=== PATIENT | female | born 1955 | race Caucasian/White ===

== ENCOUNTER 2020-02-26 09:56 | Outpatient (REF) | payer MEDICARE, SELFPAY | END 2020-02-26 09:57 | disposition home or self-care (01) | LOC: HO.LAB 09:56 | PROVIDERS: PCP Internal Medicine Geriatric Medicine; Visit Provider Internal Medicine | DX: Z20.828 Contact with and (suspected) exposure to other viral communicable diseases (principal) | CPT/HCPCS: C9803; U0003 ==

== ENCOUNTER 2020-03-31 10:05 | Outpatient (REF) | payer MEDICARE, MEDICAID, SELFPAY | END 2020-03-31 10:06 | disposition home or self-care (01) | LOC: HO.LAB 10:05 | PROVIDERS: Visit Provider Internal Medicine | DX: Z20.822 Contact with and (suspected) exposure to COVID-19 (principal) | CPT/HCPCS: 36415; C9803; U0003 ==

== ENCOUNTER 2020-05-09 10:04 | Outpatient (REF) | payer MEDICARE, MEDICAID, OTHER, SELFPAY | END 2020-05-09 10:05 | disposition home or self-care (01) | LOC: HO.LAB 10:04 | PROVIDERS: Visit Provider Internal Medicine | DX: Z20.822 Contact with and (suspected) exposure to COVID-19 (principal) | CPT/HCPCS: 36415; C9803; U0003; U0005 ==

== ENCOUNTER 2020-05-10 12:17 | Emergency (ER) | payer MEDICARE, OTHER, SELFPAY ==
--- NOTE | ~2020-05-10 | XR_ITS ---
EXAMINATION: CHEST 2 VIEWS CLINICAL INFORMATION: Cough, fever. COMPARISON: March 25, 2018. TECHNIQUE: PA and lateral views of the chest were obtained. FINDINGS: The cardiac silhouette is not enlarged. The mediastinal and hilar contours are unremarkable. There are no pneumothoraces. There is a mixture of pleural and parenchymal opacification at the left lung base. The osseous structures are stable with evidence of prior vertebroplasty. XR/XR chest 2V IMPRESSION: Mixture of pleural and parenchymal opacification at the left lung base. An underlying pneumonia cannot be excluded. Recommendation is for a followup chest series to be obtained following treatment and/or resolution of symptoms to assure resolution of this appearance.
[2020-05-10 12:56] VITALS: BP 148/89; PULSE 98; RESP 20; TEMP 36.7; O2SAT 95; BMI 38.9
--- NOTE | 2020-05-10 13:04 | ED_ITS ---
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 No shortness of breath, chest pain, abdominal pain, vomiting, diarrhea, leg pain or swelling. Has been at home with the same symptoms. Tested negative for COVID this week. Related Data Previous Rx's Medication Instructions Recorded azithromycin See Rx Instructions .ROUTE 05/10/20 .COMPLEX #6 tab Allergies Allergy/AdvReac Type Severity Reaction Status Date / Time codeine [CODEINE] Allergy Intermediate LT FACIAL Unverified 11/29/19 15:47 NUMBNESS Codeine Phosphate Allergy Unknown Uncoded 01/26/19 00:00 Review of Systems Review of Systems: Yes all other systems are reviewed and are negative Constitutional: Constitutional: Reports no additional constitutional complaints, Denies body ache(s), Denies chills, Reports fever(s), Denies headache(s) and Denies weakness Eyes: Eyes: Reports no additional eye complaints and Denies change in vision ENT: Reports system reviewed and no additional complaints, except as documented, Denies dizziness, Denies headache(s), Denies nasal congestion, Denies nasal discharge and Denies neck pain Cardiovascular: Cardiovascular: Reports no additional cardiovascular complaints, Denies chest pain, Denies leg edema and Denies dyspnea Respiratory: Respiratory: Reports no additional respiratory complaints, Reports cough and Denies dyspnea Gastrointestinal: Gastrointestinal: Reports no additional gastrointestinal complaints, Denies abdominal pain, Denies diarrhea, Denies nausea and Denies vomiting Genitourinary: Genitourinary: Reports no additional female genitourinary complaints and Denies urinary incontinence Musculoskeletal: Musculoskeletal: Reports no additional musculoskeletal complaints, Denies back pain, Denies arthralgias, Denies joint swelling, Denies neck pain, Denies numbness and Denies tingling Integumentary/Breasts: Skin/Breast: Reports system reviewed and no additional complaints, except as docu and Denies rash Neurologic: Reports system reviewed and no additional complaints, except as documented, Denies Abnormal speech present, Denies dizziness, Denies headache(s), Denies numbness, Denies tingling and Denies weakness [facility] Past Medical History Attestation statement: The following information was validated with the patient. Source: old records reviewed and nursing notes reviewed Medical History Asthma Social History Social History Smoking Status: Never smoker Use of substances other than those prescribed or required for medical reasons: No Advance Directives: No Advance Directives Information Provided: No Physical Exam Vital Signs: Vital Signs: Last Vital Signs Temp 98.8 F 05/10/20 16:51 Pulse 94 05/10/20 16:51 Resp 18 05/10/20 16:51 BP 118/72 05/10/20 16:51 Pulse Ox 95 05/10/20 16:51 Body Mass Index 38.9 Const: General: cooperative, healthy appearing, comfortable and no acute distress Orientation/consciousness: patient oriented x3 Limitations: no li mitations HENMT: Head: Yes normal to inspection Ears: hearing grossly normal bilaterally General nose exam: Normal external nose present Face and sinus: Yes normal facial exam Mouth: Normal oral and palatal mucosa present Throat: Yes posterior oropharynx normal Eyes: General: appearance normal, both eyes and all related structures Pupils: Equal, round and reactive pupils present Neck: Neck: Yes normal visual inspection Chest: Chest palpation & inspection: normal inspection of the chest Resp: Effort & Inspection: normal respiratory effort Auscultation: clear to auscultation bilaterally Cardio: Rate: regular rate Rhythm: regular rhythm Peripheral pulses: Peripheral pulses 2+ throughout GI: Inspection: Yes normal to inspection Palpation (GI): Soft to palpation and nontender Auscultation: normal bowel sounds Back/Spine/Pelvis: Thoracic/Lumbar Spine: thoracic and lumbar spine normal to inspection Skin: General skin exam: no rashes or lesions noted Neuro: General: patient oriented x3, no focal motor deficits and normal sensation to monofilament Cranial nerves: Yes Equal, round and reactive pupils present Cognition (Neuro): normal cognition Speech: No Abnormal speech present Gait exam (Neuro): Normal gait present Motor exam (neuro): 5/5 motor strength present throughout Extrem: General: Yes normal to inspection, Yes no pedal edema and Yes no calf tenderness Course Course Course Narrative: 64-year-old female with a past medical history of asthma here with complaints of subjective fevers and cough x1 month. Has been at home with same symptoms. Tested negative for COVID this week. Patient is well appearing, stable vital signs, clear lung sounds. Will check chest x-ray . 1430-CXR c/w with LLL PNA. Stable saturations, well appearing with no hypoxia and LS CTA. Will treal with oral antibiotics. Reviewed worrisome signs and symptoms when to return to the emergency department. Comfortable discharge home. MDM - URI/Sore Throat Medical Records Attestation: I reviewed the patient's medical records. Lab Data Attestation: I reviewed the patient's lab results. Imaging Data Chest x-ray: Attestation: I personally reviewed and interpreted this imaging study as follows: Radiologist's impression: EXAMINATION: CHEST 2 VIEWS CLINICAL INFORMATION: Cough, fever. COMPARISON: March 25, 2018. TECHNIQUE: PA and lateral views of the chest were obtained. FINDINGS: The cardiac silhouette is not enlarged. The mediastinal and hilar contours are unremarkable. There are no pneumothoraces. There is a mixture of pleural and parenchymal opacification at the left lung base. The osseous structures are stable with evidence of prior vertebroplasty. XR/XR chest 2V IMPRESSION: Mixture of pleural and parenchymal opacification at the left lung base. An underlying pneumonia cannot be excluded. Recommendation is for a followup chest series to be obtained following treatment and/or resolution of symptoms to assure resolution of this appearance. Discharge Plan Discharge Clinical Impression: Pneumonia Qualifiers: Pneumonia type: due to unspecified organism Laterality: left Lung location: lower lobe of lung Qualified Code(s): J18.9 - Pneumonia, unspecified organism Patient Disposition: Home, Self-Care Instructions: Community Acquired Pneumonia (ED) Additional Instructions: Start your antibiotics today Take Motrin or Tylenol if able as needed for pain or fever Increase fluids rest Prescriptions: New azithromycin 250 mg tablet See Rx Instructions .ROUTE .COMPLEX Qty: 6 RF: 0 Referrals: Name,MD Garth [Primary Care Provider] - 2 days Interventions: ED Discharge Assessment Last Done: 05/10/20 17:28 Print Language: Sudanese
[2020-05-10 14:23] VITALS: BP 131/74; PULSE 92; RESP 18; O2SAT 95
[2020-05-10 16:51] VITALS: BP 118/72; PULSE 94; RESP 18; TEMP 37.1; O2SAT 95
== END 2020-05-10 17:28 | disposition home or self-care (01) ==
PROVIDERS: Emergency Provider Emergency Medicine Emergency Medical Services; PCP Internal Medicine Geriatric Medicine
DX: J18.9 Pneumonia, unspecified organism (principal); R50.9 Fever, unspecified; J45.909 Unspecified asthma, uncomplicated
CPT/HCPCS: 71046; 99283; 99284

== ENCOUNTER 2020-07-03 08:14 | Outpatient (REF) | payer MEDICARE, OTHER, SELFPAY ==
--- NOTE | ~2020-07-03 | XR_ITS ---
EXAMINATION: XR CHEST CLINICAL INFORMATION: Dyspnea COMPARISON: Chest radiographs 05/10/2020, 02/27/2018; CT chest 07/25/2017; chest radiographs 03/21/2017 TECHNIQUE: 2 views of the chest were obtained. FINDINGS: There are chronic changes left base with mild elevation diaphragm and associated atelectasis similar to prior studies dating back to 07/25/2017. There is fine linear density right midlung zone also stable, the heart is normal in size. The vascularity is normal. There is no vascular congestion, interval airspace consolidation, or effusion. There is been prior vertebral augmentation lower thoracic spine. XR/XR chest 2V IMPRESSION: Chronic changes left base similar to prior studies dating back to 2017. No acute intrathoracic disease.
== END 2020-07-03 08:15 | disposition home or self-care (01) ==
LOC: HO.XRAY 08:14
PROVIDERS: PCP Internal Medicine Geriatric Medicine; Visit Provider Internal Medicine Geriatric Medicine
DX: R06.00 Dyspnea, unspecified (principal); Z86.79 Personal history of other diseases of the circulatory system
CPT/HCPCS: 71046

== ENCOUNTER → 2020-07-14 07:30 | Outpatient (REF) | payer MEDICARE, OTHER, SELFPAY | LOC: HO.CARD 07:30 | PROVIDERS: PCP Internal Medicine Geriatric Medicine; Visit Provider Internal Medicine Geriatric Medicine | DX: Z13.89 Encounter for screening for other disorder (principal) ==

== ENCOUNTER 2020-07-21 12:36 | Outpatient (REF) | payer MEDICARE, OTHER, SELFPAY ==
--- NOTE | 2020-07-21 | PFT_ITS ---
FLOWS: FEV1 50% of predicted at 1.19 L. FVC 47% of predicted at 1.42 L. FEV1 to FVC ratio of 0.84. No bronchodilator response. LUNG VOLUMES: Total lung capacity 58% of predicted at 2.88 L. Residual volume 73% of predicted at 1.49 L. Slow vital capacity 48% of predicted at 1.39 L. Expiratory reserve volume 24% of predicted at 0.19 L. Diffusion capacity is mildly decreased, diffusion capacity corrects to normal after adjustment for alveolar ventilation. IMPRESSION: Moderate to severe restrictive ventilatory defect with no bronchodilator response. Decreased expiratory reserve volume suggests extrathoracic restriction likely secondary to abdominal obesity. Jb Gonzales MD AP/MODL / [id number]
== END 2020-07-21 12:37 | disposition home or self-care (01) ==
LOC: HO.RESP 12:36
PROVIDERS: PCP Internal Medicine Geriatric Medicine; Visit Provider Internal Medicine Geriatric Medicine
DX: R06.00 Dyspnea, unspecified (principal); Z86.79 Personal history of other diseases of the circulatory system
CPT/HCPCS: 94060; 94727; 94729

== ENCOUNTER → 2020-09-03 09:16 | Outpatient (REF) | payer MEDICARE, OTHER, SELFPAY ==
--- NOTE | 2020-09-03 09:22 | CA_ITS ---
Transthoracic Echocardiogram Patient (Last, First, Middle): Evelia Holm, Gender: Female Date of : 1955 Age: 64 Procedure Date: 09/03/2020 Procedure Type: Transthoracic Echocardiogram Location: OP Height: 160.02 cm Weight: 102.97 kg BSA: 2.04 m2 Heart Rate: bpm BP: 122 / 70 mmHg Concrete Float Maker: LALA Referring MD: Garth Brock MD Kitchen Help Handyman: Serafin Alvarez MD Symptoms: DYSPNEA, UNSPECIFIED Study Quality: Fair ECG Rhythm: Sinus Conclusions: - 1. Normal LV systolic function with grade 1 diastolic dysfunction 2. Normal cardiac valvular Doppler 3. Normal RV systolic pressure 4. No pericardial effusion Findings Procedure Information The patient receives contrast. Left Ventricle Normal left ventricular size, thickness, and systolic function. The visually estimated ejection fraction is between 60-65%. There is no evidence of regional wall motion abnormalities. Spectral Doppler is indicative of an impaired relaxation filling pattern. E/E prime ratio is <8, consistent with normal filling pressures. Evidence suggests grade I (mild) diastolic dysfunction. Right Ventricle Normal right ventricular cavity size and systolic function. Atria The left atrium is likely dilated. Interatrial shunt cannot be excluded. The right atrium was not well visualized. Aortic Valve Normal aortic valve structure and function. There is no aortic valve stenosis. There is no aortic valve regurgitation. Mitral Valve Normal mitral valve structure and function. There is trace mitral valve regurgitation. There is no mitral valve stenosis. Pulmonic Valve The pulmonic valve was not well visualized. There is trace to mild pulmonic valve regurgitation. Tricuspid Valve Likely normal tricuspid valve structure and function. There is trace tricuspid valve regurgitation. The right ventricular systolic pressure is normal. The right ventricular systolic pressure is 27 mmHg. Normal right atrial pressure. There is no evidence of pulmonary hypertension. Great Vessels All visible segments of the aorta are normal in size. The pulmonary artery was not well visualized. Venous The inferior vena cava is normal in size and collapses greater than 50% with inspiration. Pericardium/Pleural There is no evidence of pericardial effusion. Prior Study Comparison No significant change compared to prior study dated: 05/30/2018. Measurements 2D Linear Measurements RVIDd: 2.93 RVIDd Index: 1.44 IVSd: 1.05 0.6-0.9/0.6-1.0 cm LVIDd: 4.74 3.9-5.3/4.2-5.9 cm LVIDd Index: 2.32 2.4-3.2/2.2-3.1 cm/m2 LVIDs: 2.87 2.0-3.6 cm LVPWd: 0.87 0.7-1.1 cm Ao Root: 3.10 2.1-3.5 cm LA Diam: 4.20 2.7-3.8/3.0-4.0 cm LAIDs Index: 2.06 1.5-2.3 cm/m2 LV Mass: 196.33 67-162/88-224 g LV Mass Index: 96.24 43-95/49-115 g/m2 LVOT Diam: 2.40 3.0+(-)1.3 cm 2D Systolic Function EF 4C: 60.50 >55% EF 2C: 61.70 >55% Mitral Valve MV Pk E: 0.71 MV PK A: 0.93 MV Decel Time: 262.00 E/A: 0.80 E'Lateral: 8.59 E'Medial: 5.77 E/E' Med: 12.30 E/E' Lat: 8.20 Aortic Valve AoV Pk Michael: 1.35 AoV Mn Michael: 0.92 AoV VTI: 0.29 AoV Pk Grad: 7.00 Aov Mn Grad: 4.00 CHLOÉ Cont.VTI: 3.74 LVOT LVOT Pk Michael: 0.95 LVOT Mn Michael: 0.62 LVOT VTI: 0.24 LVOT Pk Grad: 4.00 LVOT Mn Grad: 2.00 LVOT Diam: 2.40 LVOT Area: 4.52 Diastolic Function MV Pk E: 0.71 MV Pk A: 0.93 E/A: 0.80 E'Medial: 5.77 E/E' Med: 12.30 E' Laterial: 8.59 E/E' Lat: 8.20 Tricuspid Valve TR Pk Michael: 2.43 TR Pk Grad: 24.00 RA Press: 3.00 RVSP: 27.00 Great Vessels Aorta Ao Root-2D: 3.10 2.0-3.7 cm Ao Asc: 3.90 2.1-3.4 cm Ao Arch: 3.00 Updated in Other Vendor System with Status of Final Serafin Alvarez MD electronically signed on 09/03/2020 4:07:39 PM with status of Final
== END ==
LOC: HO.CARD 09:16
PROVIDERS: PCP Internal Medicine Geriatric Medicine; Visit Provider Internal Medicine Geriatric Medicine
DX: R06.00 Dyspnea, unspecified (principal); Z86.79 Personal history of other diseases of the circulatory system
CPT/HCPCS: 93306; Q9957

== ENCOUNTER 2020-10-01 11:18 | Outpatient (REF) | payer MEDICARE, OTHER, SELFPAY ==
--- NOTE | ~2020-10-01 | US_ITS ---
EXAMINATION: PELVIC ULTRASOUND CLINICAL INFORMATION: Postmenopausal bleeding COMPARISON: Previous pelvic ultrasound recent December [address] of the abdomen and pelvis March 2017 TECHNIQUE: Transabdominal and transvaginal pelvic ultrasound was performed. Transvaginal exam was performed for better visualization of the uterus and ovaries. FINDINGS: The uterus is anteverted and measures 6.5 x 3.4 x 3.8 cm in dimension. No focal uterine lesion is seen. The endometrium in slightly thickened for postmenopausal patient measuring 0.8 cm. There is a nabothian cyst in the cervix. The right ovary is not seen. The left ovary is normal-appearing and measures 1.9 x 1.7 x 1.6 cm. There is no fluid in the pelvis. US/US pelvic and transvaginal IMPRESSION: Slightly thickened endometrium measuring 0.8 cm. Tissue sampling should be considered. Normal-appearing left ovary. Right ovary not seen.
== END 2020-10-01 11:19 | disposition home or self-care (01) ==
LOC: HO.US 11:18
PROVIDERS: Visit Provider Advanced Practice Midwife
DX: N95.0 Postmenopausal bleeding (principal)
CPT/HCPCS: 76830; 76856

== ENCOUNTER → 2020-10-09 10:04 | Outpatient (BNVA) | payer MEDICARE, OTHER, SELFPAY | PROVIDERS: PCP Internal Medicine Geriatric Medicine; Visit Provider Anesthesiology | DX: M25.50 Pain in unspecified joint (principal); M79.7 Fibromyalgia; M54.2 Cervicalgia | CPT/HCPCS: 99212 ==

== ENCOUNTER 2020-10-23 15:23 | Outpatient (REF) | payer MEDICARE, OTHER, SELFPAY ==
--- NOTE | ~2020-10-23 | MM_ITS ---
EXAMINATION: MM SCREENING DIGITAL BREAST TOMOSYNTHESIS, BILATERAL CLINICAL INFORMATION: Screening. Asymptomatic. The lifetime risk of breast cancer based on the Tyrer-Cuzick Model is 5%. COMPARISON: Mammography: 12/14/2018, 11/22/2017, 03/26/2016 TECHNIQUE: Digital breast tomosynthesis is performed in both the craniocaudal and mediolateral oblique views along with computer-aided detection (CAD). Synthesized 2D images are generated from the tomosynthesis. Additional right MLO view is provided. FINDINGS: There are scattered areas of fibroglandular density (ACR BI-RADS breast composition Category b). There are no significant masses, abnormal calcifications, or other abnormalities. Parenchymal pattern is similar to prior studies. The axilla and skin contours are unremarkable. MM/MM tomosynthesis screening BI IMPRESSION: No mammographic evidence of malignancy. ASSESSMENT: BI-RADS 1: Negative RECOMMENDATION: Routine annual mammography screening. This patient's information was entered into a reminder system with a target due date for their next mammogram.
== END 2020-10-23 15:24 | disposition home or self-care (01) ==
LOC: HO.MAMMO 15:23
PROVIDERS: Visit Provider Advanced Practice Midwife
DX: Z12.31 Encounter for screening mammogram for malignant neoplasm of breast (principal)
CPT/HCPCS: 77063; 77067

== ENCOUNTER 2020-11-28 13:40 | Outpatient (REF) | payer MEDICARE, OTHER, SELFPAY ==
--- NOTE | ~2020-11-28 | XR_ITS ---
EXAMINATION: XR THORACIC SPINE CLINICAL INFORMATION: Thoracic spine pain. COMPARISON: Thoracic and lumbar spine radiographs dated 04/11/2019. TECHNIQUE: AP and lateral views of the thoracic spine. FINDINGS: Redemonstration of a T9 vertebroplasty. No acute fracture or subluxation. No new loss of vertebral body height. Mild multilevel loss of intervertebral disc height with small endplate osteophytes. No new lytic or blastic osseous lesion. The visualized lungs are clear. XR/XR thoracic spine 2V IMPRESSION: Stable T9 vertebroplasty. No acute osseous abnormality.
== END 2020-11-28 13:41 | disposition home or self-care (01) ==
LOC: HO.XRAY 13:40
PROVIDERS: PCP Internal Medicine Geriatric Medicine; Visit Provider Internal Medicine Geriatric Medicine
DX: M54.6 Pain in thoracic spine (principal)
CPT/HCPCS: 72070

== ENCOUNTER 2020-11-28 14:41 | Outpatient (REF) | payer MEDICARE, OTHER, SELFPAY | END 2020-11-28 14:42 | disposition home or self-care (01) | LOC: HO.LAB 14:41 | PROVIDERS: Visit Provider Internal Medicine | DX: Z20.822 Contact with and (suspected) exposure to COVID-19 (principal) | CPT/HCPCS: C9803; U0003; U0005 ==

== ENCOUNTER 2021-10-26 14:18 | Outpatient (REF) | payer MEDICARE, OTHER, SELFPAY ==
--- NOTE | ~2021-10-26 | MM_ITS ---
EXAMINATION: MM SCREENING DIGITAL BREAST TOMOSYNTHESIS, BILATERAL CLINICAL INFORMATION: Screening. Asymptomatic. The lifetime risk of breast cancer based on the Tyrer-Cuzick Model is 5%. COMPARISON: Mammography: 10/23/2020, 12/14/2018, 11/22/2017 TECHNIQUE: Digital breast tomosynthesis is performed in both the craniocaudal and mediolateral oblique views along with computer-aided detection (CAD). Synthesized 2D images are generated from the tomosynthesis. FINDINGS: There are scattered areas of fibroglandular density (ACR BI-RADS breast composition Category b). There are no significant masses, abnormal calcifications, or other abnormalities. No significant changes from prior studies. The axilla and skin contours are unremarkable. MM/MM tomosynthesis screening BI IMPRESSION: No mammographic evidence of malignancy. ASSESSMENT: BI-RADS 1: Negative RECOMMENDATION: Routine annual mammography screening. This patient's information was entered into a reminder system with a target due date for their next mammogram.
== END 2021-10-26 14:19 | disposition home or self-care (01) ==
LOC: HO.MAMMO 14:18
PROVIDERS: PCP Internal Medicine Geriatric Medicine; Visit Provider Advanced Practice Midwife
DX: Z12.31 Encounter for screening mammogram for malignant neoplasm of breast (principal)
CPT/HCPCS: 77063; 77067

== ENCOUNTER → 2022-10-22 09:42 | Outpatient (REF) | payer MEDICARE, MEDICAID, SELFPAY ==
--- NOTE | 2022-10-22 09:45 | CA_ITS ---
Transthoracic Echocardiogram Patient (Last, First, Middle): Evelia Holm, Gender: Female Date of : 1955 Age: 66 Procedure Date: 10/22/2022 Procedure Type: Transthoracic Echocardiogram Location: OP Height: 160.02 cm Weight: 85.73 kg BSA: 1.89 m2 Heart Rate: bpm BP: 130 / 78 mmHg Dentist: TO Referring MD: Garth Brock MD Symptoms: HX PERICARDITIS Z86.79 Study Quality: Fair/Contrast Conclusions: - Normal left ventricular size and systolic function. There is mildly increased left ventricular wall thickness. The visually estimated ejection fraction is between 60-65%. There is no evidence of regional wall motion abnormalities. Diastolic function is normal for age. - Normal right ventricular cavity size and systolic function. - There is mild dilatation of the ascending aorta measuring 3.80 cm. Findings Procedure Information Contrast agent, definity, is being given per protocol without apparent complications. Left Ventricle Normal left ventricular size and systolic function. There is mildly increased left ventricular wall thickness. The visually estimated ejection fraction is between 60-65%. There is no evidence of regional wall motion abnormalities. Diastolic function is normal for age. Right Ventricle Normal right ventricular cavity size and systolic function. Atria The left atrium is normal in size. The right atrium is normal in size. Aortic Valve Normal aortic valve structure and function. There is no aortic valve stenosis. There is no aortic valve regurgitation. Mitral Valve The mitral valve appears normal. There is trace mitral valve regurgitation. There is no mitral valve stenosis. Pulmonic Valve The pulmonic valve is likely normal. There is no pulmonic valve regurgitation. Tricuspid Valve Normal tricuspid valve structure. There is trace tricuspid valve regurgitation. Normal right atrial pressure. There is no evidence of pulmonary hypertension. Great Vessels There is mild dilatation of the ascending aorta measuring 3.80 cm. The visualized portions of the pulmonary artery and branches are normal. Venous The inferior vena cava is normal in size and collapses greater than 50% with inspiration. Pericardium/Pleural There is no evidence of pericardial effusion. Prior Study Comparison Changes noted compared to prior study dated: 09/03/2020. Mild dilation of ascending aorta 3.8 cm. Measurements 2D Linear Measurements IVSd: 0.98 0.6-0.9/0.6-1.0 cm LVIDd: 4.53 3.9-5.3/4.2-5.9 cm LVIDd Index: 2.40 2.4-3.2/2.2-3.1 cm/m2 LVIDs: 2.98 2.0-3.6 cm LVPWd: 0.86 0.7-1.1 cm LA Diam: 3.60 2.7-3.8/3.0-4.0 cm LAIDs Index: 1.90 1.5-2.3 cm/m2 LV Mass: 172.14 67-162/88-224 g LV Mass Index: 91.08 43-95/49-115 g/m2 LVOT Diam: 2.10 3.0+(-)1.3 cm 2D Systolic Function EF 4C: 62.30 >55% EF 2C: 62.90 >55% EF BiP: 63.20 >55% Mitral Valve MV Pk E: 0.69 MV PK A: 0.67 MV Decel Time: 207.00 E/A: 1.00 E'Lateral: 8.92 E'Medial: 6.42 E/E' Med: 10.80 E/E' Lat: 7.80 PHT: 61.00 MVA PHT: 3.61 Decel [place]: 3.35 Aortic Valve AoV Pk Michael: 1.35 AoV Mn Michael: 0.83 AoV VTI: 0.30 AoV Pk Grad: 7.00 Aov Mn Grad: 3.00 CHLOÉ Cont.VTI: 2.15 LVOT LVOT Pk Michael: 0.71 LVOT Mn Michael: 0.44 LVOT VTI: 0.18 LVOT Pk Grad: 2.00 LVOT Mn Grad: 1.00 LVOT Diam: 2.10 LVOT Area: 3.46 Diastolic Function MV Pk E: 0.69 MV Pk A: 0.67 E/A: 1.00 E'Medial: 6.42 E/E' Med: 10.80 E' Laterial: 8.92 E/E' Lat: 7.80 Right Ventricle TAPSE (mm): 20.80 TVS' Michael: 11.90 Tricuspid Valve TR Pk Michael: 2.55 TR Pk Grad: 26.00 RA Press: 3.00 RVSP: 29.00 Great Vessels Aorta Sinus of Valsalva: 3.43 2.0-3.5 cm Ao Asc: 3.80 2.1-3.4 cm Updated in Other Vendor System with Status of Final Chris Mead MD electronically signed on 10/24/2022 7:02:36 PM with status of Final
== END ==
LOC: HO.CARD 09:42
PROVIDERS: PCP Internal Medicine Geriatric Medicine; Visit Provider Internal Medicine Geriatric Medicine
DX: R07.9 Chest pain, unspecified (principal); Z86.79 Personal history of other diseases of the circulatory system
CPT/HCPCS: 93306; Q9957

== ENCOUNTER → 2022-10-22 09:45 | Outpatient (BNV) | payer MEDICARE, SELFPAY | PROVIDERS: PCP Internal Medicine Geriatric Medicine; Visit Provider Internal Medicine Cardiovascular Disease | DX: I77.810 Thoracic aortic ectasia (principal) | CPT/HCPCS: 93306 ==

== ENCOUNTER 2022-10-27 09:57 | Outpatient (REF) | payer MEDICARE, OTHER, SELFPAY | END 2022-10-27 09:58 | disposition home or self-care (01) | LOC: HO.MAMMO 09:57 | PROVIDERS: PCP Internal Medicine Geriatric Medicine; Visit Provider Advanced Practice Midwife | DX: Z12.31 Encounter for screening mammogram for malignant neoplasm of breast (principal) | CPT/HCPCS: 77063; 77067 ==

== ENCOUNTER → 2022-10-27 14:45 | Outpatient (BNV) | payer MEDICARE, MEDICAID, SELFPAY | PROVIDERS: PCP Internal Medicine Geriatric Medicine; Visit Provider Radiology Diagnostic Radiology | DX: Z12.31 Encounter for screening mammogram for malignant neoplasm of breast (principal) | CPT/HCPCS: 77063; 77067 ==

== ENCOUNTER 2022-11-16 10:37 | Outpatient (REF) | payer MEDICARE, MEDICAID, SELFPAY ==
--- NOTE | ~2022-11-16 | XR_ITS ---
EXAMINATION: XR SHOULDER, LEFT CLINICAL INFORMATION: Chronic pain COMPARISON: None available. TECHNIQUE: 4 views of the left shoulder. FINDINGS: Visualized portion of the proximal left humerus demonstrate no fracture. Humeral head demonstrates good articulation with the glenoid fossa. There are moderate hypertrophic changes of the left acromioclavicular joint. Small soft tissue calcifications are present adjacent to the greater tuberosity of the humerus. Visualized left-sided ribs and lung parenchyma are unremarkable. XR/XR shoulder LT min 2V IMPRESSION: Mild degenerative changes of the left shoulder without fracture or dislocation.
== END 2022-11-16 10:38 | disposition home or self-care (01) ==
LOC: HO.HHCX 10:37
PROVIDERS: Visit Provider Internal Medicine
DX: M25.512 Pain in left shoulder (principal)
CPT/HCPCS: 73030

== ENCOUNTER 2022-12-27 08:11 | Outpatient (REF) | payer OTHER, SELFPAY ==
[2022-12-27 11:49] LABS: Estimated Average Glucose 108 mg/dL; Hemoglobin A1c % 5.4 % (<6.0)
[2022-12-27 12:14] LABS: Alanine Aminotransferase 10 U/L (0-31); Albumin Level 4.3 g/dL (3.5-5.0); Alkaline Phosphatase 97 U/L (39-117); Anion Gap 15 (12-20); Aspartate Amino Transferase 18 U/L (5-31); Bilirubin Total 0.7 mg/dL (0.0-1.0); Blood Urea Nitrogen 13 mg/dL (9-16); Calcium 9.8 mg/dL (8.4-10.2); Carbon Dioxide 29 mmol/L (22-29); Chloride 103 mmol/L (96-108); Cholesterol 209 mg/dL (<200); Estimated Glomerular Filt Rate > 60; Glucose Random 87 mg/dL (60-115); HDL Cholesterol 66 mg/dL (>40); LDL Cholesterol Calculated 124 mg/dL (<100); Potassium 3.9 mmol/L (3.3-5.1); Sodium 143 mmol/L (135-145); Triglycerides 95 mg/dL (<150)
== END 2022-12-27 08:12 | disposition home or self-care (01) ==
LOC: HO.HHCL 08:11
PROVIDERS: Visit Provider Internal Medicine Geriatric Medicine
DX: R73.03 Prediabetes (principal); I10 Essential (primary) hypertension; R07.9 Chest pain, unspecified
CPT/HCPCS: 36415; 80053; 80061; 83036

== ENCOUNTER → 2023-04-13 12:39 | Outpatient (REF) | payer MEDICARE, OTHER, SELFPAY ==
--- NOTE | 2023-04-13 12:45 | CA_ITS ---
Transthoracic Echocardiogram Patient (Last, First, Middle): Evelia Holm, Gender: Female Date of : 1955 Age: 67 Procedure Date: 04/13/2023 Procedure Type: Transthoracic Echocardiogram Location: OP Height: 160.02 cm Weight: 81.65 kg BSA: 1.85 m2 Heart Rate: bpm BP: 110 / 68 mmHg Trading Specialist: TO Referring MD: Garth Brock MD Dividend Deposit Entry Clerk: Serafin Alvarez MD Symptoms: HX. OF PERICARDITIS. Z86.79 Study Quality: Technically Difficult ECG Rhythm: Sinus Conclusions: - 1. Normal LV ejection fraction 55-60% 2. Normal cardiac valvular Doppler 3. Normal RV systolic pressure 4. Mildly dilated ascending aorta at 3.8 cm 5. Trivial pericardial effusion Findings Procedure Information The study quality is limited by the patients inability to tolerate the test and patients body habitus. The patient declines contrast. Left Ventricle Normal left ventricular size, thickness, and systolic function. The visually estimated ejection fraction is between 55-60%. Regional wall motion abnormalities can not be excluded due to suboptimal endocardial definition. Spectral Doppler is indicative of a normal filling pattern. Right Ventricle The right ventricle was not well visualized. Atria The left atrium is normal in size. There is no evidence of interatrial shunt. The right atrium was not well visualized. Aortic Valve Normal aortic valve structure and function. There is no aortic valve stenosis. There is no aortic valve regurgitation. Mitral Valve Likely normal mitral valve structure and function. There is trace mitral valve regurgitation. There is no mitral valve stenosis. Pulmonic Valve The pulmonic valve was not well visualized. Tricuspid Valve Likely normal tricuspid valve structure and function. There is trace tricuspid valve regurgitation. The right ventricular systolic pressure is normal. The right ventricular systolic pressure is 30 mmHg. Normal right atrial pressure. There is no evidence of pulmonary hypertension. Great Vessels The pulmonary artery was not well visualized. Small plaque is seen in the sino tubular ridge. Venous The inferior vena cava is normal in size and collapses greater than 50% with inspiration. Pericardium/Pleural There is a trivial circumferential pericardial effusion. Prior Study Comparison No significant change compared to prior study dated: 10/22/2022. delay in reporting related to technical issues Measurements 2D Linear Measurements IVSd: 1.12 0.6-0.9/0.6-1.0 cm LVIDd: 3.66 3.9-5.3/4.2-5.9 cm LVIDd Index: 1.98 2.4-3.2/2.2-3.1 cm/m2 LVIDs: 2.59 2.0-3.6 cm LVPWd: 0.97 0.7-1.1 cm LA Diam: 3.30 2.7-3.8/3.0-4.0 cm LAIDs Index: 1.78 1.5-2.3 cm/m2 LV Mass: 146.72 67-162/88-224 g LV Mass Index: 79.31 43-95/49-115 g/m2 LVOT Diam: 2.00 3.0+(-)1.3 cm Mitral Valve MV Pk E: 0.64 MV PK A: 0.86 MV Decel Time: 220.00 E/A: 0.70 E'Lateral: 9.03 E'Medial: 6.31 E/E' Med: 10.10 E/E' Lat: 7.10 PHT: 64.00 MVA PHT: 3.44 Decel Fleming: 2.90 Aortic Valve AoV Pk Michael: 1.39 AoV Mn Michael: 0.86 AoV VTI: 0.26 AoV Pk Grad: 8.00 Aov Mn Grad: 4.00 CHLOÉ Cont.VTI: 2.19 LVOT LVOT Pk Michael: 0.85 LVOT Mn Michael: 0.54 LVOT VTI: 0.18 LVOT Pk Grad: 3.00 LVOT Mn Grad: 1.00 LVOT Diam: 2.00 LVOT Area: 3.14 Diastolic Function MV Pk E: 0.64 MV Pk A: 0.86 E/A: 0.70 E'Medial: 6.31 E/E' Med: 10.10 E' Laterial: 9.03 E/E' Lat: 7.10 Right Ventricle TAPSE (mm): 17.80 TVS' Michael: 12.70 Tricuspid Valve TR Pk Michael: 2.58 TR Pk Grad: 27.00 RA Press: 3.00 RVSP: 30.00 Great Vessels Aorta Sinus of Valsalva: 3.34 2.0-3.[address] Ridge: 2.72 1.7-3.4 cm Ao Asc: 3.80 2.1-3.4 cm Ao Arch: 3.20 Updated in Other Vendor System with Status of Final Serafin Alvarez MD electronically signed on 04/15/2023 9:03:42 AM with status of Final
== END ==
LOC: HO.CARD 12:39
PROVIDERS: PCP Internal Medicine Geriatric Medicine; Visit Provider Internal Medicine Geriatric Medicine
DX: Z86.79 Personal history of other diseases of the circulatory system (principal)
CPT/HCPCS: 93306

== ENCOUNTER → 2023-04-13 12:45 | Outpatient (BNV) | payer MEDICARE, MEDICAID, SELFPAY | PROVIDERS: PCP Internal Medicine Geriatric Medicine; Visit Provider Internal Medicine Cardiovascular Disease | DX: I31.39 Other pericardial effusion (noninflammatory) (principal); Z86.79 Personal history of other diseases of the circulatory system | CPT/HCPCS: 93306 ==

== ENCOUNTER 2023-05-25 08:13 | Emergency (ER) | payer MEDICARE, MEDICAID, SELFPAY ==
--- NOTE | 2023-05-25 | ECG_ITS ---
Test Reason : chest pain Blood Pressure : / mmHG Vent. Rate : 073 BPM Atrial Rate : 073 BPM P-R Int : 156 ms QRS Dur : 090 ms QT Int : 362 ms P-R-T Axes : 019 -05 025 degrees QTc Int : 398 ms Normal sinus rhythm Minimal voltage criteria for LVH, may be normal variant ( R in aVL ) Possible Anterior infarct , age undetermined Abnormal ECG When compared with ECG of 25-MAR-2018 16:41, No significant change was found Referred By: Generic ED Physician Electronically Signed By:AMELIA SALDIVAR MD
--- NOTE | ~2023-05-25 | CT_ITS ---
EXAMINATION: CT CERVICAL SPINE WITHOUT CONTRAST CLINICAL INFORMATION: Left neck pain radiating into the upper extremity. COMPARISON: Cervical spine radiographs 04/11/2019. TECHNIQUE: Valet Cashier images were obtained. CT imaging of the cervical spine was performed without contrast. Data was reformatted into multiplanar images at the acquisition station. This CT examination was performed using dose optimization techniques as appropriate, variously including the following: *Automated exposure control *Adjustment of mA and/or kV according to patient size (this includes techniques or standardized protocols for targeted exams where dose is matched to indication/reason for exam; i.e. extremities or head) *Use of iterative reconstruction technique DLP: 324 mGy-cm FINDINGS: There are chronic postoperative changes of a suboccipital craniotomy and posterior C1 arch resection. Spinal alignment is normal in the sagittal dimension. No evidence of acute cervical spinal fracture. No abnormal prevertebral soft tissue swelling. Bridging bone fuses the C5-C7 vertebra. There are exuberant anterior disc osteophyte complexes at C2-C3, C3-C4, and C4-C5. 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 There is at least moderate canal stenosis at C4-C5. Uncovertebral joint spurring and conjunction with facet degenerative change causes severe bilateral neuroforaminal encroachment at C4-C5. Visualized soft tissues of the neck are unremarkable. Lung apices are clear. CT/CT cervical spine wo IV con IMPRESSION: There are chronic postoperative changes of a suboccipital craniotomy and posterior C1 arch resection. Bridging bone fuses the C5-C7 vertebra. There is advanced multilevel degenerative spondylosis of the cervical spine with junctional spondylosis above the fusion at C4-C5 where there is at least moderate canal stenosis and severe bilateral neuroforaminal encroachment. If there are clinical symptoms of compressive myelopathy then a dedicated cervical spine MRI can be obtained for better anatomic characterization of the cord and canal.
[2023-05-25 08:18] VITALS: BMI 31.8
[2023-05-25 08:30] VITALS: BP 148/72; PULSE 73; RESP 16; TEMP 36.6; O2SAT 95
[2023-05-25 08:34] LABS: MANUAL DIFF FLAG NO
[2023-05-25 08:36] LABS: Basophils Percent Auto 0.1 % (0-2); Eosinophils Absolute Auto 0.1 X10*3/uL (0.0-0.4); Hematocrit 46.2 % (37.0-47.0); Hemoglobin 14.7 g/dl (12.0-16.0); Imm Gran Abs Auto 0.03 X10*3/uL (0.00-0.03); Imm Gran Pct Auto 0.4 % (0.0-0.4); Lymphocytes Absolute Auto 1.4 X10*3/uL (1.2-4.9); Lymphocytes Percent Auto 17.9 % (20-40); Mean Corpuscular HGB Conc 31.8 g/dl (31.0-35.0); Mean Corpuscular Hemoglobin 28.8 pg (27.0-33.0); Mean Corpuscular Volume 90.6 fL (80.0-98.0); Mean Platelet Volume 10.4 fL (9.4-12.3); Monocytes Absolute Auto 0.7 X10*3/uL (0.1-1.2); Monocytes Percent Auto 9.3 % (2-11); Neutrophils Absolute Auto 5.6 x10*3/uL (2.0-8.3); Neutrophils Percent Auto 71.3 % (45-73); Platelet Count 273 X10*3/uL (160-400); Red Cell Distribution Width 13.4 % (11.0-16.0); White Blood Count 7.9 X10*3/uL (4.8-10.8)
[2023-05-25 08:50] LABS: Alanine Aminotransferase 12 U/L (0-31); Albumin Level 4.1 g/dL (3.5-5.0); Alkaline Phosphatase 100 U/L (39-117); Anion Gap 9 (12-20); Aspartate Amino Transferase 19 U/L (5-31); Bilirubin Total 0.6 mg/dL (0.0-1.0); Blood Urea Nitrogen 12 mg/dL (9-16); Calcium 10.2 mg/dL (8.4-10.2); Carbon Dioxide 33 mmol/L (22-29); Chloride 106 mmol/L (96-108); Creatinine Clr Calc Pharmacy 77.3; Estimated Glomerular Filt Rate > 60; Glucose Random 122 mg/dL (60-115); Sodium 144 mmol/L (135-145); Total Protein 7.7 g/dL (6.5-8.0)
[2023-05-25 08:58] LABS: Troponin-I High Sensitivity < 2.7 ng/L (<3.5-17.0)
[2023-05-25 09:02] VITALS: BP 132/72; PULSE 71; RESP 16; O2SAT 94
--- NOTE | 2023-05-25 09:07 | PC.NURSE ---
a&ox4. vss and up to date. nsr on the monitoring manager. pt presents to the ED w/ left sided chest pain that radiates to LUE/left side of back. started around 0130 this am - woke her from her sleep. denies feeling dizzy/lightheaded/headache/change in vision. denies numbness/tingling in LUE. pt states pain increases w/ movement. no sob/wob noted. respirations even and unlabored. pt waiting to see ED provider at this time. bedside for support. call mathur placed within reach.
--- NOTE | 2023-05-25 09:44 | ED_ITS ---
HPI - Chest Pain General Chief Complaint: Chest Pain Stated Complaint: Chest Pain Radiating to R Arm Time Seen by Provider: 05/25/23 09:31 Source: patient and railroad crossing protection maintainer Mode of arrival: ambulatory Limitations: language barrier History of Present Illness HPI narrative: Patient is a 67-year-old Occitan-speaking female with history cervicalgia, fibromyalgia, polyarthralgia, asthma presenting to the emergency department with complaint of left shoulder pain radiating up to left lateral neck, down to left anterior and lateral chest, down left arm to fingers. She states that the pain began around 1:30 a.m. and woke her from sleep. She states she is unable to move her left arm due to pain. Reports pain increases with movement and palpation. Feels fingers of left hand are swollen. She denies chest pain, palpitations, dyspnea. Did not take any over the counter medications for her symptoms. She denies fall or other trauma, denies recent strenuous activities. Denies fever/chills, cough, dyspnea. MD complaint: other Onset (ago): hour(s) Timing of current episode: constant Prior episodes: No Onset: during rest Pain location: left chest and lateral Pain radiation: left arm Severity: severe Quality: aching Exacerbating factors: palpation and movement Treatment prior to arrival: none Related Data Home Medications Medication Instructions Recorded Confirmed acetaminophen 650 mg 650 mg PO Q12H 10/09/20 tablet,extended release amlodipine 2.5 mg-benazepril 10 mg 1 cap PO DAILY 10/09/20 capsule aspirin 81 mg tablet,delayed 81 mg PO DAILY 10/09/20 release (Adult Aspirin Regimen) lidocaine 5 % topical patch 1 patch topical DAILY 10/09/20 nabumetone 750 mg tablet 750 mg PO BID 10/09/20 omeprazole 40 mg capsule,delayed 40 mg PO DAILY 10/09/20 release Previous Rx's Medication Instructions Recorded azithromycin 250 mg tablet See Rx Instructions PO .COMPLEX #6 05/10/20 tabs cyclobenzaprine 5 mg tablet 5 mg PO TID PRN muscle spasm #10 05/25/23 tabs lidocaine 5 % topical patch 1 patch topical DAILY #15 ea 05/25/23 prednisone 20 mg tablet 40 mg (2 x 20 mg) PO DAILY #10 tabs 05/25/23 Allergies Allergy/AdvReac Type Severity Reaction Status Date / Time codeine [CODEINE] Allergy Intermediate LT FACIAL Verified 05/25/23 08:29 NUMBNESS Codeine Phosphate Allergy Unknown Unknown Uncoded 10/09/20 11:39 Review of Systems 2 Review of Systems: As per HPI. Yes all other systems are reviewed and are negative Constitutional: Constitutional: Reports as per HPI [facility] Past Medical History Medical History (Updated 05/25/23 @ 13:42 by Brandee Mendez NP) Cervicalgia Fibromyalgia Polyarthralgia Asthma Social History Social History Smoked in Last 30 Days: No Use of substances other than those prescribed or required for medical reasons: No Advance Directives: No Physical Exam 2 Vital Signs: Vital Signs: Last Vital Signs Temp 97.8 F 05/25/23 08:30 Pulse 68 05/25/23 12:03 Resp 16 05/25/23 12:03 BP 129/79 05/25/23 12:03 Pulse Ox 96 05/25/23 12:03 O2 Del Method Room Air 05/25/23 12:03 BMI result Body Mass Index 31.8 Vital signs have been reviewed and appear to be correct. Blood pressure normal. Heart rate normal. Respiratory rate normal. Temperature normal. Oxygen saturation normal. Const: General: cooperative, healthy appearing and no acute distress O rientation/consciousness: oriented to person, oriented to place, oriented to time and patient oriented x3 Limitations: no limitations HEENT: Head: Yes normocephalic and Yes atraumatic Ears: external ears normal General nose exam: Normal external nose present Face and sinus: Yes face symmetric Mouth: oropharynx normal and moist mucous membranes T hroat: Yes uvula midline Eyes: Pupils: Equal, round and reactive pupils present Neck: Neck: Yes normal visual inspection, Yes no meningeal signs and Yes supple Chest: Chest palpation & inspection: normal inspection of the chest and tenderness clavicle on the left distal clavicular and pectoral muscle on the left diffusely Resp: Effort & Inspection: normal respiratory effort and able to speak in complete sentences Auscultation: clear to auscultation bilaterally Cardio: Rate: regular rate Rhythm: regular rhythm Heart sounds: S1 normal heart sound present and S2 normal heart sound present Peripheral pulses: Peripheral pulses 2+ throughout GI: Palpation (GI): Soft to palpation and nontender Auscultation: n ormoactive bowel sounds : General: Yes no CVA tenderness Back/Spine/Pelvis: Back: no CVA tenderness Skin: General skin exam: elasticity normal and turgor normal Neuro: General: oriented to person, oriented to place, oriented to time, patient oriented x3, gait normal, tone normal, moves all extremities, Normal light touch and pain sensation, no meningeal signs, no focal motor deficits, CN's II-XI intact bilaterally and deep tendon reflexes 2+ bilaterally Cranial nerves: Yes Equal, round and reactive pupils present Cognition (Neuro): n ormal cognition Motor exam (neuro): 5/5 motor strength present throughout, Normal motor muscle tone present throughout and Motor abnormalities not present Sensory Exam: Normal double simultaneous stimulation for sensation Extrem: General: Yes full ROM, Yes normal exam except as noted, Yes no pedal edema and Yes no calf tenderness Left upper extremity: shoulder/upper arm Details: inspection abnormal, tenderness (tenderness entire L arm shoulder to fingers) Location: of the A-C joint and normal ROM (passive, increased pain with ROM); no swelling, no ecchymosis, no deformity and no unsual warmth, elbow/forearm Details: normal to inspection, tenderness, normal ROM and distal pulses intact, wrist (tenderness) and hand Details: normal to inspection, normal capillary refill, neuromotor exam normal, neurosensory exam normal, vascular exam Details: radial pulse present and normal ROM of fingers Psych: Mental Status: mental status grossly normal Affect: normal affect Thought process: Normal thought process present Medications Administered Discontinued Medications Generic Name Dose Route Start Last Admin Trade Name Freq PRN Reason Stop Dose Admin Cyclobenzaprine HCl 10 mg 05/25/23 10:05/25/23 10:31 Cyclobenzaprine Hcl 10 Mg Tablet PO 05/25/23 10:18 10 mg ONCE ONE Administration Ketorolac Tromethamine 30 mg 05/25/23 10:17 05/25/23 10:31 Ketorolac Tromethamine 30 Mg/Ml Vial IM 05/25/23 10:18 30 mg ONCE ONE Administration Prednisone 40 mg 05/25/23 10:17 05/25/23 10:31 Prednisone 20 Mg Tablet PO 05/25/23 10:18 40 mg ONCE ONE Administration Medical Decision Making Medical Decision Making MDM Narrative: Patient is a 67-year-old Occitan-speaking female with history cervicalgia, fibromyalgia, polyarthralgia, asthma presenting to the emergency department with complaint of left shoulder pain radiating up to left lateral neck, down to left anterior and lateral chest, down left arm to fingers. On exam patient is awake, A+Ox3, VS WNL, afebrile, normal neurological exam without focal deficits, physical exam findings as above. Given reported symptoms and physical exam findings, initial differential includes ACS, cervical muscle strain, cervical radiculopathy, spondylolisthesis, degenerative disease, disc herniation, shoulder strain. Labs unremarkable, troponin negative but will obtain repeat to assess for delta. EKG shows normal sinus rhythm. CT notable for chronic post- op changes, advances multilevel degenerative spondylosis with canal stenosis and bilateral neuroforaminal encroachment. My interpretation is in agreement with the radiologist's interpretation. No delta on repeat troponin. Patient reports good relief of pain and improved range of motion with medications administered in the ED, no focal deficits noted. Feel patient is stable for discharge home on short course of prednisone, clycobenzaprine, lidocaine patches. CT results discussed with patient via railroad crossing protection maintainer as well as follow-up plan. Instructed patient to follow-up with primary care provider. Will refer to pain management. Strict return precautions discussed at bedside. Patient verbalized understanding of and agreement with plan. Differential Diagnosis Differential Diagnoses: The differential diagnosis associated with the presentation includes As per [facility] Admission/Observation Consideration of admission/observation: Escalation of care including admission/observation considered Patient would have been admitted to the hospital had her work up had any findings where hospital admission was appropriate and her clinical presentation warranted hospital admission. Lab Data [facility] Lab Attestation statement: I reviewed the patient's lab results. As per [facility] 05/25/23 08:28 05/25/23 08:28 Labs: Lab Results 05/25/23 05/25/23 Range/Units 08:28 11:31 WBC 7.9 (4.8-10.8) X10*3/uL RBC 5.10 (4.20-5.50) X10*6/uL Hgb 14.7 (12.0-16.0) g/dl Hct 46.2 (37.0-47.0) % MCV 90.6 (80.0-98.0) fL MCH 28.8 (27.0-33.0) pg MCHC 31.8 (31.0-35.0) g/dl RDW 13.4 (11.0-16.0) % Plt Count 273 (160-400) X10*3/uL MPV 10.4 (9.4-12.3) fL Immature Gran % (Auto) 0.4 (0.0-0.4) % Neut % (Auto) 71.3 (45-73) % Lymph % (Auto) 17.9 L (20-40) % [place] % (Auto) 9.3 (2-11) % Eos % (Auto) 1.0 (0-4) % Baso % (Auto) 0.1 (0-2) % Lymph # (Auto) 1.4 (1.2-4.9) X10*3/uL [place] # (Auto) 0.7 (0.1-1.2) X10*3/uL Eos # (Auto) 0.1 (0.0-0.4) X10*3/uL Baso # (Auto) 0.0 (0.0-0.2) X10*3/uL Abs Immat Gran (auto) 0.03 (0.00-0.03) X10*3/uL Absolute Neuts (auto) 5.6 (2.0-8.3) x10*3/uL Absolute Nucleated RBC 0.000 (0.0-0.012) X10*3/uL Nucleated RBC % (auto) 0.0 (0.0-0.2) /100WBC Sodium 144 (135-145) mmol/L Potassium 4.0 (3.3-5.1) mmol/L Chloride 106 (96-108) mmol/L Carbon Dioxide 33 H (22-29) mmol/L Anion Gap 9 L (12-20) BUN 12 (9-16) mg/dL Creatinine 0.75 (0.5-1.4) mg/dL Estim Creat Clear Calc 77.3 Estimated GFR > 60 Random Glucose 122 H (60-115) mg/dL Calcium 10.2 (8.4-10.2) mg/dL Total Bilirubin 0.6 (0.0-1.0) mg/dL AST 19 (5-31) U/L ALT 12 (0-31) U/L Alkaline Phosphatase 100 (39-117) U/L Troponin I High Sens < 2.7 < 2.7 (<3.5-17.0) ng/L Total Protein 7.7 (6.5-8.0) g/dL Albumin 4.1 (3.5-5.0) g/dL Independent Interpretation I performed an independent interpretation of an: CT Scan Radiology Impression Discussion of test interpretation with radiology: I have reviewed the radiologist's reading. External Record Review External record reviewed: Inpatient record, Office record and Outpatient record Prescription Management I considered prescription management with: Pain Medication and Other Discharge Plan Discharge Clinical Impression: Spondylosis of cervical spine Patient Disposition: Home, Self-Care Instructions: Neck Pain (ED), Chronic Neck Pain (DC) Additional Instructions: Fue evaluado en el servicio de urgencias por dolor de dawson eduardo y antolin. Simms tomograf?a computarizada mostr? cambios degenerativos significativos en simms colum[place] cervical. Dominique un seguimiento con simms proveedor de atenci?n primaria para seferino evaluaci?n y control adicionales de khris s?ntomas. Le recetan un tratamiento breve con esteroides para disminuir la inflamaci?n. Recomendamos vamsi 600 mg de ibuprofeno o 650 mg de Tylenol cada 6 horas para el dolor. Si es necesario, puedes alternar estos medicamentos cada maki horas. Por ejemplo, al mediod?a kwesi Tylenol, luego a las 3:00 kwesi ibuprofeno, luego a las 6:00 kwesi Tylenol, etc. Tambi?n te recetan un relajante muscular que puedes usar hasta cada 8 horas seg?n sea necesario. Le recetan parches de lidoca?na t?pica que puede usar hasta por 12 horas en un per?odo de 24 horas. Si tambi?n lo derivan a un centro de tratamiento del dolor, llame a simms consultorio para programar seferino estefania. Regrese al departamento de emergencias si presenta un empeoramiento del dolor o rigidez en el jayce, nueva debilidad, entumecimiento u hormigueo en el brazo, mark de ricardo intensos o cualquier otro s?ntoma preocupante. Prescriptions: New prednisone 20 mg tablet 40 mg PO DAILY Qty: 10 0RF cyclobenzaprine 5 mg tablet 5 mg PO TID PRN (Reason: muscle spasm) Qty: 10 0RF lidocaine 5 % adhesive patch,medicated 1 patch topical DAILY Qty: 15 0RF Rx Instructions: leave on most painful area for up to 12 hrs No Action azithromycin 250 mg tablet See Rx Instructions .ROUTE .COMPLEX Qty: 6 0RF Rx Instructions: take 500 mg today (day 1), then 250 mg for 4 days (days 2-5) Referrals: Sigifredo Garcia MD [Physician] - Print Language: Occitan
[2023-05-25 10:01] VITALS: BP 139/74; PULSE 67; RESP 12; O2SAT 94
[2023-05-25] MEDS: Ketorolac Tromethamine 30 MG/ML VIAL IM (10:31)
[2023-05-25] MEDS: predniSONE 20 MG TABLET 40 MG PO (10:31)
[2023-05-25] MEDS: Cyclobenzaprine HCl 10 MG TABLET PO (10:31)
--- NOTE | 2023-05-25 10:36 | PC.NURSE ---
medication administered per provider order. effectiveness pending.
--- NOTE | 2023-05-25 11:18 | PC.NURSE ---
pt verbalizing pain level decreased to a 4/10 pain post medication administration.
--- NOTE | 2023-05-25 11:25 | PC.NURSE ---
repeat troponin obtained/sent to lab by tech.
[2023-05-25 11:56] LABS: Troponin-I High Sensitivity < 2.7 ng/L (<3.5-17.0)
[2023-05-25 12:03] VITALS: BP 129/79; PULSE 68; RESP 16; O2SAT 96
--- NOTE | 2023-05-25 13:16 | PC.NURSE ---
pt continues to rest comfortably in no apparent distress. pt waiting for CT results at this time. respirations remain even and unlabored. bedside for support. call mathur placed within reach.
== END 2023-05-25 14:00 | disposition home or self-care (01) ==
PROVIDERS: Registered Nurse Emergency; Emergency Provider Emergency Medicine Emergency Medical Services; PCP Internal Medicine Geriatric Medicine
DX: M47.896 Other spondylosis, lumbar region (principal); R07.89 Other chest pain; M79.601 Pain in right arm; M54.2 Cervicalgia; Z79.899 Other long term (current) drug therapy
CPT/HCPCS: 36415; 72125; 80053; 84484; 85025; 93005; 96372; 99284; 99285; J1885

== ENCOUNTER → 2023-05-25 08:19 | Outpatient (BNV) | payer MEDICARE, MEDICAID, SELFPAY | PROVIDERS: Emergency Provider Emergency Medicine Emergency Medical Services; PCP Internal Medicine Geriatric Medicine; Visit Provider Internal Medicine Cardiovascular Disease | DX: R94.31 Abnormal electrocardiogram [ECG] [EKG] (principal) | CPT/HCPCS: 93010 ==

== ENCOUNTER 2023-06-02 09:32 | Outpatient (AMB) | payer MEDICARE, MEDICAID, SELFPAY ==
--- NOTE | 2023-06-02 09:35 | MHC.OFFVIS ---
Intake Vital Signs 06/02/23 09:45 Height 5 ft 4 in Weight 187 lb 4 oz BMI 32.1 BP 144/74 H Blood Pressure Location Lt brachial Position Sitting Respiration 16 Pulse 89 Pulse Source Pulse Oximeter Pulse Oximetry (%) 96 Oxygen Delivery Method Room Air Intake Visit Reasons: SEEN IN ED FOR RT ARM PAIN PT SAYS IT'S LT ARM Intake Note: Patient comes in for follow up after been seen in the emergency department. Reports pain 0/10. Allergies codeine [CODEINE] Allergy (Intermediate, Verified 06/02/23 09:44) LT FACIAL NUMBNESS Codeine Phosphate Allergy (Unknown, Uncoded 10/09/20 11:39) Unknown HPI HPI Comments History of Present Illness Details Cayla is back in my office with complains on severe pain in the left arm, she reports that she visited emergency room with this complaint. She reports pain in the anterior lateral left chest pain in the left arm and pain in the shoulder joint on the left. She was examined in ED and EKG and troponin was taken with negative results. She denies that when pain in the arm and the shoulder is very severe the pain in her neck goes up as well. Therefore I considered 2 different pain generators. One is in the neck which is very mild at this time and 1 is in the left shoulder which is very severe. She denies weakness in the bilateral upper extremities she denies changes in sensation she denies numbness. She had CT scan of the cervical spine done for her results of the CT scan dictated as below. MRI is recommended to evaluate her cervical spine on the CT scan. However with physical exam as below I would like to also evaluate left shoulder MRI. The could be possibility of glenohumeral joint arthritis, even more likely acromioclavicular joint arthritis, the could be also problems with the biceps ligaments tendonitis. We agreed that I will send this patient for evaluation in open MRI with MRI of the cervical spine and MRI of the left shoulder. [facility] Medical History (Updated 06/02/23 @ 10:13 by Sigifredo Garcia MD) Cervicalgia Fibromyalgia Polyarthralgia Asthma Review of Systems Const All systems reviewed & are unremarkable except as noted in HPI and below ENT Reports Normal hearing present Neuro Reports Normal hearing present, Denies Abnormal speech present, Denies confusion and Denies Sensory deficit (Neuro) Psych Denies confusion Physical Exam Vital Signs: Last Vital Signs Pulse 89 06/02/23 09:45 Resp 16 06/02/23 09:45 BP 144/74 H 06/02/23 09:45 Pulse Ox 96 06/02/23 09:45 Oxygen Delivery Method Room Air 06/02/23 09:45 BMI result Body Mass Index 32.1 Const General: no acute distress; No confusion Orientation/consciousness: patient oriented x3 and No confusion Eyes General: appearance normal, both eyes and all related structures Pupils: Equal, round and reactive pupils present EOM: EOMs intact bilaterally Neck Neck: Yes full ROM Chest Chest palpation & inspection: normal inspection of the chest Resp Effort & Inspection: normal respiratory effort, able to speak in complete sentences, normal respiratory pattern, no audible wheezes and no cough Cardio Jugular venous distension: no JVD GI Inspection: Yes normal to inspection Neuro General: patient oriented x3, gait normal and No confusion Cranial nerves: Yes CN's II-XII intact bilaterally, Yes Equal, round and reactive pupils present, Yes Normal hearing present and Yes Ability to bilaterally elevate shoulders present Speech: No Abnormal speech present Gait exam (Neuro): Normal gait present Motor exam (neuro): 5/5 motor strength present throughout Sensory Exam: No Sensory deficit (Neuro) Extrem Other: Severe tenderness on palpation in projection of the short bicipital ligament as well as acromioclavicular joint as well as globally entire shoulder joint including glenohumeral joint. Severe pain with range of motion. Patient is unable to lift her arm forward, unable to abduct her arm side way and unable to bring her arm behind her back because of the severe pain. General: No pedal edema Psych Speech and movement: Normal speech and movement present Affect: normal affect Attitude: cooperative Thought process: Normal thought process present Thought content: Normal thought content present Insight: Good insight present (Psych) Judgement: Good judgement present (Psych) Results Reviewed Results Reviewed: CT scan of the cervical spine: T here are chronic postoperative changes of a suboccipital craniotomy and posterior C1 arch resection. Bridging bone fuses the C5-C7 vertebra. There is advanced multilevel degenerative spondylosis of the cervical spine with junctional spondylosis above the fusion at C4-C5 where there is at least moderate canal stenosis and severe bilateral neuroforaminal encroachment. If there are clinical symptoms of compressive myelopathy then a dedicated cervical spine MRI can be obtained for better anatomic characterization of the cord and canal. Assessment & Plan Assessment & Plan (1) Spondylosis of cervical spine: Code(s): M47.812 - Spondylosis without myelopathy or radiculopathy, cervical region (2) Cervicalgia: Code(s): M54.2 - Cervicalgia (3) Postlaminectomy syndrome, cervical: Code(s): M96.1 - Postlaminectomy syndrome, not elsewhere classified (4) Arthritis of left shoulder region: Code(s): M19.012 - Primary osteoarthritis, left shoulder (5) Tendinitis of left shoulder: Code(s): M77.8 - Other enthesopathies, not elsewhere classified (6) Left shoulder pain: Code(s): M25.512 - Pain in left shoulder Plan Initially in the order to help this patient's pain I was thinking about neuromodulation. She is obviously suffering from postlaminectomy syndrome. She went for CT scan of the cervical spine and they recommended to repeat MRI with and without contrast for evaluation of her cervical spine condition. According to the CT scan she has severe foraminal stenosis on the CT. However today she presented in my office with most of the complains on the shoulder pain she denies severe pain in the neck when the pain in her shoulder is exacerbated. On physical exam there are signs of shoulder arthritis and tendinitis. I would like to send her for the MRI of the shoulder as well. We should schedule those 2 procedures in open MRI at [facility]. Orders: Orders MR cervical spine wo/w con Today M96.1 - Postlaminectomy syndrome, not elsewhere classified MR shoulder LT wo con Today M25.512 - Pain in left shoulder Patient Instructions: I here by testify that I spent 35 minutes in conversation with this patient as well as planning her care evaluating her prior record and organizing this note. Coding Level of Care Code Est Pt Level 4 (21944) Diagnoses Spondylosis of cervical spine M47.812 Cervicalgia M54.2 Postlaminectomy syndrome, cervical M96.1 Arthritis of left shoulder region M19.012 Tendinitis of left shoulder M77.8 Left shoulder pain M25.512
[2023-06-02 09:45] VITALS: BP 144/74; PULSE 89; RESP 16; O2SAT 96; BMI 32.1
== END 2023-06-02 10:03 | disposition home or self-care (01) ==
PROVIDERS: PCP Internal Medicine Geriatric Medicine; Visit Provider Anesthesiology
DX: M47.812 Spondylosis without myelopathy or radiculopathy, cervical region (principal); M54.2 Cervicalgia; M96.1 Postlaminectomy syndrome, not elsewhere classified; M19.012 Primary osteoarthritis, left shoulder; M77.8 Other enthesopathies, not elsewhere classified; M25.512 Pain in left shoulder
CPT/HCPCS: 99214

== ENCOUNTER → 2023-06-02 09:32 | Outpatient (BNVA) | payer MEDICARE, MEDICAID, SELFPAY | PROVIDERS: PCP Internal Medicine Geriatric Medicine; Visit Provider Anesthesiology | DX: M47.812 Spondylosis without myelopathy or radiculopathy, cervical region (principal); M96.1 Postlaminectomy syndrome, not elsewhere classified; M19.012 Primary osteoarthritis, left shoulder; M77.8 Other enthesopathies, not elsewhere classified; M25.512 Pain in left shoulder | CPT/HCPCS: 99212 ==

== ENCOUNTER 2023-09-19 18:08 | Outpatient (REF) | payer MEDICARE, MEDICAID, SELFPAY | END 2023-09-19 18:09 | disposition home or self-care (01) | LOC: HO.HHCLNP 18:08 | PROVIDERS: Visit Provider Advanced Practice Midwife | DX: R30.0 Dysuria (principal) | CPT/HCPCS: 87086 ==

== ENCOUNTER 2023-09-28 16:06 | Outpatient (REF) | payer MEDICARE, MEDICAID, SELFPAY ==
--- NOTE | ~2023-09-28 | US_ITS ---
EXAMINATION: US PELVIS COMPLETE CLINICAL INFORMATION: pelvic pain COMPARISON: Pelvic ultrasound 10/01/2020 TECHNIQUE: Transabdominal images of the pelvis were obtained. no doppler FINDINGS: UTERUS: Anteverted. Normal size and contour, measuring 5.5 x 3.2 x 3.9 cm (cervix to fundus x AP x transverse). Uniform, homogeneous endometrium measures 0.8 cm in width. There is a small anterior 0.4 x 0.4 x 0.5 cm fibroid. RIGHT OVARY: Not visualized on this exam or the prior LEFT OVARY: Not visualized, previously 1.9 x 1.7 x 1.6 cm. Arterial and venous waveforms are identified in both ovaries on spectral Doppler assessment. FREE FLUID: No pelvic free fluid. US/US pelvic and transvaginal IMPRESSION: 1. No acute findings. Stable mild endometrial thickening measuring up to 0.8 cm. If clinically warranted, consider tissue sampling. 2. Nonvisualization of the ovaries.
== END 2023-09-28 16:07 | disposition home or self-care (01) ==
LOC: HO.US 16:06
PROVIDERS: PCP Internal Medicine Geriatric Medicine; Visit Provider Advanced Practice Midwife
DX: R10.2 Pelvic and perineal pain (principal)
CPT/HCPCS: 76830; 76856

== ENCOUNTER 2023-10-06 13:22 | Outpatient (AMB) | payer MEDICARE, MEDICAID, SELFPAY ==
--- NOTE | 2023-10-06 13:24 | MHC.OFFVIS ---
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 I was sending her for the MRI of the cervical spine and MRI of the shoulder however patient could not go for the closed MRI machine due to claustrophobia. She reported that she wants to go for MRI she requests me to prescribe her Ativan and she wants to go for the open MRI facility. I will schedule her for [facility]. I will send her to pills of Ativan 1 mg to take 1 hour before the MRI study. If she will get good results of the cervical MRI I also will schedule her for shoulder MRI as needed. Patient was explained all the circumstances she agreed to the plan. Prior: complains on severe pain in the left arm, she reports that she visited emergency room with this complaint. She reports pain in the anterior lateral left chest pain in the left arm and pain in the shoulder joint on the left. She was examined in ED and EKG and troponin was taken with negative results. She denies that when pain in the arm and the shoulder is very severe the pain in her neck goes up as well. Therefore I considered 2 different pain generators. One is in the neck which is very mild at this time and 1 is in the left shoulder which is very severe. She denies weakness in the bilateral upper extremities she denies changes in sensation she denies numbness. She had CT scan of the cervical spine done for her results of the CT scan dictated as below. MRI is recommended to evaluate her cervical spine on the CT scan. However with physical exam as below I would like to also evaluate left shoulder MRI. The could be possibility of glenohumeral joint arthritis, even more likely acromioclavicular joint arthritis, the could be also problems with the biceps ligaments tendonitis. We agreed that I will send this patient for evaluation in open MRI with MRI of the cervical spine and MRI of the left shoulder. [facility] Medical History (Updated 06/09/23 @ 05:31 by Rafael Estrada) Cervicalgia Fibromyalgia Polyarthralgia Asthma Review of Systems Const All systems reviewed & are unremarkable except as noted in HPI and below ENT Reports Normal hearing present Neuro Reports Normal hearing present, Denies Abnormal speech present, Denies confusion and Denies Sensory deficit (Neuro) Psych Denies confusion Physical Exam Vital Signs: Last Vital Signs Pulse 71 10/06/23 13:28 BP 133/74 10/06/23 13:28 Pulse Ox 98 10/06/23 13:28 Oxygen Delivery Method Room Air 10/06/23 13:28 BMI result Body Mass Index 31.4 Const General: no acute distress; No confusion Orientation/consciousness: patient oriented x3 and No confusion Eyes General: appearance normal, both eyes and all related structures Pupils: Equal, round and reactive pupils present EOM: EOMs intact bilaterally Neck Neck: Yes full ROM Chest Chest palpation & inspection: normal inspection of the chest Resp Effort & Inspection: normal respiratory effort, able to speak in complete sentences, normal respiratory pattern, no audible wheezes and no cough Cardio Jugular venous distension: no JVD GI Inspection: Yes normal to inspection Neuro General: patient oriented x3, gait normal and No confusion Cranial nerves: Yes CN's II-XII intact bilaterally, Yes Equal, round and reactive pupils present, Yes Normal hearing present and Yes Ability to bilaterally elevate shoulders present Speech: No Abnormal speech present Gait exam (Neuro): Normal gait present Motor exam (neuro): 5/5 motor strength present throughout Sensory Exam: No Sensory deficit (Neuro) Extrem Other: Severe tenderness on palpation in projection of the short bicipital ligament as well as acromioclavicular joint as well as globally entire shoulder joint including glenohumeral joint. Severe pain with range of motion. Patient is unable to lift her arm forward, unable to abduct her arm side way and unable to bring her arm behind her back because of the severe pain. General: No pedal edema Psych Speech and movement: Normal speech and movement present Affect: normal affect Attitude: cooperative Thought process: Normal thought process present Thought content: Normal thought content present Insight: Good insight present (Psych) Judgement: Good judgement present (Psych) Assessment & Plan Assessment & Plan (1) Left shoulder pain: Code(s): M25.512 - Pain in left shoulder Category: Medical (2) Tendinitis of left shoulder: Code(s): M77.8 - Other enthesopathies, not elsewhere classified Category: Medical (3) Arthritis of left shoulder region: Code(s): M19.012 - Primary osteoarthritis, left shoulder Category: Medical (4) Postlaminectomy syndrome, cervical: Code(s): M96.1 - Postlaminectomy syndrome, not elsewhere classified Category: Medical (5) Cervicalgia: Code(s): M54.2 - Cervicalgia Category: Medical (6) Fibromyalgia: Code(s): M79.7 - Fibromyalgia Category: Medical Plan Plan of care as above 1st I need to obtain MRI of the cervical spine. If there is no changes I will address focus of my attention to the shoulder on the left. MRI of the shoulder is possible to detect changes in the shoulder joint. She is claustrophobic and wants me to prescribe sedative medicine to help her to tolerate open MRI at [facility]. I will prescribe her Ativan 1 mg 2 pills. After the MRI she will give us a call and schedule appointment with us. Orders: Orders MR cervical spine wo con Today M54.2 - Cervicalgia Medications: New lorazepam (Ativan) Take 2 pills 1 hour before the procedure 2 mg (2 x 1 mg) PO DAILY 1 day PRN 2 tabs 0RF anxiety Coding Level of Care Code Est Pt Level 3 (26680) Diagnoses Left shoulder pain M25.512 Tendinitis of left shoulder M77.8 Arthritis of left shoulder region M19.012 Postlaminectomy syndrome, cervical M96.1 Cervicalgia M54.2 Fibromyalgia M79.7
[2023-10-06 13:28] VITALS: BP 133/74; PULSE 71; O2SAT 98; BMI 31.4
== END 2023-10-06 13:39 | disposition home or self-care (01) ==
PROVIDERS: PCP Internal Medicine Geriatric Medicine; Visit Provider Anesthesiology
DX: M25.512 Pain in left shoulder (principal); M77.8 Other enthesopathies, not elsewhere classified; M19.012 Primary osteoarthritis, left shoulder; M96.1 Postlaminectomy syndrome, not elsewhere classified; M54.2 Cervicalgia; M79.7 Fibromyalgia
CPT/HCPCS: 99214

== ENCOUNTER → 2023-10-06 13:22 | Outpatient (BNVA) | payer MEDICARE, MEDICAID, SELFPAY | PROVIDERS: PCP Internal Medicine Geriatric Medicine; Visit Provider Anesthesiology | DX: M25.512 Pain in left shoulder (principal); M19.012 Primary osteoarthritis, left shoulder; M77.8 Other enthesopathies, not elsewhere classified; M96.1 Postlaminectomy syndrome, not elsewhere classified; M79.7 Fibromyalgia; M54.2 Cervicalgia | CPT/HCPCS: 99212 ==

== ENCOUNTER 2023-11-01 13:42 | Outpatient (REF) | payer MEDICARE, MEDICAID, SELFPAY ==
--- NOTE | ~2023-11-01 | MM_ITS ---
EXAMINATION: MM SCREENING DIGITAL BREAST TOMOSYNTHESIS, BILATERAL CLINICAL INFORMATION: Screening. Asymptomatic. COMPARISON: Mammography: This study is compared with prior exams dating back to TECHNIQUE: Digital breast tomosynthesis is performed in both the craniocaudal and mediolateral oblique views along with computer-aided detection (CAD). Synthesized 2D images are generated from the tomosynthesis. FINDINGS: There are scattered areas of fibroglandular density (ACR BI-RADS breast composition Category b). There are no significant masses, abnormal calcifications, or other abnormalities. MM/MM tomosynthesis screening BI IMPRESSION: No mammographic evidence of malignancy. ASSESSMENT: BI-RADS BI-RADS 1 - Negative RECOMMENDATION: Routine annual mammography screening. 1 year F/U This examination should not preclude the clinical evaluation of a suspicious palpable abnormality. This patient's information was entered into a reminder system with a target due date for their next mammogram. Electronically signed by: Karishma Perry DO 11/30/2023 05:13 PM EDT
--- NOTE | ~2023-11-01 | MM_ITS ---
EXAMINATION: BONE DENSITOMETRY CLINICAL INDICATION: Menopause. COMPARISON: Baseline BD dated 04/25/2015. TECHNIQUE: Using a [employer] DXA System (software version: 13.1) manufactured by [employer], dual-energy x-ray absorptiometry was performed of the lumbar spine and left hip. The images are of good technical quality. Summary results are attached. FINDINGS: LEFT FEMUR, NECK: Current: BMD 0.824 g/cm2, Z-score -0.4, T-score -1.5, osteopenia. Baseline: BMD 0.966 g/cm2. LEFT FEMUR, TOTAL: Current: BMD 1.068 g/cm2, Z-score 1.3, T-score 0.5, normal, 10.2% decrease from baseline (<5% change is not significant). Baseline: BMD 1.189 g/cm2. AP SPINE L1-L2 (excluding L3 and L4): The data of L1-L4 has been changed to exclude the L3 and L4 vertebral bodies, because degenerative sclerosis at these levels may cause overestimation of lumbar spine density. Current: BMD 1.381 g/cm2, Z-score 2.8, T-score 1.8, normal, 4.9% decrease from baseline (<5% change is not significant). Baseline: BMD 1.452 g/cm2. IDENTIFIED RISK FACTORS: Early menopause, secondary osteoporosis. HISTORY OF FRACTURE: None listed. MEDICATIONS: None listed. MM/XR DEXA axial skeleton IMPRESSION: 1. DIAGNOSIS: Osteopenia based on the lowest T-score value of -1.5 in the femoral neck applying World Health Organization criteria. 2. 10-YEAR FRACTURE RISK PREDICTION, FRAX: Major osteoporotic fracture (clinical spine, forearm, hip or shoulder) 5.0%. Hip fracture 0.6%. 3. Treatment Recommendations: NOF guidelines recommend consideration for treatment in postmenopausal women and men age 50 and older presenting with the following: -A hip or vertebral (clinical or morphometric) fracture. -T-score less than or equal to -2.5 at the femoral neck or spine after appropriate evaluation to exclude secondary causes. -Low bone mass at the hip or spine and a 10-year fracture probability by FRAX of greater than or equal to 3% for hip fracture or greater than or equal to 20% for major osteoporotic fracture based on the [place] adapted WHO algorithm. 4. Other Recommendations: All treatment decisions require clinical judgment and consideration of individual patient factors, including patient preferences, comorbidities, previous drug use, risk factors not captured in the FRAX model (e.g. frailty, falls, vitamin D deficiency, increased bone turnover, interval significant decline in bone density) and possible under or overestimation of fracture risk by FRAX. Additional medical evaluation for secondary cause of low bone mineral density may be appropriate. FUTURE SCAN RECOMMENDATION: People with diagnosed cases of osteoporosis or at high risk for fracture should have regular bone mineral density tests. For patients eligible for Medicare, routine testing is allowed once every 2 years. The testing frequency can be increased to one year for patients who have rapidly progressing disease, those who are receiving or discontinuing medical therapy to restore bone mass, or have additional risk factors. Electronically signed by: Roque Avery MD 11/09/2023 08:54 AM EDT
== END 2023-11-01 13:43 | disposition home or self-care (01) ==
LOC: HO.MAMMO 13:42
PROVIDERS: PCP Internal Medicine Geriatric Medicine; Visit Provider Advanced Practice Midwife
DX: Z12.31 Encounter for screening mammogram for malignant neoplasm of breast (principal); Z13.820 Encounter for screening for osteoporosis; Z78.0 Asymptomatic menopausal state
CPT/HCPCS: 77063; 77067; 77080

== ENCOUNTER → 2023-11-01 13:45 | Outpatient (BNV) | payer MEDICARE, MEDICAID, SELFPAY | PROVIDERS: PCP Internal Medicine Geriatric Medicine; Visit Provider Internal Medicine | DX: Z12.31 Encounter for screening mammogram for malignant neoplasm of breast (principal) | CPT/HCPCS: 77063; 77067 ==

== ENCOUNTER 2023-12-01 10:50 | Outpatient (AMB) | payer MEDICARE, MEDICAID, SELFPAY ==
--- NOTE | 2023-12-01 11:13 | MHC.OFFVIS ---
Vital Signs 12/01/23 11:22 Height 5 ft 4 in Weight 183 lb BMI 31.4 BP 136/66 Blood Pressure Location Rt brachial Position Sitting Pulse 70 Pulse Source Pulse Oximeter Pulse Oximetry (%) 98 Oxygen Delivery Method Room Air Intake Visit Reasons: Discuss MRI results Intake Note: Pain today 810 Flavorer Required: Yes Flavorer Language: Application Support Engineer Services: Flavorer Present Flavorer Name: Janis #[id number] Accompanied by: Self / Same As Patient Allergies codeine [CODEINE] Allergy (Intermediate, Verified 12/01/23 11:22) LT FACIAL NUMBNESS Codeine Phosphate Allergy (Unknown, Uncoded 10/09/20 11:39) Unknown HPI Comments Details: Patient is a pleasant 67 years old Finnish speaking female who presents today to review cervical spine MRI results. Patient reports significant left shoulder pain with difficulty with overhead reaches or using her left arm. Reports she cannot sleep on her left side due to pain. She also presents with limited cervical spine range of motion worse on the left side. Left shoulder pain is worse than neck pain. Patient has been managing her symptoms with Tylenol, naproxen and topical diclofenac gel. Denies any recent cough, cold, infection, fever, dizziness, shortness of breath, chest pain, bladder or bowel dysfunction, saddle anesthesia, any significant changes in her medical history, medications or recent hospitalizations. PRIOR Dr. Garcia 10/06/23: Cayla is back in my office with similar complaints as before. I was sending her for the MRI of the cervical spine and MRI of the shoulder however patient could not go for the closed MRI machine due to claustrophobia. She reported that she wants to go for MRI she requests me to prescribe her Ativan and she wants to go for the open MRI facility. I will schedule her for [facility]. I will send her to pills of Ativan 1 mg to take 1 hour before the MRI study. If she will get good results of the cervical MRI I also will schedule her for shoulder MRI as needed. Patient was explained all the circumstances she agreed to the plan. Prior: complains on severe pain in the left arm, she reports that she visited emergency room with this complaint. She reports pain in the anterior lateral left chest pain in the left arm and pain in the shoulder joint on the left. She was examined in ED and EKG and troponin was taken with negative results. She denies that when pain in the arm and the shoulder is very severe the pain in her neck goes up as well. Therefore I considered 2 different pain generators. One is in the neck which is very mild at this time and 1 is in the left shoulder which is very severe. She denies weakness in the bilateral upper extremities she denies changes in sensation she denies numbness. She had CT scan of the cervical spine done for her results of the CT scan dictated as below. MRI is recommended to evaluate her cervical spine on the CT scan. However with physical exam as below I would like to also evaluate left shoulder MRI. The could be possibility of glenohumeral joint arthritis, even more likely acromioclavicular joint arthritis, the could be also problems with the biceps ligaments tendonitis. We agreed that I will send this patient for evaluation in open MRI with MRI of the cervical spine and MRI of the left shoulder. [facility] Medical History Cervicalgia Fibromyalgia Polyarthralgia Asthma Review of Systems Const All systems reviewed & are unremarkable except as noted in HPI and below ENT Reports Normal hearing present Neuro Reports Normal hearing present, Denies Abnormal speech present, Denies confusion and Denies Sensory deficit (Neuro) Psych Denies confusion Physical Exam Vital Signs: Last Vital Signs Pulse 70 12/01/23 11:22 BP 136/66 12/01/23 11:22 Pulse Ox 98 12/01/23 11:22 Oxygen Delivery Method Room Air 12/01/23 11:22 BMI result Body Mass Index 31.4 Const General: cooperative, healthy appearing, no acute distress and well groomed; No confusion Nutritional Appearance: obese Orientation/consciousness: patient oriented x3 and No confusion Limitations: language barrier HEENT Head: Yes normal to inspection, Yes normocephalic and Yes atraumatic Eyes General: appearance normal, both eyes and all related structures Pupils: Equal, round and reactive pupils present EOM: EOMs intact bilaterally Neck Neck: Yes no lymphadenopathy, Yes supple, No anterior neck swelling and Yes no JVD Resp Effort & Inspection: normal respiratory effort, able to speak in complete sentences, normal respiratory pattern, no audible wheezes, no cough and symmetric chest movement Cardio Jugular venous distension: no JVD Peripheral pulses: Peripheral pulses 2+ throughout GI Inspection: Yes normal to inspection General: Yes no CVA tenderness Back/Spine/Pelvis Back: no CVA tenderness Cervical Spine: cervical ROM normal, cervical muscular tenderness, pain with cervical ROM and No Cervical spine tenderness Neuro General: patient oriented x3, gait normal and No confusion Cranial nerves: Yes CN's II-XII intact bilaterally, Yes Equal, round and reactive pupils present, Yes Normal hearing present and Yes Ability to bilaterally elevate shoulders present Speech: No Abnormal speech present Gait exam (Neuro): Normal gait present Motor exam (neuro): 5/5 motor strength present throughout Sensory Exam: No Sensory deficit (Neuro) Extrem Other: Patient has difficulty with overhead reach or reaching her back pockets. TTP anterior and posterior aspects of left shoulder. Painful empty can test. Moderate-severe pain with range of motion. Patient is unable to lift her arm forward, unable to abduct her arm side way and unable to bring her arm behind her back because of the severe pain. General: Yes capillary refill normal, Yes no clubbing, cyanosis or edema and Yes no calf tenderness Left upper extremity: shoulder/upper arm Details: inspection abnormal, tenderness Location: of the A-C joint, over the biceps tendon, over the subacromial bursa and over the deltoid bursa and crepitus; no swelling, no ecchymosis and no unsual warmth Psych Speech and movement: Normal speech and movement present Affect: normal affect Attitude: cooperative Thought process: Normal thought process present Thought content: Normal thought content present Insight: Good insight present (Psych) Judgement: Good judgement present (Psych) Results Reviewed Results Reviewed: MR SPINE CERVICAL without CONTRAST 10/12/23 at [facility] INDICATION: Neck and upper back pain for five years. Previous cervical spine surgery 24 years ago. COMPARISON: MRI cervical spine 04/06/2018, MRI cervical spine 03/03/2018. FINDINGS: Normal cervical alignment is demonstrated. Vertebral heights are well maintained. Craniocervical junction is unremarkable. Bone marrow signal is within normal limits, and no suspicious osseous lesion is identified. Prevertebral and paraspinal soft tissues are within normal limits. Visualized portions of the posterior fossa are unremarkable. Cervical cord demonstrates normal course, caliber, and signal characteristics. No epidural fluid collection or hematoma is identified. At C2-3 there is no significant disc herniation or protrusion. No central canal or neural foraminal stenosis is demonstrated. At C3-4 there is a broad base disc bulge effacing the ventral aspect of the thecal sac without abutting the cervical cord without clinically significant central canal stenosis. At C4-5 there is intervertebral disc space narrowing with large broad-based disc bulge and posterior osteophytic spurs efface the ventral aspect of the thecal sac slightly abutting the cervical cord causing mild central canal stenosis. There are large bilateral disc osteophyte complexes; right greater than left encroaching upon the exiting right and left C5 nerve roots. At C5-6 there is partial ankylosis of the vertebral bodies on the right. There are large posterior osteophytes and slight broad-based disc bulge effacing the ventral aspect of thecal sac without abutting the cord causing mild central canal stenosis.. At C6-7 there is no significant disc herniation or protrusion. No central canal or neural foraminal stenosis is demonstrated. At C7-T1 there is no significant disc herniation or protrusion. No central canal or neural foraminal stenosis is demonstrated. There is a mild broad-based disc bulge. IMPRESSION: 1.Multilevel cervical spine degenerative disc disease. 2.Mild central canal stenosis at C4-5 and C5-6. 3.Bilateral C5 nerve root encroachment. 4.Partial ankylosis of the C5-6 vertebral bodies on the right. MR SHOULDER WITHOUT CONTRAST LEFT 06/21/23 at [facility] INDICATION: Left shoulder pain. Question tear. FINDINGS: There is mild acromioclavicular joint osteoarthritis with spurring. There is lateral downsloping of the acromion and effacement of the adjacent subacromial space. There is trace edema in the subacromial bursa in keeping with mild bursal inflammation. There is mild supraspinatus tendinopathy. No tendon tear or tendon retraction or muscle atrophy. Infraspinatus and teres minor are intact. The subscapularis is intact. The long head of the biceps tendon is intact and descends normally within the bicipital groove. There is labral degenerative signal without displaced tear detected. No glenohumeral capsular abnormality. There is no significant glenohumeral joint effusion. Glenohumeral articular cartilage appears preserved. Normal visualized proximal humerus. Normal muscle signal is present. No soft tissue mass is identified. IMPRESSION: 1. Mild acromioclavicular joint osteoarthritis with spurring and effacement of the adjacent subacromial space. 2. Mild subacromial bursitis. 3. Supraspinatus tendinopathy. Rotator cuff is intact. 4. Labral degenerative signal without discrete tear detected. Assessment & Plan Assessment & Plan (1) Left shoulder pain: Code(s): M25.512 - Pain in left shoulder Category: Medical (2) Tendinitis of left shoulder: Code(s): M77.8 - Other enthesopathies, not elsewhere classified Category: Medical (3) Arthritis of left shoulder region: Code(s): M19.012 - Primary osteoarthritis, left shoulder Category: Medical (4) Postlaminectomy syndrome, cervical: Code(s): M96.1 - Postlaminectomy syndrome, not elsewhere classified Category: Medical (5) Cervicalgia: Code(s): M54.2 - Cervicalgia Category: Medical (6) Fibromyalgia: Code(s): M79.7 - Fibromyalgia Category: Medical Plan Cervical spine MRI results discussed with patient with assistance of medical pyrometer mechanic. We also reviewed previous left shoulder MRI results completed in 07/02/2023. Left shoulder pain is more significant than neck pain. Plan for left intra-articular shoulder steroidal injection with local and fluoroscopy. Oral Ativan prior to injection as needed. Expectations, risks and benefits were reviewed. Patient is aware she will be contacted to schedule this procedure. All questions were answered and the patient is in agreement of plan. Follow-up after injections and sooner as needed. Coding Level of Care Code Est Pt Level 4 (33685) Complex EM visit Add On G2211 Diagnoses Left shoulder pain M25.512 Tendinitis of left shoulder M77.8 Arthritis of left shoulder region M19.012 Postlaminectomy syndrome, cervical M96.1 Cervicalgia M54.2 Fibromyalgia M79.7
[2023-12-01 11:22] VITALS: BP 136/66; PULSE 70; O2SAT 98; BMI 31.4
== END 2023-12-01 11:56 | disposition home or self-care (01) ==
PROVIDERS: PCP Internal Medicine Geriatric Medicine; Visit Provider Nurse Practitioner Family
DX: M25.512 Pain in left shoulder (principal); M77.8 Other enthesopathies, not elsewhere classified; M19.012 Primary osteoarthritis, left shoulder; M96.1 Postlaminectomy syndrome, not elsewhere classified; M54.2 Cervicalgia; M79.7 Fibromyalgia
CPT/HCPCS: 99214; G2211

== ENCOUNTER → 2023-12-01 10:50 | Outpatient (BNVA) | payer MEDICARE, MEDICAID, SELFPAY | PROVIDERS: PCP Internal Medicine Geriatric Medicine; Visit Provider Anesthesiology | DX: M25.512 Pain in left shoulder (principal); M77.8 Other enthesopathies, not elsewhere classified; M19.012 Primary osteoarthritis, left shoulder; M96.1 Postlaminectomy syndrome, not elsewhere classified; M54.2 Cervicalgia; M79.7 Fibromyalgia | CPT/HCPCS: 99212 ==

== ENCOUNTER 2024-01-04 09:23 | Outpatient (REF) | payer MEDICARE, MEDICAID, SELFPAY ==
[2024-01-04 11:08] LABS: MANUAL DIFF FLAG NO
[2024-01-04 11:15] LABS: Basophils Percent Auto 0.3 % (0-2); Eosinophils Absolute Auto 0.1 X10*3/uL (0.0-0.4); Eosinophils Percent Auto 1.2 % (0-4); Hematocrit 45.2 % (37.0-47.0); Hemoglobin 14.6 g/dl (12.0-16.0); Imm Gran Abs Auto 0.02 X10*3/uL (0.00-0.03); Imm Gran Pct Auto 0.3 % (0.0-0.4); Lymphocytes Absolute Auto 1.5 X10*3/uL (1.2-4.9); Lymphocytes Percent Auto 21.4 % (20-40); Mean Corpuscular HGB Conc 32.3 g/dl (31.0-35.0); Mean Corpuscular Hemoglobin 29.1 pg (27.0-33.0); Mean Platelet Volume 11.2 fL (9.4-12.3); Monocytes Absolute Auto 0.6 X10*3/uL (0.1-1.2); Monocytes Percent Auto 8.6 % (2-11); Neutrophils Absolute Auto 4.6 x10*3/uL (2.0-8.3); Neutrophils Percent Auto 68.2 % (45-73); Platelet Count 267 X10*3/uL (160-400); Red Blood Count 5.02 X10*6/uL (4.20-5.50); Red Cell Distribution Width 13.1 % (11.0-16.0); White Blood Count 6.8 X10*3/uL (4.8-10.8)
[2024-01-04 12:21] LABS: Anion Gap 10 (12-20); Blood Urea Nitrogen 12 mg/dL (9-16); Calcium 9.6 mg/dL (8.4-10.2); Carbon Dioxide 31 mmol/L (22-29); Chloride 108 mmol/L (96-108); Estimated Glomerular Filt Rate > 60; Glucose Random 97 mg/dL (60-115); Potassium 3.9 mmol/L (3.3-5.1); Sodium 145 mmol/L (135-145)
== END 2024-01-04 09:24 | disposition home or self-care (01) ==
LOC: HO.HHCL 09:23
PROVIDERS: Visit Provider Internal Medicine Geriatric Medicine
DX: Z51.81 Encounter for therapeutic drug level monitoring (principal); Z79.1 Long term (current) use of non-steroidal anti-inflammatories (NSAID)
CPT/HCPCS: 36415; 80048; 85025

== ENCOUNTER 2024-01-20 09:01 | Outpatient (REF) | payer MEDICARE, MEDICAID, SELFPAY ==
--- NOTE | ~2024-01-20 | XR_ITS ---
EXAMINATION: XR WRIST, RIGHT CLINICAL INFORMATION: Ulnar-sided, nontraumatic right wrist pain. COMPARISON: None available. TECHNIQUE: PA, lateral, oblique, and scaphoid views of the right wrist. FINDINGS: No acute fracture or dislocation. Borderline ulnar positive variance. Minimal degenerative cystic change within the adjacent lunate. No evidence of avascular necrosis. Mild joint space narrowing with small marginal osteophytes at the triscaphe and 1st carpometacarpal joints. No concerning lytic or blastic osseous lesion. No abnormal soft tissue calcification. XR/XR wrist RT min 3V IMPRESSION: 1. Borderline ulnar positive variance with minimal degenerative cystic change within the adjacent lunate. No evidence of avascular necrosis. 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 2. Mild degenerative arthritis at the triscaphe and 1st carpometacarpal joints. Electronically signed by: Jude Brown MD 01/20/2024 11:24 AM [facility] Workstation: [id number]
== END 2024-01-20 09:02 | disposition home or self-care (01) ==
LOC: HO.HHCX 09:01
PROVIDERS: Visit Provider Family Medicine
DX: M25.531 Pain in right wrist (principal)
CPT/HCPCS: 73110

== ENCOUNTER 2024-01-24 06:21 | Outpatient (REF) | payer MEDICARE, MEDICAID, SELFPAY | END 2024-01-24 06:22 | disposition home or self-care (01) | LOC: CF 06:21 | PROVIDERS: Visit Provider Anesthesiology | DX: M25.512 Pain in left shoulder (principal); M19.012 Primary osteoarthritis, left shoulder | CPT/HCPCS: 20610; J2003; J2795; J3301; Q9967 ==

== ENCOUNTER 2024-01-24 13:33 | Outpatient (AMB) | payer MEDICARE, MEDICAID, SELFPAY ==
--- NOTE | 2024-01-24 13:36 | MHC.OFFVIS ---
Vital Signs 01/24/24 14:13 01/24/24 14:15 Height 5 ft 4 in 5 ft 4 in Weight 183 lb 183 lb BMI 31.4 31.4 BP 142/76 H 146/72 H Blood Pressure Location Rt brachial Lt brachial Position Sitting Sitting Respiration 16 16 Pulse 78 78 Pulse Source Pulse Oximeter Pulse Oximeter Pulse Oximetry (%) 95 94 Oxygen Delivery Method Room Air Room Air Comment pre-op post-op Intake Visit Reasons: LEFT INTRA-ARTICULAR SHOULDER INJECTION Allergies codeine [CODEINE] Allergy (Intermediate, Verified 01/24/24 14:17) LT FACIAL NUMBNESS Codeine Phosphate Allergy (Unknown, Uncoded 10/09/20 11:39) Unknown [facility] Medical History Cervicalgia Fibromyalgia Polyarthralgia Asthma Physical Exam Vital Signs: Last Vital Signs Pulse 78 01/24/24 14:15 Resp 16 01/24/24 14:15 BP 146/72 H 01/24/24 14:15 Pulse Ox 94 01/24/24 14:15 Oxygen Delivery Method Room Air 01/24/24 14:15 BMI result Body Mass Index 31.4 Assessment & Plan Assessment & Plan (1) Left shoulder pain: Code(s): M25.512 - Pain in left shoulder Category: Medical (2) Arthritis of left shoulder region: Code(s): M19.012 - Primary osteoarthritis, left shoulder Category: Medical Plan Therapeutic left shoulder steroid injection. ? ?Informed consent was explained to the patient. All questions were explained and? answered.? The patient was taken inside the operating room where she was positioned prone on the operating table. Time-out was performed delineating correct site, side, the nature of the procedure, patient's allergy, . All operating room staff was participating in OR time-out procedure. ? ? The upper left back and left shoulder area were prepped with ChloraPrep and draped with sterile towels.? C-arm was brought over the operating field and sq picture of the left shoulder was delineated on the screen. Point of interest were delineated as the silhouette of the glenohumeral joint with humeral head most superior and medial margin as the target of the injection. The projection of the point of interest to the skin were injected with the small amount of local anesthetic lidocaine 2% mixed with ropivacaine 0.5% 1-1 approcimately 1 cc.? After that 22 gauge 3.5 inch spinal needle was driven to the points of interest in tunnel vision fashion. After needles gently contacted the bone at the point of interests the needle was injected with small amount of the contrast.? Left glenohumeral joint arthrogram was demonstrated on the screen. After that injection of the ropivacaine 0.5% 4 mL mixed with Kenalog 40 mg was performed into the joint. The needle was removed sterile Band-Aid was applied. Patient tolerated the procedure well Orders: Orders FL guidance in treatment room 01/24/24 M25.512 - Pain in left shoulder Coding Level of Care Code Procedure Only Diagnoses Left shoulder pain M25.512 Arthritis of left shoulder region M19.012
[2024-01-24 14:13] VITALS: BP 142/76; PULSE 78; RESP 16; O2SAT 95; BMI 31.4
[2024-01-24 14:15] VITALS: BP 146/72; PULSE 78; RESP 16; O2SAT 94; BMI 31.4
== END 2024-01-24 14:04 | disposition home or self-care (01) ==
LOC: HO.PMCPRC 13:33
PROVIDERS: PCP Internal Medicine Geriatric Medicine; Visit Provider Anesthesiology
DX: M25.512 Pain in left shoulder (principal); M19.012 Primary osteoarthritis, left shoulder
CPT/HCPCS: 20610; 77002

== ENCOUNTER 2024-02-13 13:07 | Outpatient (AMB) | payer MEDICARE, MEDICAID, SELFPAY ==
--- NOTE | 2024-02-13 13:10 | A.OFFVIS_ITS ---
Vital Signs 02/13/24 13:14 Height 5 ft 4 in Weight 186 lb BMI 31.9 BP 148/71 H Blood Pressure Location Lt brachial Position Sitting Pulse 84 Pulse Source Pulse Oximeter Pulse Oximetry (%) 98 Oxygen Delivery Method Room Air Intake Visit Reasons: LEFT INTRA-ARTICULAR SHOULDER INJECTION Intake Note: Pain today 05/21 Completions Engineer Required: Yes Completions Engineer Language: Industrial Controls Technician Services: Completions Engineer Present Completions Engineer Name: Janis #[id number] Accompanied by: Self / Same As Patient Allergies codeine [CODEINE] Allergy (Intermediate, Verified 02/13/24 13:15) LT FACIAL NUMBNESS Codeine Phosphate Allergy (Unknown, Uncoded 10/09/20 11:39) Unknown HPI Comments Details: Patient presents today to assess response to Therapeutic Left Intra-articular shoulder injection on 01/24/[address] Garcia. Patient reports ongoing 70-80% pain relief since procedure with significant improvement in her daily activities, functioning and sleep. She denies any untoward effects with steroid injection. Denies any changes to medications, medical history or recent hospitalizations. Past Procedures: 01/24/24: Therapeutic Left Intra-articular shoulder injection-ongoing 70-80% pain relief PRIOR: Patient is a pleasant 67 years old Kinyarwanda speaking female who presents today to review cervical spine MRI results. Patient reports significant left shoulder pain with difficulty with overhead reaches or using her left arm. Reports she cannot sleep on her left side due to pain. She also presents with limited cervical spine range of motion worse on the left side. Left shoulder pain is worse than neck pain. Patient has been managing her symptoms with Tylenol, naproxen and topical diclofenac gel. Denies any recent cough, cold, infection, fever, dizziness, shortness of breath, chest pain, bladder or bowel dysfunction, saddle anesthesia, any significant changes in her medical history, medications or recent hospitalizations. PRIOR Dr. Garcia 10/06/23: Cayla is back in my office with similar complaints as before. I was sending her for the MRI of the cervical spine and MRI of the shoulder however patient could not go for the closed MRI machine due to claustrophobia. She reported that she wants to go for MRI she requests me to prescribe her Ativan and she wants to go for the open MRI facility. I will schedule her for [facility]. I will send her to pills of Ativan 1 mg to take 1 hour before the MRI study. If she will get good results of the cervical MRI I also will schedule her for shoulder MRI as needed. Patient was explained all the circumstances she agreed to the plan. Prior: complains on severe pain in the left arm, she reports that she visited emergency room with this complaint. She reports pain in the anterior lateral l eft chest pain in the left arm and pain in the shoulder joint on the left. She was examined in ED and EKG and troponin was taken with negative results. She denies that when pain in the arm and the shoulder is very severe the pain in her neck goes up as well. Therefore I considered 2 different pain generators. One is in the neck which is very mild at this time and 1 is in the left shoulder which is very severe. She denies weakness in the bilateral upper extremities she denies changes in sensation she denies numbness. She had CT scan of the cervical spine done for her results of the CT scan dictated as below. MRI is recommended to evaluate her cervical spine on the CT scan. However with physical exam as below I would like to also evaluate left shoulder MRI. The could be possibility of glenohumeral joint arthritis, even more likely acromioclavicular joint arthritis, the could be also problems with the biceps ligaments tendonitis. We agreed that I will send this patient for evaluation in open MRI with MRI of the cervical spine and MRI of the left shoulder. [facility] Medical History Cervicalgia Fibromyalgia Polyarthralgia Asthma Review of Systems Const All systems reviewed & are unremarkable except as noted in HPI and below Physical Exam Vital Signs: Last Vital Signs Pulse 84 02/13/24 13:14 BP 148/71 H 02/13/24 13:14 Pulse Ox 98 02/13/24 13:14 Oxygen Delivery Method Room Air 02/13/24 13:14 BMI result Body Mass Index 31.9 General: Appears afebrile. Alert and oriented. Mood and affect appropriate. Follows and participates in conversation appropriately. Respiratory effort is unlabored. No cough. Able to transition from sit to stand unassisted. Ambulates with bilaterally normal heel strike and toe off. Extrem Left upper extremity: shoulder/upper arm Details: inspection abnormal, tenderness Location: of the A-C joint, over the biceps tendon and over the subacromial bursa, normal ROM and crepitus; no swelling, no ecchymosis, no deformity and no unsual warmth Results Reviewed Results Reviewed: MR SPINE CERVICAL without CONTRAST 10/12/23 at [facility] INDICATION: Neck and upper back pain for five years. Previous cervical spine surgery 24 years ago. COMPARISON: MRI cervical spine 04/06/2018, MRI cervical spine 03/03/2018. FINDINGS: Normal cervical alignment is demonstrated. Vertebral heights are well maintained. Craniocervical junction is unremarkable. Bone marrow signal is within normal limits, and no suspicious osseous lesion is identified. Prevertebral and paraspinal soft tissues are within normal limits. Visualized portions of the posterior fossa are unremarkable. Cervical cord demonstrates normal course, caliber, and signal characteristics. No epidural fluid collection or hematoma is identified. At C2-3 there is no significant disc herniation or protrusion. No central canal or neural foraminal stenosis is demonstrated. At C3-4 there is a broad base disc bulge effacing the ventral aspect of the thecal sac without abutting the cervical cord without clinically significant central canal stenosis. At C4-5 there is intervertebral disc space narrowing with large broad-based disc bulge and posterior osteophytic spurs efface the ventral aspect of the thecal sac slightly abutting the cervical cord causing mild central canal stenosis. There are large bilateral disc osteophyte complexes; right greater than left encroaching upon the exiting right and left C5 nerve roots. At C5-6 there is partial ankylosis of the vertebral bodies on the right. There are large posterior osteophytes and slight broad-based disc bulge effacing the ventral aspect of thecal sac without abutting the cord causing mild central canal stenosis.. At C6-7 there is no significant disc herniation or protrusion. No central canal or neural foraminal stenosis is demonstrated. At C7-T1 there is no significant disc herniation or protrusion. No central canal or neural foraminal stenosis is demonstrated. There is a mild broad-based disc bulge. IMPRESSION: 1.Multilevel cervical spine degenerative disc disease. 2.Mild central canal stenosis at C4-5 and C5-6. 3.Bilateral C5 nerve root encroachment. 4.Partial ankylosis of the C5-6 vertebral bodies on the right. MR SHOULDER WITHOUT CONTRAST LEFT 06/21/23 at [facility] INDICATION: Left shoulder pain. Question tear. FINDINGS: There is mild acromioclavicular joint osteoarthritis with spurring. There is lateral downsloping of the acromion and effacement of the adjacent subacromial space. There is trace edema in the subacromial bursa in keeping with mild bursal inflammation. There is mild supraspinatus tendinopathy. No tendon tear or tendon retraction or muscle atrophy. Infraspinatus and teres minor are intact. The subscapularis is intact. The long head of the biceps tendon is intact and descends normally within the bicipital groove. There is labral degenerative signal without displaced tear detected. No glenohumeral capsular abnormality. There is no significant glenohumeral joint effusion. Glenohumeral articular cartilage appears preserved. Normal visualized proximal humerus. Normal muscle signal is present. No soft tissue mass is identified. IMPRESSION: 1. Mild acromioclavicular joint osteoarthritis with spurring and effacement of the adjacent subacromial space. 2. Mild subacromial bursitis. 3. Supraspinatus tendinopathy. Rotator cuff is intact. 4. Labral degenerative signal without discrete tear detected. Assessment & Plan Assessment & Plan (1) Left shoulder pain: Code(s): M25.512 - Pain in left shoulder Category: Medical (2) Tendinitis of left shoulder: Code(s): M77.8 - Other enthesopathies, not elsewhere classified Category: Medical (3) Arthritis of left shoulder region: Code(s): M19.012 - Primary osteoarthritis, left shoulder Category: Medical (4) Fibromyalgia: Code(s): M79.7 - Fibromyalgia Category: Medical Plan Patient is status post left intra-articular steroid shoulder injection with good results, improved functioning with ADLs and better sleep. She will continue to monitor therapeutic effects of recent injection and notify our office when left shoulder pain returns to baseline. All questions were answered and the patient is in agreement of plan. Follow-up as needed. Coding Level of Care Code Est Pt Level 3 (19845) Complex EM visit Add On G2211 Diagnoses Left shoulder pain M25.512 Tendinitis of left shoulder M77.8 Arthritis of left shoulder region M19.012 Fibromyalgia M79.7
[2024-02-13 13:14] VITALS: BP 148/71; PULSE 84; O2SAT 98; BMI 31.9
== END 2024-02-13 13:21 | disposition home or self-care (01) ==
PROVIDERS: PCP Internal Medicine Geriatric Medicine; Visit Provider Nurse Practitioner Family
DX: M25.512 Pain in left shoulder (principal); M77.8 Other enthesopathies, not elsewhere classified; M19.012 Primary osteoarthritis, left shoulder; M79.7 Fibromyalgia
CPT/HCPCS: 99213; G2211

== ENCOUNTER → 2024-02-13 13:07 | Outpatient (BNVA) | payer MEDICARE, MEDICAID, SELFPAY | PROVIDERS: PCP Internal Medicine Geriatric Medicine; Visit Provider Nurse Practitioner Family | DX: M19.012 Primary osteoarthritis, left shoulder (principal); M79.7 Fibromyalgia; M77.8 Other enthesopathies, not elsewhere classified | CPT/HCPCS: 99212 ==

== ENCOUNTER 2024-05-22 09:43 | Outpatient (REF) | payer MEDICARE, MEDICAID, SELFPAY ==
--- NOTE | ~2024-05-22 | XR_ITS ---
EXAMINATION: XR CHEST 2 VIEWS HISTORY: BRANTLEY, history of pericarditis COMPARISON: Comparison is made with the prior examination dated 07/03/2020. FINDINGS: PA and lateral views of the chest are submitted. Again seen is elevation of the left hemidiaphragm with adjacent scarring. The lungs are otherwise clear. There is no pleural effusion, pneumothorax, or pulmonary vascular congestion. The heart is normal in size. The aorta is calcified. The patient is status post lower thoracic kyphoplasty. There is mild degenerative disc disease. XR/XR chest 2V IMPRESSION: No acute cardiopulmonary abnormality. Electronically signed by: Lev Gonzalez MD 05/22/2024 10:38 AM EDT
--- OUTSIDE RECORDS SUMMARY | 2024-05-22 11:03 | XMS_ITS | Encounter Summary ---
Author Organization [facility] Address [address]t [place] [address] Care Team Providers Care Helper Steel Fabrication Name Role Phone Name, Garth YOON Primary Care Provider [phone] Encounter Details Date Type Department Care Team (Latest Contact Info) Description 02/20/2020 Abstract [facility] Dental, Provider, DDS Social History Tobacco Use Types Packs/Day Years Used Date Smoking Tobacco: Never Assessed Comments Unknown Sex and Gender Information Value Date Recorded Sex Assigned at Female 01/11/2022 10:14 AM EDT Legal Sex Female 10:14 AM EDT Gender Identity Female 01/11/2022 10:14 AM EDT Sexual Orientation Choose not to disclose 2021 10:14 AM EDT documented as of this encounter Plan of Treatment Upcoming Encounters Date Type Department Care Team (Late st Contact Info) Description 07/20/2024 3:00 PM EDT Office Visit [facility]ULT DENTAL [address] [place] [address] Candido, Brynn [address] [place] [address] 08/17/2024 10:15 AM EDT Office Visit [facility] MEDICINE [address] [place] [address] Garth Brock MD [address] [place] [address] documented as of this encounter Visit Diagnoses Not on filedocumented in this encounter Care Teams Hel[employer] Fab[employer] Relationship Specialty Start Date End Date Garth Brock MD [address] [place] [id number] PCP - General Family Medicine 4/6/16 documented as of this encounter
--- OUTSIDE RECORDS SUMMARY | 2024-05-22 11:03 | XMS_ITS | Encounter Summary ---
Author Organization [employer] Address [address] 7[address] [place] [address] Care Team Providers Care Public Safety Dispatcher Name Role Phone Name, Garth YOON Primary Care Provider [phone] Reason for Visit * Reason Onset Date Comments Chart prep 05/21/2024 Encounter Details Date Type Department Care Team ([facility] st Contact Info) Description 05/21/2024 Telephone [facility] [address] [place] [address] Edilia Augustin MA Chart prep Social History Tobacco Use Types Packs/Day Years Used Date Smoking Tobacco: Never Passive Smoke Exposure: Never Smokeless Tobacco: Never Alcohol Use Standard Drinks/Week Comments Never 0 (1 standard drink = 0.6 oz pur e alcohol) Alcohol Answer Date Recorded Frequency of Alcohol Consumption Not on file 09/29/2023 Average Number of Drinks Not on file 024 Frequency of Binge Drinking Not on file 09/11 Score 0 09/29/2023 Depression Answer Date Recorded Patient Health Questionnaire-9 Score 0 03/29/2023 Patient Health Questionnaire-9 Score 0 03/29/2023 Last PHQ-9: Questionnaire Data Not on file 0 03/29/2023 Housing Stability Answer Date Recorded What is your housing situation today? I have lissett reardon 03/29/[address] you li ve. Do you have problems with any of the following? None of the above 03/29/2023 Food Insecurity Answer Date Recorded Within the past 12 months, y ou worried that your food would run out before you got money to buy more: Never True 03/29/2023 Within the past 12 months,th e food you bought just didn't last and you didn't have enough money to get more: Never True Transportation Answer Date Recorded In the past 12 months, has l ack of transportation kept you from medical appts, meetings, work or from getting things needed for daily living? No 03/29/2023 Utilities Answer Date Recorded In the past 12 months, has t he electric, gas, oil or water company threatened to shut off services in your home? No 03/29/2023 Depression Answer Date Recorded Patient Health Questionnaire-2 Score 0 03/29/2023 Comments No Sex and Gender Information Value Date Recorded Sex Assigned at Female 01/11/2022 10:14 AM EDT Legal Sex Female 10:14 AM EDT Gender Identity Female 01/11/2022 10:14 AM EDT Sexual Orientation Choose not to disclose 2021 10:14 AM EDT documented as of this encounter Miscellaneous Notes * Telephone Encounter - Edilia Augustin MA - 05/21/2024 8:59 AM EDT Chart Prep Labs: done Images: done Vaccines due: yes Referrals: complete Screenings: colonoscopy Overdue care gaps: SDOH, PHQ-9, LETTY-7 documented in this encounter Plan of Treatment Upcoming Encounters Date Type Department Care Team (Late st Contact Info) Description 07/20/2024 3:00 PM EDT Office Visit [facility] [address] [place] [address] Candido, Brynn [address] [place] [address] 08/17/2024 10:15 AM EDT Office Visit [facility] [address] [place] [address] Garth Brock MD [address] [place] [address] documented as of this encounter Visit Diagnoses Not on filedocumented in this encounter Additional Health Concerns Assessment Noted Time PHQ-9 Depression Total Score: 0 03/29/19 24 11:15 AM EST documented as of this encounter Care Teams Public Safety Dispatcher Relationship Specialty Start Date End Date NameGarth MD [address] [place] [address] PCP - General Family Medicine 06/18/15 documented as of this encounter
--- OUTSIDE RECORDS SUMMARY | 2024-05-22 11:03 | XMS_ITS | Encounter Summary ---
Author Organization [employer] Address [address] 7t [place] [address] Care Team Providers Care Hoe Runner Name Role Phone Name, Garth YOON Primary Care Provider [phone] Reason for Visit * Reason Comments Med Refill Encounter Details Date Type Department Care Team ([facility] st Contact Info) Description 05/06/2024 Refill [facility] MEDICINE [address] [place] [address] Name, MD Garth [address] [place] [address] Social History Tobacco Use Types Packs/Day Years [...] Description 07/20/2024 3:00 PM EDT Office Visit [facility] ADULT DENTAL [address] [place] [address] Candido, Brynn [address] [place] [address] 08/17/2024 10:15 AM EDT Office Visit [facility] MEDICINE [address] [place] [address] Name, MD Garth [address] [place] [address] documented as of this encounter Visit Diagnoses Not on filedocumented in this encounter Additional Health Concerns Assessment Noted Time PHQ-9 Depression Total Score: 0 03/29/19 24 11:15 AM EST documented as of this encounter Care Teams Hoe Runner Relationship Specialty Start Date End Date Name, MD Garth [address] [place] [address] PCP - General Family Medicine 06/18/15 documented as of this encounter
--- OUTSIDE RECORDS SUMMARY | 2024-05-22 11:03 | XMS_ITS | Clinical Summary ---
Author Organization [facility] Address [address] [place] [address] Care Team Providers Care Senior Officer Name Role Phone Name, Garth YOON Primary Care Provider [phone] Social History Tobacco Use Types Packs/Day Years Used Date Smoking Tobacco: Never Assessed Comments Unknown Sex and Gender Information Value Date Recorded Sex Assigned at Not on file Legal Sex Female 12:24 AM EST Gender Identity Not on file Sexual Orientation Not on file Plan of Treatment Health Maintenance Due Date Last Done Comments Breast Cancer Screening 1955 DTaP,Tdap,and Td Vaccines (1 - Tdap) 12/30/1975 Pneumococcal Vaccine: 50+ Ye ars (1 of 1 - PCV) 2006 Zoster Vaccines (1 of 2) 2006 COVID-19 Vaccine ( - 2023-2 5 season) 2023 Influenza Vaccine (#1) 2023 RSV Immunization Patients 60 + Years Old (1 - 1-dose 75+ series) 12/30/2031 HIB Vaccines Aged Out No longer eligi ble based on patient's age to complete this topic HPV Vaccines Aged Out No longer eligi ble based on patient's age to complete this topic Hepatitis A Vaccines Aged Out No long er eligible based on patient's age to complete this topic Hepatitis B Vaccines Aged Out No long er eligible based on patient's age to complete this topic IPV Vaccines Aged Out No longer eligi ble based on patient's age to complete this topic MMR Vaccines Aged Out No longer eligi ble based on patient's age to complete this topic Meningococcal ACWY Vaccine Aged Out N o longer eligible based on patient's age to complete this topic Meningococcal B Vacine Aged Out No lo nger eligible based on patient's age to complete this topic RSV Immunization Patients Un andrew 20 months Aged Out No longer eligible b ased on patient's age to complete this topic Varicella Vaccines Aged Out No longer eligible based on patient's age to complete this topic Care Teams Senior Officer Relationship Specialty Start Date End Date Name, MD Garth [address] [place] [address] [place] PCP - General Internal Medicine 04/25/18
--- OUTSIDE RECORDS SUMMARY | 2024-05-22 11:03 | XMS_ITS | Encounter Summary ---
Author Organization [employer] Address [address] [facility] [address] [place] [address] Care Team Providers Care Spreader Operator Name Role Phone Name, Garth YOON Primary Care Provider [phone] Reason for Visit * Reason Onset Date Comments case back from lab? 03/01/2024 Encounter Details Date Type Department Care Team ([facility] st Contact Info) Description 03/01/2024 Telephone [facility] [address] [place] [address] eJff Cedeno DDS [address] [place] [address] case back from lab? Social History Tobacco Use Types Packs/Day Years [...] encounter Miscellaneous Notes * Telephone Encounter - Jeff Cedeno DDS - 03/01/2024 9:42 AM EST Christopher Louise, Yes, case is here and ready for delivery at any time. Thank you, Dr. Cedeno * Telephone Encounter - Aspen Hernandez - 03/01/2024 9:23 AM EST Patient is calling to confirm if case is back from lab. Please reach out to patient documented in this encounter Plan of Treatment Upcoming Encounters Date Type Department Care Team (Late st Contact Info) Description 07/20/2024 3:00 PM EDT Office Visit [facility] [address] [place], [place] [phone] Brynn Rey [address] [place] [address] 08/17/2024 10:15 AM EDT Office Visit [facility] [address] [place], [place] [phone] Name, MD Garth [address] [place] [address] documented as of this encounter Visit Diagnoses Not on filedocumented in this encounter Additional Health Concerns Assessment Noted Time PHQ-9 Depression Total Score: 0 03/29/19 24 11:15 AM EST documented as of this encounter Care Teams Spreader Operator Relationship Specialty Start Date End Date Name, MD Garth [address] [facility] [place] [address] PCP - General Family Medicine 06/18/15 documented as of this encounter
--- OUTSIDE RECORDS SUMMARY | 2024-05-22 11:03 | XMS_ITS | Encounter Summary ---
Author Organization [employer] Address [address] [facility] [address] [place] [address] Care Team Providers Care Pecan Sheller Name Role Phone Name, Garth YOON Primary Care Provider [phone] Reason for Visit * Reason Comments Med Refill Encounter Details Date Type Department Care Team (Late st Contact Info) Description 11/22/2022 Refill [facility] MED[facility]INE [address] [place] [address] Name, MD Garth [address] [place] [address] Essential (primary) hypertension Social History Tobacco Use Types Packs/Day Years Used Date Smoking Tobacco: Never Passive Smoke Exposure: Never Smokeless Tobacco: Never Alcohol Use Standard Drinks/Week Comments Never 0 (1 standard drink = 0.6 oz pur e alcohol) Depression Answer Date Recorded Patient Health Questionnaire-9 Score 11 03/17/2022 Depression Answer Date Recorded Patient Health Questionnaire-2 Score 2 03/17/2022 Comments No Sex and Gender Information Value [...] Description 07/20/2024 3:00 PM EDT Office Visit [facility] ADULT DENTAL [address] [place] [address] Brynn Rey [address] [place] [address] 08/17/2024 10:15 AM EDT Office Visit [facility] [address] [facility] [place] [address] Name, MD Garth [address] [place] [address] documented as of this encounter Visit Diagnoses Diagnosis Essential (primary) hypertension Unspecified essential hypertension documented in this encounter Additional Health Concerns Assessment Noted Time PHQ-9 Depression Total Score: 11 023 11:05 AM EST documented as of this encounter Care Teams Pecan Sheller Relationship Specialty Start Date End Date Name, MD Garth [address] [facility] [place] [address] PCP - General Family Medicine 06/18/15 documented as of this encounter
--- OUTSIDE RECORDS SUMMARY | 2024-05-22 11:03 | XMS_ITS | Encounter Summary ---
Author Organization [employer] Address [address] [facility] 7t [place] [address] Care Team Providers Care Lobster Catcher Name Role Phone Name, Garth YOON Primary Care Provider [phone] Encounter Details Date Type Department Care Team (Late st Contact Info) Description 08/25/2022 Abstract [facility] MED[facility]INE [address] [place] [phone] Name, MD Garth [address] [place] [address] Social History Tobacco Use Types Packs/Day Years Used Date Smoking Tobacco: Never Passive Smoke Exposure: Never Smokeless Tobacco: Never Alcohol Use Standard Drinks/Week Comments Never 0 (1 standard drink = 0.6 oz pur e alcohol) Depression Answer Date Recorded Patient Health Questionnaire-9 Score 11 03/17/2022 Depression Answer Date Recorded Patient Health Questionnaire-2 Score 2 03/17/2022 Comments Unknown Sex and Gender Information Value [...] Description 07/20/2024 3:00 PM EDT Office Visit [facility] ADULT DENTAL [address] [place], [place] [phone] Candido, Brynn [address] [place], [place] [phone] 08/17/2024 10:15 AM EDT Office Visit [facility] MEDICINE [address] [place] [phone] Name, MD Garth [address] [place] [address] documented as of this encounter Procedures Procedure Name Priority Date/Time Associated Diagnosis Comments PAP/HPV Routine 01/26/2019 documented in this encounter Results * Pap Smear (01/26/2019) Pap Negative for intraephithelial lesion or malignancy Negative for intraephithelial lesion or malignancy, Other HPV Undetected 01/26/2019 Historical Provider HEALTH MAINTENANCE Final Result documented in this encounter Visit Diagnoses Not on filedocumented in this encounter Additional Health Concerns Assessment Noted Time PHQ-9 Depression Total Score: 11 03/17/ 023 11:05 AM EST documented as of this encounter Care Teams Lobster Catcher Relationship Specialty Start Date End Date Name, MD Garth [address] [place] [address] PCP - General Family Medicine 06/18/15 documented as of this encounter
--- OUTSIDE RECORDS SUMMARY | 2024-05-22 11:03 | XMS_ITS | Encounter Summary ---
Author Organization [employer] Address [address] [place] [address] Care Team Providers Care Wood Caulker Name Role Phone Name, Garth YOON Primary Care Provider [phone] Encounter Details Date Type Department Care Team (Latest Contact Info) Description 05/22/2024 Travel Social History Tobacco Use Types Packs/Day Years [...] is your housing situation today? I have lissettbrennan reardon 03/29/[address] you [...] Description 07/20/2024 3:00 PM EDT Office Visit [facility] [address] [place] [address] Candido, Brynn [address] [place] [address] 08/17/2024 10:15 AM EDT Office Visit [facility] [address] [place] [address] Name, MD Garth [address] [place] [address] documented as of this encounter Visit Diagnoses Not on filedocumented in this encounter Additional Health Concerns Assessment Noted Time PHQ-9 Depression Total Score: 0 03/29/19 24 11:15 AM EST documented as of this encounter Care Teams Wood Caulker Relationship Specialty Start Date End Date NameGarth MD [address] [place] [id number] PCP - General Family Medicine 06/18/15 documented as of this encounter
--- OUTSIDE RECORDS SUMMARY | 2024-05-22 11:03 | XMS_ITS | Clinical Summary ---
Author Organization [employer] Address [address] [place] [address] Care Team Providers Care Forepart Rounder Name Role Phone Name, Garth YOON Primary Care Provider [phone] Allergies Active Allergy Reactions Criticality Noted Date Comments Codeine Other reaction(s): rash Medications loratadine (Claritin) 10 MG tablet Take 1 tablet by mouth. 01/01/20 22 Active fluticasone (Flonase) 50 MCG/ACT nasal spray Administer 2 sprays into affected nostril(s). 04/11/19 20 Active cholecalciferol (Vitamin D-3) 50 MCG (1999 UT) tablet Take 1 tablet by mouth. 07/24/19 22 Active baclofen (Lioresal) 20 MG tabletIndicatio ns:Acute pain of left shoulder Take 1 tablet (20 mg) by mouth 3 times daily. 30 tablet 11/17/19 23 Active atorvastatin (Lipitor) 20 MG tabletIndicatio ns:High cholesterol Take 1 tablet (20 mg) by mouth in the morning. 30 tablet 03/29/19 24 Active Additional Information Patient not taking.Reported on 01/20/2024 cyclobenzaprine (Flexeril) 5 MG tablet Take 5 mg by mouth if needed in the morning, at noon, and at bedtime for muscle spasms. 05/25/19 24 Active omeprazole (PriLOSEC) [address] capsule Take 1 capsule (40 mg) by mouth before breakfast. 30 capsule 11 09/29/19 24 Active metFORMIN (Glucophage) 500 MG tabletIndicatio ns:Prediabetes TAKE 1 TABLET BY MOUTH TWICE DAILY WITH BREAKFAST AND WITH DINNER 180 tablet 1 01/10/20 24 Active Diclofenac Sodium 1 % gel APPLY 2 GRAMS TOPICALLY TO THE AFFECTED AREA(S) EVERY DAY DIRECTED 100 g 1 03/27/19 Active amLODIPine (Norvasc) 10 MG tablet TAKE 1 TABLET BY MOUTH EVERY DAY IN THE MORNING 90 tablet 1 05/07/19 Active albuterol 108 (90 Base) MCG/ACT inhalerIndicati ons:Mild intermittent asthma, unspecified whether complicated Inhale 2 puffs every 4 to 6 hours as needed 6.7 g 1 05/23/19 Active fluticasone furoate (Arnuity Ellipta) 100 MCG/ACT inhaler Inhale 1 puff Once per day. Rinse mouth with water after use to reduce aftertaste and incidence of candidiasis. Do not swallow. 1 each 05/23/19 25 2025 Active albuterol 108 (90 Base) MCG/ACT inhalerIndicati ons:Mild intermittent asthma, unspecified whether complicated Inhale 2 puffs every 4 to 6 hours as needed 6.7 g 1 03/30/19 23 2024 Discontinued(R eorder (will not trigger notification to Pharmacy)) amLODIPine (Norvasc) 10 MG tablet TAKE 1 TABLET BY MOUTH EVERY MORNING 90 tablet 1 10/28/19 24 2024 Discontinued Active Problems Problem Noted Date Diagnosed Date Ill-fitting dentures 03/20/2024 Excessive attrition of teeth, limited to enamel 01/20/2024 Partial edentulism 01/20/2024 Dental plaque 01/20/2024 Generalized gingival recession 01/20/2024 Defective dental tenriism 01/20/2024 Osteoarthritis of cervical spine 09/29/2023 Diffuse idiopathic skeletal hyperostosis of cervicothoracic spine 09/21/2022 Prediabetes 03/17/2022 History of colon polyps 03/17/2022 Overview (03/17/2022): She had tubular adenoma removed 2017 at [facility] Calcaneal spur 08/21/2018 Mild intermittent asthma 07/05/2018 Vertigo 05/10/2018 Upper respiratory infection 02/24/2018 Primary osteoarthritis involving multiple joints 01/25/2018 Chronic back pain 01/04/2018 Hemangioma 10/19/2017 Abnormal MRI, thoracic spine 07/29/2017 Abnormal CAT scan 07/29/2017 Acute idiopathic pericarditis 03/29/2017 Depressive disorder 12/10/2016 Recurrent major depression in partial remission 06/18/2016 Essential hypertension 06/18/2016 Cyst of pancreas 03/22/2016 Microscopic hematuria 12/18/2015 Gallstone 12/12/2015 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 Hypercholesterolemia 06/15/2013 Constipation 05/03/2012 Abnormal mammogram 01/06/2012 Paresthesia of hand 12/03/2011 Lyme disease 12/03/2011 Arnold-Chiari malformation 12/03/2011 Atypical chest pain 12/03/2011 Postmenopausal bleeding 08/25/2011 Morbid obesity 08/25/2011 Irregular periods 08/25/2011 Gastroesophageal reflux disease 08/25/2011 Allergic rhinitis 08/25/2011 Resolved Problems Problem Noted Date Diagnosed Date Resolved Date Acute pain of left shoulder 11/16/2022 09/29/2023 Assessment & Plan (11/16/2022 12:18 PM EDT): Apply heat on affected area Gentle stretching was recommended Edema of lower extremity 02/19/2022 Dyspnea on exertion 02/19/2022 09/29/19 Acute ethmoidal sinusitis 02/19/2022 Calf cramp 04/22/2021 09/29/2023 Chest discomfort 02/24/2018 09/29/2023 Joint pain 01/04/2018 09/29/2023 Right lower quadrant pain 02/14/2017 Encounters Date Type Department Care Team Description 05/22/2024 9:00 AM EDT Office Visit [facility] [address] [place] [address] Garth Brock MD BRANTLEY (dyspnea on exertion) (Primary Dx); Mild intermittent asthma, unspecified whether complicated; History of pericarditis; Essential hypertension; High cholesterol; Prediabetes; Skin tag 05/22/2024 Travel 05/21/2024 Telephone [facility] [address] [place] [address] Edilia Augustin MA Chart prep 05/06/2024 Refill [facility] [address] [place] [address] Garth Brock MD 03/27/2024 Refill [facility] [address] [place] [address] Name, MD Garth 03/20/2024 3:00 PM EST Office Visit [facility] [address] [facility] [address] Jeff Cedeno DDS Ill-fitting dentures (Primary Dx); Partial edentulism, unspecified edentulism class 03/15/2024 Telephone [facility] [address] [place] [address] Edilia Augustin [place] Luc recalls 03/01/2024 Telephone [facility] [address] [place] [address] Jeff Cedeno DDS case back from lab? 02/22/2024 Telephone [facility] [address] [place] [address] Jeff Cedeno DDS from Last 3 Months Immunizations Name Administration Dates Next Due Hep A, Adult 08/30/2011 Hep B, adult 09/03/2011 Influenza High-dose Quadrivalent Preservative Fr ee 12/24/2022,12/31/2021 Influenza injectable quadrivalent preservative f ree 12/01/2020,12/14/2018 Influenza, High Dose Seasonal, Preservative Free 01/03/2024 Moderna Covid-19 Vaccine 12+ 07/08/2020,06/11/19 21 Pneumococcal Conjugate PCV 20 03/04/2022 TD (adult), 2 Lf tetanus tox oid, preservative free, adsorbed 05/24/1995 Tdap 03/04/2022,08/03/2011 Zoster, Recombinant 03/04/2022,12/31/2021 Family History Medical History Relation Name Comments Prostate cancer Father Skin cancer Mother Breast cancer Mother's Sister Relation Name Status Comments Father Mother Mother's Sister Social History Tobacco Use Types Packs/Day Years Used Date Smoking Tobacco: Never Passive Smoke Exposure: Never Smokeless Tobacco: Never Tobacco Cessation:Counseling Given: Not Answered Alcohol Use Standard Drinks/Week Comments Never 0 (1 standard drink = 0.6 oz pur e alcohol) Alcohol Answer Date Recorded Frequency of Alcohol Consumption Not on file 09/29/2023 Average Number of Drinks Not on file 07/18/2 024 Frequency of Binge Drinking Not on [...] not to disclose 2021 10:14 AM EDT Last Filed Vital Signs Vital Sign Reading Time Taken Comments Blood Pressure 135/84 05/22/2024 8:54 AM EDT Pulse 84 05/22/2024 8:54 AM EDT Temperature 36.1 ??C (96.9 ??F) 05/22/2024 8:54 AM ED T Respiratory Rate 14 05/22/2024 8:54 AM EDT Oxygen Saturation 95% 05/22/2024 8:54 AM EDT Inhaled Oxygen Concentration - - Weight 89.8 kg (198 lb) 05/22/2024 8:54 AM EDT Height 160 cm (5' 3 ) 05/22/2024 8:54 AM EDT Body Mass Index 35.07 05/22/2024 8:54 AM EDT Plan of Treatment Upcoming Encounters Date Type Department Care Team (Late st Contact Info) Description 07/20/2024 3:00 PM EDT Office Visit [facility] [address] [place] [address] Brynn Rey [address] [place] [address] 08/17/2024 10:15 AM EDT Office Visit [facility] [address] [place] [address] Name, MD Garth [address] [place] [address] Health Maintenance Due Date Last Done Comments CT Colonography 1955 FIT DNA/Cologuard 1955 FIT 1955 FOBT 1955 Sigmoidoscopy 1955 Hepatitis C Screening 1974 Hepatitis B Vaccines (2 of 3 - 19+ 3-dose series) 10/01/2011 09/03/2011 RSV Patients and Patients Aged 60 years or older (1 - Risk 60-74 years 1-dose series) 2016 Colonoscopy 12/30/2021 12/30/2016 Colorectal Cancer Screening 12/30/2021 COVID-19 Vaccine ( season) 2023 04/20/2021, 07/08/2020, 06/10/2020 Depression Screening 03/29/2024 03/29/2023, 03/29/19 24 SDOH Screening 03/29/2024 03/29/2023 Dental Oral Exam 07/20/2024 01/20/2024, 11/2019, 02/06/2019, Additional history exists Dental Prophylaxis 07/20/2024 01/20/2024, 0 05/09/2017, 11/04/2016, Additional history exists Alcohol/Substance Use Screening 09/28/2024 09/29/2023 Diabetes: Hemoglobin A1C 01/02/2025 024, 12/27/2022, 03/30/2022, Additional history exists Dental X-Ray: Bitewings 01/20/2025 01/20/20 24, 02/20/2020, 02/06/2019, Additional history exists Tobacco Screening 05/22/2025 05/22/2024 Mammogram 10/31/2025 11/01/2023, 10/12, 11/06/2021, Additional history exists Dental X-Ray: Full Mouth 01/20/2027 024, 05/09/2017, 11/12/2014 HPV/Cotest 09/21/2027 09/16/2022, 01/12, 09/01/2016 Pap Smear 09/21/2027 09/20/2022, 08/2022, 01/26/2019, Additional history exists Lipid Panel 12/28/2027 12/27/2022, 04/21/2021 DTaP/Tdap/Td Vaccines (3 - Td or Tdap) 03/04/2032 03/04/2022, 08/03/2011, 05/24/1995 Hepatitis A Vaccines Aged Out 08/30/2011 No long er eligible based on patient's age to complete this topic Pneumococcal Vaccine: 50+ Years Completed 03/04/2022 Zoster Vaccines Completed 03/04/2022, 12/31/2021 Influenza Vaccine Completed 01/03/2024, , 12/31/2021, Additional history exists HIB Vaccines Aged Out No longer eligi ble based on patient's age to complete this topic HPV Vaccines Aged Out No longer eligi ble based on patient's age to complete this topic IPV Vaccines Aged Out No longer eligi ble based on patient's age to complete this topic Meningococcal Vaccine Aged Out No marcell abner eligible based on patient's age to complete this topic RSV under 20 months Aged Out No longe r eligible based on patient's age to complete this topic Rotavirus Vaccines Aged Out No longer eligible based on patient's age to complete this topic Procedures Procedure Name Priority Date/Time Associated Diagnosis Comments XR CHEST 2 VIEWS Routine 05/22/2024 9:44 AM EDT BRANTLEY (dyspnea on exertion) ECG 12-LEAD Routine 05/22/2024 9:39 AM EDT BRANTLEY (dyspnea on exertion) History of pericarditis POCT GLUCOSE Routine 05/22/2024 8:55 AM EDT Prediabetes ADJUST PARTIAL DENTURE - MANDIBULAR Routine 03/20/2024 3:00 PM EST CASE PRESENTATION, DETAILED AND EXTENSIVE TREATMENT PLANNING Routine 03/20/2024 3:00 PM EST 8 ADD TOOTH TO EXISTING PARTIAL DENTURE Routine 03/20/2024 3:00 PM EST 5 ADD TOOTH TO EXISTING PARTIAL DENTURE Routine 03/20/2024 3:00 PM EST REPAIR RESIN PARTIAL DENTURE BASE, MAX Routine 03/20/2024 3:00 PM EST PROPHYLAXIS - ADULT Routine 01/20/2024 1 0:00 AM EST Excessive attrition of teeth, limited to enamel Missing teeth, acquired Dental plaque INTRAORAL - COMPLETE SERIES OF RADIOGRAPHIC IMAGES Routine 01/20/2024 10:00 AM EST Excessive attrition of teeth, limited to enamel Missing teeth, acquired Dental plaque Generalized gingival recession PERIODIC ORAL EVALUATION - ESTABLISHED PATIENT Routine 01/20/2024 10:00 AM EST POCT GLYCATED HEMOGLOBIN, TOTAL Routine 01/03/2024 4:06 PM EDT Prediabetes BI MAMMOGRAM SCREENING TOMOSYNTHESIS BILATERAL Routine 11/01/2023 1:50 PM EDT Breast cancer screening by mammogram LIPID PANEL, STANDARD Routine 12/27/2022 8:14 AM EDT Prediabetes Essential hypertension HM PAP/HPV Routine 09/20/2022 IMAGE-GUIDED PAP W/AGE BASED SCR PROTOCOLS Routine 09/16/2022 12:00 AM EDT HM COLONOSCOPY Routine 12/30/2016 from Last 3 Months or Most Recently Relevant to Health Maintenance Results * XR Chest 2 Views (05/22/2024 9:44 AM EDT) Anatomical Region Laterality Modality Chest Radiographic Sinai ging 05/22/2024 9:44 AM EDT Narrative 05/22/2024 10:41 AM EDT ?[facility] ?[address] ?[place] [address] ?XRay Report ? Signed ? Patient: Alta,Evelia ?MR#: [id number] ? : 1955 ?Acct:[id number] ? Age/Sex: 68 / F ?ADM Date: 05/22/24 ? Loc: HO.HHCX ? Attending Dr: Garth Brock MD ? Ordering Physician: Garth Brock MD ?? Date of Service: 05/22/24 ?? Procedure(s): XR chest 2V ?? Accession Number(s): [id number] ? cc: Garth Brock MD ? EXAMINATION: ??XR CHEST 2 VIEWS ? HISTORY: BRANTLEY, history of pericarditis ? COMPARISON: Comparison is made with the prior examination dated ?? 07/03/2020. ? FINDINGS: ??PA and lateral views of the chest are submitted. Again seen ?? is elevation of the left hemidiaphragm with adjacent scarring. The ?? lungs are otherwise clear. ??There is no pleural effusion, pneumothorax, ?? or pulmonary vascular congestion. ??The heart is normal in size. The ?? aorta is calcified. ??The patient is status post lower thoracic ?? kyphoplasty. There is mild degenerative disc disease. ? XR/XR chest 2V ?? IMPRESSION: ?? No acute cardiopulmonary abnormality. ? Electronically signed by: ??Lev Gonzalez MD ??05/22/2024 10:38 AM EDT ?? RP ? Dictated By: ?Lev Gonzalez MD ? Signed By: ?<Electronically signed by Lev Gonzalez MD in OV> ?05/22/24 1038 ? DD/ 0944 ? TD/TT: 05/22/24 1020 ? Journeyman Pipe Welder: ? Procedure Note Karen, Image - 05/22/[address] [address] XRay Report Signed Patient: Raza Holm#: [id number] : 7Acct:[id number] Age/Sex: 68 / FADM Date: 05/22/24 Loc: .HHCX Attending Dr: Garth Brock MD Ordering Physician: Garth Brock MD Date of Service: 05/22/24 Procedure(s): XR chest 2V Accession Number(s): [id number] cc: Garth Brock MD EXAMINATION: XR CHEST 2 VIEWS HISTORY: BRANTLEY, history of pericarditis COMPARISON: Comparison is made with the prior examination dated 07/03/2020. FINDINGS: PA and lateral views of the chest are submitted. Again seen is elevation of the left hemidiaphragm with adjacent scarring. The lungs are otherwise clear. There is no pleural effusion, pneumothorax, or pulmonary vascular congestion. The heart is normal in size. The aorta is calcified. The patient is status post lower thoracic kyphoplasty. There is mild degenerative disc disease. XR/XR chest 2V IMPRESSION: No acute cardiopulmonary abnormality. Electronically signed by: Lev Gonzalez MD 05/22/2024 10:38 AM EDT RP Dictated By: Lev Gonzalez MD Signed By: <Electronically signed by Lev Gonzalez MD in OV> 05/22/24 1038 DD/ 0944 TD/TT: 05/22/24 1020 Journeyman Pipe Welder: us Garth Brock MD IMG XR PROCEDURES Final Result * ECG 12 lead (05/22/2024 9:39 AM EDT) Narrative NameGarth MD - 05/22/2024 9:39 AM EDT Normal sinus rhythm, heart rate of 78, no ST segment elevation or depression, no changes from baseline EKGs us Garth Brock MD ECG ORDERABLES Final Result * POCT Glucose (05/22/2024 8:55 AM EDT) Glucose Blood, POC 150 60 - 200 mg/dL QC Media Lot # [id number] Lot# Expiration Date [id number] Blood Capillary blood specimen / Unknown 05/22/2024 8:55 AM EDT Result Shavonne Brock MD POINT OF CARE TEST ENTER/EDIT OR DERABLES Final Result * POCT HGB A1C (01/03/2024 4:06 PM EDT) Pathologist [facility] Hemoglobin A1C 5.9 4.0 - 6.0 % QC Media Lot # [id number] Lot# Expiration Date [id number] Blood 01/03/2024 4:06 PM EDT us Garth Name MD POINT OF CARE TEST ENTER/EDIT OR DERABLES Final Result * BI Mammogram Screening Tomosynthesis Bilateral (11/01/2023 1:50 PM EDT) Anatomical Region Laterality Modality Breast Bilateral Mammography 11/01/2023 1:50 PM EDT Narrative 11/30/2023 5:15 PM EDT ? [facility] [place] ? [address] ?[place] [address] ? Mammography Report ? Signed ? Patient: Alta,Evelia ?MR#: [id number] ? : 1955 ?Acct:[id number] ? Age/Sex: 67 / F ?ADM Date: 11/01/23 ? Loc: HO.MAMMO ? Attending Dr: Neto Graham CNM ? Ordering Physician: NETO GRAHAM CNM ?Results: 1 ?? Negative ? Date of Service: 11/01/23 ?Follow Up: 1 Year From Orig ?? inal Mammogram ? Procedure(s): MM tomosynthesis screening BI ?? Accession Number(s): [id number] ? cc: Delmy,Garth YOON; NETO GRAHAM CNM ? EXAMINATION: ?? MM SCREENING DIGITAL BREAST TOMOSYNTHESIS, BILATERAL ? CLINICAL INFORMATION: ? Screening. Asymptomatic. ? COMPARISON: ?? Mammography: This study is compared with prior exams dating back to ? TECHNIQUE: ?? Digital breast tomosynthesis is performed in both the craniocaudal and ?? mediolateral oblique views along with computer-aided detection (CAD). ? Synthesized 2D images are generated from the tomosynthesis. ? FINDINGS: ?? There are scattered areas of fibroglandular density (ACR BI-RADS breast ?? composition Category b). ? There are no significant masses, abnormal calcifications, or other ?? abnormalities. ? MM/MM tomosynthesis screening BI ?? IMPRESSION: ?? No mammographic evidence of malignancy. ? ASSESSMENT: ? BI-RADS BI-RADS 1 - Negative ? RECOMMENDATION: ?? Routine annual mammography screening. ? 1 year F/U ? This examination should not preclude the clinical evaluation of a ?? suspicious palpable abnormality. ? This patient's information was entered into a reminder system with a ?? target due date for their next mammogram. ? Electronically signed by: ??Karishma Perry DO ??11/30/2023 05:13 PM EDT ? Dictated By: ?Karishma Perry DO ? Signed By: ?<Electronically signed by Karishma Perry DO in OV> ? 11/30/23 1713 ? DD/ 1350 ? TD/TT: 11/01/23 1412 ? Journeyman Pipe Welder: ? Procedure Note Karen, Image - 11/30/2023 [facility] [address] [place] [address] Dr. Shannon, [place] [address] Mammography Report Signed Patient: Raza Holm#: [id number] : 1955cct:[id number] Age/Sex: 67 / FADM Date: 11/01/23 Loc: HO.MAMMO Attending Dr: Neto Graham CNM Ordering Physician: NETO GRAHAMesults: 1 Negative Date of Service: 11/01/23Follow Up: 1 Year From [facility] Mammogram Procedure(s): MM tomosynthesis screening BI Accession Number(s): [id number] cc: Name,Garth YOON; NETO GRAHAM CNM EXAMINATION: MM SCREENING DIGITAL BREAST TOMOSYNTHESIS, BILATERAL CLINICAL INFORMATION: Screening. Asymptomatic. COMPARISON: Mammography: This study is compared with prior exams dating back to TECHNIQUE: Digital breast tomosynthesis is performed in both the craniocaudal and mediolateral oblique views along with computer-aided detection (CAD). Synthesized 2D images are generated from the tomosynthesis. FINDINGS: There are scattered areas of fibroglandular density (ACR BI-RADS breast composition Category b). There are no significant masses, abnormal calcifications, or other abnormalities. MM/MM tomosynthesis screening BI IMPRESSION: No mammographic evidence of malignancy. ASSESSMENT: BI-RADS BI-RADS 1 - Negative RECOMMENDATION: Routine annual mammography screening. 1 year F/U This examination should not preclude the clinical evaluation of a suspicious palpable abnormality. This patient's information was entered into a reminder system with a target due date for their next mammogram. Electronically signed by: Karishma Perry DO 11/30/2023 05:13 PM EDT Dictated By: Karishma Perry DO Signed By: <Electronically signed by Karishma Perry DO in OV> 11/30/23 1713 DD/ 1350 TD/TT: 11/01/23 1412 Journeyman Pipe Welder: us Neto Graham CNM IMG BI PROCEDURES Final R esult * (ABNORMAL) Lipid Panel, Standard (12/27/2022 8:14 AM EDT) Triglycerides 95 <150 mg/dL [facility] Comment:Desirable Triglyceri de: less than 150 mg/dLBorderline High Triglyceride 150-199 mg/dLHigh Triglyceride: 200-499 mg/dLVery High Triglyceride: greater than or equal to 5OO mg/dL Cholesterol 209(H) <200 mg/dL [facility] Comment:Desirable Cholestero l: less than 200 mg/dLBorderline High Cholesterol: 200-239 mg/dLHigh Cholesterol: greater than 239 mg/dL LDL Cholesterol Calculated 124(H) <100 mg/dL [facility] Comment:Desirable LDL: less than 100 mg/dLNear Optimal/Above Optimal LDL: 110- 129 mg/dLBorderline High LDL: 130-159 mg/dLHigh LDL: 160-189 mg/dLVery High LDL: greater than or equal to 190 mg/dL HDL Cholesterol 66 >40 mg/dL [facility] Comment:Desirable HDL: great er than 40 mg/dL Note: This HDL assay may give artificially low results in patients with liver disease. Blood Venous blood specimen / Unknown 12/27/2022 8:14 AM EDT 12/27/2022 11:13 AM EDT Garth Brock MD LAB BLOOD ORDERABLES Final Resul t [facility] [address] [place] [phone] * Pap Smear (09/20/2022) HM Pap smear Pap NIL HPV negative. Repeat due 3-5 years Historical Provider HEALTH MAINTENANCE Final Result * Image-Guided Pap with Age-Based Screening Protocols (09/16/2022 12:00 AM EDT) Comment [facility] Comment: This order for age-based cervical cancer and STI screening follows ACOG guidelines(PB 168, 140, VGS525). See individual assays for performing site location. Clinical Information: Routine exam [facility] LMP: NONE GIVEN [facility] Prev. PAP: NONE GIVEN [facility] [employer] [facility] Prev. BX: NONE GIVEN [facility] [facility] SOURCE: None given [facility] [employer] [facility] Statement Of Adequacy: [facility] Comment: Satisfactory for evaluation. Endocervical/transformation zone component present. Interpretation/ Result: Cytology Results: Negative for intraepithelial lesion or malignancy. [facility] COMMENT: This Pap test has been evaluated with computer assisted technology. [facility] [place] [facility] Cytotechnologis t: [facility] [place] [facility] Comment: RXB, CT(ASCP) CT screening location: [address] ??[address] Review Cytotechnologis t: [facility] [place] [facility] Comment: MXD, CT (ASCP) CT screening location: [address] ??[address] (Always Message) [facility] [place] [facility] Comment: EXPLANATORY NOTE: The Pap is a screening test for cervical cancer. It is not a diagnostic test and is subject to false negative and false positive results. It is most reliable when a satisfactory sample, regularly obtained, is submitted with relevant clinical findings and history, and when the Pap result is evaluated along with historic and current clinical information. HPV nRNA E6/E7 Not Detected Not Detected [facility] [place] [facility] Comment: Methodology: Drying Machine Operator Package [employer]-Mediated Amplification This assay detects E6/E7 viral messenger RNA (mRNA) from 14 high-risk HPV types (16,18,31,33,35,39,45,51,52,56,58,59,66,68). Cervical sources are required for HPV testing. If a vaginal source from a patient who has had a total hysterectomy with removal of cervix was submitted, please contact the testing laboratory for alternative testing options. For additional information, please refer to http://education.Xtime/faq/ICE703x3 (This link if provided for information/ educational purposes only.) 09/16/2022 09/17/2022 7:1 7 AM EDT Narrative [facility] - 09/20/2022 4:19 PM EDT FASTING: UNKNOWN Neto Graham CNM LAB BLOOD ORDERABLES Sowmya l Result [facility] [address], [place] [address] [facility] [address] [place] [address] * Colonoscopy (12/30/2016) Colonoscopy Performed Historical Provider MD HEALTH MAINTENANCE Final Result from Last 3 Months or Most Recently Relevant to Health Maintenance Insurance [facility] STANDARD MEDICARE DENTAL - HSN FULL (MEDICAID) Care Teams Forepart Rounder Relationship Specialty Start Date End Date Name, MD Garth [address] [place] [id number] PCP - General Family Medicine 06/18/15
--- OUTSIDE RECORDS SUMMARY | 2024-05-22 11:03 | XMS_ITS | Encounter Summary ---
Author Organization [employer] [facility] Address [address] [facility] 7t [place] [address] Care Team Providers Care Manager Of School Name Role Phone Name, Garth YOON Primary Care Provider [phone] Encounter Details Date Type Department Care Team (Latest Contact Info) Description 02/06/2019 Abstract [facility] CONVERSIONS Dental, Provider, DDS Social History Tobacco [...] Description 07/20/2024 3:00 PM EDT Office Visit [facility] ADULT DENTAL [address] [place] [address] Candido, Brynn [address] [place] [address] 08/17/2024 10:15 AM EDT Office Visit [facility] [address] [place] [address] Garth Brock MD [address] [place] [address] documented as of this encounter Visit Diagnoses Not on filedocumented in this encounter Care Teams Manager Of School Relationship Specialty Start Date End Date Garth Brock MD [address] [place] [id number] PCP - General Family Medicine 4/6/16 documented as of this encounter
--- OUTSIDE RECORDS SUMMARY | 2024-05-22 11:03 | XMS_ITS | Encounter Summary ---
Author Organization [employer] Address [address] [facility] 7t [place] [address] Care Team Providers Care Intensivist Name Role Phone Name, Garth YOON Primary Care Provider [phone] Reason for Visit * Reason Comments Med Refill Encounter Details Date Type Department Care Team (Late st Contact Info) Description 05/07/2022 Refill [facility] [address] [place], [place] [phone] Name, MD Garth [address] [place] [address] Radicular pain in left arm Social History Tobacco Use Types Packs/Day Years [...] Description 07/20/2024 3:00 PM EDT Office Visit [facility] ADULT DENT[facility] [address] [place] [address] Brynn Rey [address] [place] [address] 08/17/2024 10:15 AM EDT Office Visit [facility] [address] [place] [address] Name, MD Garth [address] [place] [address] documented as of this encounter Visit Diagnoses Diagnosis Radicular pain in left arm Unspecified neuralgia, neuritis, and radiculitis documented in this encounter Additional Health Concerns Assessment Noted Time PHQ-9 Depression Total Score: 11 023 11:05 AM EST documented as of this encounter Care Teams Intensivist Relationship Specialty Start Date End Date Name[place] [address] PCP - General Family Medicine 06/18/15 documented as of this encounter
--- OUTSIDE RECORDS SUMMARY | 2024-05-22 11:03 | XMS_ITS | Encounter Summary ---
Author Organization [employer] [facility] Address [address] [facility] 7t [place] [address] Care Team Providers Care Time Signal Wirer Name Role Phone NameGarth MD Primary Care Provider [phone] Reason for Referral * Consultation (Routine) - Authorized Specialty Diagnoses / Procedures Referred By [place] Referred To Contact Family Medicine Diagnoses Skin tag Garth Brock MD [address] [place] [address] Phone: tel: fax: Referral ID Status Reason Start Date Expiration Date Visits Requested Visits Authorized [id number] Authorized Specialty Services Required 05/22/2024 05/22/2025 1 1 * Imaging (Routine) - Pending Review Specialty Diagnoses / Procedures Referred By [place]ek [place] Referred To Contact Cardiology Diagnoses BRANTLEY (dyspnea on exertion) History of pericarditis Procedures Transthoracic Echo (TTE) Complete Garth Brock MD [address] [place] [address] Phone: tel: fax: Referral ID Status Reason Start Date Expiration Date Visits Requested Visits Authorized [id number] Pending Review Perform Procedure 05/22/2024 05/22/2025 1 1 Reason for Visit * Reason Comments Hypertension Encounter Details Date Type Department Care Team (Late st Contact Info) Description 05/22/2024 9:00 AM EDT Office Visit [facility] [address] [place] [phone] Garth Brock MD [address] [place] [address] BRANTLEY (dyspnea on exertion) (Primary Dx); Mild intermittent asthma, unspecified whether complicated; History of pericarditis; Essential hypertension; High cholesterol; Prediabetes; Skin tag Social History Tobacco Use Types Packs/Day Years [...] AM EDT documented as of this encounter Last Filed Vital Signs Vital Sign Reading [...] Mass Index 35.07 05/22/2024 8:54 AM EDT documented in this encounter Progress Notes * Garth Brock, - 05/22/2024 9:00 AM EDT Subjective Patient ID: Evelia Holm is a 68 y.o. female who presents for Hypertension. Patient comes for a follow-up visit. She complains of dyspnea on exertion. She tells me she has been getting short of breath when she walks for about a block. She has occasional cough. She denies anywheezing. She denies any shortness of breath at rest. She does not have orthopnea. She does not have lower extremity edema. She has a personal history of mild asthma. She is not using any inhaler regularly. She also has a history of idiopathic pericarditis. Echocardiogram last year was normal. Review of Systems Constitutional: Negative for chills and fever. HENT: Negative for sore throat. Respiratory: Positive for cough and shortness of breath. Negative for wheezing. Cardiovascular: Negative for chest pain, palpitations and leg swelling. Gastrointestinal: Negative for abdominal pain. Visit Vitals BP 135/84 (BP Location: Left arm, Patient Position: Sitting, BP Cuff Size: Large adult) Pulse 84 Temp 96.9 ??F (36.1 ??C) (Temporal) Resp 14 Ht 5' 3 (1.6 m) Wt 198 lb (89.8 kg) SpO2 95% BMI 35.07 kg/m?? OB Status Postmenopausal Smoking Status Never BSA 2 m?? Objective Physical Exam Constitutional: Appearance: Normal appearance. Cardiovascular: Rate and Rhythm: Normal rate and regular rhythm. Heart sounds: No murmur heard. No gallop. Pulmonary: Effort: Pulmonary effort is normal. No respiratory distress. Breath sounds: Normal breath sounds. No wheezing. Musculoskeletal: Right lower leg: No edema. Left lower leg: No edema. Neurological: Mental Status: She is alert. Assessment/Plan Diagnoses and all orders for this visit: BRANTLEY (dyspnea on exertion) Comments: I restarted the patient on albuterol. I added Arnuity to her inhaler regimen for daily use. EKG today is unremarkable. I will send her for chest x-ray and repeat echocardiogram. I recommended evaluation with fasting blood work listed below. Further recommendation based on the results and response to the medication. Orders: - CBC auto differential; Future - Comprehensive Metabolic Panel; Future - B Type Natriuretic Peptide (BNP); Future - XR Chest 2 Views; Future - Transthoracic Echo (TTE) Complete; Future - ECG 12 lead Mild intermittent asthma, unspecified whether complicated - albuterol 108 (90 Base) MCG/ACT inhaler; Inhale 2 puffs every 4 to 6 hours as needed History of pericarditis - Transthoracic Echo (TTE) Complete; Future - ECG 12 lead Essential hypertension Comments: Continue current dose of amlodipine. High cholesterol Comments: The patient is not using her statin. I will recheck her lipids. Orders: - Lipid Panel, Standard; Future Prediabetes Comments: Blood sugar is normal today. Continue metformin for diabetes prevention. Avoid sweets and soda. Orders: - POCT Glucose Skin tag Comments: The patient has a skin tag on the right cheek that she would like removed. She was referred to dermatology as requested. Orders: - Referral to [facility] Derm Skin Adult; Future Other orders - fluticasone furoate (Arnuity Ellipta) 100 MCG/ACT inhaler; Inhale 1 puff Once per day. Rinse mouth with water after use to reduce aftertaste and incidence of candidiasis. Do not swallow. documented in this encounter Plan of Treatment Upcoming Encounters Date Type Department Care Team (Late st Contact Info) Description 07/20/2024 3:00 PM EDT Office Visit [facility] ADULT DENTAL [address] [place] [address] Brynn Rey [address] [facility] [place] [address] 08/17/2024 10:15 AM EDT Office Visit [facility] [address] [facility] [place] [address] Name, MD Garth [address] [place] [address] Scheduled Orders Name Type Priority Associated Diagnoses Orde r Schedule CBC auto differential Lab Routine BRANTLEY (dyspnea on exertion) Expected: 05/22/2024 (Approximate), Expires: 05/22/2025 Comprehensive Metabolic Panel Lab Routine BRANTLEY (dyspnea on exertion) Expected: 05/22/2024 (Approximate), Expires: 05/22/2025 Lipid Panel, Standard Lab Routine High cholesterol Expected: 05/22/2024 (Approximate), Expires: 05/22/2025 B Type Natriuretic Peptide (BNP) Lab Routine BRANTLEY (dyspnea on exertion) Expected: 05/22/2024, Expires: 05/22/2025 Transthoracic Echo (TTE) Complete Echocardiography Routine BRANTLEY (dyspnea on exertion) History of pericarditis Expected: 05/22/2024 (Approximate), Expires: 05/22/2026 Scheduled Referrals Name Type Priority Associated Diagnoses Orde r Schedule Referral to [facility] Derm Skin Adult Outpatient Referral Routine Skin tag Expected: 05/22/2024 (Approximate), Expires: 05/22/2025 documented as of this encounter Procedures Procedure Name Priority Date/Time Associated Diagnosis Comments XR CHEST 2 VIEWS Routine 05/22/2024 9:44 AM EDT BRANTLEY (dyspnea on exertion) ECG 12-LEAD Routine 05/22/2024 9:39 AM EDT BRANTLEY (dyspnea on exertion) History of pericarditis POCT GLUCOSE Routine 05/22/2024 8:55 AM EDT Prediabetes documented in this encounter Results * XR Chest 2 Views (05/22/2024 9:44 AM EDT) Anatomical Region Laterality Modality Chest Radiographic Sinai ging 05/22/2024 9:44 AM EDT Narrative 05/22/2024 10:41 AM EDT ?[facility] ?[address] ?[place] [address] ?XRay Report ? Signed ? Patient: Alta,Evelia ?MR#: [id number] ? : 1955 ?Acct:[id number] ? Age/Sex: 68 / F ?ADM Date: 05/22/24 ? Loc: HO.HHCX ? Attending Dr: Garth rBock MD ? Ordering Physician: Garth Brock MD ?? Date of Service: 05/22/24 ?? Procedure(s): XR chest 2V ?? Accession Number(s): [id number] ? cc: Garth Brock MD ? EXAMINATION: [...] ??Lev Gonzalez MD ??05/22/2024 10:38 AM EDT ? Dictated By: ?Lev Gonzalez MD ? Signed By: ?<Electronically signed by Lev Gonzalez MD in OV> ?05/22/24 1038 ? DD/ 0944 ? TD/TT: 05/22/24 1020 ? Ingot Caster: ? Procedure Note Isrrael Jones - 05/22/[address] [address] XRay Report Signed Patient: Raza Holm#: [id number] : 7Acct:[id number] Age/Sex: 68 / FADM Date: 05/22/24 Loc: HO.HHCX Attending Dr: Garth Brock MD Ordering Physician: Garth Brock MD Date of Service: 05/22/24 Procedure(s): XR chest 2V Accession Number(s): [id number] cc: Garth Brock MD EXAMINATION: XR CHEST [...] Lev Gonzalez MD 05/22/2024 10:38 AM EDT Dictated By: Lev Gonzalez MD Signed By: <Electronically signed by Lev Gonzalez MD in OV> 05/22/24 1038 DD/ 0944 TD/TT: 05/22/24 1020 Ingot Caster: us Garth Brock MD IMG XR PROCEDURES [...] specimen / Unknown 05/22/2024 8:55 AM EDT us Garth Brock MD POINT OF CARE TEST ENTER/EDIT OR DERABLES Final Result documented in this encounter Visit Diagnoses Diagnosis BRANTLEY (dyspnea on exertion)- Primary Other dyspnea and respiratory abnormality Mild intermittent asthma, unspecified whether complicated History of pericarditis Essential hypertension Unspecified essential hypertension High cholesterol Pure hypercholesterolemia Prediabetes Other abnormal glucose Skin tag Unspecified hypertrophic and atrophic condition of skin documented in this encounter Additional Health Concerns Assessment Noted Time PHQ-9 Depression Total Score: 0 03/29/19 24 11:15 AM EST documented as of this encounter Care Teams Time Signal Wirer Relationship Specialty Start Date End Date Name, MD Garth [address] [place] [address] PCP - General Family Medicine 06/18/15 documented as of this encounter
== END 2024-05-22 09:44 | disposition home or self-care (01) ==
LOC: HO.HHCX 09:43
PROVIDERS: Visit Provider Internal Medicine Geriatric Medicine
DX: R06.09 Other forms of dyspnea (principal)
CPT/HCPCS: 71046

== ENCOUNTER → 2024-05-22 09:44 | Outpatient (BNV) | payer MEDICARE, MEDICAID, SELFPAY | PROVIDERS: Visit Provider Radiology Diagnostic Radiology | DX: R06.09 Other forms of dyspnea (principal) | CPT/HCPCS: 71046 ==

== ENCOUNTER 2024-05-23 08:19 | Outpatient (REF) | payer MEDICARE, MEDICAID, SELFPAY ==
--- OUTSIDE RECORDS SUMMARY | 2024-05-23 08:40 | XMS_ITS | Encounter Summary ---
Author Organization [employer] Address [address] [facility] 7t [place] [address] Care Team Providers Care Pet Nutrition Specialist Name Role Phone Name, Garth YOON Primary Care Provider Encounter Details Date Type Department Care Team (Late st Contact Info) Description 08/25/2022 Abstract [facility] [address] [place] [phone] Name, MD Garth [address] [place] [address] Social History Tobacco Use Types Packs/Day Years [...] Description 07/20/2024 3:00 PM EDT Office Visit [facility] ADULT DENTAL [address] [place], [place] [phone] Candido, Brynn [address] [place], [place] [phone] 08/17/2024 10:15 AM EDT Office Visit [facility] [address] [place] [address] [phone] Name, MD Garth [address] [place] [address] documented as of this encounter Procedures Procedure [...] documented as of this encounter Care Teams Pet Nutrition Specialist Relationship Specialty Start Date End Date Name, MD Grath [address] [place] [address] PCP - General Family Medicine 06/18/15 documented as of this encounter
--- OUTSIDE RECORDS SUMMARY | 2024-05-23 08:41 | XMS_ITS | Encounter Summary ---
Author Organization [employer] [facility] Address [address] [facility] 7t [place] [address] Care Team Providers Care General Utility Maintenance Repairer Name Role Phone Name, Garth YOON Primary Care Provider [phone] Encounter Details Date Type Department Care Team (Latest Contact Info) Description 02/06/2019 Abstract [facility] CONVERSIONS Dental, Provider, DDS Social History [...] Description 07/20/2024 3:00 PM EDT Office Visit [facility] ADULT DENTAL [address] [place] [address] Candido, Brynn [address] [place] [address] 08/17/2024 10:15 AM EDT Office Visit [facility] MEDICINE [address] [place] [address] Garth Brock MD [address] [place] [address] documented as of this encounter Visit Diagnoses Not on filedocumented in this encounter Care Teams General Utility Maintenance Repairer Relationship Specialty Start Date End Date Garth Brock MD [address] [place] [address] PCP - General Family Medicine 4/6/16 documented as of this encounter
--- OUTSIDE RECORDS SUMMARY | 2024-05-23 08:41 | XMS_ITS | Encounter Summary ---
Author Organization [employer] Address [address] [facility] 7t [place] [address] Care Team Providers Care Oil Well Cable Tool Operator Name Role Phone Name, Garth YOON Primary Care Provider [phone] Reason for Visit * Reason Comments Med Refill Encounter Details Date Type Department Care Team (Late st Contact Info) Description 11/22/2022 Refill [facility] [address] [place] [address] Name, MD Garth [address] [place] [address] Essential (primary) hypertension Social History Tobacco Use [...] Description 07/20/2024 3:00 PM EDT Office Visit [facility] ADULT DENTAL [address] [place] [address] Brynn Rey [address] [place] [address] 08/17/2024 10:15 AM EDT Office Visit [facility] [address] [facility] [place] [address] Name, MD Garth [address] [place] [address] documented as of this encounter Visit Diagnoses Diagnosis Essential (primary) hypertension Unspecified essential hypertension documented in this encounter Additional Health Concerns Assessment Noted Time PHQ-9 Depression Total Score: 11 023 11:05 AM EST documented as of this encounter Care Teams Oil Well Cable Tool Operator Relationship Specialty Start Date End Date Name, MD Garth [address] [facility] [place] [address] PCP - General Family Medicine 06/18/15 documented as of this encounter
--- OUTSIDE RECORDS SUMMARY | 2024-05-23 08:41 | XMS_ITS | Clinical Summary ---
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 09/21/2022 Prediabetes 03/17/2022 History of colon polyps 03/17/2022 Overview (03/17/2022): She had tubular adenoma removed 2017 at [facility] Calcaneal spur 08/21/2018 Mild intermittent asthma 07/05/2018 [...] Description 05/22/2024 9:00 AM EDT Office Visit [facility] MEDICINE [address] [place] [address] Name, MD Garth BRANTLEY (dyspnea on exertion) (Primary Dx); Mild intermittent asthma, unspecified whether complicated; History of pericarditis; Essential hypertension; High cholesterol; Prediabetes; Skin tag 05/22/2024 Telephone [facility] MEDICINE [address] [place] [address] Lily Caal, HONG 05/22/2024 Travel 05/21/2024 Telephone [facility] MEDICINE [address] [place] [address] Edilia Augustin MA Chart prep 05/06/2024 Refill [facility] MEDICINE [address] [place] [address] NameGarth MD 03/27/2024 Refill [facility] MEDICINE [address] [facility] [place] [address] Name, MD Garth 03/20/2024 3:00 PM EST Office Visit [facility] ADULT DENTAL [address] [place] [address] Jeff Cedeno DDS Ill-fitting dentures (Primary Dx); Partial edentulism, unspecified edentulism class 03/15/2024 Telephone [facility] MEDICINE [address] [facility] [place] [address] Edilia Augustin MA Luc recalls 03/01/2024 Telephone [facility] ADULT DENTAL [address] [place] [address] Jeff Cedeno DDS case back from lab? from Last 3 Months Immunizations Name Administration [...] 3:00 PM EDT Office Visit [facility] ADULT DENTAL [address] [place] [address] Brynn Rey [address] [place] [address] 08/17/2024 10:15 AM EDT Office Visit [facility] MEDICINE [address] [place] [address] Name, MD Garth [address] [place] [address] Health Maintenance Due Date Last Done Comments [...] AM EDT Narrative 05/22/2024 10:41 AM EDT ?[facility] [facility] ?[address] ?[place] [address] ?XRay Report ? Signed ? Patient: Nemaha,Evelia ?MR#: [id number] ? : 1955 ?Acct:[id number] ? Age/Sex: 68 / F ?ADM Date: 05/22/24 ? Loc: HO.HHCX ? Attending Dr: Garth Brock MD ? Ordering Physician: Garth Brock MD ?? Date of Service: 05/22/24 ?? Procedure(s): XR chest 2V ?? Accession Number(s): [id number] ? cc: Garth Brock MD ? EXAMINATION: [...] DD/ 0944 ? TD/TT: 05/22/24 1020 ? Kiln Remover: ? Procedure Note Karen, Image - 05/22/[address] [address] XRay Report Signed Patient: Raza Holm#: [id number] : 7Acct:[id number] Age/Sex: 68 / FADM Date: 05/22/24 Loc: .HHX Attending Dr: Garth Brock MD Ordering Physician: Garth Brock MD Date of Service: 05/22/24 Procedure(s): XR chest 2V Accession Number(s): [id number] cc: Garth Brock MD EXAMINATION: XR CHEST [...] 05/22/24 1038 DD/ 0944 TD/TT: 05/22/24 1020 Kiln Remover: Garth Brock MD IMG XR PROCEDURES Final Result * ECG 12 lead (05/22/2024 9:39 AM EDT) Narrative NameGarth MD - 05/22/2024 9:39 AM EDT Normal sinus rhythm, heart rate of 78, no ST segment elevation or depression, no changes from baseline EKGs us Garth Brock MD ECG ORDERABLES Final Result * POCT Glucose (05/22/2024 8:55 AM EDT) [facility] Glucose Blood, POC 150 60 - 200 mg/dL QC Media Lot # [id number] Lot# Expiration Date 82,625 Blood Capillary blood specimen / Unknown 05/22/2024 8:55 AM EDT us Garth Brock MD POINT OF CARE TEST ENTER/EDIT OR DERABLES Final Result * POCT HGB A1C (01/03/2024 4:06 PM EDT) Hemoglobin A1C 5.9 4.0 - 6.0 % QC Media Lot # [id number] Lot# Expiration Date [id number] Blood 01/03/2024 4:06 PM EDT us Garth Name MD POINT OF CARE TEST ENTER/EDIT OR DERABLES Final Result * BI Mammogram Screening Tomosynthesis Bilateral (11/01/2023 1:50 PM EDT) Anatomical Region Laterality Modality Breast Bilateral Mammography 11/01/2023 1:50 PM EDT Narrative 11/30/2023 5:15 PM EDT ? [facility] ? [address] ?[place] [address] ? Mammography Report ? Signed ? Patient: Alta,Evelia ?MR#: [id number] ? : 1955 ?Acct:[id number] ? Age/Sex: 67 / F ?ADM Date: 11/01/23 ? Loc: HO.MAMMO ? Attending Dr: Neto Graham CNM ? Ordering Physician: NETO GRAHAM CNM ?Results: 1 ?? Negative ? Date of Service: 11/01/23 ?Follow Up: 1 Year From Orig ?? inal Mammogram ? Procedure(s): MM tomosynthesis screening BI ?? Accession Number(s): [id number] ? cc: Delmy,Garth YOON; NETO GRAHAM CNM [...] DD/ 1350 ? TD/TT: 11/01/23 1412 ? Kiln Remover: ? Procedure Note Isrrael Jones - 11/30/2023 [facility] [address] [place] [address] Dr. Shannon, [place] [address] Mammography Report Signed Patient: Raza Holm#: [id number] : 1955cct:[id number] Age/Sex: 67 / FADM Date: 11/01/23 Loc: HO.MAMMO Attending Dr: Neto Graham CNM Ordering Physician: NETO GRAHAMesults: 1 Negative Date of Service: 11/01/23Follow Up: 1 Year From Orig inal Mammogram Procedure(s): MM tomosynthesis screening BI Accession Number(s): [id number] cc: Name,Garth YOON; NETO GRAHAM CNM EXAMINATION: [...] 11/30/23 1713 DD/ 1350 TD/TT: 11/01/23 1412 Kiln Remover: us Neto Graham CNM IMG BI PROCEDURES Final R esult * (ABNORMAL) Lipid Panel, Standard (12/27/2022 8:14 AM EDT) Triglycerides 95 <150 mg/dL [facility] Comment:Desirable Triglyceri de: less than 150 mg/dLBorderline High Triglyceride 150-199 mg/dLHigh Triglyceride: 200-499 mg/dLVery High Triglyceride: greater than or equal to 5OO mg/dL Cholesterol 209(H) <200 mg/dL [facility] Comment:Desirable Cholestero l: less than 200 mg/dLBorderline High Cholesterol: 200-239 mg/dLHigh Cholesterol: greater than 239 mg/dL LDL Cholesterol Calculated 124(H) <100 mg/dL [facility] Comment:Desirable LDL: less than 100 mg/dLNear Optimal/Above Optimal LDL: 110- 129 mg/dLBorderline High LDL: 130-159 mg/dLHigh LDL: 160-189 mg/dLVery High LDL: greater than or equal to 190 mg/dL HDL Cholesterol 66 >40 mg/dL [facility] Comment:Desirable HDL: great er than 40 mg/dL Note: This HDL assay may give artificially low results in patients with liver disease. Blood Venous blood specimen / Unknown 12/27/2022 8:14 AM EDT 12/27/2022 11:13 AM EDT Garth Brock MD LAB BLOOD ORDERABLES Final Resul t [facility] [address] [place] [address] [phone] * Pap Smear (09/20/2022) HM Pap smear Pap NIL HPV negative. Repeat due 3-5 years Historical Provider HEALTH MAINTENANCE Final Result * Image-Guided Pap with Age-Based Screening Protocols (09/16/2022 12:00 AM EDT) Comment [employer] [facility] Comment: This order for age-based cervical cancer and STI screening follows ACOG guidelines(PB 168, 140, XIO627). See individual assays for performing site location. Clinical Information: Routine exam [facility] LMP: NONE GIVEN [facility] Prev. PAP: NONE GIVEN [facility] [employer] [facility] Prev. BX: NONE GIVEN [facility] SOURCE: None given [facility] Statement Of Adequacy: [employer] Comment: Satisfactory for evaluation. Endocervical/transformation zone component present. Interpretation/ Result: Cytology Results: Negative for intraepithelial lesion or malignancy. [facility] COMMENT: This Pap test has been evaluated with computer assisted technology. [facility] [place] [facility] Cytotechnologis t: [facility] [place] [facility] Comment: RXB, CT(ASCP) CT screening location: [address] ??[address] Review Cytotechnologis t: [facility] [place] [facility] Comment: MXD, CT (ASCP) CT screening location: [address] ??[address] (Always Message) [facility] [place] [facility] Comment: EXPLANATORY NOTE: The Pap is a [...] HPV nRNA E6/E7 Not Detected Not Detected [facility] [place] [facility] Comment: Methodology: Ballet Master/Mistress-Mediated Amplification This assay detects E6/E7 viral messenger RNA (mRNA) from 14 high-risk HPV types (16,18,31,33,35,39,45,51,52,56,58,59,66,68). Cervical sources are required for HPV testing. If a vaginal source from a patient who has had a total hysterectomy with removal of cervix was submitted, please contact the testing laboratory for alternative testing options. For additional information, please refer to http://education.[employer]/faq/ZDU280q2 (This link if provided for information/ educational purposes only.) 09/16/2022 09/17/2022 7:1 7 AM EDT Narrative [facility] - 09/20/2022 4:19 PM EDT FASTING: UNKNOWN us Neto Graham CNM LAB BLOOD ORDERABLES Sowmya l Result [facility] [address], [place] [address] [facility] [address] [place] [address] * Colonoscopy (12/30/2016) Colonoscopy Performed us Historical Provider MD HEALTH MAINTENANCE Final Result from Last 3 Months or Most Recently Relevant to Health Maintenance Insurance [facility] STANDARD MEDICARE DENTAL - HSN FULL (MEDICAID) Care Teams Fit Model Relationship Specialty Start Date End Date Name, MD Garth [address] [place] [address] PCP - General Family Medicine 06/18/15
--- OUTSIDE RECORDS SUMMARY | 2024-05-23 08:41 | XMS_ITS | Encounter Summary ---
Author Organization [employer] Address [address] [facility] 7t [place] [address] Care Team Providers Care Client Support Representative Name Role Phone Name, Garth YOON Primary Care Provider [phone] Reason for Visit * Reason Onset Date Comments case back from lab? 03/01/2024 Encounter Details Date Type Department Care Team ([facility] st Contact Info) Description 03/01/2024 Telephone [facility] ADULT DENTAL [address] [place] [address] Jeff Cedeno DDS [address] [place] [address] case back from lab? Social History Tobacco [...] Description 07/20/2024 3:00 PM EDT Office Visit [facility] ADULT DENTAL [address] [place], [place] [phone] Brynn Rey [address] [place] [address] 08/17/2024 10:15 AM EDT Office Visit [facility] MEDICINE [address] [place], [place] [phone] Name, MD Garth [address] [place] [address] documented as of this encounter Visit Diagnoses Not on filedocumented in this encounter Additional Health Concerns Assessment Noted Time PHQ-9 Depression Total Score: 0 03/29/19 24 11:15 AM EST documented as of this encounter Care Teams Client Support Representative Relationship Specialty Start Date End Date Name, MD Garth 230 [place] [address] PCP - General Family Medicine 06/18/15 documented as of this encounter
--- OUTSIDE RECORDS SUMMARY | 2024-05-23 08:41 | XMS_ITS | Encounter Summary ---
Author Organization [employer] Address [address] [facility] 7t [place] [address] Care Team Providers Care Paper Machine Operator Name Role Phone Name, Garth YOON Primary Care Provider [phone] Reason for Visit * Reason Comments Med Refill Encounter Details Date Type Department Care Team ([facility] st Contact Info) Description 05/06/2024 Refill [facility] MEDICINE [address] [place] [address] Name, MD Garth [address] [place] [address] Social History Tobacco Use Types Packs/Day Years [...] 07/20/2024 3:00 PM EDT Office Visit [facility] ADULT DENTAL [address] [place] [address] Candido, Brynn [address] [place] [address] 08/17/2024 10:15 AM EDT Office Visit [facility] MEDICINE [address] [place] [address] Name, MD Garth [address] [place] [address] documented as of this encounter Visit Diagnoses Not on filedocumented in this encounter Additional Health Concerns Assessment Noted Time PHQ-9 Depression Total Score: 0 03/29/19 24 11:15 AM EST documented as of this encounter Care Teams Paper Machine Operator Relationship Specialty Start Date End Date Name, MD Garth [address] [place] [address] PCP - General Family Medicine 06/18/15 documented as of this encounter
--- OUTSIDE RECORDS SUMMARY | 2024-05-23 08:41 | XMS_ITS | Encounter Summary ---
Author Organization [employer] [facility] Address [address] [facility] 7t [place] [address] Care Team Providers Care Electrical Tester Name Role Phone Name, Garth YOON Primary Care Provider [phone] Encounter Details Date Type Department Care Team (Latest Contact Info) Description 02/20/2020 Abstract [facility] Dental, Provider, DDS Social History [...] Description 07/20/2024 3:00 PM EDT Office Visit [facility] ADULT [facility] [address] [place] [address] Candido, Brynn [address] [place] [address] 08/17/2024 10:15 AM EDT Office Visit [facility] [address] [place] [address] Garth Brock MD 230 [place] [address] documented as of this encounter Visit Diagnoses Not on filedocumented in this encounter Care Teams Electrical Tester Relationship Specialty Start Date End Date Garth Brock MD [address] [place] [address] PCP - General Family Medicine 4/6/16 documented as of this encounter
--- OUTSIDE RECORDS SUMMARY | 2024-05-23 08:41 | XMS_ITS | Encounter Summary ---
Author Organization [employer] [facility] Address [address] [facility] 7t [place] [address] Care Team Providers Care Analog Circuit Designer Name Role Phone NameGarth MD Primary Care Provider Reason for Referral * Consultation (Routine) - Authorized Specialty Diagnoses / Procedures Referred By Meek [place] Referred To Contact Family Medicine Diagnoses Skin tag NameGarth MD [address] [place] [address] Phone: tel: fax: Referral ID Status Reason Start Date Expiration Date Visits Requested Visits Authorized [id number] Authorized Specialty Services Required 05/22/2024 05/22/2025 1 1 * Imaging (Routine) - Authorized Specialty Diagnoses / Procedures Referred By Meek [place] Referred To Contact Cardiology Diagnoses BRANTLEY (dyspnea on exertion) History of pericarditis Procedures Transthoracic Echo (TTE) Complete NameGarth MD [address] [place] [address] Phone: tel: fax: [address] Phone: tel: fax: Referral ID Status Reason Start Date Expiration Date Visits Requested Visits Authorized [id number] Authorized Perform Procedure 05/22/2024 05/22/2025 1 1 Reason for Visit * Reason Comments Hypertension Encounter Details Date Type Department Care Team ([facility] st Contact Info) Description 05/22/2024 9:00 AM EDT Office Visit [facility] MEDICINE [address] [place] [address] Name, MD Garth [address] [place] [address] BRANTLEY (dyspnea on exertion) (Primary Dx); Mild [...] in this encounter Progress Notes * Garth Brock MD - 05/22/2024 9:00 AM EDT Subjective Patient [...] dermatology as requested. Orders: - Referral to [facility] Derm Skin Adult; Future Other orders - fluticasone furoate (Arnuity Ellipta) 100 MCG/ACT inhaler; Inhale 1 puff Once per day. Rinse mouth with water after use to reduce aftertaste and incidence of candidiasis. Do not swallow. documented in this encounter Plan of Treatment Upcoming Encounters Date Type Department Care Team (Late st Contact Info) Description 07/20/2024 3:00 PM EDT Office Visit [facility] ADULT DENTAL [address] [place] [address] Jc Reyaris [address] [place] [address] 08/17/2024 10:15 AM EDT Office Visit [facility] MEDICINE [address] [place] [address] Name, MD Garth [address] [place] [address] Scheduled Orders Name Type Priority Associated Diagnoses [...] Associated Diagnoses Orde r Schedule Referral to [facility] Derm Skin Adult Outpatient Referral Routine [...] AM EDT Narrative 05/22/2024 10:41 AM EDT ?[facility] ?[address] ?[place] [address] ?XRay Report ? Signed ? Patient: Alta,Evelia ?MR#: [id number] ? : 1955 ?Acct:[id number] ? Age/Sex: 68 / F ?ADM Date: 05/22/24 ? Loc: HO.HHCX ? Attending Dr: Garth Brock MD ? Ordering Physician: Garth Brock MD ?? Date of Service: 05/22/24 ?? Procedure(s): XR chest 2V ?? Accession Number(s): [id number] ? cc: Garth Brock MD ? EXAMINATION: [...] DD/ 0944 ? TD/TT: 05/22/24 1020 ? [employer] Floorperson: ? Procedure Note Isrrael Jones - 05/22/2024 [facility] [address] [place] [address] XRay Report Signed Patient: Raza Holm#: [id number] : 1955cct:[id number] Age/Sex: 68 / FADM Date: 05/22/24 Loc: HO.HHCX Attending Dr: Garth Brock MD Ordering Physician: Garth Brock MD Date of Service: 05/22/24 Procedure(s): XR chest 2V Accession Number(s): [id number] cc: Garth Brock MD EXAMINATION: XR CHEST [...] 05/22/24 1038 DD/ 0944 TD/TT: 05/22/24 1020 [employer] Shop Floorperson: Garth Brock MD IMG XR PROCEDURES Final Result * ECG 12 lead (05/22/2024 9:39 AM EDT) Narrative NameGarth MD - 05/22/2024 9:39 AM EDT Normal sinus rhythm, heart rate of 78, no ST segment elevation or depression, no changes from baseline EKGs us Garth Brock MD ECG ORDERABLES Final Result * POCT Glucose (05/22/2024 8:55 AM EDT) [facility] Signature Glucose Blood, POC 150 60 - 200 mg/dL QC Media Lot # [id number] Lot# Expiration Date 82,625 Blood Capillary blood specimen / Unknown 05/22/2024 8:55 AM EDT Garth Brock MD POINT OF CARE TEST [...] documented as of this encounter Care Teams Analog Circuit Designer Relationship Specialty Start Date End Date Name, MD Garth [address] [place] [address] PCP - General Family Medicine 06/18/15 documented as of this encounter
--- OUTSIDE RECORDS SUMMARY | 2024-05-23 08:41 | XMS_ITS | Encounter Summary ---
Author Organization [employer] Address [address] [facility] [address] 7t [place] [address] Care Team Providers Care Cattle Inspector Name Role Phone Name, Garth YOON Primary Care Provider [phone] Reason for Visit * Reason Onset Date Comments Chart prep 05/21/2024 Encounter Details Date Type Department Care Team ([facility] st Contact Info) Description 05/21/2024 Telephone [facility] MEDICINE [address] [place] [address] Edilia Augustin MA Chart prep Social History [...] Description 07/20/2024 3:00 PM EDT Office Visit [facility] ADULT DENTAL [address] [place] [address] Candido, Brynn [address] [place] [address] 08/17/2024 10:15 AM EDT Office Visit [facility] MEDICINE [address] [place] [address] Garth Brock MD [address] [place] [address] documented as of this encounter Visit Diagnoses Not on filedocumented in this encounter Additional Health Concerns Assessment Noted Time PHQ-9 Depression Total Score: 0 03/29/19 24 11:15 AM EST documented as of this encounter Care Teams Cattle Inspector Relationship Specialty Start Date End Date NameGarth MD [address] [place] [address] PCP - General Family Medicine 06/18/15 documented as of this encounter
--- OUTSIDE RECORDS SUMMARY | 2024-05-23 08:41 | XMS_ITS | Encounter Summary ---
Author Organization [employer] Address [address] [facility] [address] 7t [place] [address] Care Team Providers Care Quality Assurance Calibrator Name Role Phone Name, Garth YOON Primary Care Provider [phone] Encounter Details Date Type Department Care Team [...] Description 07/20/2024 3:00 PM EDT Office Visit [facility] ADULT DENTAL [address] [place] [address] Candido, Brynn [address] [place] [address] 08/17/2024 10:15 AM EDT Office Visit [facility] MEDICINE [address] [place] [address] Name, MD Garth [address] [place] [address] documented as of this encounter Visit Diagnoses Not on filedocumented in this encounter Additional Health Concerns Assessment Noted Time PHQ-9 Depression Total Score: 0 03/29/19 24 11:15 AM EST documented as of this encounter Care Teams Quality Assurance Calibrator Relationship Specialty Start Date End Date NameGarth MD [address] [place] [address] PCP - General Family Medicine 06/18/15 documented as of this encounter
--- OUTSIDE RECORDS SUMMARY | 2024-05-23 08:41 | XMS_ITS | Encounter Summary ---
Author Organization [employer] Address [address] [facility] [address] 7t [place] [address] Care Team Providers Care Tier And Detonator Name Role Phone Name, Garth YOON Primary Care Provider [phone] Encounter Details Date Type Department Care Team (Late st Contact Info) Description 05/22/2024 Telephone [facility] MEDICINE [address] [place], [place] [phone] Lily Caal, RN Social History Tobacco Use Types Packs/Day Years [...] encounter Miscellaneous Notes * Telephone Encounter - Lily Caal RN - 05/22/2024 11:51 AM EDT Tc to pt via WHOOP id: [id number] to let them know per PCP Please let the patient know her chest/lung X-ray is normal and we will contact her as we get the results of the other tests . Pt expressed understanding and denied any further questions or concerns at this time. * Telephone Encounter - Lily Caal RN - 05/22/2024 11:51 AM EDT ----- Message from Garth Brock MD sent at 05/22/2024 10:54 AM EDT ----- Please let the patient know her chest/lung X-ray is normal and we will contact her as we get the results of the other tests documented in this encounter Plan of Treatment Upcoming Encounters Date Type Department Care Team (Late st Contact Info) Description 07/20/2024 3:00 PM EDT Office Visit [facility] ADULT DENTAL [address] [place] [address] Candido, Brynn [address] [place] [address] 08/17/2024 10:15 AM EDT Office Visit [facility] MEDICINE [address] [place] [address] Name, MD Garth [address] [place] [address] documented as of this encounter Visit Diagnoses Not on filedocumented in this encounter Additional Health Concerns Assessment Noted Time PHQ-9 Depression Total Score: 0 03/29/19 24 11:15 AM EST documented as of this encounter Care Teams Tier And Detonator Relationship Specialty Start Date End Date Name, MD Garth [address] [place] [address] PCP - General Family Medicine 06/18/15 documented as of this encounter
--- OUTSIDE RECORDS SUMMARY | 2024-05-23 08:42 | XMS_ITS | Clinical Summary ---
Author Organization [facility] Address [address] [place] [address] Care Team Providers Care Attendance Secretary Name Role Phone Name, Garth YOON Primary Care Provider [phone] Social History Tobacco Use Types Packs/Day Years [...] age to complete this topic Care Teams Attendance Secretary Relationship Specialty Start Date End Date Name, MD Garth [address] [place] [address] [place] PCP - General Internal Medicine 04/25/18
--- OUTSIDE RECORDS SUMMARY | 2024-05-23 08:42 | XMS_ITS | Encounter Summary ---
Author Organization [employer] Address [address] [place] [address] Care Team Providers Care Electrical Prospecting Observer Name Role Phone Name, Garth YOON Primary Care Provider [phone] Reason for Visit * Reason Comments Med Refill Encounter Details Date Type Department Care Team (Late st Contact Info) Description 05/07/2022 Refill [facility] [address] [place], [place] [phone] Name, MD Garth [address] [place] [address] Radicular pain in left arm Social History [...] Description 07/20/2024 3:00 PM EDT Office Visit [facility] ADULT DENTAL [address] [place] [address] Brynn Rey [address] [place] [address] 08/17/2024 10:15 AM EDT Office Visit [facility] [address] [place] [address] Name, MD Garth [address] [place] [address] documented as of this encounter Visit Diagnoses Diagnosis Radicular pain in left arm Unspecified neuralgia, neuritis, and radiculitis documented in this encounter Additional Health Concerns Assessment Noted Time PHQ-9 Depression Total Score: 11 023 11:05 AM EST documented as of this encounter Care Teams Electrical Prospecting Observer Relationship Specialty Start Date End Date Name, [place] [address] PCP - General Family Medicine 06/18/15 documented as of this encounter
[2024-05-23 11:21] LABS: MANUAL DIFF FLAG NO
[2024-05-23 11:42] LABS: B Type Natriuretic Peptide 21 pg/mL (<100)
[2024-05-23 11:43] LABS: Basophils Percent Auto 0.3 % (0-2); Eosinophils Absolute Auto 0.1 X10*3/uL (0.0-0.4); Eosinophils Percent Auto 1.4 % (0-4); Hematocrit 48.1 % (37.0-47.0); Hemoglobin 15.1 g/dl (12.0-16.0); Imm Gran Abs Auto 0.03 X10*3/uL (0.00-0.03); Imm Gran Pct Auto 0.4 % (0.0-0.4); Lymphocytes Absolute Auto 1.4 X10*3/uL (1.2-4.9); Lymphocytes Percent Auto 19.7 % (20-40); Mean Corpuscular HGB Conc 31.4 g/dl (31.0-35.0); Mean Corpuscular Hemoglobin 28.3 pg (27.0-33.0); Mean Corpuscular Volume 90.2 fL (80.0-98.0); Mean Platelet Volume 11.5 fL (9.4-12.3); Monocytes Absolute Auto 0.6 X10*3/uL (0.1-1.2); Monocytes Percent Auto 8.5 % (2-11); Neutrophils Absolute Auto 4.8 x10*3/uL (2.0-8.3); Neutrophils Percent Auto 69.7 % (45-73); Platelet Count 262 X10*3/uL (160-400); Red Blood Count 5.33 X10*6/uL (4.20-5.50); Red Cell Distribution Width 13.1 % (11.0-16.0); White Blood Count 6.9 X10*3/uL (4.8-10.8)
[2024-05-23 12:08] LABS: Alanine Aminotransferase 14 U/L (0-31); Alkaline Phosphatase 96 U/L (39-117); Anion Gap 10 (12-20); Aspartate Amino Transferase 24 U/L (5-31); Bilirubin Total 0.9 mg/dL (0.0-1.0); Blood Urea Nitrogen 12 mg/dL (9-16); Calcium 9.3 mg/dL (8.4-10.2); Carbon Dioxide 32 mmol/L (22-29); Chloride 105 mmol/L (96-108); Cholesterol 209 mg/dL (<200); Estimated Glomerular Filt Rate > 60; Glucose Random 97 mg/dL (60-115); HDL Cholesterol 69 mg/dL (>40); LDL Cholesterol Calculated 121 mg/dL (<100); Potassium 4.1 mmol/L (3.3-5.1); Sodium 143 mmol/L (135-145); Total Protein 7.8 g/dL (6.5-8.0); Triglycerides 99 mg/dL (<150)
== END 2024-05-23 08:20 | disposition home or self-care (01) ==
LOC: HO.HHCL 08:19
PROVIDERS: Visit Provider Internal Medicine Geriatric Medicine
DX: R06.09 Other forms of dyspnea (principal); E78.00 Pure hypercholesterolemia, unspecified
CPT/HCPCS: 36415; 80053; 80061; 83880; 85025

== ENCOUNTER → 2024-06-07 08:56 | Outpatient (REF) | payer MEDICARE, MEDICAID, SELFPAY ==
--- NOTE | 2024-06-07 09:00 | CA_ITS ---
Transthoracic Echocardiogram Patient (Last, First, Middle): Evelia Holm, Gender: Female Date of : 1955 Age: 68 Procedure Date: 06/07/2024 Procedure Type: Transthoracic Echocardiogram Location: OP Height: 160.02 cm Weight: 90.72 kg BSA: 1.93 m2 Heart Rate: bpm BP: 140 / 90 mmHg Adjuster Piano Action: BEBETO/MARK ANTHONY Referring MD: Garth Brock MD Product Safety Specialist: Serafin Alvarez MD Symptoms: BRANTLEY HX PERICARDITIS R06.09 Z86.79 Study Quality: Adequate w contrast ECG Rhythm: Sinus Conclusions: - 1. Normal LV ejection fraction of 65-70% with impaired relaxation filling pattern 2. Normal cardiac valvular Dopplers 3. Mildly dilated ascending aorta at 3.8 cm 4. Normal RV systolic pressure 5. No gross pericardial effusion Findings Procedure Information Contrast agent, definity, is being given per protocol without apparent complications. Left Ventricle Normal left ventricular size, thickness, and systolic function. The visually estimated ejection fraction is between 65-70%. Spectral Doppler is indicative of an impaired relaxation filling pattern. E/E prime ratio is between 8 and 15 consistent with indeterminate filling pressures. Right Ventricle Normal right ventricular cavity size. Atria The left atrium is normal in size. There is no evidence of interatrial shunt. The right atrium was not well visualized. Aortic Valve Normal aortic valve structure and function. There is no aortic valve stenosis. There is no aortic valve regurgitation. Mitral Valve Normal mitral valve structure and function. There is trace mitral valve regurgitation. There is no mitral valve stenosis. Pulmonic Valve The pulmonic valve was not well visualized. Tricuspid Valve Likely normal tricuspid valve structure and function. There is trace tricuspid valve regurgitation. The right ventricular systolic pressure is normal. The right ventricular systolic pressure is 22 mmHg. Normal right atrial pressure. There is no evidence of pulmonary hypertension. Great Vessels The pulmonary artery was not well visualized. There is mild dilatation of the ascending aorta measuring 3.80 cm. Venous The inferior vena cava is normal in size and collapses greater than 50% with inspiration. Pericardium/Pleural There is no evidence of pericardial effusion. Prior Study Comparison No significant change compared to prior study dated: 04/13/2023. Measurements 2D Linear Measurements IVSd: 1.06 0.6-0.9/0.6-1.0 cm LVIDd: 4.20 3.9-5.3/4.2-5.9 cm LVIDd Index: 2.18 2.4-3.2/2.2-3.1 cm/m2 LVIDs: 2.48 2.0-3.6 cm LVPWd: 0.98 0.7-1.1 cm LA Diam: 3.40 2.7-3.8/3.0-4.0 cm LAIDs Index: 1.76 1.5-2.3 cm/m2 LV Mass: 175.88 67-162/88-224 g LV Mass Index: 91.13 43-95/49-115 g/m2 LVOT Diam: 2.10 3.0+(-)1.3 cm 2D Systolic Function EF 4C: 75.20 >55% EF 2C: 64.20 >55% EF BiP: 70.50 >55% Mitral Valve MV Pk E: 0.81 MV PK A: 1.04 MV Decel Time: 233.00 E/A: 0.80 E'Lateral: 7.94 E'Medial: 6.85 E/E' Med: 11.90 E/E' Lat: 10.30 PHT: 68.00 MVA PHT: 3.24 Decel [place]: 3.50 Aortic Valve AoV Pk Michael: 1.38 AoV Mn Michael: 0.95 AoV VTI: 0.30 AoV Pk Grad: 8.00 Aov Mn Grad: 4.00 CHLOÉ Cont.VTI: 2.36 LVOT LVOT Pk Michael: 0.91 LVOT Mn Michael: 0.68 LVOT VTI: 0.21 LVOT Pk Grad: 3.00 LVOT Mn Grad: 2.00 LVOT Diam: 2.10 LVOT Area: 3.46 Diastolic Function MV Pk E: 0.81 MV Pk A: 1.04 E/A: 0.80 E'Medial: 6.85 E/E' Med: 11.90 E' Laterial: 7.94 E/E' Lat: 10.30 Right Ventricle TAPSE (mm): 20.70 TVS' Michael: 9.14 Tricuspid Valve TR Pk Michael: 2.20 TR Pk Grad: 19.00 RA Press: 3.00 RVSP: 22.00 Great Vessels Aorta Sinus of Valsalva: 3.30 2.0-3.5 cm Ao Asc: 3.80 2.1-3.4 cm Ao Arch: 3.00 Pulmonary Valve PV Pk Michael: 0.80 Peak PV Grad: 3.00 Updated in Other Vendor System with Status of Final Serafin Alvarez MD electronically signed on 06/07/2024 4:58:04 PM with status of Final
== END ==
LOC: HO.CARD 08:56
PROVIDERS: PCP Internal Medicine Geriatric Medicine; Visit Provider Internal Medicine Geriatric Medicine
DX: R06.09 Other forms of dyspnea (principal); Z86.79 Personal history of other diseases of the circulatory system
CPT/HCPCS: 93306; Q9957

== ENCOUNTER → 2024-06-07 09:00 | Outpatient (BNV) | payer MEDICARE, MEDICAID, SELFPAY | PROVIDERS: PCP Internal Medicine Geriatric Medicine; Visit Provider Internal Medicine Cardiovascular Disease | DX: I34.0 Nonrheumatic mitral (valve) insufficiency (principal) | CPT/HCPCS: 93306 ==

== ENCOUNTER 2024-09-20 09:08 | Outpatient (REF) | payer MEDICARE, MEDICAID, SELFPAY ==
--- NOTE | ~2024-09-20 | XR_ITS ---
EXAMINATION: XR HIP, RIGHT CLINICAL INFORMATION: Months of right lateral hip pain COMPARISON: 07/05/2016. TECHNIQUE: Two views of the right hip. FINDINGS: No fracture, dislocation, or suspicious bone lesion. There is normal alignment. Moderate osteoarthrosis of the right hip joint, mildly progressed from 2017. Normal femoral head contour without evidence of AVN. Mild enthesopathy of the greater trochanter, and gluteal insertion upon the iliac bone. No discrete soft tissue abnormality. XR/XR hip RT min 2V IMPRESSION: 1. No acute bony abnormalities. 2. Moderate osteoarthrosis right hip joint, mildly progressed from 2017. Electronically signed by: Óscar Wise MD 09/20/2024 09:40 AM EDT
--- OUTSIDE RECORDS SUMMARY | 2024-09-20 09:34 | XMS_ITS | Clinical Summary ---
Author Organization [facility] Address [address] [place] [address] Phone Care Team Providers Care Rotary Envelope Machine Operator Name Role Phone Name, Garth YOON Primary Care Provider [phone] Social History Tobacco Use Types Packs/Day Years Used Date Smoking Tobacco: Never Assessed Comments Unknown Sex and Gender Information Value Date Recorded Sex Assigned at Not on file Legal Sex Female 12:24 AM EST Gender Identity Not on file Sexual Orientation Not on file Plan of Treatment Upcoming Encounters Date Type Department Care Team ([facility] Contact Info) Description 11/19/2024 9:00 AM EDT Consult Orthopedic Surgery - [place] [address] [id number] Mitchell Bender, DPM [address] [address] Health Maintenance Due Date Last Done Comments Breast Cancer Screening 1955 DTaP,Tdap,and Td Vaccines (1 - Tdap) 12/30/1975 Pneumococcal Vaccine: 50+ Ye ars (1 of 1 - PCV) 2006 Zoster Vaccines (1 of 2) 2006 COVID-19 Vaccine (2023-2 5 season) 2023 Colorectal Cancer Screening: Colonoscopy 08/20/2024 Depression Screening 08/20/2024 Falls Risk Assessment 08/20/2024 Hepatitis C Screening 08/20/2024 Medicare Annual Wellness Visit 08/20/2024 Osteoporosis Screening (Bone Density Screening) 08/20/2024 Social Influencers of Health Screening 08/20/2024 Influenza Vaccine (#1) 2024 RSV Immunization Adult Patie nts (1 - 1-dose 75+ series) 12/30/2031 HIB [...] age to complete this topic Meningococcal B Vaccine Aged Out No l onger eligible based on patient's age to complete this topic RSV Immunization Patients Un andrew 20 months Aged Out No longer eligible b ased on patient's age to complete this topic Varicella Vaccines Aged Out No longer eligible based on patient's age to complete this topic Insurance MEDICARE MEDICAID - [place] Care Teams Rotary Envelope Machine Operator Relationship Specialty Start Date End Date Name, MD Garth [address] [place] [address] PCP - General Internal Medicine 04/25/18
--- OUTSIDE RECORDS SUMMARY | 2024-09-20 09:34 | XMS_ITS | Encounter Summary ---
Author Organization [employer] Address [address] [place] [address] [address] [place] [address] Care Team Providers Care Agriculture Technician Name Role Phone Name, Garth YOON Primary Care Provider [phone] Encounter Details Date Type Department Care Team ([facility] Contact Info) Description 08/25/[address] [address] NameGarth MD [address] [place] [phone] Social History Tobacco Use Types Packs/Day Years [...] Encounters Date Type Department Care Team (Late Contact Info) Description 12/05/2024 9:30 AM EDT Office Visit [address] [phone] Garth Brock MD [address] [place] [phone] documented as of this encounter Procedures Procedure Name Priority Date/Time Associated Diagnosis Comments HM PAP/HPV Routine 01/26/2019 documented in this encounter [...] documented as of this encounter Care Teams Agriculture Technician Relationship Specialty Start Date End Date Name, MD Garth [address] [place] [address] PCP - General Family Medicine 06/18/15 documented as of this encounter
== END 2024-09-20 09:09 | disposition home or self-care (01) ==
LOC: HO.HHCX 09:08
PROVIDERS: PCP Internal Medicine Geriatric Medicine; Visit Provider Internal Medicine Geriatric Medicine
DX: M25.551 Pain in right hip (principal)
CPT/HCPCS: 73502

== ENCOUNTER → 2024-09-20 09:16 | Outpatient (BNV) | payer MEDICARE, MEDICAID, SELFPAY | PROVIDERS: PCP Internal Medicine Geriatric Medicine; Visit Provider Radiology Diagnostic Radiology | DX: M16.11 Unilateral primary osteoarthritis, right hip (principal) | CPT/HCPCS: 73502 ==

== ENCOUNTER 2024-10-23 08:05 | Outpatient (REF) | payer MEDICARE, MEDICAID, SELFPAY ==
--- NOTE | ~2024-10-23 | XR_ITS ---
EXAMINATION: XR PELVIS CLINICAL INFORMATION: M25.559 - Pain in unspecified hip COMPARISON: December 18, 2015. TECHNIQUE: AP view of the pelvis. FINDINGS: No acute cortical disruption, bony pelvis. No acute cortical disruption or malalignment in either coxofemoral joint. Sclerosis along the reticular surface with subchondral cyst formation in the superior acetabulum, bilaterally. Subchondral cyst formation and sclerosis in the ischium, bilaterally. Subchondral cyst formation in the greater trochanters of the femurs. Asymmetric joint space narrowing involving mostly the right coxofemoral joint. L2 level syndesmophyte formation and marginal osteophyte formation at L4-5. No lytic or blastic lesions. XR/XR pelvis 1-2V IMPRESSION: Bilateral mild osteoarthrosis/osteoarthritis both hips. No acute fracture. Spondylosis. Electronically signed by: Rad Hadley MD 10/23/2024 01:22 PM EDT
== END 2024-10-23 08:06 | disposition home or self-care (01) ==
LOC: HO.HOSX 08:05
PROVIDERS: Visit Provider Physician Assistant
DX: M16.0 Bilateral primary osteoarthritis of hip (principal); M25.551 Pain in right hip; R20.0 Anesthesia of skin; R20.2 Paresthesia of skin; R10.30 Lower abdominal pain, unspecified
CPT/HCPCS: 72170; 99202

== ENCOUNTER 2024-10-23 12:40 | Outpatient (AMB) | payer MEDICARE, MEDICAID, SELFPAY ==
--- NOTE | 2024-10-23 13:03 | A.OFFVIS_ITS ---
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 No history of surgery. Had a bad fall a couple years ago. Patient reports reports off and on pain for about a year. She notices that her pain is worse when she is sitting and when laying down. Patient reports that her pain is sharp in her lateral aspect and glute area of the hip it moves to her lower back. She has notices numbness in both of her legs for about 4 to 5 months. Patient has tried CORE physical therapy with 5- 6 sessions with no relief. She has taken Ibuprofen with no relief. 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 Alta garces is a 68-year-old female who presents to the office today for evaluation of right hip pain. She reports pain that waxes and wanes for the past year. Her pain is worse when sitting and lying down. She reports that she has pain that begins in the lateral aspect of the hip and radiates into the groin and occasionally into the glutes. For the past 4-5 months she has also noticed some numbness and tingling in bilateral lower extremities. She has attended 4-5 physical therapy sessions with no relief. Additionally, she has tried ibuprofen with little relief. [facility] Medical History Cervicalgia Fibromyalgia Polyarthralgia Asthma Social History (Updated 10/23/24 @ 13:13 by Khanh Rodriguez) Alcohol intake: never Patient Tobacco Use Status: Never used Tobacco Current occupational status: disabled Current occupation: right hand dominant Review of Systems Const All systems reviewed & are unremarkable except as noted in HPI and below Physical Exam Vital Signs: BMI result Body Mass Index 31.9 Const General: cooperative, healthy appearing and no acute distress Resp Effort & Inspection: normal respiratory effort and able to speak in complete sentences Extrem Other: Right hip: Reproducible groin pain with internal and external rotation. External rotation is limited. No tenderness to palpation over the greater trochanteric bursa. 4/5 strength with resisted hip flexion, knee extension, abduction, and abduction. Able to perform straight leg raise. NVI. Psych Appearance: grossly normal Mental Status: mental status grossly normal Attitude: cooperative Assessment & Plan Assessment & Plan (1) Osteoarthritis of right hip: Code(s): M16.11 - Unilateral primary osteoarthritis, right hip Category: Medical Plan Ms. Holm this is a 68-year-old female who presents to the office today for evaluation of right hip pain. She reports pain that waxes and wanes for the past year. Her pain is worse when sitting and lying down. She reports that she has pain that begins in the lateral aspect of the hip and radiates into the groin and occasionally into the glutes. For the past 4-5 months she has also noticed some numbness and tingling in bilateral lower extremities. She has attended 4-5 physical therapy sessions with no relief. Additionally, she has tried ibuprofen with little relief. While in the office today, x-rays were reviewed to the patient and results were discussed. Patient does have significant osteoarthritis in bilateral hips. She endorses groin pain. She has tried physical therapy with no relief. She does not wish to proceed with surgical intervention at this time as she has not tried all conservative measures. We discussed the role of cortisone injections in which the patient is amenable to try. I discussed that this is done at the hospital under imaging guidance. Ultimately, I do feel this patient would benefit from a right total hip arthroplasty in the future. Therefore, we have scheduled a follow up appointment in 3 months with me to discuss if the injection has provided her with any relief. If not, we will readdress total hip arthroplasty at that time. X-rays of the pelvis which were obtained while in the office today and were reviewed by me, Rama Hernandez PA-C, revealed bilateral hip osteoarthritis. Orders: Orders XR pelvis 1-2V Today M25.559 - Pain in unspecified hip FL Guided Asp Inj Major Jt RT Today M16.11 - Unilateral primary osteoarthritis, right hip Coding Level of Care Code New Pt Level 4 (87704) Diagnoses Osteoarthritis of right hip M16.11
[2024-10-23 13:14] VITALS: BMI 31.9
--- OUTSIDE RECORDS SUMMARY | 2024-10-23 13:22 | XMS_ITS | Encounter Summary ---
Author Organization [employer] Address [address] [place] [address] [address] [place] [address] Care Team Providers Care Design Analyst Name Role Phone Name, Garth YOON Primary Care Provider [phone] Encounter Details Date Type Department Care Team ([facility] Contact Info) Description 08/25/[address] [address] NameGarth MD [address] [place] [address] [phone] Social History Tobacco Use Types Packs/Day Years [...] Description 12/05/2024 9:30 AM EDT Office Visit [address] [phone] Garth Brock MD [address] [place] [phone] documented as of this encounter Procedures Procedure [...] documented as of this encounter Care Teams Design Analyst Relationship Specialty Start Date End Date Name, MD Garth [address] [place] [address] PCP - General Family Medicine 06/18/15 documented as of this encounter
--- OUTSIDE RECORDS SUMMARY | 2024-10-23 13:22 | XMS_ITS | Clinical Summary ---
Author Organization [facility] Address [address] [place] [address] Phone Care Team Providers Care Earth Moving Technician Name Role Phone Name, Garth YOON Primary Care Provider [phone] Social History Tobacco Use Types Packs/Day Years Used Date Smoking Tobacco: Never Assessed Comments Unknown Sex and Gender Information Value Date Recorded Sex Assigned at Not on file Legal Sex Female 12:24 AM EST Gender Identity Not on file Sexual Orientation Not on file Plan of Treatment Upcoming Encounters Date Type Department Care Team ([facility] Contact Info) Description 11/19/2024 9:00 AM EDT Consult Orthopedic Surgery - [place] [id number] [address] [phone] Mitchell Bender, DPM [address] [address] Health Maintenance Due Date Last Done Comments Breast Cancer Screening 1955 DTaP,Tdap,and Td Vaccines (1 - Tdap) 12/30/1975 Pneumococcal Vaccine: 50+ Ye ars (1 of 1 - PCV) 2006 Zoster Vaccines (1 of 2) 2006 COVID-19 Vaccine ( - 2023-2 5 season) 2023 Depression Screening 03/14/2024 Colorectal Cancer Screening: Colonoscopy 08/20/2024 Falls Risk Assessment 08/20/2024 Hepatitis C [...] Insurance MEDICARE MEDICAID - [place] Care Teams Earth Moving Technician Relationship Specialty Start Date End Date Name, MD Garth [address] [place] [address] PCP - General Internal Medicine 04/25/18
== END 2024-10-23 13:32 | disposition home or self-care (01) ==
LOC: HO.HOS 12:40
PROVIDERS: PCP Internal Medicine Geriatric Medicine; Visit Provider Physician Assistant
DX: M16.11 Unilateral primary osteoarthritis, right hip (principal)
CPT/HCPCS: 99204

== ENCOUNTER → 2024-10-23 12:41 | Outpatient (BNV) | payer MEDICARE, MEDICAID, SELFPAY | PROVIDERS: Visit Provider Radiology Diagnostic Radiology | DX: M16.0 Bilateral primary osteoarthritis of hip (principal) | CPT/HCPCS: 72170 ==

== ENCOUNTER 2024-11-06 13:48 | Outpatient (REF) | payer MEDICARE, MEDICAID, SELFPAY ==
--- OUTSIDE RECORDS SUMMARY | 2024-11-06 14:43 | XMS_ITS | Clinical Summary ---
Author Organization [employer] Address [address] [facility] 7[address] [place] [address] Care Team Providers Care Loan Officer Name Role Phone Name, Garth YOON Primary Care Provider [phone] Allergies Active Allergy Reactions Criticality Noted Date Comments Codeine Other reaction(s): rash Medications loratadine (Claritin) 10 MG tablet Take 1 tablet by mouth. 2 Active fluticasone (Flonase) 50 MCG/ACT nasal spray Administer 2 sprays into affected nostril(s). 0 Active cholecalciferol (Vitamin D-3) 50 MCG (1999 UT) tablet Take 1 tablet by mouth. 2 Active baclofen (Lioresal) 20 MG tabletIndications :Acute pain of left shoulder Take 1 tablet (20 mg) by mouth 3 times daily. 30 tablet 3 Active atorvastatin (Lipitor) 20 MG tabletIndications :High cholesterol Take 1 tablet (20 mg) by mouth in the morning. 30 tablet 11 4 Active cyclobenzaprine (Flexeril) 5 MG tablet Take 5 mg by mouth if needed in the morning, at noon, and at bedtime for muscle spasms. 4 Active omeprazole (PriLOSEC) [address] capsule Take 1 capsule (40 mg) by mouth before breakfast. 30 capsule 4 Active fluticasone furoate (Arnuity Ellipta) 100 MCG/ACT inhaler Inhale 1 puff Once per day. Rinse mouth with water after use to reduce aftertaste and incidence of candidiasis. Do not swallow. 1 each 11 5 05/23/19 26 Active salicylic acid 6 % gelIndications:In flamed seborrheic keratosis Apply topically Once per day. 40 g 5 Active acetaminophen (Tylenol 8 Hour) 650 MG ER tablet Take 1 tablet (650 mg) by mouth every 8 (eight) hours if needed for mild pain. Do not crush, chew, or split. 20 tablet 5 Active Diclofenac Sodium 1 % gel APPLY 2 GRAMS TOPICALLY TO AFFECTED AREA(S) EVERY DAY DIRECTED 100 g 1 5 Active ibuprofen 400 MG tablet Take 1 tablet (400 mg) by mouth every 6 (six) hours if needed for moderate pain. 60 tablet 5 Active amLODIPine (Norvasc) 10 MG tablet Take 1 tablet (10 mg) by mouth in the morning. 90 tablet 1 5 Active metFORMIN (Glucophage) 500 MG tabletIndications :Prediabetes TAKE 1 TABLET BY MOUTH TWICE DAILY IN THE MORNING AND IN THE EVENING WITH MEALS 180 tablet 1 5 Active albuterol 108 (90 Base) MCG/ACT inhalerIndication s:Mild intermittent asthma, unspecified whether complicated INHALE 2 PUFFS BY MOUTH EVERY 4 TO 6 HOURS NEEDED 8.5 g 1 5 Active Active Problems Problem Noted Date Diagnosed Date Localized gingival enlargement 08/16/2024 Acute left eye pain 07/03/2024 Assessment & Plan (07/03/2024 1:42 PM EDT): Patient here with c/o acute onset of left eye pain, woke up with it this morning, no Hx of trauma, no discharge describes the pain as 6/10 associated with photophobia and painful eye movements Exam: Fluorescein, no abnormality seen. EOMs painful, photophobia, ocular globe tender to palpation. No discharge Plan: case discussed with Optometry specialist Dr Ayala who agreed to see patient, who will likely need a dilated exam and measurement of IOP. Pt agreeable with plan To be seen by [employer] TODAY Ill-fitting dentures 03/20/2024 Excessive attrition of teeth, limited to enamel 01/20/2024 Partial edentulism 01/20/2024 Dental plaque 01/20/2024 Generalized gingival recession 01/20/2024 Defective dental yarsanism 01/20/2024 Osteoarthritis of cervical spine 09/29/2023 Diffuse idiopathic skeletal hyperostosis of cervicothoracic spine 09/21/2022 Prediabetes 03/17/2022 History of colon polyps 03/17/2022 Overview (03/17/2022): She had tubular adenoma [place] [facility] [place] spur 08/21/2018 Mild intermittent asthma 07/05/2018 [...] Encounters Date Type Department Care Team Description 09/17/2024 Refill [facility] MEDICINE [address] [place] [address] Garth Brock MD Mild intermittent asthma, unspecified whether complicated 09/06/2024 Refill [facility] MEDICINE [address] [place] [address] Garth Brock MD Prediabetes 08/27/[address] [address] Edilia Augustin [place] november recalls 08/17/2024 10:15 AM EDT Office Visit [facility] MEDICINE [address] [place] [address] Garth Brock MD Essential hypertension (Primary Dx); Pre-diabetes; BRANTLEY (dyspnea on exertion); Heel pain, unspecified laterality; 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 08/17/2024 Travel 08/16/2024 9:00 AM EDT Office Visit [facility] ADULT DENTAL [address] [place] [address] Jeff Cedeno DDS Ill-fitting dentures (Primary Dx); Localized gingival enlargement 08/16/[address] [address] Trudi Richter [place] Chart Prep from Last 3 Months Immunizations Immunization Administration Dates Next Due Hep A, Adult [...] Answer Date Recorded Patient Health Questionnaire-9 Score 16 08/17/2024 Patient Health Questionnaire-9 Score 16 08/17/2024 Last PHQ-9: Questionnaire Data Not on file 0 08/17/2024 Housing Stability Answer Date Recorded What is your housing situation today? I have lissett reardon 08/17/[address] you li ve. Do you have problems with any of the following? None of the above 08/17/2024 Food Insecurity Answer Date Recorded Within the [...] Answer Date Recorded Patient Health Questionnaire-2 Score 5 08/17/2024 Comments No Sex and Gender Information Value Date Recorded Sex Assigned at Female 01/11/2022 10:14 AM EDT Legal Sex Female 10:14 AM EDT Gender Identity Female 01/11/2022 10:14 AM EDT Sexual Orientation Choose not to disclose 2021 10:14 AM EDT Last Filed Vital Signs Vital Sign Reading Time Taken Comments Blood Pressure 130/80 08/17/2024 10:22 AM EDT Pulse 80 08/17/2024 10:22 AM EDT Temperature 35.4 C (95.7 F) 08/17/2024 10:22 AM EDT Respiratory Rate 18 08/17/2024 10:2 2 AM EDT Oxygen Saturation 96% 08/17/2024 10: 22 AM EDT Inhaled Oxygen Concentration - - Weight 91.1 kg (200 lb 12.8 oz) 025 10:22 AM EDT Height 160 cm (5' 3 ) 08/17/2024 10:22 AM EDT Body Mass Index 35.57 08/17/2024 10:22 AM EDT Plan of Treatment Upcoming Encounters Date Type Department Care Team (Late st Contact Info) Description 12/05/2024 9:30 AM EDT Office Visit [facility] MEDICINE [address] [place] [address] Name, MD Garth [address] [place] [address] Health Maintenance Due Date Last Done Comments [...] Vaccine ( season) 2023 04/20/2021, 07/08/2020, 06/10/2020 SDOH Screening 03/29/2024 03/29/2023 Influenza Vaccine (#1) 2024 , 12/24/2022, 12/31/2021, Additional history exists Dental X-Ray: Bitewings 01/20/2025 01/20/20 24, 02/20/2020, 02/06/2019, Additional history exists Dental Prophylaxis 01/21/2025 07/20/2024, 1 03/21/2023, 05/09/2017, Additional history exists Dental Oral Exam 02/16/2025 08/16/2024, 10/2023, 02/20/2020, Additional history exists Depression Monitoring 02/16/2025 08/17/2024, 025 Alcohol/Substance Use Screening 08/17/2025 08/17/2024 Diabetes: Hemoglobin A1C 08/17/2025 025, 01/03/2024, 12/27/2022, Additional history exists Tobacco Screening 08/17/2025 08/17/2024 Mammogram 10/31/2025 11/01/2023, 10/12, 11/06/2021, Additional history exists Dental X-Ray: Full Mouth 01/20/2027 024, 05/09/2017, 11/12/2014 HPV/Cotest 09/21/2027 09/16/2022, 01/12, 09/01/2016 Pap Smear 09/21/2027 09/20/2022, 07/0 08/2022, 01/26/2019, Additional history exists Lipid Panel 05/23/2029 05/23/2024, 12/12, 04/21/2021 DTaP/Tdap/Td Vaccines (3 - Td or Tdap) 03/04/2032 03/04/2022, 08/03/2011, 05/24/1995 Hepatitis A Vaccines Aged Out 08/30/2011 No long er eligible based on patient's age to complete this topic Pneumococcal Vaccine: 50+ Years Completed 03/04/2022 Zoster Vaccines Completed 03/04/2022, 12/31/2021 HIB Vaccines Aged Out No longer eligi [...] Name Priority Date/Time Associated Diagnosis Comments XR HIP 2 OR 3 VIEWS RIGHT Routine 09/20/2024 8:36 AM EDT 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 POCT GLYCATED HEMOGLOBIN, TOTAL Routine 08/17/2024 11:12 AM EDT Pre-diabetes POCT GLUCOSE Routine 08/17/2024 11:11 AM EDT Pre-diabetes CASE PRESENTATION, DETAILED AND EXTENSIVE TREATMENT PLANNING Routine 08/16/2024 9:00 AM EDT PERIODIC ORAL EVALUATION - ESTABLISHED PATIENT Routine 08/16/2024 9:00 AM EDT DENTURE ADJUSTMENT Routine 08/16/2024 9: 00 AM EDT PROPHYLAXIS - ADULT Routine 07/20/2024 3 :00 PM EDT LIPID PANEL, STANDARD Routine 05/23/2024 8:22 AM EDT High cholesterol INTRAORAL - COMPLETE SERIES OF RADIOGRAPHIC IMAGES Routine 01/20/2024 10:00 AM EST Excessive attrition of teeth, limited to enamel Missing teeth, acquired Dental plaque Generalized gingival recession BI MAMMOGRAM SCREENING TOMOSYNTHESIS BILATERAL Routine 11/01/2023 1:50 PM EDT Breast cancer screening by mammogram PAP/HPV Routine 09/20/2022 IMAGE-GUIDED PAP W/AGE BASED SCR PROTOCOLS Routine 09/16/2022 12:00 AM EDT COLONOSCOPY Routine 12/30/2016 from Last 3 Months or Most Recently Relevant to Health Maintenance Results * XR Hip 2 or 3 Views Right (09/20/2024 8:36 AM EDT) Anatomical Region Laterality Modality Lower Extremities, Hip Right Radiograp hic Imaging 09/20/2024 8:36 AM EDT Narrative 09/20/2024 9:43 AM EDT [address] [address] XRay Report Signed Patient: Evelia Holm MR#: [id number] : 1955 Acct:[id number] Age/Sex: 68 / F ADM Date: 09/20/24 Loc: HO.HHCX Attending Dr: Garth Brock MD Ordering Physician: Garth Brock MD Date of Service: 09/20/24 Procedure(s): XR hip RT min 2V Accession Number(s): [id number] cc: Garth Brock MD EXAMINATION: XR HIP, RIGHT CLINICAL INFORMATION: Months of right lateral hip pain COMPARISON: 07/05/2016. TECHNIQUE: Two views of the right hip. FINDINGS: No fracture, dislocation, or suspicious bone lesion. There is normal alignment. Moderate osteoarthrosis of the right hip joint, mildly progressed from 2017. Normal femoral head contour without evidence of AVN. Mild enthesopathy of the greater trochanter, and gluteal insertion upon the iliac bone. No discrete soft tissue abnormality. XR/XR hip RT min 2V IMPRESSION: 1. No acute bony abnormalities. 2. Moderate osteoarthrosis right hip joint, mildly progressed from 2017. Electronically signed by: Óscar Wise MD 09/20/2024 09:40 AM EDT Dictated By: Óscar Wise MD Signed By: <Electronically signed by Óscar Wise MD in OV> 09/20/2440 DD/ 5 TD/TT: 09/20/24925 [employer]: Procedure Note Donotuseinterpreter, Image - 09/20/[address] [address] XRay Report Signed Patient: Evelia HolmMR#: [id number] : 1955cct:[id number] Age/Sex: 68 / FADM Date: 09/20/24 Loc: HO.EVYCX Attending Dr: Garth Brock MD Ordering Physician: Garth Brock MD Date of Service: 09/20/24 Procedure(s): XR hip RT min 2V Accession Number(s): [id number] cc: Garth Brock MD EXAMINATION: XR HIP, RIGHT CLINICAL INFORMATION: Months of right lateral hip pain COMPARISON: 07/05/2016. TECHNIQUE: Two views of the right hip. FINDINGS: No fracture, dislocation, or suspicious bone lesion. There is normal alignment. Moderate osteoarthrosis of the right hip joint, mildly progressed from 2017. Normal femoral head contour without evidence of AVN. Mild enthesopathy of the greater trochanter, and gluteal insertion upon the iliac bone. No discrete soft tissue abnormality. XR/XR hip RT min 2V IMPRESSION: 1. No acute bony abnormalities. 2. Moderate osteoarthrosis right hip joint, mildly progressed from 2017. Electronically signed by: Óscar Wise MD 09/20/2024 09:40 AM EDT RP Dictated By: Óscar Wise MD Signed By: <Electronically signed by Óscar Wise MD in OV> 09/20/24939 DD/ 5 TD/TT: 09/20/24925 [employer]: us Garth Brock MD IMG XR PROCEDURES Edited Result - Final * POCT HGB A1C (08/17/2024 11:12 AM EDT) Hemoglobin A1C 5.7 4.0 - 6.0 % QC Media Lot # [id number] Lot# Expiration Date Blood 08/17/2024 11:1 2 AM EDT us Garth Brock MD POINT OF CARE TEST ENTER/EDIT OR DERABLES Final Result * POCT Glucose (08/17/2024 11:11 AM EDT) Glucose Blood, POC 94 60 - 200 mg/dL QC Media Lot # [id number] Lot# Expiration Date 103,025 Blood Capillary blood specimen / Unknown 08/17/2024 11:11 AM EDT us Garth Brock MD POINT OF CARE TEST ENTER/EDIT OR DERABLES Final Result * (ABNORMAL) Lipid Panel, Standard (05/23/2024 8:22 AM EDT) Triglycerides 99 <150 mg/dL [facility] Comment:Desirable Triglyceri de: less than 150 mg/dLBorderline High Triglyceride 150-199 mg/dLHigh Triglyceride: 200-499 mg/dLVery High Triglyceride: greater than or equal to 5OO mg/dL Cholesterol 209(H) <200 mg/dL [facility] Comment:Desirable Cholestero l: less than 200 mg/dLBorderline High Cholesterol: 200-239 mg/dLHigh Cholesterol: greater than 239 mg/dL LDL Cholesterol Calculated 121(H) <100 mg/dL [facility] Comment:Desirable LDL: less than 100 mg/dLNear Optimal/Above Optimal LDL: 110- 129 mg/dLBorderline High LDL: 130-159 mg/dLHigh LDL: 160-189 mg/dLVery High LDL: greater than or equal to 190 mg/dL HDL Cholesterol 69 >40 mg/dL [facility] Comment:Desirable HDL: great er than 40 mg/dL Note: This HDL assay may give artificially low results in patients with liver disease. Blood Venous blood specimen / Unknown 05/23/2024 8:22 AM EDT 05/23/2024 11:40 AM EDT us Garth Name MD LAB BLOOD ORDERABLES Final Resul t [facility] [address] [place] [phone] * BI Mammogram Screening Tomosynthesis Bilateral (11/01/2023 1:50 PM EDT) Anatomical Region Laterality Modality Breast Bilateral Mammography 11/01/2023 1:50 PM EDT Narrative 11/30/2023 5:15 PM EDT [facility] [address] [place] [address] Mammography Report Signed Patient: Evelia Holm MR#: [id number] : 1955 Acct:[id number] Age/Sex: 67 / F ADM Date: 11/01/23 Loc: HO.MAMMO Attending Dr: Merlene Graham CNM Ordering Physician: MERLENE GRAHMA CNM Results: 1 Negative Date of Service: 11/01/23 Follow Up: 1 Year From Orig inal Mammogram Procedure(s): MM tomosynthesis screening BI Accession Number(s): [id number] cc: Delmy,Garth YOON; MERLENE GRAHAM CNM EXAMINATION: MM SCREENING DIGITAL BREAST [...] Karishma Perry DO 11/30/2023 05:13 PM EDT RP Dictated By: Karishma Perry DO Signed By: <Electronically signed by Karishma Perry DO in OV> 11/30/23 1713 DD/ 1350 TD/TT: 11/01/23 1412 [employer]: Procedure Note Donotuseinterpreter, Image - 11/30/2023 [facility] [address] [place] [address] Dr. [place], [place] [address] Mammography Report Signed Patient: Evelia HolmMR#: [id number] : 1955cct:[id number] Age/Sex: 67 / FADM Date: 11/01/23 Loc: HO.MAMMO Attending Dr: Merlene Graham CNM Ordering Physician: MERLENE GRAHAMesults: 1 Negative Date of Service: 11/01/23Follow Up: 1 Year From Orig inal Mammogram Procedure(s): MM tomosynthesis screening BI Accession Number(s): [id number] cc: Name,Garth YOON; MERLENE GRAHAM CNM EXAMINATION: MM SCREENING DIGITAL BREAST [...] Karishma Perry DO 11/30/2023 05:13 PM EDT RP Dictated By: Karishma Perry DO Signed By: <Electronically signed by Karishma Perry DO in OV> 11/30/23 1713 DD/ 1350 TD/TT: 11/01/23 1412 [employer]: Merlene Graham CNM IM BI PROCEDURES Final R esult * Pap Smear (09/20/2022) Pap smear Pap NIL HPV negative. Repeat due 3-5 years Historical Provider HEALTH MAINTENANCE Final Result * Image-Guided Pap with Age-Based Screening Protocols (09/16/2022 12:00 AM EDT) Comment [employer] Comment: This order for age-based cervical cancer and STI screening follows ACOG guidelines(PB 168, 140, YLU645). See individual assays for performing site location. Clinical Information: Routine exam [employer] LMP: NONE GIVEN [facility] Prev. PAP: NONE GIVEN [facility] Prev. BX: NONE GIVEN [facility] SOURCE: None given [facility] Statement Of Adequacy: [facility] Comment: Satisfactory for evaluation. Endocervical/transformation zone component present. Interpretation/ Result: Cytology Results: Negative for intraepithelial lesion or malignancy. [facility] COMMENT: This Pap test has been evaluated with computer assisted technology. [facility]: [facility] Comment: RXB, CT(ASCP) CT screening location: [place] [address] Review Cytotechnologis t: [facility] Comment: MXD, CT (ASCP) CT screening location: [place] [address] (Always Message) [facility] Comment: EXPLANATORY NOTE: The Pap is a [...] HPV nRNA E6/E7 Not Detected Not Detected [facility] Comment: Methodology: [employer] Ii Assembler-Mediated Amplification This assay detects E6/E7 viral messenger RNA (mRNA) from 14 high-risk HPV types (16,18,31,33,35,39,45,51,52,56,58,59,66,68). Cervical sources are required for HPV testing. If a vaginal source from a patient who has had a total hysterectomy with removal of cervix was submitted, please contact the testing laboratory for alternative testing options. For additional information, please refer to http://education.[employer]/faq/QHQ497h5 (This link if provided for information/ educational purposes only.) 09/16/2022 09/17/2022 7:1 7 AM EDT Narrative [facility] - 09/20/2022 4:19 PM EDT FASTING: UNKNOWN Merlene Graham CNM LAB BLOOD ORDERABLES Sowmya l Result [facility] [address] [facility] [address], [facility], [place] [address] [facility] [address] [place] [address] * Hm Colonoscopy (12/30/2016) Colonoscopy Performed Historical Provider MD HEALTH MAINTENANCE Final Result from Last 3 Months or Most Recently Relevant to Health Maintenance Insurance MEDICARE Care Teams Loan Officer Relationship Specialty Start Date End Date Name, MD Garth [address] [place] [address] PCP - General Family Medicine 06/18/15
--- OUTSIDE RECORDS SUMMARY | 2024-11-06 14:43 | XMS_ITS | Encounter Summary ---
Author Organization [employer] Address [address] [place] [address] 7t [place] [address] Care Team Providers Care Digital Sales Manager Name Role Phone Name, Garth YOON Primary Care Provider [phone] Encounter Details Date Type Department Care Team ([facility] Contact Info) Description 08/25/[address] [address] NameGarth MD [address] [place] [phone] Social History Tobacco Use Types Packs/Day Years [...] Description 12/05/2024 9:30 AM EDT Office Visit [address] [phone] Garth Brock MD [address] [place] [address] documented as of this encounter Procedures Procedure [...] documented as of this encounter Care Teams Digital Sales Manager Relationship Specialty Start Date End Date Name, MD Garth [address] [place] [address] PCP - General Family Medicine 06/18/15 documented as of this encounter
--- OUTSIDE RECORDS SUMMARY | 2024-11-06 14:44 | XMS_ITS | Encounter Summary ---
Author Organization [employer] Address [address] [facility] [address]t [place] [address] Care Team Providers Care Strategic Marketing Manager Name Role Phone Name, Garth YOON Primary Care Provider [phone] Encounter Details Date Type Department Care Team (Latest Contact Info) Description 02/06/2019 Abstract [facility] CONVERSIONS Dental, Provider, DDS Social History [...] Description 12/05/2024 9:30 AM EDT Office Visit [facility] MEDICINE [address] [place] [address] Name, MD Garth [address] [place] [address] documented as of this encounter Visit Diagnoses Not on filedocumented in this encounter Care Teams Strategic Marketing Manager Relationship Specialty Start Date End Date NameGarth MD [address] [place] [address] PCP - General Family Medicine 06/18/15 documented as of this encounter
--- OUTSIDE RECORDS SUMMARY | 2024-11-06 14:44 | XMS_ITS | Encounter Summary ---
Author Organization [employer] Address [address] [facility] [address]t [place] [address] Care Team Providers Care Swaging Machine Adjuster Name Role Phone Name, Garth YOON Primary Care Provider [phone] Encounter Details Date Type Department Care Team (Latest Contact Info) Description 02/20/2020 Abstract [facility] CONVERSIONS Dental, Provider, DDS Social History [...] Description 12/05/2024 9:30 AM EDT Office Visit [facility] MEDICINE [address] [place] [address] NameGarth MD [address] [place] [address] documented as of this encounter Visit Diagnoses Not on filedocumented in this encounter Care Teams Swaging Machine Adjuster Relationship Specialty Start Date End Date NameGarth MD [address] [place] [address] PCP - General Family Medicine 06/18/15 documented as of this encounter
--- OUTSIDE RECORDS SUMMARY | 2024-11-06 14:44 | XMS_ITS | Clinical Summary ---
Author Organization [address] [facility] Address [address] [place] [address] Phone Care Team Providers Care Bed Bug Exterminator Name Role Phone Name, Garth YOON Primary Care Provider [phone] Social History Tobacco Use Types Packs/Day Years Used Date Smoking Tobacco: Never Assessed Comments Unknown Sex and Gender Information Value Date Recorded Sex Assigned at Not on file Legal Sex Female 12:24 AM EST Gender Identity Not on file Sexual Orientation Not on file Plan of Treatment Upcoming Encounters Date Type Department Care Team ([facility] Contact Info) Description 11/19/2024 9:00 AM EDT Consult Orthopedic Surgery - [place] [address] [facility] [address] [place] [address] Mitchell Bender, DPM [address] [place] [phone] Health Maintenance Due Date Last Done Comments [...] Insurance MEDICARE MEDICAID - [place] Care Teams Bed Bug Exterminator Relationship Specialty Start Date End Date Name, MD Garth [address] [place], [place] PCP - General Internal Medicine 04/25/18
--- OUTSIDE RECORDS SUMMARY | 2024-11-06 14:44 | XMS_ITS | Encounter Summary ---
Author Organization [employer] Address [address] [facility] 7t [place] [address] Care Team Providers Care Quality Assurance Monitor Body Name Role Phone Name, Garth YOON Primary Care Provider [phone] Reason for Visit * Reason Onset Date Comments case back from lab? 03/01/2024 Encounter Details Date Type Department Care Team ([facility] st Contact Info) Description 03/01/2024 Telephone [facility] ADULT DENTAL [address] [place] [address] Jeff Cedeno DDS [address] [place] [address] case back from lab? Social History Tobacco [...] Description 12/05/2024 9:30 AM EDT Office Visit [facility] MEDICINE [address] [place], [place] [phone] Name, MD Garth [address] [place] [address] documented as of this encounter Visit Diagnoses Not on filedocumented in this encounter Additional Health Concerns Assessment Noted Time PHQ-9 Depression Total Score: 0 03/29/19 24 11:15 AM EST documented as of this encounter Care Teams Quality Assurance Monitor Body Relationship Specialty Start Date End Date Name, MD Garth [address] [place] [address] PCP - General Family Medicine 06/18/15 documented as of this encounter
--- OUTSIDE RECORDS SUMMARY | 2024-11-06 14:44 | XMS_ITS | Encounter Summary ---
Author Organization [employer] Address [address] [facility] 7t [place] [address] Care Team Providers Care Early Childhood Teacher Name Role Phone Name, Garth YOON Primary Care Provider [phone] Reason for Visit * Reason Comments Med Refill Encounter Details Date Type Department Care Team ([facility] st Contact Info) Description 06/25/2024 Refill [facility] [address] [place] [address] Name, MD Garth [address] [place] [address] Mild intermittent asthma, unspecified whether complicated Social History Tobacco Use Types Packs/Day Years [...] Description 12/05/2024 9:30 AM EDT Office Visit [facility] [address] [place] [address] NameGarth MD [address] [place] [address] documented as of this encounter Visit Diagnoses Diagnosis Mild intermittent asthma, unspecified whether complicated documented in this encounter Additional Health Concerns Assessment Noted Time PHQ-9 Depression Total Score: 0 03/29/19 24 11:15 AM EST documented as of this encounter Care Teams Early Childhood Teacher Relationship Specialty Start Date End Date NameGarth MD [address] [place] [address] PCP - General Family Medicine 06/18/15 documented as of this encounter
--- OUTSIDE RECORDS SUMMARY | 2024-11-06 14:44 | XMS_ITS | Encounter Summary ---
Author Organization [employer] Address [address] [place] [address] 7t [place] [address] Care Team Providers Care Loan Operations Manager Name Role Phone Name, Garth YOON Primary Care Provider [phone] Reason for Visit * Reason Comments Med Refill Encounter Details Date Type Department Care Team (Late st Contact Info) Description 05/07/[address] [facility] MED[facility]INE [address] [place] [address] Name, MD Garth [address] [place] [address] [phone] Radicular pain in left arm Social History [...] Description 12/05/2024 9:30 AM EDT Office Visit [facility] [address] [place] [address] [phone] Name, MD Garth [address] [place] [address] documented as of this encounter Visit Diagnoses Diagnosis Radicular pain in left arm Unspecified neuralgia, neuritis, and radiculitis documented in this encounter Additional Health Concerns Assessment Noted Time PHQ-9 Depression Total Score: 11 023 11:05 AM EST documented as of this encounter Care Teams Loan Operations Manager Relationship Specialty Start Date End Date Name, MD Garth [address] [place] [address] PCP - General Family Medicine 06/18/15 documented as of this encounter
--- OUTSIDE RECORDS SUMMARY | 2024-11-06 14:44 | XMS_ITS | Encounter Summary ---
Author Organization [employer] Address [address] [place] [address] 7 [place] [address] Care Team Providers Care Industrial Hygienist Name Role Phone Name, Garth YOON Primary Care Provider Reason for Visit * Reason Comments Med Refill Encounter Details Date Type Department Care Team ([facility] [place] Contact Info) Description 11/22/2022 Refill [facility] MED[facility]INE [address] [place] [phone] NameGarth MD [address] [place] [address] [phone] Essential (primary) hypertension Social History Tobacco Use [...] Upcoming Encounters Date Type Department Care Team ([facility] [place] Contact Info) Description 12/05/2024 9:30 AM EDT Office Visit [facility] [address] [place] [address] [phone] Name, MD Garth [address] [place] [address] [phone] documented as of this encounter Visit Diagnoses Diagnosis Essential (primary) hypertension Unspecified essential hypertension documented in this encounter Additional Health Concerns Assessment Noted Time PHQ-9 Depression Total Score: 11 023 11:05 AM EST documented as of this encounter Care Teams Industrial Hygienist Relationship Specialty Start Date End Date Name, MD Garth [address] [place] [address] PCP - General Family Medicine 06/18/15 documented as of this encounter
== END 2024-11-06 13:49 | disposition home or self-care (01) ==
LOC: HO.MAMMO 13:48
PROVIDERS: PCP Internal Medicine Geriatric Medicine; Visit Provider Internal Medicine Geriatric Medicine
DX: Z12.31 Encounter for screening mammogram for malignant neoplasm of breast (principal)
CPT/HCPCS: 77063; 77067

== ENCOUNTER → 2024-11-06 14:00 | Outpatient (BNV) | payer MEDICARE, MEDICAID, SELFPAY | PROVIDERS: PCP Internal Medicine Geriatric Medicine; Visit Provider Radiology Body Imaging | DX: Z12.31 Encounter for screening mammogram for malignant neoplasm of breast (principal) | CPT/HCPCS: 77063; 77067 ==

== ENCOUNTER 2024-11-21 19:36 | Outpatient (REF) | payer MEDICARE, MEDICAID, SELFPAY ==
--- OUTSIDE RECORDS SUMMARY | 2024-11-19 09:00 | XMS_ITS | Encounter Summary ---
Author Organization [facility] Address [address] [place] [address] Care Team Providers Care Time Broker Name Role Phone Name, Garth YOON Primary Care Provider [phone] Reason for Referral * Consultation (Routine) - Authorized Specialty Diagnoses / Procedures Referred By Meek [place] Referred To Contact Physical Therapy Diagnoses Plantar fascial fibromatosis Equinus contracture of ankle Mitchell Bender DPM [address] [address] Phone: tel: fax: Referral ID Status Reason Start Date Expiration Date Visits Requested Visits Authorized [id number] Authorized Specialty Services Required 11/19/2024 11/19/2025 1 1 Reason for Visit * Reason Comments Foot Pain heel * Consultation (Routine) - Authorized Specialty Diagnoses / Procedures Referred By Meek [place]ana Referred To Contact Podiatry / Orthopaedic Surgery Diagnoses Pain in unspecified foot Yara Wheatley NP 230 [facility] [address] [place] [address] Phone: tel: Mitchell Bender DPM 175 [facility] [address] [place] [phone] Phone: tel: fax: Referral ID Status Reason Start Date Expiration Date Visits Requested Visits Authorized [id number] Authorized Specialty Services Required 08/20/2024 08/20/2025 1 1 Encounter Details Date Type Department Care Team ([facility] st Contact Info) Description 11/19/2024 9:00 AM EDT Consult Orthopedic Surgery - [place] [address] [address] Mitchell Bender DPM [address] [address] Plantar fascial fibromatosis (Primary Dx); Pain in unspecified foot; Equinus contracture of ankle Social History Tobacco Use Types Packs/Day Years Used Date Smoking Tobacco: Never Assessed Comments Unknown Sex and Gender Information Value Date Recorded Sex Assigned at Not on file Legal Sex Female 12:24 AM EST Gender Identity Not on file Sexual Orientation Not on file documented as of this encounter Ordered Prescriptions Prescription Sig Dispense Quantity Refills Last Filled Start Date End Date diclofenac (Voltaren Arthritis Pain) 1 % topical gel Apply 4 g topically 2 (two) times a day. 240 g 1 11/19/2024 documented in this encounter Progress Notes * Mitchell Bender DPM - 11/19/2024 9:00 AM EDT Last PCP visit:Referring MD: Yara Wheatley MAJOR ASSEMBLY INSPECTOR IDENTIFIER: Alta is a 68 y.o. year old female who presents for consultation. CC: Foot pain HPI: Alta is a 68 y.o. year old female presents complaining of sharp shooting pain in both heels whereshe goes from sit to stand and walk for prolonged period times both heels denies history of trauma left significant worse than right pain is a 7 out of 10 on a visual analog scale denies other pain at this time ROS: GENERAL: Pt denies nausea, fever, vomiting, chills, or shortness of breath. Pt in NAD. CARDIOLOGY: pt denies chest pain, palpitations LUNGS: pt denies shortness of breath MUSCULOSKELETAL: See HPI, otherwise no joint pain or swelling, back pain, or muscle pain. SKIN: see HPI, otherwise no lesions, rash or itching NEURO: No persistent headache, weakness or numbness The remainder of the review of systems is noncontributory PAST MEDICAL HISTORY: There is no problem list on file for this patient. SOCIAL HISTORY: Social History Tobacco Use Smoking status: Not on file Smokeless tobacco: Not on file Substance Use Topics Alcohol use: Not on file ACTIVE MEDICATIONS: Outpatient Medications Marked as Taking for the 11/19/24 encounter (Consult) with Mitchell Bender DPM Medication Sig Dispense Refill acetaminophen (TYLENOL 8 HOUR) 650 mg 8 hr tablet TAKE 1 TABLET BY MOUTH EVERY 8 HOURS NEEDED FOR MILD PAIN, DO NOT BREAK, CRUSH, DISSOLVE OR CHEW albuterol HFA (PROAIR HFA ; PROVENTIL HFA ; VENTOLIN HFA) 90 mcg/actuation inhaler Inhale 2 puffs by mouth. every 4 to 6 hours as needed amLODIPine (NORVASC) 10 mg tablet Take 1 tablet (10 mg total) by mouth 1 (one) time each day in themorning. Arnuity Ellipta 100 mcg/actuation blister with device inhaler INHALE 1 PUFF BY MOUTH EVERY DAY AT THE SAME TIME RINSE MOUTH AFTER USING DO NOT SWALLOW atorvastatin (LIPITOR) 20 mg tablet Take 1 tablet (20 mg total) by mouth 1 (one) time each day in the morning. cephalexin (KEFLEX) 500 mg capsule Take 1 capsule (500 mg total) by mouth 2 (two) times a day. for 7 days diclofenac (VOLTAREN) 1 % topical gel APPLY 2 GRAMS TOPICALLY TO AFFECTED AREA(S) EVERY DAY DIRECTED doxycycline (VIBRAMYCIN) 100 mg capsule TAKE 1 CAPSULE BY MOUTH TWICE DAILY FOR 7 DAYS WITH A FULL GLASS OF WATER AND Do not lie down for 30 minutes after taking ALLERGIES: No Known Allergies PHYSICAL EXAM: There were no vitals taken for this visit. PODIATRIC EXAMINATION: GENERAL: Patient appears well nourished, with NAD. VASCULAR: Dorsalis pedis pulses are 2/4 bilaterally and Posterior tibial pulses are 2/4 bilaterally. Capillary filling time within normal limits the digits. No pallor on elevation or rubor on dependency. No varicosities. Denies rest pain or claudication pain. NEUROLOGICAL: Sharp/dull sensation intact, protective sensation intact 10/10 with Ipswitch touch test bilaterally, vibratory sensation intact to the tibial tuberosity. ORTHOPEDIC: Good muscle strength 5/5 of all flexors and extensors. Pain with palpation of the medial tuber of the calcaneus, negative palpable fibromas Equinus with 5 degrees dorsiflexion with knee bent 0 degrees with knee extended positive silver skoild test No pain on palpation of the posterior tibial tendon, patient to perform single and double heel raise No pain on palpation of the Achilles tendon. Negative palpable deficits of the Achilles tendon Normal range of motion of the ankle joint and subtalar joint DERMATOLOGICAL:.No masses or skin lesions noted. Normal skin temperature, normal skin turgor. BIOMECHANICS: Ankle ROM WNL, STJ ROM wnl, MTJ ROM wnl, 1st MPJ ROM wnl. IMAGING: IMPRESSION: 1. Plantar fascial fibromatosis 2. Pain in unspecified foot 3. Equinus contracture of ankle PLAN: Pt was seen and examined, history reviewed. Treatment options were discussed and reviewed including stretching exercises demonstrated for patient anti-inflammatory medications steroid injections orthotics and insoles Recommendations given for prefabricated insoles Referral offered physical therapy patient declined Prescription given for anti-inflammatory medication X-rays ordered Follow-up in 4 to 6 weeks Mitchell Bender DPM documented in this encounter Plan of Treatment Upcoming Encounters Date Type Department Care Team (Late st Contact Info) Description 12/19/2024 11:00 AM EDT Evaluation [address] [phone] Sana Egan, PT Scheduled Referrals Name Type Priority Associated Diagnoses Order Schedule Ambulatory referral to Physical Therapy and Athletic Training Outpatient Referral Routine Plantar fascial fibromatosis Equinus contracture of ankle 1 Occurrences starting 11/19/2024 until 11/19/2025 documented as of this encounter Visit Diagnoses Diagnosis Plantar fascial fibromatosis- Primary Pain in unspecified foot Equinus contracture of ankle documented in this encounter Historical Medications * This list may reflect changes made after this encounter. Arnuity Ellipta 100 mcg/actuation blister with device inhaler INHALE 1 PUFF BY MOUTH EVERY DAY AT THE SAME TIME RINSE MOUTH AFTER USING DO NOT SWALLOW 05/22/2024 doxycycline (VIBRAMYCIN) 100 mg capsule TAKE 1 CAPSULE BY MOUTH TWICE DAILY FOR 7 DAYS WITH A FULL GLASS OF WATER AND Do not lie down for 30 minutes after taking 06/06/2024 diclofenac (VOLTAREN) 1 % topical gel APPLY 2 GRAMS TOPICALLY TO AFFECTED AREA(S) EVERY DAY DIRECTED 08/17/2024 cephalexin (KEFLEX) 500 mg capsule Take 1 capsule (500 mg total) by mouth 2 (two) times a day. for 7 days 07/03/2024 atorvastatin (LIPITOR) 20 mg tablet Take 1 tablet (20 mg total) by mouth 1 (one) time each day in the morning. 02/13/2024 amLODIPine (NORVASC) 10 mg tablet Take 1 tablet (10 mg total) by mouth 1 (one) time each day in the morning. 06/15/2024 albuterol HFA (PROAIR HFA ; PROVENTIL HFA ; VENTOLIN HFA) 90 mcg/actuation inhaler Inhale 2 puffs by mouth. every 4 to 6 hours as needed 09/18/2024 acetaminophen (TYLENOL 8 HOUR) 650 mg 8 hr tablet TAKE 1 TABLET BY MOUTH EVERY 8 HOURS NEEDED FOR MILD PAIN, DO NOT BREAK, CRUSH, DISSOLVE OR CHEW 08/16/2024 added in this encounter Orders Outpatient Referral Count Last Ordered Date Fir st Ordered Date AMB REFERRAL TO PODIATRY 1 11/19/2024 documented in this encounter Care Teams Time Broker Relationship Specialty Start Date End Date Name, MD Garth [address] [place], [place] PCP - General Internal Medicine 04/25/18 documented as of this encounter
--- OUTSIDE RECORDS SUMMARY | 2024-11-21 10:00 | XMS_ITS | Encounter Summary ---
Author Organization [employer] Address [address] [facility] 7t [place] [address] Care Team Providers Care Director Of Rehabilitation And Wellness Name Role Phone Name, Garth YOON Primary Care Provider [phone] Reason for Referral * Imaging (Urgent) - Authorized Specialty Diagnoses / Procedures Referred By Contac t Referred To Contact Radiology Diagnoses Postmenopausal bleeding Procedures US Pelvis Transvaginal Merlene Sue CNM [address] [place] [address] Phone: tel: fax: [address] Phone: tel: fax: Referral ID Status Reason Start Date Expiration Date V isits Requested Visits Authorized [id number] Authorized 11/21/2024 11/21/2025 1 1 * Imaging (Urgent) - Authorized Specialty Diagnoses / Procedures Referred By Contac t Referred To Contact Radiology Diagnoses Postmenopausal bleeding Procedures Us Pelvis complete Merlene Sue CNM [address] [place] [address] Phone: tel: fax: [address] Phone: tel: fax: Referral ID Status Reason Start Date Expiration Date V isits Requested Visits Authorized [id number] Authorized 11/21/2024 11/21/2025 1 1 Encounter Details Date Type Department Care Team (Latest Contact Info) Description 11/21/2024 10:00 AM EDT Office Visit [facility] [address] [place] [address] Merlene Sue CNM [address] [place] [address] Postmenopausal bleeding (Primary Dx); Screening examination for venereal disease; Routine cervical smear Social History Tobacco Use Types Packs/Day Years [...] Reading Time Taken Comments Blood Pressure 130/80 11/21/2024 10:07 AM EDT Pulse 76 11/21/2024 10:07 AM EDT Temperature 36.1 C (96.9 F) 11/21/2024 10:07 AM EDT Respiratory Rate 20 11/21/2024 10:07 AM EDT Oxygen Saturation - - Inhaled Oxygen Concentration - - Weight 92.6 kg (204 lb 2 oz) 11/21/2024 10:07 AM EDT Height 160 cm (5' 3 ) 11/21/2024 10:07 AM EDT Body Mass Index 36.16 11/21/2024 10:07 AM EDT documented in this encounter Progress Notes * Merlene Sue CNM - 11/21/2024 10:00 AM EDT Subjective Patient ID: Evelia Holm is a 68 y.o. female who presents for [facility] visit Notes new onset light vaginal bleeding for a few days last week. No triggering factors. 1 AMAB partner x 25y. Not sexually active in years. Notes some cramping, no urinary symptoms. Prior history of endometrial biopsy. Pap NIL/HPV neg 09/2022. Pelvic ultrasound 09/2023 with small fibroid, 0.8cm endometrium which was unchanged from prior ultrasound when she had negative endometrial biopsy. BMD with t-score -1.5 FN, FRAX low 10/2023. Mammogram BIRADS 1, cat b 10/2024. Review of Systems Genitourinary: Positive for pelvic pain and vaginal bleeding. Negative for dysuria, hematuria and urgency. Objective BP 130/80 (BP Location: Left arm, Patient Position: Sitting, BP Cuff Size: Large adult) Pulse 76 Temp 96.9 ??F (36.1 ??C) (Oral) Resp 20 Ht 5' 3 (1.6 m) Wt 204 lb 2 oz (92.6 kg) BMI 36.16 kg/m?? Physical Exam Animal Laboratory Technician present: declines network developer. Constitutional: Appearance: Normal appearance. Genitourinary: General: Normal vulva. Labia: Right: No rash, tenderness, lesion or injury. Left: No rash, tenderness, lesion or injury. Vagina: Normal. No signs of injury and foreign body. No vaginal discharge, erythema, tenderness, bleeding or lesions. Cervix: Friability present. No cervical motion tenderness, discharge, lesion, erythema, cervical bleeding or eversion. Uterus: Normal. Not enlarged and not tender. Adnexa: Right adnexa normal and left adnexa normal. Right: No mass, tenderness or fullness. Left: No mass, tenderness or fullness. Comments: Ovaries non palpable bilaterally Neurological: Mental Status: She is alert. Psychiatric: Mood and Affect: Mood normal. Behavior: Behavior normal. Assessment/Plan Diagnoses and all orders for this visit: Postmenopausal bleeding - Pap Smear - STI testing add on (NG, CT, Trich) Recurrence, no triggering factors. Will send pap/STI testing and get repeat ultrasound. Will refer to [facility]GER for repeat endometrial biopsy as indicated by ultrasound. Screening examination for venereal disease - STI testing add on (NG, CT, Trich) Routine cervical smear - Pap Smear documented in this encounter Plan of Treatment Upcoming Encounters Date Type Department Care Team (Late st Contact Info) Description 12/05/2024 9:30 AM EDT Office Visit [facility] [address] [place] [phone] Name, MD Garth [address] [place] [address] Scheduled Orders Name Type Priority Associated Diagnoses Orde r Schedule Pap Smear Pathology and Cytology Routine Postmenopausal bleeding Routine cervical smear Ordered: 11/21/2024 STI testing add on (NG, CT, Trich) Pathology and Cytology Routine Postmenopausal bleeding Screening examination for venereal disease Ordered: 11/21/2024 Us Pelvis complete Imaging Urgent Postmenopausal bleeding Expected: 11/21/2024, Expires: 11/21/2025 US Pelvis Transvaginal Imaging Urgent Postmenopausal bleeding Expected: 11/21/2024, Expires: 11/21/2025 documented as of this encounter Visit Diagnoses Diagnosis Postmenopausal bleeding- Primary Screening examination for venereal disease Routine cervical smear Screening for malignant neoplasm of the cervix documented in this encounter Additional Health Concerns Assessment Noted Time PHQ-9 Depression Total Score: 025 10:46 AM EDT documented as of this encounter Care Teams Director Of Rehabilitation And Wellness Relationship Specialty Start Date End Date Name, MD Garth [address] [place] [address] PCP - General Family Medicine 06/18/15 documented as of this encounter
--- OUTSIDE RECORDS SUMMARY | 2024-11-21 19:39 | XMS_ITS | Encounter Summary ---
Author Organization [employer] Address [address] [facility] 7t [place] [address] Care Team Providers Care Business And Marketing Teacher Name Role Phone Name, Garth YOON Primary Care Provider [phone] Encounter Details Date Type Department Care Team (Latest Contact Info) Description 02/06/2019 Abstract [facility] CONVERSIONS Dental, Provider, DDS Social History Tobacco [...] Description 12/05/2024 9:30 AM EDT Office Visit [facility] MEDICINE [address] [place] [address] NameGarth MD [address] [place] [address] documented as of this encounter Visit Diagnoses Not on filedocumented in this encounter Care Teams Business And Marketing Teacher Relationship Specialty Start Date End Date NameGarth MD [address] [place] [address] PCP - General Family Medicine 06/18/15 documented as of this encounter
--- OUTSIDE RECORDS SUMMARY | 2024-11-21 19:39 | XMS_ITS | Encounter Summary ---
Author Organization [email or web address] Address [address] [place] [address] 7t [place] [address] Care Team Providers Care Belting And Webbing Inspector Name Role Phone Name, Garth YOON Primary Care Provider Reason for Visit * Reason Comments Med Refill Encounter Details Date Type Department Care Team (Late st Contact Info) Description 05/07/2022 Refill [facility] [address] [place] [phone] Name, MD Garth [address] [place] [address] [phone] Radicular pain in left arm Social History [...] 9:30 AM EDT Office Visit [facility] [address] [place] [address] [phone] Name, MD Garth [address] [place] [phone] documented as of this encounter Visit Diagnoses Diagnosis Radicular pain in left arm Unspecified neuralgia, neuritis, and radiculitis documented in this encounter Additional Health Concerns Assessment Noted Time PHQ-9 Depression Total Score: 11 023 11:05 AM EST documented as of this encounter Care Teams Belting And Webbing Inspector Relationship Specialty Start Date End Date Name, MD Garth [address] [place] [address] PCP - General Family Medicine 06/18/15 documented as of this encounter
--- OUTSIDE RECORDS SUMMARY | 2024-11-21 19:39 | XMS_ITS | Encounter Summary ---
Author Organization [employer] Address [address] [place] [address] 7t [place] [address] Care Team Providers Care Lieutenant General Name Role Phone Name, Garth YOON Primary Care Provider [phone] Encounter Details Date Type Department Care Team ([facility] Contact Info) Description 08/25/[address] [address] NameGarth MD [address] [place] [address] [phone] Social History Tobacco Use Types Packs/Day Years [...] Description 12/05/2024 9:30 AM EDT Office Visit [address] [phone] Garth Brock MD [address] [place] [phone] documented as of this encounter Procedures Procedure [...] documented as of this encounter Care Teams Lieutenant General Relationship Specialty Start Date End Date Name, MD Garth [address] [place] [address] PCP - General Family Medicine 06/18/15 documented as of this encounter
--- OUTSIDE RECORDS SUMMARY | 2024-11-21 19:39 | XMS_ITS | Clinical Summary ---
Author Organization [facility] Address [address] [place] [address] Phone Care Team Providers Care Clin Nurse Name Role Phone Name, Garth YOON Primary Care Provider [phone] Allergies No known active allergies Medications acetaminophen (TYLENOL 8 HOUR) 650 mg 8 hr tablet TAKE 1 TABLET BY MOUTH EVERY 8 HOURS NEEDED FOR MILD PAIN, DO NOT BREAK, CRUSH, DISSOLVE OR CHEW 5 Active albuterol HFA (PROAIR HFA ; PROVENTIL HFA ; VENTOLIN HFA) 90 mcg/actuation inhaler Inhale 2 puffs by mouth. every 4 to 6 hours as needed 5 Active amLODIPine (NORVASC) 10 mg tablet Take 1 tablet (10 mg total) by mouth 1 (one) time each day in the morning. 5 Active atorvastatin (LIPITOR) 20 mg tablet Take 1 tablet (20 mg total) by mouth 1 (one) time each day in the morning. 4 Active cephalexin (KEFLEX) 500 mg capsule Take 1 capsule (500 mg total) by mouth 2 (two) times a day. for 7 days 5 Active diclofenac (VOLTAREN) 1 % topical gel APPLY 2 GRAMS TOPICALLY TO AFFECTED AREA(S) EVERY DAY DIRECTED 5 Active doxycycline (VIBRAMYCIN) 100 mg capsule TAKE 1 CAPSULE BY MOUTH TWICE DAILY FOR 7 DAYS WITH A FULL GLASS OF WATER AND Do not lie down for 30 minutes after taking 5 Active Arnuity Ellipta 100 mcg/actuation blister with device inhaler INHALE 1 PUFF BY MOUTH EVERY DAY AT THE SAME TIME RINSE MOUTH AFTER USING DO NOT SWALLOW 5 Active diclofenac (Voltaren Arthritis Pain) 1 % topical gel Apply 4 g topically 2 (two) times a day. 240 g 1 5 01/19/20 25 Active Encounters Date Type Department Care Team Description 11/19/2024 9:00 AM EDT Consult Orthopedic Surgery - [place] [address] [facility] [address] [place] [phone] Mitchell Bender, DPM Plantar fascial fibromatosis (Primary Dx); Pain in unspecified foot; Equinus contracture of ankle from Last 3 Months Social History Tobacco Use Types Packs/Day Years [...] Info) Description 12/19/2024 11:00 AM EDT Evaluation [facility] Out[facility] - [place] [address] [facility] [address] [place] [phone] Sana Egan, PT Health Maintenance Due Date Last Done Comments Breast Cancer Screening 1955 Hepatitis B Vaccines (2 of 3 - 19+ 3-dose series) 10/01/2011 09/03/2011 RSV Immunization Adult Patients (1 - Risk 60-74 years 1-dose series) 2016 Depression Screening 03/14/2024 Colorectal Cancer Screening: Colonoscopy 08/20/2024 Falls Risk Assessment 08/20/2024 Hepatitis C Screening 08/20/2024 Medicare Annual Wellness Visit 08/20/2024 Osteoporosis Screening (Bone Density Screening) 08/20/2024 Social Influencers of Health Screening 08/20/2024 COVID-19 Vaccine (4 - 2024- season) 2024 04/20/2021, 07/08/2020, 06/10/2020 Influenza Vaccine (#1) 2024 , 12/24/2022, 12/31/2021, Additional history exists Hypertension/CHF/CAD Annual BMP Blood Test 11/19/2024 Cholesterol Screening (Lipid Panel) 05/23/2029 05/23/2024 DTaP,Tdap,and Td Vaccines (4 - Td or Tdap) 03/04/2032 03/04/2022, 08/03/2011, [...] to complete this topic RSV Immunization Patients Under 20 months Aged Out No longer eligible based on patient's age to complete this topic Varicella Vaccines Aged Out No longer eligible based on patient's age to complete this topic Insurance MEDICARE MEDICAID - [place] Care Teams Clin Nurse Relationship Specialty Start Date End Date Name, MD Garth [address] [place], [place] PCP - General Internal Medicine 04/25/18
--- OUTSIDE RECORDS SUMMARY | 2024-11-21 19:39 | XMS_ITS | Encounter Summary ---
Author Organization [employer] Address [address] [facility] [address] 7[address] [place] [address] Care Team Providers Care Environmental Restoration Planner Name Role Phone Name, Garth YOON Primary Care Provider [phone] Encounter Details Date Type Department Care Team (Latest Contact Info) Description 11/21/2024 Travel Social History Tobacco Use Types Packs/Day [...] Description 12/05/2024 9:30 AM EDT Office Visit [facility] [address] [place] [address] Name, MD Garth [address] [place] [address] documented as of this encounter Visit Diagnoses Not on filedocumented in this encounter Additional Health Concerns Assessment Noted Time PHQ-9 Depression Total Score: 16 025 10:46 AM EDT documented as of this encounter Care Teams Environmental Restoration Planner Relationship Specialty Start Date End Date Name, MD Garth [address] [place] [address] PCP - General Family Medicine 06/18/15 documented as of this encounter
--- OUTSIDE RECORDS SUMMARY | 2024-11-21 19:39 | XMS_ITS | Encounter Summary ---
Author Organization [employer] Address 75 [facility] 7t [place] [address] Care Team Providers Care Quality Rep Name Role Phone Name, Garth YOON Primary Care Provider [phone] Reason for Visit * Reason Onset Date Comments case back from lab? 03/01/2024 Encounter Details Date Type Department Care Team ([facility] st Contact Info) Description 03/01/[address] [facility] ADULT DENTAL [address] [place] [address] Jeff Cedeno DDS [address] [place] [address] case back from lab? Social History Tobacco [...] 9:30 AM EDT Office Visit [facility] MEDICINE [address] [place], [place] [phone] Name, MD Garth [address] [place] [address] documented as of this encounter Visit Diagnoses Not on filedocumented in this encounter Additional Health Concerns Assessment Noted Time PHQ-9 Depression Total Score: 0 03/29/19 24 11:15 AM EST documented as of this encounter Care Teams Quality Rep Relationship Specialty Start Date End Date Name, MD Garth [address] [place] [address] PCP - General Family Medicine 06/18/15 documented as of this encounter
--- OUTSIDE RECORDS SUMMARY | 2024-11-21 19:39 | XMS_ITS | Encounter Summary ---
Author Organization [employer] Address 75 [facility] 7t [place] [address] Care Team Providers Care Project Finance Analyst Name Role Phone Name, Garth YOON Primary Care Provider [phone] Reason for Visit * Reason Onset Date Comments CHART PREP 11/20/2024 Encounter Details Date Type Department Care Team ([facility] Contact Info) Description 11/20/2024 Telephone [facility] [address] [place] [address] Merlene Sue, ANIYAH [address] [place] [address] CHART PREP Social History Tobacco Use Types Packs/Day Years [...] encounter Miscellaneous Notes * Telephone Encounter - Iraida Núñez [place] - 11/20/2024 7:19 PM EDT Chart Prep Labs: not applicable Images: not applicable Referrals: not applicable Vaccines due: Covid, Flu, Hep B, and HPV Screenings: not applicable Overdue care gaps: SDOH documented in this encounter Plan of Treatment Upcoming Encounters Date Type Department Care Team (Late st Contact Info) Description 12/05/2024 9:30 AM EDT Office Visit [facility] [address] [place] [phone] NameGarth MD [address] [place] [address] documented as of this encounter Visit Diagnoses Not on filedocumented in this encounter Additional Health Concerns Assessment Noted Time PHQ-9 Depression Total Score: 16 025 10:46 AM EDT documented as of this encounter Care Teams Project Finance Analyst Relationship Specialty Start Date End Date Garth Brock MD [address] [place] [address] PCP - General Family Medicine 06/18/15 documented as of this encounter
--- OUTSIDE RECORDS SUMMARY | 2024-11-21 19:39 | XMS_ITS | Clinical Summary ---
Author Organization [employer] Address 75 [facility] 7t [place] [address] Care Team Providers Care Inspector Floor Name Role Phone Name, Garth YOON Primary Care Provider [phone] Allergies Active Allergy Reactions Criticality Noted Date [...] HOURS NEEDED 8.5 g 1 5 Active aspirin 81 MG EC tablet Take 81 mg by mouth Once per day. 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 09/29/2023 Diffuse idiopathic skeletal hyperostosis of cervicothoracic spine 09/21/2022 Prediabetes 03/17/2022 History of colon polyps 03/17/2022 Overview (03/17/2022): [place] [facility] [place] Calcaneal spur 08/21/2018 Mild intermittent asthma 07/05/2018 [...] Encounters Date Type Department Care Team Description 11/21/2024 10:00 AM EDT Office Visit [facility] [address] [place] [address] Merlene Sue CNM Postmenopausal bleeding (Primary Dx); Screening examination for venereal disease; Routine cervical smear 11/21/2024 Travel 11/20/2024 Telephone [facility] [address] [place] [address] Merlene Sue CNM CHART PREP 11/06/2024 Orders Only [facility] [address] [place] [address] NameGarth MD 09/17/2024 Refill [facility] [address] [place] [address] NameGarth MD Mild intermittent asthma, unspecified whether complicated 09/06/2024 Refill [facility] [address] [place] [address] NameGarth MD Prediabetes 08/27/2024 Telephone [facility] [address] [place] [address] Edilia Augustni [place] november recalls from Last 3 Months Immunizations Immunization Administration [...] 20 11/21/2024 10:07 AM EDT Oxygen Saturation 96% 08/17/2024 10:22 AM EDT Inhaled Oxygen Concentration - - Weight 92.6 kg (204 lb 2 oz) 11/21/2024 10:07 AM EDT Height 160 cm (5' 3 ) 11/21/2024 10:07 AM EDT Body Mass Index 36.16 11/21/2024 10:07 AM EDT Plan of Treatment Upcoming Encounters Date Type Department Care Team (Late st Contact Info) Description 12/05/2024 9:30 AM EDT Office Visit [facility] [address] [place] [address] Name, MD Garth [address] [place] [address] Health Maintenance Due Date Last Done Comments CT Colonography 1955 FIT DNA/Cologuard 1955 FIT 1955 FOBT 1955 Sigmoidoscopy 1955 Hepatitis C Screening 1974 Hepatitis B Vaccines (2 of 3 - 19+ 3-dose series) 10/01/2011 09/03/2011 RSV Patients and Patients Aged 60 years or older (1 - Risk 60-74 years 1-dose series) 2016 Colonoscopy 12/30/2021 12/30/2016 Colorectal Cancer Screening 12/30/2021 SDOH Screening 03/29/2024 03/29/2023 COVID-19 Vaccine ( season) 2024 04/20/2021, 07/08/2020, 06/10/2020 Influenza Vaccine [...] history exists Tobacco Screening 08/17/2025 08/17/2024 Mammogram 11/06/2026 11/06/2024, 10/13, 10/27/2022, Additional history exists Dental X-Ray: Full Mouth 01/20/2027 024, 05/09/2017, 11/12/2014 HPV/Cotest 09/21/2027 09/16/2022, 01/12, 09/01/2016 Pap Smear 09/21/2027 09/20/2022, 070 08/2022, 01/26/2019, Additional history exists Lipid Panel [...] Procedure Name Priority Date/Time Associated Diagnosis Comments BI MAMMOGRAM SCREENING TOMOSYNTHESIS BILATERAL Routine 11/06/2024 2:00 PM EDT XR HIP 2 OR 3 VIEWS RIGHT Routine 09/20/2024 8:36 AM EDT 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 POCT GLYCATED HEMOGLOBIN, TOTAL Routine 08/17/2024 11:12 AM EDT Pre-diabetes PERIODIC ORAL EVALUATION - ESTABLISHED PATIENT Routine 08/16/2024 9:00 AM EDT PROPHYLAXIS - ADULT Routine 07/20/2024 3 :00 PM EDT LIPID PANEL, STANDARD Routine 05/23/2024 8:22 AM EDT High cholesterol INTRAORAL - COMPLETE SERIES OF RADIOGRAPHIC IMAGES Routine 01/20/2024 10:00 AM EST Excessive attrition of teeth, limited to enamel Missing teeth, acquired Dental plaque Generalized gingival recession HM PAP/HPV Routine 09/20/2022 IMAGE-GUIDED PAP W/AGE BASED SCR PROTOCOLS Routine 09/16/2022 12:00 AM EDT HM COLONOSCOPY Routine 12/30/2016 from Last 3 Months or Most Recently Relevant to Health Maintenance Results * BI Mammogram Screening Tomosynthesis Bilateral (11/06/2024 2:00 PM EDT) Anatomical Region Laterality Modality Breast Bilateral Mammography 11/06/2024 2:00 PM EDT Narrative 11/10/2024 11:41 AM EDT [facility] [address] [place] [address] Mammography Report Signed Patient: Evelia Holm MR#: [id number] : 1955 Acct:[id number] Age/Sex: 68 / F ADM Date: 11/06/24 Loc: [facility] Attending Dr: Garth Brock MD Ordering Physician: Garth Brock MD Results: 1Negative Date of Service: 11/06/24 Follow Up: 1 Year From Orig inal Mammogram Procedure(s): MM tomosynthesis screening BI Accession Number(s): [id number] cc: Garth Brock MD EXAMINATION: MM SCREENING DIGITAL BREAST TOMOSYNTHESIS, BILATERAL CLINICAL INFORMATION: Screening. Asymptomatic. COMPARISON: Comparison made to multiple prior, most recent November 01, 2023, and most remote December 14, 2018. TECHNIQUE: Digital breast tomosynthesis is performed in mediolateral oblique and craniocaudal views along with computer-aided detection (CAD). Additional views were taken if needed. FINDINGS: BREAST COMPOSITION: There are scattered areas of fibroglandular density (ACR BI-RADS breast composition Category b). BILATERAL BREASTS: No significant masses, suspicious calcifications or other abnormalities are seen in either breast. MM/MM tomosynthesis screening BI IMPRESSION: BILATERAL BREASTS: Negative, no mammographic evidence of malignancy. Normal interval follow-up is recommended in 12 months. ASSESSMENT: BI-RADS 1 - Negative RECOMMENDATION: Routine annual mammography screening. FOLLOW-UP: 1 year F/U This examination should not preclude the clinical evaluation of a suspicious palpable abnormality. This patient's information was entered into a reminder system with a target due date for their next mammogram. Electronically signed by: Joshua Parker MD 11/10/2024 11:38 AM EDT Dictated By: Joshua Parker MD Signed By: <Electronically signed by Joshua Parker MD in OV> 11/10/24 1138 DD/ 1400 TD/TT: 11/06/24 1425 Aircraft Mechanic: Procedure Note Donotuseinterpreter, Image - 11/10/2024 [facility] [address] [place] [address] Mammography Report Signed Patient: Raza Holm#: [id number] : 1955cct:[id number] Age/Sex: 68 / FADM Date: 11/06/24 Loc: HO.MAMMO Attending Dr: Garth Brock MD Ordering Physician: Garht Brock MDResults: 1Negative Date of Service: 11/06/24Follow Up: 1 Year From Orig inal Mammogram Procedure(s): MM tomosynthesis screening BI Accession Number(s): [id number] cc: Garth Brock MD EXAMINATION: MM SCREENING DIGITAL BREAST TOMOSYNTHESIS, BILATERAL CLINICAL INFORMATION: Screening. Asymptomatic. COMPARISON: Comparison made to multiple prior, most recent November 01, 2023, and most remote December 14, 2018. TECHNIQUE: Digital breast tomosynthesis is performed in mediolateral oblique and craniocaudal views along with computer-aided detection (CAD). Additional views were taken if needed. FINDINGS: BREAST COMPOSITION: There are scattered areas of fibroglandular density (ACR BI-RADS breast composition Category b). BILATERAL BREASTS: No significant masses, suspicious calcifications or other abnormalities are seen in either breast. MM/MM tomosynthesis screening BI IMPRESSION: BILATERAL BREASTS: Negative, no mammographic evidence of malignancy. Normal interval follow-up is recommended in 12 months. ASSESSMENT: BI-RADS 1 - Negative RECOMMENDATION: Routine annual mammography screening. FOLLOW-UP: 1 year F/U This examination should not preclude the clinical evaluation of a suspicious palpable abnormality. This patient's information was entered into a reminder system with a target due date for their next mammogram. Electronically signed by: Joshua Parker MD 11/10/2024 11:38 AM EDT Dictated By: Joshua Parker MD Signed By: <Electronically signed by Joshua Parker MD in OV> 11/10/24 1138 DD/ 1400 TD/TT: 11/06/24 1425 Aircraft Mechanic: Garth Brock MD IM BI PROCEDURES Final Result * XR Hip 2 or 3 Views Right (09/20/2024 8:36 AM EDT) Anatomical Region Laterality Modality Lower Extremities, Hip Right Radiograp hic Imaging 09/20/2024 8:36 AM EDT Narrative 09/20/2024 9:43 AM EDT [address] [address] XRay Report Signed Patient: Evelia Holm MR#: [id number] : 1955 Acct:[id number] Age/Sex: 68 / F ADM Date: 09/20/24 Loc: [facility] Attending Dr: Garth Brock MD Ordering Physician: Garth Brock MD Date of Service: 09/20/24 Procedure(s): XR hip RT min 2V Accession Number(s): [id number] cc: Garth Brock MD EXAMINATION: XR HIP, [...] Óscar Wise MD in OV> 09/20/2440 DD/ TD/TT: 09/20/24925 Aircraft Mechanic: Procedure Note Donotuseinterpreter, Image - 09/20/[address] [address] XRay Report Signed Patient: Raza Holm#: [id number] : 1955cct:[id number] Age/Sex: 68 / FADM Date: 09/20/24 [facility]: Garth Brock MD Ordering Physician: Garth Brock MD Date of Service: 09/20/24 Procedure(s): XR hip RT min 2V Accession Number(s): [id number] cc: Garth Brock MD EXAMINATION: XR HIP, [...] in OV> 09/20/24939 DD/ 5 TD/TT: 09/20/24925 Aircraft Mechanic: us Garth Brock MD IMG XR PROCEDURES [...] 8:22 AM EDT) Triglycerides 99 <150 mg/dL [facility] Comment:Desirable Triglyceri de: less than 150 mg/dLBorderline High Triglyceride 150-199 mg/dLHigh Triglyceride: 200-499 mg/dLVery High Triglyceride: greater than or equal to 5OO mg/dL Cholesterol 209(H) <200 mg/dL [facility] Comment:Desirable Cholestero l: less than 200 mg/dLBorderline High Cholesterol: 200-239 mg/dLHigh Cholesterol: greater than 239 mg/dL LDL Cholesterol Calculated 121(H) <100 mg/dL [facility] Comment:Desirable LDL: less than 100 mg/dLNear Optimal/Above Optimal LDL: 110- 129 mg/dLBorderline High LDL: 130-159 mg/dLHigh LDL: 160-189 mg/dLVery High LDL: greater than or equal to 190 mg/dL HDL Cholesterol 69 >40 mg/dL [facility] Comment:Desirable HDL: great er than 40 mg/dL Note: This HDL assay may give artificially low results in patients with liver disease. Blood Venous blood specimen / Unknown 05/23/2024 8:22 AM EDT 05/23/2024 11:40 AM EDT Garth Name LAB BLOOD ORDERABLES Final Resul t [facility] [address] [place] [phone] * Pap Smear (09/20/2022) Pap smear Pap NIL HPV negative. Repeat due 3-5 years Historical Provider HEALTH MAINTENANCE Final Result * Image-Guided Pap with Age-Based Screening Protocols (09/16/2022 12:00 AM EDT) Comment [employer] Comment: This order for age-based cervical cancer and STI screening follows ACOG guidelines(PB 168, 140, KNN215). See individual assays for performing site location. Clinical Information: Routine exam [facility] LMP: NONE GIVEN [employer] [place] [employer] Prev. PAP: NONE GIVEN [employer] [facility] Prev. BX: NONE GIVEN [employer] [employer] [facility] SOURCE: None given [employer] [facility] Statement Of Adequacy: [employer] Comment: Satisfactory for evaluation. Endocervical/transformation zone component present. Interpretation/ Result: Cytology Results: Negative for intraepithelial lesion or malignancy. [employer] COMMENT: This Pap test has been evaluated with computer assisted technology. [employer] Cytotechnologis t: [facility] Comment: RXB, CT(ASCP) CT screening location: [address] [address] Review Cytotechnologis t: [employer] Comment: MXD, CT (ASCP) CT screening location: [address] [address] (Always Message) [employer] Comment: EXPLANATORY NOTE: The Pap is a [...] HPV nRNA E6/E7 Not Detected Not Detected [employer] Comment: Methodology: Nematologist-Mediated Amplification This assay detects E6/E7 viral messenger RNA (mRNA) from 14 high-risk HPV types (16,18,31,33,35,39,45,51,52,56,58,59,66,68). Cervical sources are required for HPV testing. If a vaginal source from a patient who has had a total hysterectomy with removal of cervix was submitted, please contact the testing laboratory for alternative testing options. For additional information, please refer to http://education.[employer]/faq/ANG518h5 (This link if provided for information/ educational purposes only.) 09/16/2022 09/17/2022 7:1 7 AM EDT Narrative [facility] - 09/20/2022 4:19 PM EDT FASTING: UNKNOWN Merlene Sue CNM LAB BLOOD ORDERABLES Sowmya trinidad Result [facility] [address], [place] [address] [employer] [place] [employer] [address] [place] [address] * Hm Colonoscopy (12/30/2016) Colonoscopy Performed Historical Provider MD HEALTH MAINTENANCE Final Result from Last 3 Months or Most Recently Relevant to Health Maintenance Insurance MEDICARE [facility] FULL Care Teams Inspector Floor Relationship Specialty Start Date End Date Name, MD Garth [address] [place] [address] PCP - General Family Medicine 06/18/15
--- OUTSIDE RECORDS SUMMARY | 2024-11-21 19:39 | XMS_ITS | Encounter Summary ---
Author Organization [employer] Address 75 [facility] 7t [place] [address] Care Team Providers Care Aeronautical Research Engineer Name Role Phone Name, Garth YOON Primary Care Provider [phone] Reason for Visit * Reason Comments Med Refill Encounter Details Date Type Department Care Team ([facility] st Contact Info) Description 06/25/2024 Refill [facility] [address] [place] [address] Name, MD Garth [address] [place] [address] Mild intermittent asthma, unspecified whether complicated Social [...] Description 12/05/2024 9:30 AM EDT Office Visit [facility] [address] [place] [address] NameGarth MD [address] [place] [address] documented as of this encounter Visit Diagnoses Diagnosis Mild intermittent asthma, unspecified whether complicated documented in this encounter Additional Health Concerns Assessment Noted Time PHQ-9 Depression Total Score: 0 03/29/19 24 11:15 AM EST documented as of this encounter Care Teams Aeronautical Research Engineer Relationship Specialty Start Date End Date NameGarth MD [address] [place] [address] PCP - General Family Medicine 06/18/15 documented as of this encounter
--- OUTSIDE RECORDS SUMMARY | 2024-11-21 19:39 | XMS_ITS | Encounter Summary ---
Author Organization [employer] Address [address] [place] [address] 7 [place] [address] Care Team Providers Care Pitch Flaker Name Role Phone Name, Garth YOON Primary Care Provider [phone] Reason for Visit * Reason Comments Med Refill Encounter Details Date Type Department Care Team ([facility] Contact Info) Description 11/22/2022 Refill [facility] [address] [place] [address] [phone] NameGarth MD [address] [place] [address] [phone] Essential (primary) hypertension Social History Tobacco Use [...] Upcoming Encounters Date Type Department Care Team ([facility] Contact Info) Description 12/05/2024 9:30 AM EDT Office Visit [facility] [address] [place] [address] [phone] Name, MD Garth [address] [place] [address] [phone] documented as of this encounter Visit Diagnoses Diagnosis Essential (primary) hypertension Unspecified essential hypertension documented in this encounter Additional Health Concerns Assessment Noted Time PHQ-9 Depression Total Score: 11 023 11:05 AM EST documented as of this encounter Care Teams Pitch Flaker Relationship Specialty Start Date End Date Name, MD Garth [address] [place] [address] PCP - General Family Medicine 06/18/15 documented as of this encounter
--- OUTSIDE RECORDS SUMMARY | 2024-11-21 19:39 | XMS_ITS | Encounter Summary ---
Author Organization [employer] Address [address] [facility] 7t [place] [address] Care Team Providers Care Gluing Pressman Name Role Phone Name, Garth YOON Primary Care Provider [phone] Encounter Details Date Type Department Care Team (Latest Contact Info) Description 02/20/2020 Abstract [facility] CONVERSIONS Dental, Provider, DDS Social History [...] Description 12/05/2024 9:30 AM EDT Office Visit [facility] [address] [place] [address] NameGarth MD [address] [place] [address] documented as of this encounter Visit Diagnoses Not on filedocumented in this encounter Care Teams Gluing Pressman Relationship Specialty Start Date End Date NameGarth MD [address] [place] [address] PCP - General Family Medicine 06/18/15 documented as of this encounter
[2024-11-24 10:44] LABS: Trichomonas (NAAT) NOT DETECTED (NOT DETECTED)
[2024-11-24 15:44] LABS: C. trachomatis RNA TMA NOT DETECTED (NOT DETECTED); N. gonorrhoeae RNA TMA NOT DETECTED (NOT DETECTED)
== END 2024-11-21 19:37 | disposition home or self-care (01) ==
LOC: HO.HHCLNP 19:36
PROVIDERS: Visit Provider Advanced Practice Midwife
DX: Z12.4 Encounter for screening for malignant neoplasm of cervix (principal); Z11.51 Encounter for screening for human papillomavirus (HPV); N95.0 Postmenopausal bleeding
CPT/HCPCS: 87491; 87591; 87626; 87661; 88175

== ENCOUNTER 2024-12-05 10:01 | Outpatient (REF) | payer MEDICARE, MEDICAID, SELFPAY ==
--- OUTSIDE RECORDS SUMMARY | 2024-12-05 09:30 | XMS_ITS | Encounter Summary ---
Author Organization [employer] Address [address] [facility] 7t [place] [address] Care Team Providers Care Printing Technician Name Role Phone Garth Brock MD Primary Care Provider [phone] Reason for Referral * Consultation (Routine) - Pending Review Specialty Diagnoses / Procedures Referred By [place] Referred To Contact Gastroenterology Diagnoses History of colon polyps Garth Brock MD [address] [place] [address] Phone: tel: fax: Referral ID Status Reason Start Date Expiration Date Visits Requested Visits Authorized [id number] Pending Review Specialty Services Required 12/05/2024 12/05/2025 1 1 Reason for Visit * Reason Comments Follow-up Encounter Details Date Type Department Care Team (Late st Contact Info) Description 12/05/2024 9:30 AM EDT Office Visit [facility] MEDICINE [address] [place] [id number] Garth Brock MD [address] [place] [phone] Essential hypertension (Primary Dx); Chronic low back pain without sciatica, unspecified back pain laterality; NSAID long-term use; Pre-diabetes; History of colon polyps; Encounter for immunization Social History Tobacco Use Types Packs/Day Years [...] Reading Time Taken Comments Blood Pressure 130/80 12/05/2024 9:27 AM EDT Pulse 81 12/05/2024 9:27 AM EDT Temperature 36.9 C (98.5 F) 12/05/2024 9:27 AM EDT Respiratory Rate 20 12/05/2024 9:27 AM EDT Oxygen Saturation 95% 12/05/2024 9:27 AM EDT Inhaled Oxygen Concentration - - Weight 92.8 kg (204 lb 9.6 oz) 12/05/2024 9:27 A M EDT Height 160 cm (5' 3 ) 12/05/2024 9:27 AM EDT Body Mass Index 36.24 12/05/2024 9:27 AM EDT documented in this encounter Progress Notes * Garth Brock MD - 12/05/2024 9:30 AM EDT Subjective Patient ID: Evelia Holm is a 68 y.o. female who presents for Follow-up. Patient comes for a follow-up visit. Blood pressure is well-controlled today. Chronic neck pain and low back pain persist and this is secondary to generalized DJD of the spine. She does not have any leg radiculopathy. No associated weakness. No GI or complaints. No fevers or chills. No weight loss. No history of malignancy. She requested a refill of the ibuprofen that sheuses with meals without GI side effects. Pain is present most days, mild to moderate intensity, ibuprofen still helps during the day when she has difficulties falling asleep because of the pain. Patient is interested in getting the flu vaccination today. She complains of clear rhinorrhea, nasal congestion and postnasal drip. She has a personal history of allergic rhinitis. She ran out of her Flonase. Review of Systems Constitutional: Negative for chills and fever. HENT: Positive for postnasal drip and rhinorrhea. Negative for sinus pain and sore throat. Respiratory: Negative for cough, shortness of breath and wheezing. Cardiovascular: Negative for chest pain, palpitations and leg swelling. Gastrointestinal: Negative for abdominal pain. Musculoskeletal: Positive for back pain and neck pain. Objective Vitals: 12/05/24 0927 BP: 130/80 BP Location: Left arm Patient Position: Sitting BP Cuff Size: Large adult Pulse: 81 Resp: 20 Temp: 98.5 ??F (36.9 ??C) TempSrc: Oral SpO2: 95% Weight: 204 lb 9.6 oz (92.8 kg) Height: 5' 3 (1.6 m) Physical Exam Constitutional: Appearance: Normal appearance. HENT: Mouth/Throat: Pharynx: No oropharyngeal exudate or posterior oropharyngeal erythema. Cardiovascular: Rate and Rhythm: Normal rate and regular rhythm. Heart sounds: No murmur heard. No gallop. Pulmonary: Effort: Pulmonary effort is normal. No respiratory distress. Breath sounds: Normal breath sounds. No wheezing. Musculoskeletal: Right lower leg: No edema. Left lower leg: No edema. Neurological: General: No focal deficit present. Mental Status: She is alert. Motor: No weakness. Assessment/Plan Diagnoses and all orders for this visit: Essential hypertension Comments: Continue current dose of amlodipine. Orders: - CBC auto differential; Future - Basic Metabolic Panel; Future Chronic low back pain without sciatica, unspecified back pain laterality Comments: Continue ibuprofen. I added gabapentin at bedtime to help with the pain and insomnia. Orders: - gabapentin (Neurontin) 100 MG capsule; Take 1 capsule (100 mg) by mouth at bedtime. NSAID long-term use Comments: Continue ibuprofen as needed with meals. Daily PPI for prevention of GI side effects. Check CBC andBMP. Pre-diabetes Comments: Check blood work listed below Orders: - Hemoglobin A1c; Future History of colon polyps Comments: Patient is due for repeat screening colonoscopy and she was referred. She had adenoma removed back in 2017. Orders: - Referral to Gastroenterology; Future Encounter for immunization Comments: Flu vaccine today Orders: - FLU VACCINE TRIVALENT HIGH DOSE [id number] (Fluzone) 65 yrs + Other orders - ibuprofen 400 MG tablet; Take 1 tablet (400 mg) by mouth every 6 (six) hours if needed for moderate pain. - fluticasone (Flonase) 50 MCG/ACT nasal spray; Administer 2 sprays into each nostril Once per day. - omeprazole (PriLOSEC) [address] capsule; Take 1 capsule (40 mg) by mouth before breakfast. documented in this encounter Plan of Treatment Scheduled Orders Name Type Priority Associated Diagnoses Orde r Schedule CBC auto differential Lab Routine Essential hypertension Expected: 12/05/2024 (Approximate), Expires: 12/05/2025 Basic Metabolic Panel Lab Routine Essential hypertension Expected: 12/05/2024 (Approximate), Expires: 12/05/2025 Hemoglobin A1c Lab Routine Pre-diabetes Expected: 12/05/2024 (Approximate), Expires: 12/05/2025 Scheduled Referrals Name Type Priority Associated Diagnoses Order Schedule Referral to Gastroenterology Outpatient Referral Routine History of colon polyps Expected: 12/05/2024 (Approximate), Expires: 12/05/2025 documented as of this encounter Visit Diagnoses Diagnosis Essential hypertension- Primary Unspecified essential hypertension Chronic low back pain without sciatica, unspecified back pain laterality NSAID long-term use Encounter for long-term (current) use of non-steroidal anti-inflammatories Pre-diabetes Other abnormal glucose History of colon polyps Encounter for immunization documented in this encounter Additional Health Concerns Assessment Noted Time PHQ-9 Depression Total Score: 16 025 10:46 AM EDT documented as of this encounter Care Teams Printing Technician Relationship Specialty Start Date End Date Name, MD Garth [address] [place] [address] PCP - General Family Medicine 06/18/15 documented as of this encounter
[2024-12-05 11:36] LABS: MANUAL DIFF FLAG NO
--- OUTSIDE RECORDS SUMMARY | 2024-12-05 12:16 | XMS_ITS | Encounter Summary ---
Author Organization [employer] Address [address] [place] [address] [address] [place] [address] Care Team Providers Care Inspector Assemblies And Installations Name Role Phone Name, Garth YOON Primary Care Provider [phone] Reason for Visit * Reason Comments Med Refill Encounter Details Date Type Department Care Team ([facility] st Contact Info) Description 11/22/2022 Refill [facility] MED[facility] [address] [place] [address] Name, MD Garth [address] [place] [address] Essential (primary) hypertension Social History Tobacco Use [...] as of this encounter Plan of Treatment Not on file documented as of this encounter Visit Diagnoses Diagnosis Essential (primary) hypertension Unspecified essential hypertension documented in this encounter Additional Health Concerns Assessment Noted Time PHQ-9 Depression Total Score: 11 023 11:05 AM EST documented as of this encounter Care Teams Inspector Assemblies And Installations Relationship Specialty Start Date End Date Name, MD Garth [address] [place] [address] PCP - General Family Medicine 06/18/15 documented as of this encounter
--- OUTSIDE RECORDS SUMMARY | 2024-12-05 12:16 | XMS_ITS | Encounter Summary ---
Author Organization [employer] Address 75 [facility] 7t [place] [address] Care Team Providers Care Nib Assembler Name Role Phone Name, Garth YOON Primary Care Provider [phone] Reason for Visit * Reason Onset Date Comments case back from lab? 03/01/2024 Encounter Details Date Type Department Care Team ([facility] st Contact Info) Description 03/01/2024 Telephone [facility] [address] [place] [address] Jeff Cedeno DDS [address] [place] [address] case back from lab? Social History Tobacco [...] documented in this encounter Plan of Treatment Not on file documented as of this encounter Visit Diagnoses Not on filedocumented in this encounter Additional Health Concerns Assessment Noted Time PHQ-9 Depression Total Score: 0 03/29/19 24 11:15 AM EST documented as of this encounter Care Teams Nib Assembler Relationship Specialty Start Date End Date Name, MD Garth [address] [place] [address] PCP - General Family Medicine 06/18/15 documented as of this encounter
--- OUTSIDE RECORDS SUMMARY | 2024-12-05 12:16 | XMS_ITS | Encounter Summary ---
Author Organization [employer] Address 75 [facility] 7t [place] [address] Care Team Providers Care Filter Screen Cleaner Name Role Phone Name, Garth YOON Primary Care Provider [phone] Reason for Visit * Reason Comments Med Refill Encounter Details Date Type Department Care Team ([facility] st Contact Info) Description 05/07/2022 Refill [facility] MEDICINE [address] [place] [address] Name, MD Garth [address] [place] [address] Radicular pain in left arm Social History [...] documented as of this encounter Care Teams Filter Screen Cleaner Relationship Specialty Start Date End Date Name, MD Garth [address] [place] [address] PCP - General Family Medicine 06/18/15 documented as of this encounter
--- OUTSIDE RECORDS SUMMARY | 2024-12-05 12:16 | XMS_ITS | Encounter Summary ---
Author Organization [employer] Address [address] [facility] [address] [place] [address] Care Team Providers Care Waste Specialist Name Role Phone Name, Garth YOON Primary Care Provider [phone] Reason for Visit * Reason Onset Date Comments Chart Prep 12/04/2024 Encounter Details Date Type Department Care Team ([facility] Contact Info) Description 12/04/2024 Telephone [facility] [address] [place], [place] [id number] Name, MD Garth [address] [place] [address] Chart Prep Social History Tobacco Use Types Packs/Day Years [...] encounter Miscellaneous Notes * Telephone Encounter - Angelia Denny [place] - 12/04/2024 10:27 AM EDT Chart Prep Labs: done Images: not done Referrals: Patient has appts booked for Mammo on 11/12/2025,Ortho angela 01/24/2025 and Ultrasound 01/16/2025.Scanned notes for x-rays and other specialties on 12/04/2024. Vaccines due: Covid, Flu, Hep B, and RSV Screenings: colonoscopy Overdue care gaps: Oral health screening and Tobacco documented in this encounter Plan of Treatment Not on file documented as of this encounter Visit Diagnoses Not on filedocumented in this encounter Additional Health Concerns Assessment Noted Time PHQ-9 Depression Total Score: 16 025 10:46 AM EDT documented as of this encounter Care Teams Waste Specialist Relationship Specialty Start Date End Date Name, MD Garth [address] [place] [address] PCP - General Family Medicine 06/18/15 documented as of this encounter
--- OUTSIDE RECORDS SUMMARY | 2024-12-05 12:16 | XMS_ITS | Encounter Summary ---
Author Organization [employer] Address [address] [facility] [address] 7[address] [place] [address] Care Team Providers Care Hunting Sales Leader Name Role Phone Name, Garth YOON Primary Care Provider [phone] Encounter Details Date Type Department Care Team (Late st Contact Info) Description 11/27/2024 Results Follow-Up [facility] MEDICINE [address] [place] [address] Merlene Sue CNM [address] [place] [address] Pap Smear, STI testing add on (NG, CT, Trich) Social History Tobacco Use Types Packs/Day Years [...] as of this encounter Miscellaneous Notes * Result Encounter Note - Merlene Sue CNM - 11/28/2024 12:21 PM EDT I ordered that as urgent. Please see if she can be seen sooner. * Result Encounter Note - Merlene Sue CNM - 11/27/2024 10:40 AM EDT Please let Evelia know her pap and vaginal infection tests were all negative, which is good news. Does she have pelvic ultrasound appt yet? If not, please assist with scheduling. Thanks! documented in this encounter Plan of Treatment Not on file documented as of this encounter Visit Diagnoses Not on filedocumented in this encounter Additional Health Concerns Assessment Noted Time PHQ-9 Depression Total Score: 16 025 10:46 AM EDT documented as of this encounter Care Teams Hunting Sales Leader Relationship Specialty Start Date End Date Name, MD Garth [address] [place] [address] PCP - General Family Medicine 06/18/15 documented as of this encounter
--- OUTSIDE RECORDS SUMMARY | 2024-12-05 12:16 | XMS_ITS | Clinical Summary ---
Author Organization [facility] Address [address] [place] [address] Phone Care Team Providers Care Waste Hand Name Role Phone Name, Garth YOON Primary Care Provider [phone] Allergies No known active allergies Medications acetaminophen [...] 9:00 AM EDT Consult Orthopedic Surgery - [place] [address] [facility] [address] [place] [phone] Mitchell Bender, DPM Plantar fascial fibromatosis (Primary [...] Info) Description 12/19/2024 11:00 AM EDT Evaluation [facility] Outpatient Rehabilitation - [place] [address] [facility] [address] [place] [phone] Sana Egan, PT Health Maintenance Due Date [...] Insurance MEDICARE MEDICAID - [place] Care Teams Waste Hand Relationship Specialty Start Date End Date Name, MD Garth [address] [place], [place] PCP - General Internal Medicine 04/25/18
--- OUTSIDE RECORDS SUMMARY | 2024-12-05 12:16 | XMS_ITS | Encounter Summary ---
Author Organization [employer] Address [address] [facility] 7t [place] [address] Care Team Providers Care Net Developer Contract Name Role Phone Name, Garth YOON Primary Care Provider [phone] Reason for Visit * Reason Comments Med Refill Encounter Details Date Type Department Care Team ([facility] st Contact Info) Description 06/25/2024 Refill [facility] MEDICINE [address] [place] [address] Name, MD Garth [address] [place] [address] Mild intermittent asthma, unspecified whether complicated Social [...] documented as of this encounter Care Teams Net Developer Contract Relationship Specialty Start Date End Date Name, MD Garth [address] [place] [address] PCP - General Family Medicine 06/18/15 documented as of this encounter
--- OUTSIDE RECORDS SUMMARY | 2024-12-05 12:16 | XMS_ITS | Encounter Summary ---
Author Organization [employer] Address 75 [facility] 7t [place] [address] Care Team Providers Care Switchman Name Role Phone Name, Garth YOON Primary Care Provider [phone] Encounter Details Date Type Department Care Team (Latest Contact Info) Description 02/06/2019 Abstract [facility] CONVERSIONS Dental, Provider, DDS Social History [...] on filedocumented in this encounter Care Teams Switchman Relationship Specialty Start Date End Date Name, MD Garth [address] [place] [address] PCP - General Family Medicine 06/18/15 documented as of this encounter
--- OUTSIDE RECORDS SUMMARY | 2024-12-05 12:16 | XMS_ITS | Encounter Summary ---
Author Organization [employer] Address [address] [facility] 7t [place] [address] Care Team Providers Care Patient Safety Officer Name Role Phone Name, Garth YOON Primary Care Provider [phone] Encounter Details Date Type Department Care Team (Latest Contact Info) Description 02/20/2020 Abstract [facility] CONVERSIONS Dental, Provider, DDS Social History Tobacco [...] on filedocumented in this encounter Care Teams Patient Safety Officer Relationship Specialty Start Date End Date Name, MD Garth [address] [place] [address] PCP - General Family Medicine 06/18/15 documented as of this encounter
--- OUTSIDE RECORDS SUMMARY | 2024-12-05 12:16 | XMS_ITS | Encounter Summary ---
Author Organization [employer] Address [address] [facility] [address] [place] [address] Care Team Providers Care Jewel Hole Driller Name Role Phone Name, Garth YOON Primary Care Provider [phone] Encounter Details Date Type Department Care Team (Latest Contact Info) Description 12/05/2024 Travel Social History Tobacco Use Types Packs/Day [...] documented as of this encounter Care Teams Jewel Hole Driller Relationship Specialty Start Date End Date Name, MD Garth [address] [place] [address] PCP - General Family Medicine 06/18/15 documented as of this encounter
--- OUTSIDE RECORDS SUMMARY | 2024-12-05 12:16 | XMS_ITS | Encounter Summary ---
Author Organization [employer] Address [address] [facility] 7t [place] [address] Care Team Providers Care Securities Teller Name Role Phone Name, Garth YOON Primary Care Provider [phone] Encounter Details Date Type Department Care Team (Late st Contact Info) Description 08/25/2022 Abstract [facility] MEDICINE [address] [place] [address] Name, MD Garth [address] [place] [address] Social History Tobacco Use Types Packs/Day Years [...] on file documented as of this encounter Procedures Procedure Name Priority Date/Time Associated Diagnosis Comments HM PAP/HPV Routine 01/26/2019 documented in this encounter Results * Hm Pap Smear (01/26/2019) Pap Negative for intraephithelial lesion or malignancy Negative for intraephithelial lesion or malignancy, Other HPV Undetected 01/26/2019 us Historical Provider HEALTH MAINTENANCE Final Result documented in this encounter Visit Diagnoses Not on filedocumented in this encounter Additional Health Concerns Assessment Noted Time PHQ-9 Depression Total Score: 11 023 11:05 AM EST documented as of this encounter Care Teams Securities Teller Relationship Specialty Start Date End Date Name, MD Garth [address] [place] [address] PCP - General Family Medicine 06/18/15 documented as of this encounter
--- OUTSIDE RECORDS SUMMARY | 2024-12-05 12:16 | XMS_ITS | Clinical Summary ---
Author Organization [employer] Address [address] [facility] [address] [place] [address] Care Team Providers Care Public Safety Dispatcher Name Role Phone Name, Garth YOON Primary Care Provider [phone] Allergies Active Allergy Reactions Criticality Noted Date Comments Codeine Other reaction(s): rash Medications loratadine (Claritin) 10 MG tablet Take 1 tablet by mouth. 01/01/20 22 Active cholecalciferol (Vitamin D-3) 50 MCG (1999) tablet Take 1 tablet by mouth. 07/24/19 22 Active baclofen (Lioresal) 20 MG tabletIndicatio ns:Acute pain of left shoulder Take 1 tablet (20 mg) by mouth 3 times daily. 30 tablet 11/17/19 23 Active atorvastatin (Lipitor) 20 MG tabletIndicatio ns:High cholesterol Take 1 tablet (20 mg) by mouth in the morning. 30 tablet 11 03/29/19 24 Active cyclobenzaprine (Flexeril) 5 MG tablet Take 5 mg by mouth if needed in the morning, at noon, and at bedtime for muscle spasms. 05/25/19 24 Active fluticasone furoate (Arnuity Ellipta) 100 MCG/ACT inhaler Inhale 1 puff Once per day. Rinse mouth with water after use to reduce aftertaste and incidence of candidiasis. Do not swallow. 1 each 05/23/19 25 026 Active salicylic acid 6 % gelIndications: Inflamed seborrheic keratosis Apply topically Once per day. 40 g 06/16/19 25 Active acetaminophen (Tylenol 8 Hour) 650 MG ER tablet Take 1 tablet (650 mg) by mouth every 8 (eight) hours if needed for mild pain. Do not crush, chew, or split. 20 tablet 08/17/19 25 Active Diclofenac Sodium 1 % gel APPLY 2 GRAMS TOPICALLY TO AFFECTED AREA(S) EVERY DAY DIRECTED 100 g 1 08/18/19 25 Active amLODIPine (Norvasc) 10 MG tablet Take 1 tablet (10 mg) by mouth in the morning. 90 tablet 1 08/18/19 25 Active metFORMIN (Glucophage) 500 MG tabletIndicatio ns:Prediabetes TAKE 1 TABLET BY MOUTH TWICE DAILY IN THE MORNING AND IN THE EVENING WITH MEALS 180 tablet 1 09/07/19 25 Active albuterol 108 (90 Base) MCG/ACT inhalerIndicati ons:Mild intermittent asthma, unspecified whether complicated INHALE 2 PUFFS BY MOUTH EVERY 4 TO 6 HOURS NEEDED 8.5 g 1 09/19/19 25 Active aspirin 81 MG EC tablet Take 81 mg by mouth Once per day. Active ibuprofen 400 MG tablet Take 1 tablet (400 mg) by mouth every 6 (six) hours if needed for moderate pain. 60 tablet 12/06/19 25 Active gabapentin (Neurontin) 100 MG capsuleIndicati ons:Chronic low back pain without sciatica, unspecified back pain laterality Take 1 capsule (100 mg) by mouth at bedtime. 30 capsule 12/06/19 25 026 Active fluticasone (Flonase) 50 MCG/ACT nasal spray Administer 2 sprays into each nostril Once per day. 16 g 2 12/06/19 25 Active omeprazole (PriLOSEC) [address] capsule Take 1 capsule (40 mg) by mouth before breakfast. 30 capsule 12/06/19 25 025 Active fluticasone (Flonase) 50 MCG/ACT nasal spray Administer 2 sprays into affected nostril(s). 04/11/19 20 025 Discontinued(R eorder (will not trigger notification to Pharmacy)) omeprazole (PriLOSEC) [address] capsule Take 1 capsule (40 mg) by mouth before breakfast. 30 capsule 09/29/19 24 025 Discontinued(R eorder (will not trigger notification to Pharmacy)) ibuprofen 400 MG tablet Take 1 tablet (400 mg) by mouth every 6 (six) hours if needed for moderate pain. 60 tablet 08/18/19 25 025 Discontinued(R eorder (will not trigger notification to Pharmacy)) Active Problems Problem Noted Date Diagnosed Date Localized gingival enlargement 08/16/2024 Ill-fitting dentures 03/20/2024 Excessive attrition of teeth, limited to enamel 01/20/2024 Partial edentulism 01/20/2024 Dental plaque 01/20/2024 Generalized gingival recession 01/20/2024 Defective dental quaker 01/20/2024 Osteoarthritis of cervical spine 09/29/2023 Diffuse idiopathic skeletal hyperostosis of cervicothoracic spine 09/21/2022 Prediabetes 03/17/2022 History of colon polyps 03/17/2022 Overview (03/17/2022): [place] tubular [place] [address] [facility] Calcaneal spur 08/21/2018 Mild intermittent asthma 07/05/2018 Vertigo 05/10/2018 Primary osteoarthritis involving multiple joints 01/25/2018 Chronic back pain 01/04/2018 Abnormal MRI, thoracic spine 07/29/2017 Overview (12/05/2024): Hemangioma of thoracic vertebra S/p vertebroplasty done at [facility] Acute idiopathic pericarditis 03/29/2017 Depressive disorder 12/10/2016 Recurrent major depression in partial remission 06/18/2016 Essential hypertension 06/18/2016 Cyst of pancreas 03/22/2016 Microscopic hematuria 12/18/2015 Gallstone 12/12/2015 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 Hypercholesterolemia 06/15/2013 Paresthesia of hand 12/03/2011 Lyme disease 12/03/2011 Arnold-Chiari malformation 12/03/2011 Postmenopausal bleeding 08/25/2011 Class 2 severe obesity due t o excess calories with serious comorbidity in adult 08/25/2011 Irregular periods 08/25/2011 Gastroesophageal reflux disease 08/25/2011 Allergic rhinitis 08/25/2011 Resolved Problems Problem Noted Date Diagnosed Date Resolved Date Acute left eye pain 07/03/2024 12/06/19 25 Assessment & Plan (07/03/2024 1:42 PM EDT): [...] agreeable with plan To be seen by [employer] TODAY Acute pain of left shoulder 11/16/2022 09/29/2023 Assessment & Plan (11/16/2022 12:18 PM EDT): Apply heat on affected area Gentle stretching was recommended Edema of lower extremity 02/19/2022 Dyspnea on exertion 02/19/2022 09/29/19 Acute ethmoidal sinusitis 02/19/2022 Calf cramp 04/22/2021 09/29/2023 Upper respiratory infection 02/24/2018 12/05/2024 Chest discomfort 02/24/2018 09/29/2023 Joint pain 01/04/2018 09/29/2023 Hemangioma 10/19/2017 12/05/2024 [address] scan 07/29/2017 12/05/2024 Right lower quadrant pain 02/14/2017 Constipation 05/03/2012 12/05/2024 Abnormal mammogram 01/06/2012 Atypical chest pain 12/03/2011 12/06/19 Encounters Date Type Department Care Team Description 12/05/2024 9:30 AM EDT Office Visit [address] [address] Garth Brock MD Essential hypertension (Primary Dx); Chronic low back pain without sciatica, unspecified back pain laterality; NSAID long-term use; Pre-diabetes; History of colon polyps; Encounter for immunization 12/05/2024 Travel 12/04/2024 Telephone [facility] [address] [place] [address] Garth Brock MD Chart Prep 11/28/2024 Telephone [facility] [address] [place] [address] Neto Graham CNM Results 11/27/2024 Results Follow-Up [facility] [address] [place] [phone] Neto Graham CNM Pap Smear, STI testing add on (NG, CT, Trich) 11/21/2024 10:00 AM EDT Office Visit [facility] [address] [place] [address] Neto Graham CNM Postmenopausal bleeding (Primary Dx); Screening examination for venereal disease; Routine cervical smear 11/21/2024 Travel 11/20/2024 Telephone [facility] [address] [place] [address] Neto Graham CNM CHART PREP 11/06/2024 Orders Only [facility] [address] [place] [phone] Garth Brock MD 09/17/2024 Refill [facility] [address] [place] [phone] NameGarth MD Mild intermittent asthma, unspecified whether complicated 09/06/[address] [address] Name, MD Garth Prediabetes from Last 3 Months Immunizations Immunization Administration Dates Next Due Hep A, Adult 08/30/2011 Hep B, adult 09/03/2011 Influenza High-dose Quadrivalent Preservative Fr ee 12/24/2022,12/31/2021 Influenza injectable quadrivalent preservative f ree 12/01/2020,12/14/2018 Influenza, High Dose Seasonal, Preservative Free 12/05/2024,01/03/2024 Moderna Covid-19 Vaccine 12+ 07/08/2020,06/11/19 21 Pneumococcal [...] housing situation today? I have lissettbrennan reardon 08/17/[address] you [...] Mass Index 36.24 12/05/2024 9:27 AM EDT Plan of Treatment Health Maintenance Due Date [...] Vaccine ( season) 2024 04/20/2021, 07/08/2020, 06/10/2020 Dental X-Ray: Bitewings 01/20/2025 01/20/20, 02/20/2020, 02/06/2019, Additional history exists Dental Prophylaxis 01/21/2025 07/20/2024, 1 03/21/2023, 05/09/2017, Additional history exists Dental Oral Exam 02/16/2025 08/16/2024, 10/2023, 02/20/2020, Additional history exists Depression Monitoring 02/16/2025 08/17/2024, 025 Alcohol/Substance Use Screening 08/17/2025 08/17/2024 Diabetes: Hemoglobin A1C 08/17/2025 025, 01/03/2024, 12/27/2022, Additional history exists Tobacco Screening 12/05/2025 12/05/2024 Mammogram 11/06/2026 11/06/2024, 10/13, 10/27/2022, Additional history exists Dental X-Ray: Full Mouth 01/20/2027 024, 05/09/2017, 11/12/2014 Lipid Panel 05/23/2029 05/23/2024, 12/12, 04/21/2021 HPV/Cotest 11/21/2029 11/21/2024, 07/0 08/2022, 01/26/2019, Additional history exists Pap Smear 11/21/2029 11/21/2024, 09/11, 09/16/2022, Additional history exists DTaP/Tdap/Td Vaccines (3 - Td or Tdap) 03/04/2032 03/04/2022, 08/03/2011, 05/24/1995 Hepatitis A Vaccines Aged Out 08/30/2011 No long er eligible based on patient's age to complete this topic Pneumococcal Vaccine: 50+ Years Completed 03/04/2022 Zoster Vaccines Completed 03/04/2022, 12/31/2021 Influenza Vaccine Completed 12/05/2024, , 12/24/2022, Additional history exists HIB Vaccines Aged Out [...] Procedure Name Priority Date/Time Associated Diagnosis Comments CHLAMYDIA/N. GONORRHOEAE AND T. VAGINALIS RNA, QUAL,TMA Routine 11/21/2024 10:25 AM EDT Postmenopausal bleeding Screening examination for venereal disease PAP SMEAR Routine 11/21/2024 10:25 AM EDT Postmenopausal bleeding Routine cervical smear HPV DNA, LOW/HIGH RISK Routine 11/21/2024 10:25 AM EDT BI MAMMOGRAM SCREENING TOMOSYNTHESIS BILATERAL Routine 11/06/2024 [...] acquired Dental plaque Generalized gingival recession HM COLONOSCOPY Routine 12/30/2016 from Last 3 Months or Most Recently Relevant to Health Maintenance Results * STI testing add on (NG, CT, Trich) (11/21/2024 10:25 AM EDT) Trichomonas (NAAT) NOT DETECTED NOT DETECTED [facility] Comment:The analytical perfo rmance characteristics of thisassay have been determined by [employer]. Themodifications have not been cleared or approved bythe FDA. This assay has been validated pursuant to theIA regulations and is used for clinical purposes.For additional information, please refer tohttp://education.Cloak/faq/Trichomonastma(This link is being provided for information/educational purposes only.)THIS TEST WAS PERFORMED AT:[facility] [address] [id number] VALERO MD CTNG Ref Lab NOT DETECTED NOT DETECTED [facility] NG Ref Lab NOT DETECTED NOT DETECTED [facility] Swab 11/21/2024 10:2 5 AM EDT 11/22/2024 7:01 AM EDT Neto Linette [facility] CYTOLOGY ORDERABLES F inal Result Performing Organization Address [facility] Co de Phone Number [facility] [address] [place] [phone] * HPV DNA, Low/High Risk (11/21/2024 10:25 AM EDT) HPV High Risk Negative Negative [facility] HPV Genotype 16 Negative Negative [facility] HPV Genotype 18 Negative Negative [facility] Comment:HPV testing performe d at [facility] (CLIA#[id number]), [address] [place] [address].Testing for HPV was performed using the [employer] GENESIS Schoo0system. The presence of HPV in the female genital tract isassociated with a number of diseases, including cervicalcarcinoma. The HPV DNA high risk pool tests for HPV 31, 33,35, 39, 45, 51, 52, 56, 58, 59, 66 and 68. The testing forHPV 16 and 18 genotypes has also been performed. A positiveresult indicates detection of nucleic acid sequences fromone or more subtypes, whereas a negative result indicatessuch sequences were not detected. 11/21/2024 10:2 5 AM EDT 11/22/2024 7:01 AM EDT Neto Graham [facility] BLOOD ORDERABLES Sowmya l Result Performing Organization Address [facility] Co de Phone Number [facility] [address] [place] [phone] * Pap Smear (11/21/2024 10:25 AM EDT) Swab 11/21/2024 10:2 5 AM EDT 11/22/2024 7:01 AM EDT Narrative [facility] - 11/27/2024 10:32 AM EDT ----- ------- Name: Evelia Holm Age/Sex: 68/F : 1955 Unit#: [id number] Attend Dr: NETO GRAHAM CNM Re11/21/24 Status: DEP [facility] Disch: ----- ------- SPEC : [id number] RECD: 11/22/24 STATUS: PAVEL GALLARDO NUM: [id number] DOM: 11/21/24-[address] [facility] [address]: NETO GRAHAM CNM ENTERED: 11/22/24 SP TYPE: Pap Smr MOHINDER DR: ORDERED: Pap Smear Interpretation Satisfactory for evaluation. Negative for intraepithelial lesion or malignancy. HPV High Risk: Negative HPV Genotyping 16: Negative HPV Genotyping 18: Negative Clinical Information LMP: Postmenopausal Previous PAP test: 2022, WNL Other history: Postmenopausal bleeding, routine cervical smear Material Received ThinPrep-Vaginal/Cervical PAP Disclaimer As of January 04, 2024, the technical services to include automated prescreening performed by the ThinPrep Imaging System, PAP screening and HPV testing will be performed at [facility] (IA #[id number]), [address] [place] [address]. Testing for HPV was performed using the Z[employer]oom[employer] 6800 system. The presence of HPV in the female genital tract is associated with a number of diseases, including cervical carcinoma. The HPV DNA high risk pool tests for HPV 31, 33, 35, 39, 45, 51, 52, 56, 58, 59, 66 and 68. The testing for HPV 16 and 18 genotypes has also been performed. A positive result indicates detection of nucleic acid sequences from one or more subtypes, whereas a negative result indicates such sequences were not detected. All professional services are performed by [facility] ([address] [place] [address]; ; [place] #[id number]). The PAP Test is a screening procedure with the inherent possibility of both false negative and false positive results. Results should be interpreted in the context of historic and current clinical findings. Reliability of the PAP Test is enhanced by performing the test on a regular repetitive basis. ----- ------- Signed (signature on file) ЮЛИЯ Snigh (ASCP) 11/27/24 1032 ----- ------- END OF REPORT us Neto Graham [facility] CYTOLOGY ORDERABLES F inal Result [facility] [address] [place] [phone] [phone] * BI Mammogram Screening Tomosynthesis Bilateral (11/06/2024 2:00 PM EDT) Anatomical Region Laterality Modality Breast Bilateral Mammography 11/06/2024 2:00 PM EDT Narrative 11/10/2024 11:41 AM EDT [facility] [address] [place] [address] Mammography Report Signed Patient: Evelia Holm MR#: [id number] : 1955 Acct:[id number] Age/Sex: 68 / F ADM Date: 11/06/24 Loc: HO.MAMMO Attending Dr: Garth Brock MD Ordering Physician: Garth Brock MD Results: 1Negative Date of Service: 11/06/24 Follow Up: 1 Year From Orig inal Mammogram Procedure(s): MM tomosynthesis screening BI Accession Number(s): [id number] cc: Garth Brock MD EXAMINATION: MM SCREENING [...] 11/10/24 1138 DD/ 1400 TD/TT: 11/06/24 1425 [employer] G[employer]r: Procedure Note Donotuseinterpreter, Image - 11/10/20[facility] [address] [place] [address] Mammography Report Signed Patient: Raza Holm#: [id number] : 7Acct:[id number] Age/Sex: 68 / FADM Date: 11/06/24 Loc: HO.MAMMO Attending Dr: Garth Brock MD Ordering Physician: Garth Brock MDResults: 1Negative Date of Service: 11/06/24Follow Up: 1 Year From Orig ina Mammogram Procedure(s): MM tomosynthesis screening BI Accession Number(s): [id number] cc: Garth Brock MD EXAMINATION: MM SCREENING [...] 11/10/24 1138 DD/ 1400 TD/TT: 11/06/24 1425 [employer] G[employer]r: Garth Brock MD IMG BI PROCEDURES Final Result * XR Hip 2 or 3 Views Right (09/20/2024 8:36 AM EDT) Anatomical Region Laterality Modality Lower Extremities, Hip Right Radiograp hic Imaging 09/20/2024 8:36 AM EDT Narrative 09/20/2024 9:43 AM EDT [facility] [address] [place] [address] XRay Report Signed Patient: Evelia Holm MR#: [id number] : 1955 Acct:[id number] Age/Sex: 68 / F ADM Date: 09/20/24 Loc: HO.CX Attending Dr: Garth Brock MD Ordering Physician: Garth Brock MD Date of Service: 09/20/24 Procedure(s): XR hip RT min 2V Accession Number(s): [id number] cc: Garth Brock MD EXAMINATION: XR HIP, [...] in OV> 09/20/24939 DD/ 5 TD/TT: 09/20/24925 [employer] G[employer]r: Procedure Note Donotuseinterpreter, Image - 09/20/2024 [facility] [address] [place] [address] XRay Report Signed Patient: Evelia HolmMR#: [id number] : 1955cct:[id number] Age/Sex: 68 / FADM Date: 09/20/24 Loc: HO.HHCX Attending Dr: Garth Brock MD Ordering Physician: Garth Brock MD Date of Service: 09/20/24 Procedure(s): XR hip RT min 2V Accession Number(s): [id number] cc: Garth Brock MD EXAMINATION: XR HIP, RIGHT CLINICAL INFORMATION: Months of right lateral hip pain COMPARISON: 07/05/2016. TECHNIQUE: Two views of the right hip. FINDINGS: No fracture, dislocation, or suspicious bone lesion. There is normal alignment. Moderate osteoarthrosis of the right hip joint, mildly progressed from 2016. Normal femoral head contour without evidence of AVN. Mild enthesopathy of the greater trochanter, and gluteal insertion upon the iliac bone. No discrete soft tissue abnormality. XR/XR hip RT min 2V IMPRESSION: 1. No acute bony abnormalities. 2. Moderate osteoarthrosis right hip joint, mildly progressed from 2016. Electronically signed by: Óscar Wise MD 09/20/2024 09:40 AM EDT Dictated By: Óscar Wise MD Signed By: <Electronically signed by Óscar Wise MD in OV> 09/20/2440 DD/ 0836 TD/TT: 09/20/24 09 [employer]r: us Garth Brock MD IMG XR PROCEDURES [...] 8:22 AM EDT) Triglycerides 99 <150 mg/dL [facility] Comment:Desirable Triglyceri de: less than 150 mg/dLBorderline High Triglyceride 150-199 mg/dLHigh Triglyceride: 200-499 mg/dLVery High Triglyceride: greater than or equal to 5OO mg/dL Cholesterol 209(H) <200 mg/dL [facility] Comment:Desirable Cholestero l: less than 200 mg/dLBorderline High Cholesterol: 200-239 mg/dLHigh Cholesterol: greater than 239 mg/dL LDL Cholesterol Calculated 121(H) <100 mg/dL [facility] Comment:Desirable LDL: less than 100 mg/dLNear Optimal/Above Optimal LDL: 110- 129 mg/dLBorderline High LDL: 130-159 mg/dLHigh LDL: 160-189 mg/dLVery High LDL: greater than or equal to 190 mg/dL HDL Cholesterol 69 >40 mg/dL [facility] Comment:Desirable HDL: great er than 40 mg/dL Note: This HDL assay may give artificially low results in patients with liver disease. Blood Venous blood specimen / Unknown 05/23/2024 8:22 AM EDT 05/23/2024 11:40 AM EDT Garth Brock MD LAB BLOOD ORDERABLES Final Resul t [facility] [address] [place] [address] [phone] * Colonoscopy (12/30/2016) Colonoscopy Performed Historical Provider HEALTH MAINTENANCE Final Result from Last 3 Months or Most Recently Relevant to Health Maintenance Insurance [facility]ICARE [facility] F[facility] Care Teams Public Safety Dispatcher Relationship Specialty Start Date End Date Name, MD Garth [address] [place] [address] PCP - General Family Medicine 06/18/15
[2024-12-05 12:33] LABS: Hematocrit 47.9 % (37.0-47.0); Hemoglobin 15.3 g/dl (12.0-16.0); Hemoglobin A1C 232.2653 umol/L; Imm Gran Abs Auto 0.02 X10*3/uL (0.00-0.03); Imm Gran Pct Auto 0.3 % (0.0-0.4); Lymphocytes Absolute Auto 1.6 X10*3/uL (1.2-4.9); Mean Corpuscular HGB Conc 31.9 g/dl (31.0-35.0); Mean Corpuscular Hemoglobin 28.2 pg (27.0-33.0); Mean Corpuscular Volume 88.4 fL (80.0-98.0); NRBC Abs Auto 0.000 X10*3/uL (0.0-0.012); NRBC Pct Auto 0.0 /100WBC (0.0-0.2); Platelet Count 266 X10*3/uL (160-400); Red Blood Count 5.42 X10*6/uL (4.20-5.50); Total Hemoglobin (HGBA1C) 5507.6832 umol/L; White Blood Count 7.2 X10*3/uL (4.8-10.8)
[2024-12-05 12:38] LABS: Anion Gap 13 (12-20); Blood Urea Nitrogen 13 mg/dL (9-16); Calcium 9.1 mg/dL (8.4-10.2); Carbon Dioxide 29 mmol/L (22-29); Chloride 107 mmol/L (96-108); Estimated Glomerular Filt Rate > 60; Potassium 4.6 mmol/L (3.3-5.1); Sodium 144 mmol/L (135-145)
== END 2024-12-05 10:02 | disposition home or self-care (01) ==
LOC: HO.HHCL 10:01
PROVIDERS: PCP Internal Medicine Geriatric Medicine; Visit Provider Internal Medicine Geriatric Medicine
DX: I10 Essential (primary) hypertension (principal); R73.03 Prediabetes
CPT/HCPCS: 36415; 80048; 83036; 85025

== ENCOUNTER 2025-01-02 14:45 | Outpatient (REF) | payer MEDICARE, MEDICAID, SELFPAY ==
--- NOTE | ~2025-01-02 | US_ITS ---
EXAMINATION: US PELVIS CLINICAL INFORMATION: Postmenopausal disease. COMPARISON: September 28, 2023 TECHNIQUE: Ultrasound of the pelvis is performed using both transabdominal and transvaginal transducers along with Doppler. Transvaginal imaging is performed due to inadequate visualization transabdominally. FINDINGS: Uterus: The uterus is anteversion flexion and measures 6 x 3 x 6 cm. Volume: 55 cc. The double wall endometrial thickness is 9 mm. The uterus is smooth in contour and has normal myometrial echogenicity. No visible fibroid. Adnexa: The ovaries are not identified.. No free fluid in the cul-de-sac. . US/US pelvic and transvaginal IMPRESSION: 9 mm thickened endometrial stripe. This is abnormal in a postmenopausal woman. Recommend direct inspection. Electronically signed by: Rad Hadley MD 01/02/2025 03:38 PM EDT
--- OUTSIDE RECORDS SUMMARY | 2025-01-02 20:54 | XMS_ITS | Encounter Summary ---
Author Organization [employer] Address [address] [facility] [address] [place] [address] Care Team Providers Care Housekeeping Worker Name Role Phone Name, Garth YOON Primary Care Provider [phone] Reason for Referral * Consultation (STAT) - Authorized Specialty Diagnoses / Procedures Referred By Contfelisa t Referred To Contact Obstetrics and Gynecology Diagnoses Postmenopausal bleeding Merlene Sue CNM [address] [place] [address] Phone: tel: fax: [facility] Referral ID Status Reason Start Date Expiration Date Visits Requested Visits Authorized [id number] Authorized Specialty Services Required 01/02/2026 1 1 Scheduling Instructions Please send pap/HPV, Gonorrhea/Chlamydia/trichomonas and pelvic ultrasound from 2024. Encounter Details Date Type Department Care Team ([facility] Contact Info) Description 01/02/2025 Orders Only [facility] [address] [place], [place] [phone] Merlene Sue CNM [address] [place] [address] Postmenopausal bleeding (Primary Dx) Social History Tobacco Use Types Packs/Day Years [...] as of this encounter Plan of Treatment Scheduled Referrals Name Type Priority Associated Diagnoses Order Schedule Referral to Obstetrics / Gynecology Outpatient Referral STAT Postmenopausal bleeding Expected: 01/02/2025 (Approximate), Expires: 01/02/2026 documented as of this encounter Visit Diagnoses Diagnosis Postmenopausal bleeding- Primary documented in this encounter Additional Health Concerns Assessment Noted Time PHQ-9 Depression Total Score: 16 025 10:46 AM EDT documented as of this encounter Care Teams Housekeeping Worker Relationship Specialty Start Date End Date Name, MD Garth [address] [place] [address] PCP - General Family Medicine 06/18/15 documented as of this encounter
--- OUTSIDE RECORDS SUMMARY | 2025-01-02 20:54 | XMS_ITS | Encounter Summary ---
Author Organization [employer] Address [address] [facility] [address] [place] [address] Care Team Providers Care Welder Boilermaker Name Role Phone Name, Garth YOON Primary Care Provider [phone] Reason for Visit * Reason Onset Date Comments case back from lab? 03/01/2024 Encounter Details Date Type Department Care Team ([facility] st Contact Info) Description 03/01/2024 Telephone [facility] [address] [place] [address] Jeff Cedeno DDS [address] [place] [address] case back from lab? Social History Tobacco [...] documented as of this encounter Care Teams Welder Boilermaker Relationship Specialty Start Date End Date Name, MD Garth [address] [place] [address] PCP - General Family Medicine 06/18/15 documented as of this encounter
--- OUTSIDE RECORDS SUMMARY | 2025-01-02 20:54 | XMS_ITS | Clinical Summary ---
Author Organization [address] [facility] Address [address] [place] [address] Phone Care Team Providers Care Adjunct Mathematics Instructor Name Role Phone Name, Garth YOON Primary Care Provider Allergies No known active allergies Medications acetaminophen [...] Encounters Date Type Department Care Team Description 12/19/2024 11:00 AM EDT Evaluation [facility] [address] [address] Sana Egan, PT Plantar fasciitis, bilateral (Primary Dx) 11/19/2024 9:00 AM EDT Consult Orthopedic Surgery [facility] 250 175 [facility] [address] [place] [address] Mitchell Bender, DPM Plantar fascial fibromatosis (Primary [...] Care Team (Late st Contact Info) Description 01/08/2025 12:00 PM EDT Treatment [address] [address] Anuj Espinoza, HEALTH AND SAFETY COORDINATOR 01/10/2025 11:30 AM EDT Treatment [address] [address] Sana Egan, PT 01/14/2025 9:00 AM EST Treatment [address] [address] Anuj Espinoza, HEALTH AND SAFETY COORDINATOR 01/17/2025 10:00 AM EST Treatment [address] [address] Anuj Espinoza, HEALTH AND SAFETY COORDINATOR 01/21/2025 9:00 AM EST Treatment [address] [address] Anuj Espinoza, HEALTH AND SAFETY COORDINATOR 01/24/2025 10:00 AM EST Treatment [address] [place] [address] Anuj Espinoza, HEALTH AND SAFETY COORDINATOR 01/28/2025 10:00 AM EST Treatment [facility] [address] [address] Sana Egan, PT 01/31/2025 10:00 AM EST Treatment [facility] [address] [address] Sana Egan, PT Health Maintenance Due Date Last Done Comments Breast Cancer Screening 1955 Colorectal Cancer Screening: Colonoscopy 1955 RSV Immunization Adult Patients (1 - Risk 50-74 years 1-dose series) 2006 Hepatitis B Vaccines (2 of 3 - 19+ 3-dose series) 10/01/2011 09/03/2011 Depression Screening 03/14/2024 Falls Risk Assessment 08/20/2024 Hepatitis C Screening 08/20/2024 Medicare Annual Wellness Visit 08/20/2024 Osteoporosis Screening (Bone Density Screening) 08/20/2024 Social Influencers of Health Screening 08/20/2024 COVID-19 Vaccine ( season) 2024 04/20/2021, 07/08/2020, 06/10/2020 Hypertension/CHF/CAD Annual BMP Blood Test 12/05/2025 12/05/2024 Cholesterol Screening (Lipid Panel) 05/23/2029 05/23/2024 DTaP,Tdap,and [...] Insurance MEDICARE MEDICAID - [place] Care Teams Adjunct Mathematics Instructor Relationship Specialty Start Date End Date Name, MD Garth [address] [place], [place] PCP - General Internal Medicine 04/25/18
--- OUTSIDE RECORDS SUMMARY | 2025-01-02 20:54 | XMS_ITS | Encounter Summary ---
Author Organization [employer] Address [address] [facility] [address] [place] [address] Care Team Providers Care Manager Clinical Name Role Phone Name, Garth YOON Primary Care Provider [phone] Encounter Details Date Type Department Care Team (Latest Contact Info) Description 02/06/2019 Abstract [facility] CONVERSIONS Dental, Provider, DDS Social [...] filedocumented in this encounter Care Teams Manager Clinical Relationship Specialty Start Date End Date Name, MD Garth [address] [place] [address] PCP - General Family Medicine 06/18/15 documented as of this encounter
--- OUTSIDE RECORDS SUMMARY | 2025-01-02 20:54 | XMS_ITS | Encounter Summary ---
Author Organization [employer] Address [address] [facility] [address] [place] [address] Care Team Providers Care Homemaking Rehabilitation Consultant Name Role Phone Name, Garth YOON Primary Care Provider [phone] Encounter Details Date Type Department Care Team (Late st Contact Info) Description 08/25/2022 Abstract [facility] MEDICINE [address] [place] [address] Name, MD Garth [address] [place] [address] Social History Tobacco Use Types Packs/Day Years [...] documented as of this encounter Care Teams Homemaking Rehabilitation Consultant Relationship Specialty Start Date End Date Name, MD Garth [address] [place] [address] PCP - General Family Medicine 06/18/15 documented as of this encounter
--- OUTSIDE RECORDS SUMMARY | 2025-01-02 20:54 | XMS_ITS | Encounter Summary ---
Author Organization [employer] Address [address] [facility] [address] [place] [address] Care Team Providers Care Housemaid Name Role Phone Name, Garth YOON Primary Care Provider [phone] Reason for Visit * Reason Comments Med Refill Encounter Details Date Type Department Care Team ([facility] st Contact Info) Description 06/25/2024 Refill [facility] MEDICINE [address] [place] [address] Name, MD Garth [address] [place] [address] Mild intermittent asthma, unspecified whether complicated Social [...] documented as of this encounter Care Teams Housemaid Relationship Specialty Start Date End Date Name, MD Garth [address] [place] [address] PCP - General Family Medicine 06/18/15 documented as of this encounter
--- OUTSIDE RECORDS SUMMARY | 2025-01-02 20:54 | XMS_ITS | Encounter Summary ---
Author Organization [employer] Address [address] [facility] [address] [place] [address] Care Team Providers Care Corporate Director Of Pharmacy Name Role Phone Name, Garth YOON Primary Care Provider [phone] Reason for Visit * Reason Comments Med Refill Encounter Details Date Type Department Care Team ([facility] st Contact Info) Description 12/28/2024 Refill [facility] MEDICINE [address] [place] [address] Name, MD Garth [address] [place] [address] Mild intermittent asthma, unspecified whether complicated Social [...] documented as of this encounter Care Teams Corporate Director Of Pharmacy Relationship Specialty Start Date End Date Name, MD Garth [address] [place] [address] PCP - General Family Medicine 06/18/15 documented as of this encounter
--- OUTSIDE RECORDS SUMMARY | 2025-01-02 20:54 | XMS_ITS | Encounter Summary ---
Author Organization [employer] Address [address] [facility] [address] [place] [address] Care Team Providers Care Maintenance Craftsman Name Role Phone Name, Garth YOON Primary Care Provider [phone] Reason for Visit * Reason Onset Date Comments Results 11/27/2024 Encounter Details Date Type Department Care Team (Latest Contact Info) Description 11/27/2024 Results Follow-Up [facility] MEDICINE [address] [place] [address] Merlene Sue, ANIYAH [address] [place] [address] Pap Smear, STI testing add on (NG, CT, Trich), US Pelvis Transvaginal Social History Tobacco Use Types Packs/Day Years [...] encounter Miscellaneous Notes * Telephone Encounter - Santa Quiñonez RN - 01/02/2025 3:59 PM EDT ----- Message from Merlene Sue sent at 01/02/2025 3:54 PM EDT ----- Please let Evelia know the lining of her uterus is thicker than expected and a little thicker than the last time she had an ultrasound. I would like her to go back to infrastructure architect for further evaluation. I will put in referral now. Thanks! ----- Message ----- From: Sadaf Meadows Results In Sent: 01/02/2025 3:41 PM EDT To: Merlene Sue CNM * Result Encounter Note - Merlene Sue CNM - 01/02/2025 3:54 PM EDT Please let Evelia know the lining of her uterus is thicker than expected and a little thicker than the last time she had an ultrasound. I would like her to go back to infrastructure architect for further evaluation. I will put in referral now. Thanks! * Result Encounter Note - Merlene Sue [...] documented as of this encounter Care Teams Maintenance Craftsman Relationship Specialty Start Date End Date Name, MD Garth [address] [place] [address] PCP - General Family Medicine 06/18/15 documented as of this encounter
--- OUTSIDE RECORDS SUMMARY | 2025-01-02 20:54 | XMS_ITS | Clinical Summary ---
Author Organization [employer] Address [address] [facility] 7t [place] [address] Care Team Providers Care Health Associate Name Role Phone Name, Garth YOON Primary Care Provider [phone] Allergies Active Allergy Reactions Criticality Noted Date [...] 01/20/2024 Generalized gingival recession 01/20/2024 Defective dental mandaen 01/20/2024 Osteoarthritis of cervical spine 09/29/2023 Diffuse idiopathic skeletal hyperostosis of cervicothoracic spine 09/21/2022 Prediabetes 03/17/2022 History of colon polyps 03/17/2022 Overview (03/17/2022): She had tubular adenoma removed 2016 at [facility] Calcaneal spur 08/21/2018 Mild intermittent asthma 07/05/2018 Vertigo 05/10/2018 Primary osteoarthritis involving multiple joints 01/25/2018 Chronic back pain 01/04/2018 Abnormal MRI, thoracic spine 07/29/2017 Overview (12/05/2024): Hemangioma of thoracic vertebra S/p vertebroplasty done at [facility] Acute idiopathic pericarditis 03/29/2017 Depressive disorder 12/10/2016 Recurrent major depression in partial remission 06/18/2016 Essential hypertension 06/18/2016 Cyst of pancreas 03/22/2016 Microscopic hematuria 12/18/2015 Gallstone 12/12/2015 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 Hypercholesterolemia 06/15/2013 Paresthesia of hand 12/03/2011 Lyme disease 12/03/2011 Arnold-Chiari malformation (CMS/HCC) 12/03/2011 Postmenopausal bleeding 08/25/2011 Class 2 severe [...] agreeable with plan To be seen by Web Search Evaluator TODAY Acute pain of left shoulder 11/16/2022 [...] Encounters Date Type Department Care Team Description 01/02/2025 Orders Only [facility] [address] Neto Graham CNM Postmenopausal bleeding (Primary Dx) 12/28/2024 Refill [facility] [address] [facility] [place] [address] NameGarth MD Mild intermittent asthma, unspecified whether complicated 12/18/2024 Telephone [facility] [place] [address] Neto Graham CNM Pelvis US appt 12/05/2024 9:30 AM EDT Office Visit [facility] [place] [place] [address] NameGarth MD Essential hypertension (Primary Dx); Chronic low back pain without sciatica, unspecified back pain laterality; NSAID long-term use; Pre-diabetes; History of colon polyps; Encounter for immunization 12/05/2024 Travel 12/04/2024 Telephone [facility] [address] [place] [address] Garth Brock MD Chart Prep 11/28/2024 Telephone [facility] [address] [place] [address] Neto Graham CNM Results 11/27/2024 Results Follow-Up [address] [address] Neto Graham CNM Pap Smear, STI testing add on (NG, CT, Trich), US Pelvis Transvaginal 11/21/2024 10:00 AM EDT Office Visit [address] [address] Neto Graham CNM Postmenopausal bleeding (Primary Dx); Screening examination for venereal disease; Routine cervical smear 11/21/2024 Travel 11/20/2024 Telephone [facility] [address] [place] [address] Neto Graham CNM CHART PREP 11/06/2024 Orders Only [address] [address] Garth Brock MD from Last 3 Months Immunizations Immunization Administration [...] 04/20/2021, 07/08/2020, 06/10/2020 Dental X-Ray: Bitewings 01/20/2025 01/20/20 24, 02/20/2020, 02/06/2019, Additional history exists Dental Prophylaxis 01/21/2025 07/20/2024, 1 03/21/2023, 05/09/2017, Additional history exists Dental Oral Exam 02/16/2025 08/16/2024, 10/2023, 02/20/2020, Additional history exists Depression Monitoring 02/16/2025 08/17/2024, 025 Alcohol/Substance Use Screening 08/17/2025 08/17/2024 Diabetes: Hemoglobin A1C 12/05/2025 025, 08/17/2024, 01/03/2024, Additional history exists Tobacco Screening 12/05/2025 12/05/2024 [...] Procedure Name Priority Date/Time Associated Diagnosis Comments US PELVIS TRANSVAGINAL Urgent 01/02/2025 3:04 PM EDT Postmenopausal bleeding HEMOGLOBIN A1C Routine 12/05/2024 10:07 AM EDT Pre-diabetes BASIC METABOLIC PANEL Routine 12/05/2024 10:07 AM EDT Essential hypertension CBC WITH AUTO DIFFERENTIAL Routine 12/05/2024 10:07 AM EDT Essential hypertension CHLAMYDIA/N. GONORRHOEAE AND T. VAGINALIS RNA, QUAL,TMA Routine 11/21/2024 10:25 AM EDT Postmenopausal bleeding Screening examination for venereal disease PAP SMEAR Routine 11/21/2024 10:25 AM EDT Postmenopausal bleeding Routine cervical smear HPV DNA, LOW/HIGH RISK Routine 11/21/2024 10:25 AM EDT BI MAMMOGRAM SCREENING TOMOSYNTHESIS BILATERAL Routine 11/06/2024 2:00 PM EDT PERIODIC ORAL EVALUATION - ESTABLISHED PATIENT [...] Recently Relevant to Health Maintenance Results * US Pelvis Transvaginal (01/02/2025 3:04 PM EDT) Anatomical Region Laterality Modality Pelvis Ultrasound 01/02/2025 3:04 PM EDT Narrative 01/02/2025 3:41 PM EDT [address] [address] Ultrasound Report Signed Patient: Evelia Holm MR#: [id number] : 1955 Acct:[id number] Age/Sex: 69 / F ADM Date: 01/02/25 Loc: HO.US Attending Dr: Neto Graham CNM Ordering Physician: NETO GRAHAM CNM Date of Service: 01/02/25 Procedure(s): US pelvic and transvaginal Accession Number(s): [id number] cc: Delmy,Garth YOON; NETO GRAHAM CNM Reason for Exam: postmenopausal bleeding EXAMINATION: US PELVIS CLINICAL INFORMATION: Postmenopausal disease. COMPARISON: September 28, 2023 TECHNIQUE: Ultrasound of the pelvis is performed using both transabdominal and transvaginal transducers along with Doppler. Transvaginal imaging is performed due to inadequate visualization transabdominally. FINDINGS: Uterus: The uterus is anteversion flexion and measures 6 x 3 x 6 cm. Volume: 55 cc. The double wall endometrial thickness is 9 mm. The uterus is smooth in contour and has normal myometrial echogenicity. No visible fibroid. Adnexa: The ovaries are not identified.. No free fluid in the cul-de-sac. . US/US pelvic and transvaginal IMPRESSION: 9 mm thickened endometrial stripe. This is abnormal in a postmenopausal woman. Recommend direct inspection. Electronically signed by: Rad Hadley MD 01/02/2025 03:38 PM EDT RP Dictated By: Rad Alvarez MD Signed By: <Electronically signed by Rad Nichols MD in OV> 01/02/25 1538 DD/ 1504 TD/TT: 01/02/25 1520 Flight Physician: Procedure Note Donotuseinterpreter, Image - 01/02/[address] [address] Ultrasound Report Signed Patient: Raza Holm#: [id number] : 1955cct:[id number] Age/Sex: 69 / FADM Date: 01/02/25 Loc: HO.US Attending Dr: Neto Graham CNM Ordering Physician: NETO GRAHAM CNM Date of Service: 01/02/25 Procedure(s): US pelvic and transvaginal Accession Number(s): [id number] cc: Name,Garth YOON; NEOT GRAHAM CNM Reason for Exam: postmenopausal bleeding EXAMINATION: US PELVIS CLINICAL INFORMATION: Postmenopausal disease. COMPARISON: September 28, 2023 TECHNIQUE: Ultrasound of the pelvis is performed using both transabdominal and transvaginal transducers along with Doppler. Transvaginal imaging is performed due to inadequate visualization transabdominally. FINDINGS: Uterus: The uterus is anteversion flexion and measures 6 x 3 x 6 cm. Volume: 55 cc. The double wall endometrial thickness is 9 mm. The uterus is smooth in contour and has normal myometrial echogenicity. No visible fibroid. Adnexa: The ovaries are not identified.. No free fluid in the cul-de-sac. . US/US pelvic and transvaginal IMPRESSION: 9 mm thickened endometrial stripe. This is abnormal in a postmenopausal woman. Recommend direct inspection. Electronically signed by: Rad Hadley MD 01/02/2025 03:38 PM EDT RP Dictated By: Rad Alvarez MD Signed By: <Electronically signed by Rad Nichols MDin OV> 01/02/25 1538 DD/ 1504 TD/TT: 01/02/25 1520 Flight Physician: Neto Graham CNM IMG US PROCEDURES Final R esult * (ABNORMAL) CBC auto differential (12/05/2024 10:07 AM EDT) White Blood Count 7.2 4.8 - 10.8 X10*3/uL [facility] Red Blood Count 5.42 4.20 - 5.50 X10*6/uL [facility] Hemoglobin 15.3 12.0 - 16.0 g/dl [facility] Hematocrit 47.9(H) 37.0 - 47.0 % [facility] Mean Corpuscular Volume 88.4 80.0 - 98.0 fL [facility] Mean Corpuscular Hemoglobin 28.2 27.0 - 33.0 pg [facility] Mean Corpuscular HGB Conc 31.9 31.0 - 35.0 g/dl [facility] Red Cell Distribution Width 13.2 11.0 - 16.0 % [facility] Platelet Count 266 160 - 400 X10*3/uL [facility] Mean Platelet Volume 11.6 9.4 - 12.3 fL [facility] Neutrophils Percent Auto 64.8 45 - 73 % [facility] Imm Gran Pct Auto 0.3 0.0 - 0.4 % [facility] Lymphocytes Percent Auto 22.5 20 - 40 % [facility] Monocytes Percent Auto 9.6 2 - 11 % [facility] Eosinophils Percent Auto 2.2 0 - 4 % [facility] Basophils Percent Auto 0.6 0 - 2 % [facility] NRBC Pct Auto 0.0 0.0 - 0.2 /100WBC [facility] Neutrophils Absolute Auto 4.6 2.0 - 8.3 x10*3/uL [facility] Imm Gran Abs Auto 0.02 0.00 - 0.03 X10*3/uL [facility] Lymphocytes Absolute Auto 1.6 1.2 - 4.9 X10*3/uL [facility] Monocytes Absolute Auto 0.7 0.1 - 1.2 X10*3/uL [facility] Eosinophils Absolute Auto 0.2 0.0 - 0.4 X10*3/uL [facility] Basophils Absolute Auto 0.0 0.0 - 0.2 X10*3/uL [facility] NRBC Abs Auto 0.000 0.0 - 0.012 X10*3/uL [facility] Blood Venous blood specimen / Unknown 12/05/2024 10:07 AM EDT 12/05/2024 11:28 AM EDT us aGrth Brock MD LAB BLOOD ORDERABLES Final Resul t [facility] [address] [place] [phone] [phone] * Hemoglobin A1c (12/05/2024 10:07 AM EDT) Hemoglobin A1c 6.0 <6.0 % [facility] Comment:Hemoglobin A1C Refer ence Range Adults: 4.8 - 6.0 % Non diabetic: < 6.0 % Goal: < 7.0 %Additional Action Suggested: > 8.0 %Note: Hemoglobin A1c results are invalid for patients with abnormal amounts of HbF. Blood transfusions may impact the HbA1c concentration in the patient sample. Estimated Average Glucose 126 mg/dL [facility] Comment:eAG = Estimated ave rage glucose which is %A1C expressed asaverage glucose, using the formula of the N5O-EihznmbBskzyeb Glucose study (ADAG), Diabetes Care, Vol.31,#8,2007 Blood Venous blood specimen / Unknown 12/05/2024 10:07 AM EDT 12/05/2024 11:28 AM EDT us Garth Name LAB BLOOD ORDERABLES Final Resul t [facility] [address] [place] [phone] * Basic Metabolic Panel (12/05/2024 10:07 AM EDT) Pathologist [facility] Sodium 144 135 - 145 mmol/L [facility] Potassium 4.6 3.3 - 5.1 mmol/L [facility] Chloride 107 96 - 108 mmol/L [facility] Carbon Dioxide 29 22 - 29 mmol/L [facility] Anion Gap 13 12 - 20 [facility] Urea Nitrogen (BUN) 13 9 - 16 mg/dL [facility] Creatinine, Serum 0.67 0.5 - 1.4 mg/dL [facility] Estimated Glomerular Filt Rate >60 [facility] Comment:Chronic Kidney Disea se: Estimated GFR < 60 mL/min/1.17b4Hoezgt Kidney Disease: Estimated GFR < 15 mL/min/1.73m2 Glucose 79 60 - 115 mg/dL [facility] Calcium 9.1 8.4 - 10.2 mg/dL [facility] Blood Venous blood specimen / Unknown 12/05/2024 10:07 AM EDT 12/05/2024 11:21 AM EDT Garth Brock MD LAB BLOOD ORDERABLES Final Resul t Performing Organization Address [facility] [address]/ZIP Co de Phone Number [facility] [address] [place] [phone] [phone] * STI testing add on (NG, CT, Trich) (11/21/2024 10:25 AM EDT) Trichomonas (NAAT) NOT DETECTED NOT DETECTED [facility] Comment:The analytical perfo rmance characteristics of thisassay have been determined by [employer]. Themodifications have not been cleared or approved bythe FDA. This assay has been validated pursuant to theCLIA regulations and is used for clinical purposes.For additional information, please refer tohttp://education.TapSense/faq/Trichomonastma(This link is being provided for information/educational purposes only.)THIS TEST WAS PERFORMED AT:[facility] [place] [phone] VALERO MD CTNG Ref Lab NOT DETECTED NOT DETECTED [facility] NG Ref Lab NOT DETECTED NOT DETECTED [facility] Swab 11/21/2024 10:2 5 AM EDT 11/22/2024 7:01 AM EDT Neto Graham CNM LAB CYTOLOGY ORDERABLES F inal Result Performing Organization Address City/[facility] [address]/ZIP Co de Phone Number [facility] [address] [place] [phone] [phone] * HPV DNA, Low/High Risk (11/21/2024 10:25 AM EDT) HPV High Risk Negative Negative [facility] HPV Genotype 16 Negative Negative [facility] HPV Genotype 18 Negative Negative [facility] Comment:HPV testing performe d at [facility] (CLIA#[id number]), [address] [place] [address].Testing for HPV was performed using the Margaret GENESIS 6800system. The presence of HPV in the female [...] 5 AM EDT 11/22/2024 7:01 AM EDT us Neto Graham CNM LAB BLOOD ORDERABLES Sowmya l Result [facility] [address] [place] [phone] * Pap Smear (11/21/2024 10:25 AM EDT) Swab 11/21/2024 10:2 5 AM EDT 11/22/2024 7:01 AM EDT Chely [facility] - 11/27/2024 10:32 AM EDT ----- ------- Name: Evelia Holm Age/Sex: 68/F : 1955 Unit#: [id number] Attend Dr: NETO GRAHAM CNM Re11/21/24 Status: DEP REF Location: [facility] Disch: ----- ------- SPEC : [id number] RECD: 11/22/24 STATUS: PAVEL GALLARDO NUM: [id number] DOM: 11/21/245 [facility] DR: NETO GRAHAM Barber ENTERED: 11/22/24 SP TYPE: Pap Smr OT DR: ORDERED: Pap Smear Interpretation Satisfactory for [...] and HPV testing will be performed at [facility] (CLIA #[id number]), [address] [place] [address]. Testing for HPV was performed using the Margaret GENESIS 6800 system. The presence of HPV in [...] detected. All professional services are performed by [facility] ([address] [place] [address], [place] [address]; ; CLIA #[id number]). The PAP Test is a screening procedure with the inherent possibility of both false negative and false positive results. Results should be interpreted in the context of historic and current clinical findings. Reliability of the PAP Test is enhanced by performing the test on a regular repetitive basis. ----- ------- Signed (signature on file) ЮЛИЯ Singh ([facility]) 11/27/24 1032 ----- ------- END OF REPORT Neto Graham [facility] CYTOLOGY ORDERABLES F inal Result [facility] [address] [place] [phone] * BI Mammogram Screening Tomosynthesis Bilateral (11/06/2024 2:00 PM EDT) Anatomical Region Laterality Modality Breast Bilateral Mammography 11/06/2024 2:00 PM EDT Narrative 11/10/2024 11:41 AM EDT [facility] [address] [place] [address] [place] [id number] Mammography Report Signed Patient: Evelia Holm MR#: [id number] : 1955 Acct:[id number] Age/Sex: 68 / F ADM Date: 11/06/24 Loc: [facility] Attending Dr: Garth Brock MD Ordering Physician: Garth Brock MD Results: 1Negative Date of Service: 11/06/24 Follow Up: 1 Year From Orig inal Mammogram Procedure(s): MM tomosynthesis screening BI Accession Number(s): [id number] cc: Garth Brock MD EXAMINATION: MM SCREENING [...] 11/10/24 1138 DD/ 1400 TD/TT: 11/06/24 1425 Flight Physician: Procedure Note Donotuseinterpreter, Image - 11/10/2024 [facility] [address] Shannon, [place] [address] Mammography Report Signed Patient: Raza Holm#: [id number] : 1955cct:[id number] Age/Sex: 68 / FADM Date: 11/06/24 Loc: HO.MAMMO Attending Dr: Garth Brock MD Ordering Physician: Garth Brock MDResults: 1Negative Date of Service: 11/06/24Follow Up: 1 Year From Orig inal Mammogram Procedure(s): MM tomosynthesis screening BI Accession Number(s): [id number] cc: NameGarth MD EXAMINATION: MM SCREENING DIGITAL BREAST TOMOSYNTHESIS, [...] Joshua Parker MD 11/10/2024 11:38 AM EDT Workstation: [id number] Dictated By: Joshua Parker MD Signed By: <Electronically signed by Joshua Parker MD in OV> 11/10/24 1138 DD/ 1400 TD/TT: 11/06/24 1425 Flight Physician: Garth Brock MD [facility] BI PROCEDURES Final Result * (ABNORMAL) Lipid Panel, Standard (05/23/2024 8:22 AM EDT) Triglycerides 99 <150 mg/dL [facility] Comment:Desirable Triglyceri de: less than 150 mg/dLBorderline High Triglyceride 150-199 mg/dLHigh Triglyceride: 200-499 mg/dLVery High Triglyceride: greater than or equal to 5OO mg/dL Cholesterol 209(H) <200 mg/dL [facility] Comment:Desirable Cholestero l: less than 200 mg/dLBorderline High Cholesterol: 200-239 mg/dLHigh Cholesterol: greater than 239 mg/dL LDL Cholesterol Calculated 121(H) <100 mg/dL [facility] Comment:Desirable LDL: less than 100 mg/dLNear Optimal/Above Optimal LDL: 110- 129 mg/dLBorderline High LDL: 130-159 mg/dLHigh LDL: 160-189 mg/dLVery High LDL: greater than or equal to 190 mg/dL HDL Cholesterol 69 >40 mg/dL [facility] Comment:Desirable HDL: grea ter than 40 mg/dL Note: This HDL assay may give artificially low results in patients with liver disease. Blood Venous blood specimen / Unknown 05/23/2024 8:22 AM EDT 05/23/2024 11:40 AM EDT Garth Brock MD LAB BLOOD ORDERABLES Final Resul t [facility] [address] [place] [phone] * Colonoscopy (12/30/2016) Colonoscopy Performed Historical Provider HEALTH MAINTENANCE Final Result from Last 3 Months or Most Recently Relevant to Health Maintenance Insurance [facility]ICARE [facility] FULL Care Teams Health Associate Relationship Specialty Start Date End Date Name, MD Garth [address] [place] [address] PCP - General Family Medicine 06/18/15
--- OUTSIDE RECORDS SUMMARY | 2025-01-02 20:54 | XMS_ITS | Encounter Summary ---
Author Organization [employer] Address [address] [place] [address] [address]t [place] [address] Care Team Providers Care Elevator Attendant Name Role Phone Name, Garth YOON Primary Care Provider [phone] Reason for Visit * Reason Comments Med Refill Encounter Details Date Type Department Care Team ([facility] st Contact Info) Description 11/22/2022 Refill [facility] [address] [place] [address] Name, MD Garth [address] [place] [address] Essential (primary) hypertension Social History Tobacco Use [...] documented as of this encounter Care Teams Elevator Attendant Relationship Specialty Start Date End Date Name, MD Garth [address] [place] [phone] PCP - General Family Medicine 06/18/15 documented as of this encounter
--- OUTSIDE RECORDS SUMMARY | 2025-01-02 20:55 | XMS_ITS | Encounter Summary ---
Author Organization [employer] Address [address] [facility] [address]t [place] [address] Care Team Providers Care Chronometer Adjuster Name Role Phone Name, Garth YOON Primary Care Provider [phone] Reason for Visit * Reason Comments Med Refill Encounter Details Date Type Department Care Team ([facility] st Contact Info) Description 05/07/2022 Refill [facility] [address] [place] [address] Name, MD Garth [address] [place] [address] Radicular pain in left arm Social History [...] documented as of this encounter Care Teams Chronometer Adjuster Relationship Specialty Start Date End Date Name, MD Garth [address] [place] [address] PCP - General Family Medicine 06/18/15 documented as of this encounter
--- OUTSIDE RECORDS SUMMARY | 2025-01-02 20:55 | XMS_ITS | Encounter Summary ---
Author Organization [employer] Address [address] [facility] [address]t [place] [address] Care Team Providers Care Liaison Inspection Laboratory Assistant Name Role Phone Name, Garth YOON Primary Care Provider [phone] Encounter Details Date Type Department Care Team (Latest Contact Info) Description 02/20/2020 Abstract [facility] Dental, Provider, DDS Social History [...] on filedocumented in this encounter Care Teams Liaison Inspection Laboratory Assistant Relationship Specialty Start Date End Date Name, MD Garth [address] [place] [address] PCP - General Family Medicine 06/18/15 documented as of this encounter
== END 2025-01-02 14:46 | disposition home or self-care (01) ==
LOC: HO.US 14:45
PROVIDERS: PCP Internal Medicine Geriatric Medicine; Visit Provider Advanced Practice Midwife
DX: N95.0 Postmenopausal bleeding (principal)
CPT/HCPCS: 76830; 76856

== ENCOUNTER → 2025-01-02 14:46 | Outpatient (BNV) | payer MEDICARE, MEDICAID, SELFPAY | PROVIDERS: PCP Internal Medicine Geriatric Medicine; Visit Provider Radiology Diagnostic Radiology | DX: N95.0 Postmenopausal bleeding (principal) | CPT/HCPCS: 76830; 76856 ==

== ENCOUNTER 2025-01-07 15:08 | Outpatient (REF) | payer MEDICARE, MEDICAID, SELFPAY ==
--- OUTSIDE RECORDS SUMMARY | 2025-01-07 19:05 | XMS_ITS | Clinical Summary ---
Author Organization [employer] Address [address] [facility] 7[address] [place] [address] Care Team Providers Care Fish Inspector Name Role Phone Name, Garth YOON Primary Care Provider [phone] Allergies Active Allergy Reactions Criticality Noted Date Comments Codeine Other reaction(s): rash Medications loratadine (Claritin) 10 MG tablet Take 1 tablet by mouth. 2 Active cholecalciferol (Vitamin D-3) 50 MCG (1999) tablet Take 1 tablet by mouth. 2 [...] at bedtime for muscle spasms. 4 Active fluticasone furoate (Arnuity Ellipta) 100 [...] DAY DIRECTED 100 g 1 5 Active amLODIPine (Norvasc) 10 MG tablet [...] for moderate pain. 60 tablet 5 Active gabapentin (Neurontin) 100 MG capsuleIndication s:Chronic low back pain without sciatica, unspecified back pain laterality Take 1 capsule (100 mg) by mouth at bedtime. 30 capsule 11 5 12/06/19 26 Active fluticasone (Flonase) 50 MCG/ACT nasal spray Administer 2 sprays into each nostril Once per day. 16 g 2 5 Active omeprazole (PriLOSEC) [address] capsule Take 1 capsule (40 mg) by mouth before breakfast. 30 capsule 5 Active Active Problems Problem Noted Date [...] She [place] [facility] Calcaneal spur 08/21/2018 Mild intermittent asthma 07/05/2018 Vertigo 05/10/2018 Primary osteoarthritis involving multiple joints 01/25/2018 Chronic back pain 01/04/2018 Abnormal MRI, thoracic spine 07/29/2017 Overview (12/05/2024): Hemangioma of thoracic vertebra S/p vertebroplasty done at [facility] Acute idiopathic pericarditis 03/29/2017 Depressive disorder 12/10/2016 [...] agreeable with plan To be seen by Automotive Artist TODAY Acute pain of left shoulder 11/16/2022 09/29/2023 Assessment & Plan (11/16/2022 12:18 PM EDT): Apply heat on affected area Gentle stretching was recommended Edema of lower extremity 02/19/2022 Dyspnea on exertion 02/19/2022 09/29/19 24 Acute ethmoidal sinusitis 02/19/2022 Calf cramp 04/22/2021 09/29/2023 Upper respiratory infection 02/24/2018 12/05/2024 Chest discomfort 02/24/2018 09/29/2023 Joint pain 01/04/2018 09/29/2023 Hemangioma 10/19/2017 12/05/2024 Abnormal CAT scan 07/29/2017 12/05/2024 Right lower quadrant pain 02/14/2017 Constipation 05/03/2012 12/05/2024 Abnormal mammogram 01/06/2012 Atypical chest pain 12/03/2011 12/06/19 Encounters Date Type Department Care Team Description 01/02/2025 Orders Only [address] [address] Neto Graham CNM Postmenopausal bleeding (Primary Dx) 12/28/[address] [address] Garth Brock MD Mild intermittent asthma, unspecified whether complicated 12/18/[address] [address] Neto Graham CNM Pelvis US appt 12/05/2024 9:30 AM EDT Office Visit [address] [address] Garth Brock MD Essential hypertension (Primary Dx); Chronic low back pain without sciatica, unspecified back pain laterality; NSAID long-term use; Pre-diabetes; History of colon polyps; Encounter for immunization 12/05/2024 Travel 12/04/2024 Telephone [facility] [address] [place], [place] [phone] Garth Brock MD Chart Prep 11/28/[address] [address] Neto Graham CNM Results 11/27/2024 Results Follow-Up [address] [address] Neto Graham CNM Pap Smear, STI testing add on (NG, CT, Trich), US Pelvis Transvaginal 11/21/2024 10:00 AM EDT Office Visit [facility] [address] [place] [address] Neto Graham CNM Postmenopausal bleeding (Primary Dx); Screening examination for venereal disease; Routine cervical smear 11/21/2024 Travel 11/20/2024 Telephone [facility] [address] [place] [address] Neto Graham CNM CHART PREP 11/06/2024 Orders Only [facility] [address] [place] [address] Name, MD Garth from Last 3 Months Immunizations Immunization Administration [...] PM EDT Narrative 01/02/2025 3:41 PM EDT [place] [address] Ultrasound Report Signed Patient: Evelia Holm MR#: [id number] : 1955 Acct:[id number] Age/Sex: 69 / F ADM Date: 01/02/25 Loc: HO. Attending Dr: Neto Graham CNM Ordering Physician: NETO GRAHAM CNM Date of Service: 01/02/25 Procedure(s): US pelvic and transvaginal Accession Number(s): [id number] cc: Garth Brock MD; NETO GRAHAM CNM Reason for Exam: postmenopausal [...] Rad Hadley MD 01/02/2025 03:38 PM EDT Dictated By: Rad Alvarez MD Signed By: <Electronically signed by Rad Nichols MD in OV> 01/02/25 1538 DD/ 1504 TD/TT: 01/02/25 1520 Representative Government Relations: Procedure Note Donotuseinterpreter, Image - 01/02/2025 [place] [address] Ultrasound Report Signed Patient: Raza Holm#: [id number] : 1955cct:[id number] Age/Sex: 69 / FADM Date: 01/02/25 Loc: HO.US Attending Dr: Neto Graham CNM Ordering Physician: NETO GRAHAM CNM Date of Service: 01/02/25 Procedure(s): US pelvic and transvaginal Accession Number(s): [id number] cc: Name,Garth YONO; NETO GRAHAM CNM Reason for Exam: postmenopausal [...] 01/02/25 1538 DD/ 1504 TD/TT: 01/02/25 1520 Representative Government Relations: us Neto Graham [facility] IM US PROCEDURES Final R esult * (ABNORMAL) CBC auto differential (12/05/2024 10:07 AM EDT) White Blood Count 7.2 4.8 - 10.8 X10*3/uL [facility] Red Blood Count 5.42 4.20 - 5.50 X10*6/uL [facility] Hemoglobin 15.3 12.0 - 16.0 g/dl [facility] Hematocrit 47.9(H) 37.0 - 47.0 % [facility] Mean Corpuscular Volume 88.4 80.0 - 98.0 fL [facility] Mean Corpuscular Hemoglobin 28.2 27.0 - 33.0 pg [facility] Mean Corpuscular HGB Conc 31.9 31.0 - 35.0 g/dl [facility] Red Cell Distribution Width 13.2 11.0 - 16.0 % [facility] Platelet Count 266 160 - 400 X10*3/uL [facility] Mean Platelet Volume 11.6 9.4 - 12.3 fL [facility] Neutrophils Percent Auto 64.8 45 - 73 % [facility] Imm Gran Pct Auto 0.3 0.0 - 0.4 % [facility] Lymphocytes Percent Auto 22.5 20 - 40 % [facility] Monocytes Percent Auto 9.6 2 - 11 % [facility] Eosinophils Percent Auto 2.2 0 - 4 % [facility] Basophils Percent Auto 0.6 0 - 2 % [facility] NRBC Pct Auto 0.0 0.0 - 0.2 /100WBC [facility] Neutrophils Absolute Auto 4.6 2.0 - 8.3 x10*3/uL [facility] Imm Gran Abs Auto 0.02 0.00 - 0.03 X10*3/uL [facility] Lymphocytes Absolute Auto 1.6 1.2 - 4.9 X10*3/uL [facility] Monocytes Absolute Auto 0.7 0.1 - 1.2 X10*3/uL [facility] Eosinophils Absolute Auto 0.2 0.0 - 0.4 X10*3/uL [facility] Basophils Absolute Auto 0.0 0.0 - 0.2 X10*3/uL [facility] NRBC Abs Auto 0.000 0.0 - 0.012 X10*3/uL [facility] Blood Venous blood specimen / Unknown 12/05/2024 10:07 AM EDT 12/05/2024 11:28 AM EDT us Garth Name LAB BLOOD ORDERABLES Final Resul t [facility] [address] [place] [phone] * Hemoglobin A1c (12/05/2024 10:07 AM EDT) Hemoglobin A1c 6.0 <6.0 % [facility] Comment:Hemoglobin A1C Refer ence Range Adults: 4.8 - 6.0 % Non diabetic: < 6.0 % Goal: < 7.0 %Additional Action Suggested: > 8.0 %Note: Hemoglobin A1c results are invalid for patients with abnormal amounts of HbF. Blood transfusions may impact the HbA1c concentration in the patient sample. Estimated Average Glucose 126 mg/dL [facility] Comment:eAG = Estimated ave rage glucose which is %A1C expressed asaverage glucose, using the formula of the W1O-KgkrfvrZmgpbrc Glucose study (ADAG), Diabetes Care, Vol.31,#8,2007 Blood Venous blood specimen / Unknown 12/05/2024 10:07 AM EDT 12/05/2024 11:28 AM EDT Garth Brock MD LAB BLOOD ORDERABLES Final Resul t Performing Organization Address [facility] de Phone Number [facility] [address] [place] [address] [phone] * Basic Metabolic Panel (12/05/2024 10:07 AM EDT) Pathologist [facility] Sodium 144 135 - 145 mmol/L [facility] Potassium 4.6 3.3 - 5.1 mmol/L [facility] Chloride 107 96 - 108 mmol/L [facility] Carbon Dioxide 29 22 - 29 mmol/L [facility] Anion Gap 13 12 - 20 [facility] Urea Nitrogen (BUN) 13 9 - 16 mg/dL [facility] Creatinine, Serum 0.67 0.5 - 1.4 mg/dL [facility] Estimated Glomerular Filt Rate >60 [facility] Comment:Chronic Kidney Disea se: Estimated GFR < 60 mL/min/1.45l6Frboqd Kidney Disease: Estimated GFR < 15 mL/min/1.73m2 Glucose 79 60 - 115 mg/dL [facility] Calcium 9.1 8.4 - 10.2 mg/dL [facility] Blood Venous blood specimen / Unknown 12/05/2024 10:07 AM EDT 12/05/2024 11:21 AM EDT Garth Brock MD LAB BLOOD ORDERABLES Final Resul t Performing Organization Address [facility]/ZIP Co de Phone Number [facility] [address] [place] [address] [phone] * STI testing add on (NG, CT, Trich) (11/21/2024 10:25 AM EDT) Trichomonas (NAAT) NOT DETECTED NOT DETECTED [facility] Comment:The analytical perfo rmance characteristics of thisassay have been determined by [employer]. Themodifications have not been cleared or approved bythe FDA. This assay has been validated pursuant to theCLIA regulations and is used for clinical purposes.For additional information, please refer tohttp://education.Lemon/faq/Trichomonastma(This link is being provided for information/educational purposes only.)THIS TEST WAS PERFORMED AT:[facility] [place] [phone] VALERO MD CTNG Ref Lab NOT DETECTED NOT DETECTED [facility] NG Ref Lab NOT DETECTED NOT DETECTED [facility] Swab 11/21/2024 10:2 5 AM EDT 11/22/2024 7:01 AM EDT Neto Graham [facility] CYTOLOGY ORDERABLES F inal Result [facility] [address] [place] [phone] * HPV DNA, Low/High Risk (11/21/2024 10:25 AM EDT) HPV High Risk Negative Negative [facility] HPV Genotype 16 Negative Negative [facility] HPV Genotype 18 Negative Negative [facility] Comment:HPV testing performe d at [facility] (CLIA#[id number]), [address] [place] [address].Testing for HPV was performed using the Margaret [...] 7:01 AM EDT Neto Graham CNM LAB BLOOD ORDERABLES Sowmya trinidad Result [facility] [address] [place] [phone] * Pap Smear (11/21/2024 10:25 AM EDT) Swab 11/21/2024 10:2 5 AM EDT 11/22/2024 7:01 AM EDT Narrative [facility] - 11/27/2024 10:32 AM EDT ----- ------- Name: Evelia Holm Age/Sex: 68/F : 1955 Unit#: [id number] Attend Dr: NETO GRAHAM CNM Re11/21/24 Status: JEAN REF Location: HO.HHCLNP Disch: ----- ------- SPEC : [id number] RECD: 11/22/24 STATUS: PAVEL GALLARDO NUM: [id number] DOM: 11/21/24-[address]: NETO GRAHAM CNM ENTERED: 11/22/24 SP TYPE: Pap Smr OTHR DR: ORDERED: Pap Smear Interpretation Satisfactory for [...] and HPV testing will be performed at [facility] (CLIA #[id number]), [address] [place] [address]. Testing for HPV was performed using the [employer] iWatt0 system. The presence of HPV in the [...] detected. All professional services are performed by [facility] ([address] [place] [address]; ; CLIA #[id number]). The PAP Test is a screening procedure with the inherent possibility of both false negative and false positive results. Results should be interpreted in the context of historic and current clinical findings. Reliability of the PAP Test is enhanced by performing the test on a regular repetitive basis. ----- ------- Signed (signature on file) ЮЛИЯ Singh ([facility]) 11/27/24 1032 ----- ------- END OF REPORT Neto Graham [facility] CYTOLOGY ORDERABLES F inal Result [facility] [address] [place] [address] [phone] * BI Mammogram Screening Tomosynthesis Bilateral (11/06/2024 2:00 PM EDT) Anatomical Region Laterality Modality Breast Bilateral Mammography 11/06/2024 2:00 PM EDT Narrative 11/10/2024 11:41 AM EDT [address] [place] [address] Mammography Report Signed Patient: Evelia Holm MR#: [id number] : 1955 Acct:[id number] Age/Sex: 68 / F ADM Date: 11/06/24 Loc: HO.MAMMO Attending Dr: Garth Brock MD Ordering Physician: Garth Brock MD Results: 1Negative Date of Service: 11/06/24 Follow Up: 1 Year From Orig inal Mammogram Procedure(s): MM tomosynthesis screening BI Accession Number(s): [id number] cc: Garth Brock MD EXAMINATION: MM SCREENING [...] 11/10/24 1138 DD/ 1400 TD/TT: 11/06/24 1425 Representative Government Relations: Procedure Note Donotuseinterpreter, Image - 11/10/2024 [facility] [address] [place] [address] Mammography Report Signed Patient: Raza Holm#: [id number] : 1955cct:[id number] Age/Sex: 68 / FADM Date: 11/06/24 Loc: HO.MAMMO Attending Dr: Garth Brock MD Ordering Physician: Garth Brock MDResults: 1Negative Date of Service: 11/06/24Follow Up: 1 Year From Orig inal Mammogram Procedure(s): MM tomosynthesis screening BI Accession Number(s): [id number] cc: Garth Brock MD EXAMINATION: MM SCREENING [...] Parker MD 11/10/2024 11:38 AM EDT Workstation: [employer] Dictated By: Joshua Parker MD Signed By: <Electronically signed by Joshua Parker MD in OV> 11/10/24 1138 DD/ 1400 TD/TT: 11/06/24 1425 Representative Government Relations: Garthveronica Brock MD IM BI PROCEDURES Final Result * (ABNORMAL) Lipid Panel, Standard (05/23/2024 8:22 AM EDT) Triglycerides 99 <150 mg/dL [facility] Comment:Desirable Triglyceri de: less than 150 mg/dLBorderline High Triglyceride 150-199 mg/dLHigh Triglyceride: 200-499 mg/dLVery High Triglyceride: greater than or equal to 5OO mg/dL Cholesterol 209(H) <200 mg/dL [facility] Comment:Desirable Cholestero l: less than 200 mg/dLBorderline High Cholesterol: 200-239 mg/dLHigh Cholesterol: greater than 239 mg/dL LDL Cholesterol Calculated 121(H) <100 mg/dL [facility] Comment:Desirable LDL: less than 100 mg/dLNear Optimal/Above Optimal LDL: 110- 129 mg/dLBorderline High LDL: 130-159 mg/dLHigh LDL: 160-189 mg/dLVery High LDL: greater than or equal to 190 mg/dL HDL Cholesterol 69 >40 mg/dL [facility] Comment:Desirable HDL: great er than 40 mg/dL Note: This HDL assay may give artificially low results in patients with liver disease. Blood Venous blood specimen / Unknown 05/23/2024 8:22 AM EDT 05/23/2024 11:40 AM EDT us Garth Brock LAB BLOOD ORDERABLES Final Resul t [facility] [address] [place] [address] [phone] * Colonoscopy (12/30/2016) Colonoscopy Performed Historical Provider HEALTH MAINTENANCE Final Result from Last 3 Months or Most Recently Relevant to Health Maintenance Insurance MEDICARE [facility] FULL Care Teams Fish Inspector Relationship Specialty Start Date End Date Name, MD Garth [address] [place] [address] PCP - General Family Medicine 06/18/15
--- OUTSIDE RECORDS SUMMARY | 2025-01-07 19:05 | XMS_ITS | Encounter Summary ---
Author Organization [employer] Address [address] [facility] [address] [place] [address] Care Team Providers Care Billet Examiner Name Role Phone Name, Garth YOON Primary Care Provider [phone] Reason for Visit * Reason Comments Med Refill Encounter Details Date Type Department Care Team ([facility] st Contact Info) Description 05/07/2022 Refill [facility] [address] [place] [address] Name, MD Garth [address] [place] [address] Radicular pain in left arm Social History [...] documented as of this encounter Care Teams Billet Examiner Relationship Specialty Start Date End Date Name, MD Garth [address] [place] [address] PCP - General Family Medicine 06/18/15 documented as of this encounter
--- OUTSIDE RECORDS SUMMARY | 2025-01-07 19:05 | XMS_ITS | Encounter Summary ---
Author Organization [employer] Address [address] [place] [address] 7t [place] [address] Care Team Providers Care Cardiac Monitor Technician Name Role Phone Name, Garth YOON Primary Care Provider [phone] Reason for Visit * Reason Comments Med Refill Encounter Details Date Type Department Care Team ([facility] st Contact Info) Description 11/22/2022 Refill [facility] MEDICINE [address] [place] [address] Name, MD Garth [address] [place] [address] Essential (primary) hypertension Social History Tobacco Use [...] documented as of this encounter Care Teams Cardiac Monitor Technician Relationship Specialty Start Date End Date Name, MD Garth [address] [place] [address] PCP - General Family Medicine 06/18/15 documented as of this encounter
--- OUTSIDE RECORDS SUMMARY | 2025-01-07 19:05 | XMS_ITS | Encounter Summary ---
Author Organization [employer] Address [address] [facility] 7t [place] [address] Care Team Providers Care Postdoctoral Scientist Name Role Phone Name, Garth YOON Primary Care Provider [phone] Reason for Visit * Reason Onset Date Comments case back from lab? 03/01/2024 Encounter Details Date Type Department Care Team ([facility] st Contact Info) Description 03/01/2024 Telephone [facility] ADULT DENTAL [address] [place] [address] Jeff Cedeno DDS 230 [place] [address] case back from lab? Social History Tobacco [...] documented as of this encounter Care Teams Postdoctoral Scientist Relationship Specialty Start Date End Date Name, MD Garth 230 [place] [address] PCP - General Family Medicine 06/18/15 documented as of this encounter
--- OUTSIDE RECORDS SUMMARY | 2025-01-07 19:05 | XMS_ITS | Encounter Summary ---
Author Organization [employer] Address 75 [facility] 7t [place] [address] Care Team Providers Care Youth Services Specialist Name Role Phone Name, Garth YOON Primary Care Provider [phone] Encounter Details Date Type Department Care Team (Late st Contact Info) Description 08/25/2022 Abstract [facility] MEDICINE 230 [place] [address] Name, MD Garth [address] [place] [address] Social History Tobacco Use Types Packs/Day Years [...] documented as of this encounter Care Teams Youth Services Specialist Relationship Specialty Start Date End Date Name, MD Garth [address] [place] [address] PCP - General Family Medicine 06/18/15 documented as of this encounter
--- OUTSIDE RECORDS SUMMARY | 2025-01-07 19:05 | XMS_ITS | Encounter Summary ---
Author Organization [employer] Address 75 [facility] 7t [place] [address] Care Team Providers Care Stamping Die Maker Bench Name Role Phone Name, Garth YOON Primary Care Provider [phone] Reason for Visit * Reason Onset Date Comments Results 11/27/2024 Encounter Details Date Type Department Care Team (Latest Contact Info) Description 11/27/2024 Results Follow-Up [facility] MEDICINE [address] [place] [address] Merlene Sue, ANIYAH 230 [place] [address] Pap Smear, STI testing add on (NG, [...] Quiñonez RN - 01/02/2025 3:59 PM EDT TC placed to the pt with S environmental compliance technician #[id number] to inform of the pt Pelvis Transvaginal US as stated below by Merlene Sue. The pt was informed that the lining of her uterus is thicker than expected and actually thicker than the previous time a pelvic US was performed. Pt advised that due to these findings Merlene referred the pt back to a OBGYN for further evaluation. The pt stated understanding and had no further questions at this time. ----- Message from Merlene Sue sent at 01/02/2025 3:54 PM EDT ----- Please let Evelia know the lining of her uterus is thicker than expected and a little thicker than the last time she had an ultrasound. I would like her to go back to academic assistant for further evaluation. I will put in [...] would like her to go back to academic assistant for further evaluation. I will put in [...] documented as of this encounter Care Teams Stamping Die Maker Bench Relationship Specialty Start Date End Date Name, MD Garth [address] [place] [address] PCP - General Family Medicine 06/18/15 documented as of this encounter
--- OUTSIDE RECORDS SUMMARY | 2025-01-07 19:05 | XMS_ITS | Encounter Summary ---
Author Organization [employer] Address 75 [facility] 7t [place] [address] Care Team Providers Care Energy Sales Consultant Name Role Phone Name, Garth YOON Primary Care Provider [phone] Reason for Referral * Consultation (STAT) - Authorized Specialty Diagnoses / Procedures Referred By Contfelisa t Referred To Contact Obstetrics and Gynecology Diagnoses Postmenopausal bleeding Merlene Sue CNM [address] [place] [address] Phone: tel: fax: [facility] Referral ID Status Reason Start Date Expiration Date Visits Requested Visits Authorized [id number] Authorized Specialty Services Required 01/02/2026 1 1 Scheduling Instructions Please send pap/HPV, Gonorrhea/Chlamydia/trichomonas and pelvic ultrasound from 2024. Encounter Details Date Type Department Care Team ([facility] Contact Info) Description 01/02/2025 Orders Only [facility] MEDICINE [address] [place], [place] [phone] Merlene Sue CNM [address] [place] [address] Postmenopausal bleeding (Primary Dx) Social History Tobacco [...] documented as of this encounter Care Teams Energy Sales Consultant Relationship Specialty Start Date End Date Name, MD Garth 230 [place] [address] PCP - General Family Medicine 06/18/15 documented as of this encounter
--- OUTSIDE RECORDS SUMMARY | 2025-01-07 19:05 | XMS_ITS | Encounter Summary ---
Author Organization [employer] Address 75 [facility] 7t [place] [address] Care Team Providers Care Crackling Press Operator Name Role Phone Name, Garth YOON Primary Care Provider [phone] Reason for Visit * Reason Comments Med Refill Encounter Details Date Type Department Care Team ([facility] st Contact Info) Description 12/28/2024 Refill [facility] MEDICINE 230 [place] [address] Name, MD Garth 230 [place] [address] Mild intermittent asthma, unspecified whether complicated Social [...] documented as of this encounter Care Teams Crackling Press Operator Relationship Specialty Start Date End Date Name, MD Garth 230 [place] [address] PCP - General Family Medicine 06/18/15 documented as of this encounter
--- OUTSIDE RECORDS SUMMARY | 2025-01-07 19:05 | XMS_ITS | Encounter Summary ---
Author Organization [employer] Address 75 [facility] 7t [place] [address] Care Team Providers Care Account Strategist Name Role Phone Name, Garth YOON Primary Care Provider Reason for Visit * Reason Comments Med Refill Encounter Details Date Type Department Care Team ([facility] st Contact Info) Description 06/25/2024 Refill [facility] MEDICINE 230 [place] [address] Name, MD Garth [address] [place] [address] Mild intermittent asthma, unspecified whether complicated Social [...] documented as of this encounter Care Teams Account Strategist Relationship Specialty Start Date End Date Name, MD Garth [address] [place] [address] PCP - General Family Medicine 06/18/15 documented as of this encounter
--- OUTSIDE RECORDS SUMMARY | 2025-01-07 19:05 | XMS_ITS | Encounter Summary ---
Author Organization [employer] Address 75 [facility] 7t [place] [address] Care Team Providers Care Wad Compressor Operator Adjuster Name Role Phone Name, Garth YOON Primary Care Provider [phone] Encounter Details Date Type Department Care Team (Latest Contact Info) Description 02/06/2019 Abstract [facility] CONVERSIONS Dental, Provider, DDS Social History [...] on filedocumented in this encounter Care Teams Wad Compressor Operator Adjuster Relationship Specialty Start Date End Date Name, MD Garth [address] [place] [address] PCP - General Family Medicine 06/18/15 documented as of this encounter
--- OUTSIDE RECORDS SUMMARY | 2025-01-07 19:05 | XMS_ITS | Encounter Summary ---
Author Organization [employer] Address 75 [facility] 7t [place] [address] Care Team Providers Care Access Director Name Role Phone Name, Garth YOON Primary Care Provider [phone] Encounter Details Date Type Department Care Team (Latest Contact Info) Description 02/20/2020 Abstract [facility] CONVERSIONS Dental, Provider, DDS Social History [...] on filedocumented in this encounter Care Teams Access Director Relationship Specialty Start Date End Date Name, MD Garth [address] [place] [address] PCP - General Family Medicine 06/18/15 documented as of this encounter
[2025-01-08 04:50] LABS: CT PCR NOT DETECTED (Not Detect.); NG PCR NOT DETECTED (Not Detect.)
== END 2025-01-07 15:09 | disposition home or self-care (01) ==
LOC: HO.LNP 15:08
PROVIDERS: PCP Internal Medicine Geriatric Medicine; Visit Provider Obstetrics & Gynecology
DX: N95.0 Postmenopausal bleeding (principal); Z20.2 Contact with and (suspected) exposure to infections with a predominantly sexual mode of transmission
CPT/HCPCS: 87491; 87591; 99202

== ENCOUNTER 2025-01-07 15:08 | Outpatient (AMB) | payer MEDICARE, MEDICAID, SELFPAY ==
--- NOTE | 2025-01-07 15:17 | A.OFFVIS_ITS ---
Vital Signs 01/07/25 15:18 Height 5 ft 4 in Weight 205 lb BMI 35.2 BP 136/78 Intake Visit Reasons: PMB Director Community Health Nursing Required: Yes Director Community Health Nursing Language: Machine Hoop Maker Services: Director Community Health Nursing Present (in person) Director Community Health Nursing Name: Jana MUIR Information Interpreted: non-clinical & clinical Development Chemist: Development Chemist Present (Jana MUIR) Accompanied by: Self / Same As Patient Allergies codeine (CODEINE) Allergy (Intermediate, Verified 01/07/25 15:20) LT FACIAL NUMBNESS Codeine Phosphate Allergy (Unknown, Uncoded 01/07/25 15:20) Unknown Is last menstrual period known: Yes Last menstrual period: 01/10/20 Post menopausal: Yes Patient : No Do you need a note to return to daycare/school/sports/work: Yes (for surgery on tuesday) HPI Comments Details: Presenting complaining of a month history of vaginal bleeding. Last Co testing in 12/06 was negative Last mammogram in 11/04 was BI-RADS 1 Last ultrasound in on 01/02/2025 showed the following: Uterus: The uterus is anteversion flexion and measures 6 x 3 x 6 cm. Volume: 55 cc. The double wall endometrial thickness is 9 mm. The uterus is smooth in contour and has normal myometrial echogenicity. No visible fibroid. Adnexa: The ovaries are not identified.. No free fluid in the cul-de-sac. [facility] Medical History (Updated 01/07/25 @ 15:27 by Abebe Cosme MD) Cervicalgia Fibromyalgia Polyarthralgia Asthma Surgical History (Updated 01/07/25 @ 15:24 by Jana Balbuena CMA) Hx of tubal ligation Hx of neck surgery Family History (Updated 01/07/25 @ 15:25 by Jana Balbuena CMA) Mother HTN (hypertension) Maternal Aunt Breast cancer Social History (Updated 01/07/25 @ 15:26 by Jana Balbuena CMA) Household Members: Spouse Housing: Apartment Alcohol intake: never Patient Tobacco Use Status: Never used Tobacco Current occupational status: disabled Current occupation: right hand dominant Sexually active: Yes Sexual orientation: Straight/Heterosexual Gender identity: Female Female Reproductive History Menstrual Date of last menstrual period: 01/10/20 Total pregnancies: 4 Full term: 4 Number of Living Children: 5 Multiple births: 1 Date of last pap smear: 11/29/24 Date of Mammogram: 11/06/24 Review of Systems Const All systems reviewed & are unremarkable except as noted in HPI and below Card Reports as per HPI and Reports no additional complaints Resp Reports as per HPI and Reports no additional complaints GI Reports as per HPI and Reports no additional complaints Reports as per HPI Physical Exam Vital Signs: Last Vital Signs BP 136/78 01/07/25 15:18 BMI result Body Mass Index 35.2 Const General: cooperative, healthy appearing and comfortable Resp Effort & Inspection: normal respiratory effort Auscultation: clear to auscultation bilaterally Percussion: percussion normal Cardio Palpation: normal PMI Rate: regular rate Rhythm: regular rhythm Heart sounds: no murmurs and no rubs Peripheral pulses: Peripheral pulses 2+ throughout GI Inspection: Yes normal to inspection Palpation (GI): Soft to palpation, nontender, no guarding, not rigid and No hepatosplenomegaly present Percussion: Yes normal to percussion Auscultation: normal bowel sounds Rectal Exam - Female: deferred General: Yes no CVA tenderness External Female Exam: normal external appearance and normal appearance of the ur ethra Speculum Exam - Vagina: normal appearance of the vagina, normal palpation, no lesions and no masses Speculum Exam - Cervix: normal appearance of the cervix, normal palpation, no lesions, no masses and nontender Bimanual exam- vagina & uterus: normal bimanual exam, normal palpation, uterine size normal, normal palpation, uterine shape normal, No Cervical tenderness present and non-tender Bimanual Exam- Adnexa, other: normal adnexae Back/Spine/Pelvis Back: no CVA tenderness Assessment & Plan Assessment & Plan (1) Postmenopausal bleeding: Code(s): N95.0 - Postmenopausal bleeding Category: Medical Plan: Discussed with the patient the pelvic ultrasound findings, the endometrial stripe thickenss measured by ultrasound was more than 4mm. The negative predictive value, positive predictive value, Sensitivity, specificity of using ultrasound measurement of endometrial stripe to detecting endometrial pathology including hyperplasia , polyp or cancer were discussed with the patient. Recommended to the patient that the next step is an endometrial sampling via hysteroscopy D&C possible polypectomy versus endometrial biopsy to r/o endometrial pathology including hyperplasia or cancer. All the pros and cons risks and benefits of each approach were discussed with the patient, endometrial biopsy being less invasive, office procedure with less sensitivity and inability diagnose a polyp and removal versus hysteroscopy done under anesthesia more invasive more sensitive to endometrial cancer and possibility of diagnosing and endometrial polyp with the possibility of polypectomy. All questions were answered pt verbalized understanding and decided to proceed with hysteroscopy D&C possible polypectomy/myomectomy. Discussed with the patient the procedure , all benefits and risks including but not limited to inability to complete the procedure , insufficient endometrial tissue for a complete evaluation of the endometrial cavity , bleeding, infection, possible need for blood transfusion with all its risk ( HIV,syphilis, Hepatitis, anaphylaxis shock, others..), injury to bladder, rectum, possible need for laparoscopy/laparotomy or hysterectomy. The patient verbalized understanding and signed the consent. Instructions given the patient to stay NPO after midnight the day prior to the procedure and to take only amlodipine the morning of the surgical procedure and to hold off metformin morning of surgery and to schedule a 2 week postoperative appointment Coding Level of Care Code New Pt Level 3 (41747) Diagnoses Postmenopausal bleeding N95.0
[2025-01-07 15:18] VITALS: BP 136/78; BMI 35.2
--- OUTSIDE RECORDS SUMMARY | 2025-01-07 18:30 | XMS_ITS | Clinical Summary ---
Author Organization [address] [facility] Address [address] [place] [address] Phone Care Team Providers Care Hotel Front Office Manager Name Role Phone Name, Garth YOON Primary Care Provider [phone] Allergies No known active allergies Medications acetaminophen [...] Team Description 12/19/2024 11:00 AM EDT Evaluation [facility] [address] [address] Sana Egan, PT Plantar fasciitis, bilateral (Primary Dx) 11/19/2024 9:00 AM EDT Consult Orthopedic Surgery [facility] [address] [facility] [address] [place] [address] Mitchell Bender, DPM Plantar fascial fibromatosis (Primary [...] Info) Description 01/08/2025 12:00 PM EDT Treatment [address] [address] Anuj Espinoza, MATH INSTRUCTOR 01/10/2025 11:30 AM EDT Treatment [address] [address] Sana Egan, PT 01/14/2025 9:00 AM EST Treatment [address] [address] Anuj Espinoza, MATH INSTRUCTOR 01/17/2025 10:00 AM EST Treatment [address] [address] Anuj Espinoza, MATH INSTRUCTOR 01/21/2025 9:00 AM EST Treatment [address] [address] Anuj Espinoza, MATH INSTRUCTOR 01/24/2025 10:00 AM EST Treatment [address] [place] [address] Anuj Espinoza, MATH INSTRUCTOR 01/28/2025 10:00 AM EST Treatment [facility] [address] [address] Sana Egan, PT 01/31/2025 10:00 AM EST Treatment [facility] [address] [address] Sana Egan, PT Health Maintenance Due Date [...] Insurance MEDICARE [place]ICAID - [place] Care Teams Hotel Front Office Manager Relationship Specialty Start Date End Date Name, MD Garth [address] [place], [place] PCP - General Internal Medicine 04/25/18
== END 2025-01-07 15:57 | disposition home or self-care (01) ==
LOC: HO.HWS 15:08
PROVIDERS: PCP Internal Medicine Geriatric Medicine; Visit Provider Obstetrics & Gynecology
DX: N95.0 Postmenopausal bleeding (principal)
CPT/HCPCS: 99203

== ENCOUNTER 2025-01-18 05:52 | Day surgery (SDC) | payer MEDICARE, MEDICAID, SELFPAY ==
--- OUTSIDE RECORDS SUMMARY | 2025-01-08 07:47 | XMS_ITS | Clinical Summary ---
Author Organization 175 [facility] Address [address] [place] [address] Phone Care Team Providers Care Bolter Helper Name Role Phone Name, Garth YONO Primary Care Provider [phone] Allergies No known active allergies Medications acetaminophen [...] Team Description 12/19/2024 11:00 AM EDT Evaluation [facility] [address] [address] Sana Egan, PT Plantar fasciitis, bilateral (Primary Dx) 11/19/2024 9:00 AM EDT Consult Orthopedic Surgery [facility] 250 175 [facility] [address] [place] [address] Mitchell Bender, DPM Plantar fascial fibromatosis (Primary [...] Info) Description 01/08/2025 12:00 PM EDT Treatment [address] [address] Anuj Espinoza, AUTOMOTIVE ELECTRICAL FITTER 01/10/2025 11:30 AM EDT Treatment [address] [address] Sana Egan, PT 01/14/2025 9:00 AM EST Treatment [address] [address] Anuj Espinoza, AUTOMOTIVE ELECTRICAL FITTER 01/17/2025 10:00 AM EST Treatment [address] [address] Anuj Espinoza, AUTOMOTIVE ELECTRICAL FITTER 01/21/2025 9:00 AM EST Treatment [address] [address] Anuj Espinoza, AUTOMOTIVE ELECTRICAL FITTER 01/24/2025 10:00 AM EST Treatment [address] [place] [address] [place] [address] Anuj Espinoza, AUTOMOTIVE ELECTRICAL FITTER 01/28/2025 10:00 AM EST Treatment [facility] [address] [address] Sana Egan, PT 01/31/2025 10:00 AM EST Treatment [facility] [address] [address] Sana Egan, PT Health Maintenance Due Date [...] Insurance MEDICARE MEDICAID - [place] Care Teams Bolter Helper Relationship Specialty Start Date End Date Name, MD Garth [address] [place], [place] PCP - General Internal Medicine 04/25/18
--- NOTE | 2025-01-16 09:07 | HO.ANESPROP2 ---
Documented by User: Roseanne Viera NP 01/16/25 09:08 HPI - Anesthesia Eval Consult details Narrative: 69yo F for D&C Hysteroscopy,possible myomectomy,possible polypectomy PMFSH Active Problems Active Problems: All Active Problems Postmenopausal bleeding (Acute) Osteoarthritis of right hip (Acute) Left shoulder pain (Acute) Tendinitis of left shoulder (Acute) Arthritis of left shoulder region (Acute) Postlaminectomy syndrome, cervical (Acute) Cervicalgia (Acute) Fibromyalgia (Acute) Polyarthralgia (Acute) Past Medical History Medical History (Updated 01/16/25 @ 12:50 by Diana Tijerina RN) Dependent on walker for ambulation Wears dentures Seasonal allergies History of pericarditis (~2019) Cervicalgia Fibromyalgia Polyarthralgia Asthma Family History Family History (Updated 01/07/25 @ 15:25 by Jana Balbuena CMA) Mother HTN (hypertension) Maternal Aunt Breast cancer Surgical History Surgical History (Updated 01/07/25 @ 15:24 by Jana Balbuena CMA) Hx of tubal ligation Hx of neck surgery Social History Social History (Updated 01/07/25 @ 15:26 by Jana Balbuena CMA) Household Members: Spouse Housing: Apartment Are you a primary health care sanitary technician to a significant other at home: No Do you presently have visiting nurse or other home services: No Alcohol intake: never Patient Tobacco Use Status: Never used Tobacco Use of substances other than those prescribed or required for medical reasons: No Have you been hit, kicked, punched, or otherwise hurt by someone within the past year? If so, by whom?: No Are you DNR?: No Advance Directives: No Advance Directives Information Provided: Yes Advance Directives on File: No Current occupational status: disabled Current occupation: right hand dominant Sexual orientation: Straight/Heterosexual Gender identity: Female Meds Allergies Allergy/AdvReac Type Severity Reaction Status Date / Time codeine (CODEINE) Allergy Intermediate LT FACIAL Verified 01/07/25 15:20 NUMBNESS Home Medications ?Medication ?Instructions ?Recorded ?Confirmed ?Last Taken ?Type acetaminophen 650 mg 650 mg PO Q12H 10/09/20 01/16/25 Unknown History tablet,extended release metformin 500 mg tablet 500 mg PO BID 06/02/23 01/16/25 01/18/25 History amlodipine 10 mg tablet 10 mg PO DAILY 12/01/23 01/16/25 01/18/25 History omeprazole 40 mg capsule,delayed 40 mg PO DAILY 12/01/23 01/16/25 Unknown History release aspirin 81 mg tablet 81 mg PO DAILY 10/23/24 01/16/25 Unknown History diclofenac sodium 1 % topical gel 2 g topical DAILY 10/23/24 01/16/25 Unknown History albuterol sulfate 90 mcg/actuation 2 puff inhalation Q4-6H PRN 01/16/25 01/16/25 Unknown History aerosol inhaler Shortness Of Breath Or Wheezing Assessment and Plan Assessment Anesthesia Assessment: Chart Reviewed Documented by User: Paulette Gar MD 01/18/25 07:23 [facility] Past Medical History Medical History (Updated 01/16/25 @ 12:50 by Diana Tijerina RN) Dependent on walker for ambulation Wears dentures Seasonal allergies History of pericarditis (~2019) Cervicalgia Fibromyalgia Polyarthralgia Asthma Family History Family History (Updated 01/07/25 @ 15:25 by Jana Balbuena CMA) Mother HTN (hypertension) Maternal Aunt Breast cancer Family history of problems with anesthesia: No Surgical History Surgical History (Updated 01/07/25 @ 15:24 by Jana Balbuena CMA) Hx of tubal ligation Hx of neck surgery History of Problems with Anesthesia: No Social History Social History (Updated 01/07/25 @ 15:26 by Jana Balbuena CMA) Household Members: Spouse Housing: Apartment Are you a primary health care sanitary technician to a significant other at home: No Do you presently have visiting nurse or other home services: No Alcohol intake: never Patient Tobacco Use Status: Never used Tobacco Use of substances other than those prescribed or required for medical reasons: No Have you been hit, kicked, punched, or otherwise hurt by someone within the past year? If so, by whom?: No Are you DNR?: No Advance Directives: No Advance Directives Information Provided: Yes Advance Directives on File: No Current occupational status: disabled Current occupation: right hand dominant Sexual orientation: Straight/Heterosexual Gender identity: Female Meds Allergies Allergy/AdvReac Type Severity Reaction Status Date / Time codeine (CODEINE) Allergy Intermediate LT FACIAL Verified 01/07/25 15:20 NUMBNESS Home Medications ?Medication ?Instructions ?Recorded ?Confirmed ?Last Taken ?Type acetaminophen 650 mg 650 mg PO Q12H 10/09/20 01/16/25 Unknown History tablet,extended release metformin 500 mg tablet 500 mg PO BID 06/02/23 01/16/25 01/18/25 History amlodipine 10 mg tablet 10 mg PO DAILY 12/01/23 01/16/25 01/18/25 History omeprazole 40 mg capsule,delayed 40 mg PO DAILY 12/01/23 01/16/25 Unknown History release aspirin 81 mg tablet 81 mg PO DAILY 10/23/24 01/16/25 Unknown History diclofenac sodium 1 % topical gel 2 g topical DAILY 10/23/24 01/16/25 Unknown History albuterol sulfate 90 mcg/actuation 2 puff inhalation Q4-6H PRN 01/16/25 01/16/25 Unknown History aerosol inhaler Shortness Of Breath Or Wheezing Exam Airway Mallampati Class: II (missing teeth top and bottom, denies anything loose) TM Dist: >3cm Neck ROM: Full Partial: Upper Heart: rrr Lungs: cta Assessment and Plan Assessment Anesthesia Assessment: Anesthesia Plan Discussed Final Anesthetic Review Family History of Problems with Anesthesia: No History of Problems with Anesthesia: No NPO: Yes ASA Class: II Final Preanesthetic Review: No Changes in Pt Med Stat, Meds/Allgs Chart Reviewed and Consent Obtained/Reviewed Patient Risk: Low Procedure Risk: Low Anesthetic Plan Anesthetic Plan: GA Disposition: Standard PACU
[2025-01-16 12:46] VITALS: BMI 34.3
[2025-01-18 06:10] VITALS: BP 144/79; PULSE 65; RESP 16; TEMP 36.8; O2SAT 96
--- NOTE | 2025-01-18 06:27 | PC.NURSE ---
unable to test patients blood sugar. glucometer not working in preop and pacu.
[2025-01-18] MEDS: Lactated Ringers 1,000 ML 100 ML IVCONT (06:34)
--- NOTE | 2025-01-18 07:30 | MHC.SHP ---
Pre-Procedural Eval Section A - 24 Hr Update-Section A only Date of Service: 01/18/25 The patient is an INPATIENT: No Changes since office visit: No Cold of Flu in the past 2 weeks, No New Medical Problems, No Changes in Medication and No Patient answered all questions The patient has been examined within 24 hours of the surgical procedure. The History & Physical has been completed within 30 days and I have reviewed it.: Yes Section B - Complete if H&P > 30 days Chief Complaint: Postmenopausal bleeding Allergies: Allergies Allergy/AdvReac Type Severity Reaction Status Date / Time codeine (CODEINE) Allergy Intermediate LT FACIAL Verified 01/07/25 15:20 NUMBNESS Plan Diagnosis/Plan: Unchanged I have reviewed the history and physical and performed a pertinent physical examination on my patient. No changes have occurred unless specified. Time Spent With Patient Time: Total time managing care of this patient today ____ minutes.
--- NOTE | 2025-01-18 08:01 | P.BOP_ITS ---
Brief Operative Note Date of Service: 01/18/25 Post-op diagnosis: same Procedure: Postmenopausal bleeding Surgeon: Abebe Cosme MD Anesthesia: GLMA Was an Dimension Mill Worker used for this Procedure?: No Estimated blood loss (mL): 0 Pathology: other (Endometrial Scrapping. Polyp) Condition: stable Disposition: PACU
--- NOTE | 2025-01-18 08:02 | W.PM.OPN ---
Operative Note Operative Note Date of Service: 01/18/25 Narrative: Preop Diagnosis: Postmenopausal bleeding Operation: Diagnostic Hysteroscopy, Dilataion & Curettage and polypectomy Post Op Diagnosis: Endometrial Polyp QBL: Minimal Anesthesia: GLMA Surgeon: Abebe Cosme MD Paper Reel Operator: None Complication: None Pathology: Endometrial Scrapings, Endometrial polyp Procedure: The patient was put in the dorsal lithotomy position, scrubbed, and draped in the usual manner. A sterile speculum was inserted in the patient's vagina. The anterior lip of the cervix was grasped with a single tooth tenaculum. The cervix was dilated up to 5 mm, then the scope was inserted in the patient's uterus. Inspection revealed endometrial polyp. The Myosure Reach device was used; it was introduced through the operative channel and polypectomy done with no complications. The scope was then taken out from the uterine cavity, sharp curettings was carried on with minimal to moderate amount of tissues retrieved. At the end of the procedure, all instruments were taken out of the patient uterine and vaginal cavity. The single tooth tenaculum was removed and homeostasis was assured using pressure,. The patient tolerated the procedure well and was transferred to the PACU in a stable condition.
[2025-01-18 08:03] VITALS: BP 113/68; PULSE 81; RESP 13; TEMP 36.4; O2SAT 92
[2025-01-18 08:08] VITALS: BP 112/66; PULSE 79; RESP 16; O2SAT 91
[2025-01-18 08:13] VITALS: BP 117/69; PULSE 71; RESP 16; O2SAT 98
[2025-01-18 08:18] VITALS: BP 123/69; PULSE 79; RESP 16; O2SAT 98
[2025-01-18 08:33] VITALS: BP 109/70; PULSE 73; RESP 16; TEMP 36.5; O2SAT 96
== END 2025-01-18 09:04 | disposition home or self-care (01) ==
PROVIDERS: PCP Internal Medicine Geriatric Medicine; Visit Provider Obstetrics & Gynecology
PROC: 0UDB8ZZ Extraction of Endometrium, Via Natural or Artificial Opening Endoscopic (ICD-10-PCS; CPT 58558; principal; 2025-01-18 07:30)
DX: N95.0 Postmenopausal bleeding (principal); N84.0 Polyp of corpus uteri; Z88.5 Allergy status to narcotic agent; J45.909 Unspecified asthma, uncomplicated; M79.7 Fibromyalgia; M25.50 Pain in unspecified joint; Z79.899 Other long term (current) drug therapy; Z79.84 Long term (current) use of oral hypoglycemic drugs; Z79.82 Long term (current) use of aspirin; Z98.51 Tubal ligation status; Z98.890 Other specified postprocedural states
CPT/HCPCS: 58558; 88305; J1100; J1885; J2003; J2250; J2405; J2704; J3010

== ENCOUNTER → 2025-01-18 05:52 | Outpatient (BNV) | payer MEDICARE, MEDICAID, SELFPAY | PROVIDERS: PCP Internal Medicine Geriatric Medicine; Visit Provider Obstetrics & Gynecology | DX: N95.0 Postmenopausal bleeding (principal) | CPT/HCPCS: 58558 ==

== ENCOUNTER 2025-02-05 13:04 | Outpatient (AMB) | payer MEDICARE, MEDICAID, SELFPAY ==
--- NOTE | 2025-02-05 13:07 | MHC.OFFVIS ---
Vital Signs 02/05/25 13:09 Height 5 ft 3 in Weight 198 lb BMI 35.1 BP 112/68 Intake Visit Reasons: post op Centrifugal Wax Molder Required: Yes Centrifugal Wax Molder Language: Punchboard Inserter Services: Centrifugal Wax Molder Present (in person) Centrifugal Wax Molder Name: Jana MUIR Information Interpreted: non-clinical & clinical Accompanied by: Daughter Allergies codeine (CODEINE) Allergy (Intermediate, Verified 02/05/25 13:12) LT FACIAL NUMBNESS HPI Comments Details: The patient is presenting post hysteroscopy D&C no complaints minimal vaginal bleeding no feverishness chills or abdominal pain. The pathology showed the following: A. Endometrium, curettage: Scant strips of benign atrophic endometrium, fragments of stroma, and benign endocervical glandular and squamous epithelium; no atypia or carcinoma. B. Endometrial polyp, resection: Fragments of benign endometrial polyp; no atypia or carcinoma PFSH Medical History Dependent on walker for ambulation Wears dentures Seasonal allergies History of pericarditis (~2019) Cervicalgia Fibromyalgia Polyarthralgia Asthma Surgical History Hx of tubal ligation Hx of neck surgery Family History Mother HTN (hypertension) Maternal Aunt Breast cancer Social History Household Members: Spouse Housing: Apartment Are you a primary emergency care attendant to a significant other at home: No Do you presently have visiting nurse or other home services: No Alcohol intake: never Patient Tobacco Use Status: Never used Tobacco Current occupational status: disabled Current occupation: right hand dominant Sexual orientation: Straight/Heterosexual Gender identity: Female Review of Systems Const All systems reviewed & are unremarkable except as noted in HPI and below Reports as per HPI and Reports no additional complaints GI Reports no additional complaints Reports no additional complaints Physical Exam Vital Signs: Last Vital Signs BP 112/68 02/05/25 13:09 BMI result Body Mass Index 35.1 Assessment & Plan Assessment & Plan (1) Postmenopausal bleeding: Code(s): N95.0 - Postmenopausal bleeding Category: Medical Plan: Discussed with the patient the intraoperative finding, the results of the pathology. Discussed with the patient the sensitivity, specificity, positive and negative predictive value, of endometrial biopsy in detecting endometrial pathology including but not limited to endometrial hyperplasia, cancer and other pathology; instructed the patient to call in case vaginal bleeding recurs, the next step will be to proceed with further endometrial sampling evaluation to rule out endometrial pathology. All questions answered and the patient verbalized understanding and agreed with the plan. Coding Level of Care Code Est Pt Level 3 (43543) Diagnoses Postmenopausal bleeding N95.0
[2025-02-05 13:09] VITALS: BP 112/68; BMI 35.1
--- OUTSIDE RECORDS SUMMARY | 2025-02-05 16:51 | XMS_ITS | Encounter Summary ---
Author Organization [employer] Address 75 [facility] 7t [place] [address] Care Team Providers Care Dry Wall Nailer Name Role Phone Name, Garth YOON Primary Care Provider Encounter Details Date Type Department Care Team (Late st Contact Info) Description 08/25/2022 Abstract [facility] MEDICINE [address] [place] [address] Name, MD Garth [address] [place] [address] Social History Tobacco Use Types Packs/Day Years [...] documented as of this encounter Care Teams Dry Wall Nailer Relationship Specialty Start Date End Date Name, MD Garth [address] [place] [address] PCP - General Family Medicine 06/18/15 documented as of this encounter
--- OUTSIDE RECORDS SUMMARY | 2025-02-05 16:52 | XMS_ITS | Encounter Summary ---
Author Organization [employer] Address [address] [facility] 7t [place] [address] Care Team Providers Care Aircraft Engine Mechanic Name Role Phone Name, Garth YOON Primary Care Provider [phone] Encounter Details Date Type Department Care Team (Latest Contact Info) Description 02/20/2020 Abstract [facility] CONVERSIONS Dental, Provider, DDS Social [...] on filedocumented in this encounter Care Teams Aircraft Engine Mechanic Relationship Specialty Start Date End Date Name, MD Garth [address] [place] [address] PCP - General Family Medicine 06/18/15 documented as of this encounter
--- OUTSIDE RECORDS SUMMARY | 2025-02-05 16:52 | XMS_ITS | Encounter Summary ---
Author Organization [employer] Address [address] [facility] [address] [place] [address] Care Team Providers Care Track Repair Person Name Role Phone Name, Garth YOON Primary Care Provider [phone] Reason for Visit * Reason Comments Med Refill Encounter Details Date Type Department Care Team ([facility] st Contact Info) Description 05/07/2022 Refill [facility] MEDICINE [address] [place] [address] Name, MD Garth [address] [place] [address] Radicular pain in left arm Social History [...] documented as of this encounter Care Teams Track Repair Person Relationship Specialty Start Date End Date Name, MD Garth [address] [place] [address] PCP - General Family Medicine 06/18/15 documented as of this encounter
--- OUTSIDE RECORDS SUMMARY | 2025-02-05 16:52 | XMS_ITS | Encounter Summary ---
Author Organization [employer] Address [address] [facility] [address] [place] [address] Care Team Providers Care Telephone Quotation Clerk Name Role Phone Name, Garth YOON Primary Care Provider [phone] Encounter Details Date Type Department Care Team (Latest Contact Info) Description 02/06/2019 Abstract [facility] CONVERSIONS Dental, Provider, DDS Social History [...] on filedocumented in this encounter Care Teams Telephone Quotation Clerk Relationship Specialty Start Date End Date Name, MD Garth [address] [place] [address] PCP - General Family Medicine 06/18/15 documented as of this encounter
--- OUTSIDE RECORDS SUMMARY | 2025-02-05 16:52 | XMS_ITS | Encounter Summary ---
Author Organization [employer] Address [address] [facility] [address] [place] [address] Care Team Providers Care Receiving Supervisor Name Role Phone Name, Garth YOON Primary Care Provider [phone] Encounter Details Date Type Department Care Team (Late st Contact Info) Description 01/29/2025 Orders Only [facility] MEDICINE [address] [place] [address] Bean Goff MD [address] [place] [address] Mild intermittent asthma, unspecified whether complicated Social [...] documented as of this encounter Care Teams Receiving Supervisor Relationship Specialty Start Date End Date Name, MD Garth [address] [place] [address] PCP - General Family Medicine 06/18/15 documented as of this encounter
--- OUTSIDE RECORDS SUMMARY | 2025-02-05 16:52 | XMS_ITS | Clinical Summary ---
Author Organization [employer] Address [address] [facility] [address] [place] [address] Care Team Providers Care Family Literacy Coordinator Name Role Phone Name, Garth YOON Primary Care Provider [phone] Allergies Active Allergy Reactions Criticality Noted Date [...] per day. 40 g 06/16/19 25 Active Diclofenac Sodium 1 % gel [...] MEALS 180 tablet 1 09/07/19 25 Active aspirin 81 MG EC tablet [...] mouth before breakfast. 30 capsule 12/06/19 25 Active Spacer/Aero-Hol ding Chambers (OptiChamber Stella) misc 1 each every 4 (four) hours if needed (asthma). 1 each 5 10:07 AM EST 01/30/20 25 Active amoxicillin-cla vulanate (Augmentin) 875-125 MG tablet Take 1 tablet by mouth 2 times daily. 14 tablet 5 10:07 AM EST 01/30/20 25 Active albuterol 108 (90 Base) MCG/ACT inhalerIndicati ons:Mild intermittent asthma, unspecified whether complicated Inhale 2 puffs every 4 (four) hours if needed for wheezing or shortness of breath (cough). 8.5 g 2 5 10:07 AM EST 01/30/20 25 Active acetaminophen (Tylenol 8 Hour) 650 MG ER tablet Take 1 tablet (650 mg) by mouth every 8 (eight) hours if needed for mild pain. Do not crush, chew, or split. 30 tablet 5 10:07 AM EST 01/30/20 25 Active acetaminophen (Tylenol 8 Hour) 650 MG ER tablet Take 1 tablet (650 mg) by mouth every 8 (eight) hours if needed for mild pain. Do not crush, chew, or split. 20 tablet 08/17/19 25 025 Discontinued(R eorder (will not trigger notification to Pharmacy)) albuterol 108 (90 Base) MCG/ACT inhalerIndicati ons:Mild intermittent asthma, unspecified whether complicated INHALE 2 PUFFS BY MOUTH EVERY 4 TO 6 HOURS NEEDED 8.5 g 1 09/19/19 25 025 Discontinued(R eorder (will not trigger notification to Pharmacy)) Active Problems Problem Noted Date Diagnosed Date Localized gingival enlargement 08/16/2024 Ill-fitting dentures 03/20/2024 Excessive attrition of teeth, limited to enamel 01/20/2024 Partial edentulism 01/20/2024 Dental plaque 01/20/2024 Generalized gingival recession 01/20/2024 Defective dental hoahaoism 01/20/2024 Osteoarthritis of cervical spine 09/29/2023 Diffuse idiopathic skeletal hyperostosis of cervicothoracic spine 09/21/2022 Prediabetes 03/17/2022 History of colon polyps 03/17/2022 Overview (03/17/2022): [place] [facility]caneal spur 08/21/2018 Mild intermittent asthma 07/05/2018 Vertigo 05/10/2018 Primary osteoarthritis involving multiple joints 01/25/2018 Chronic back pain 01/04/2018 Abnormal MRI, thoracic spine 07/29/2017 Overview (12/05/2024): Hemangioma of thoracic vertebra S/p vertebroplasty done at [facility] Acute idiopathic pericarditis 03/29/2017 [...] Date Acute left eye pain 07/03/2024 12/06/19 Assessment & Plan (07/03/2024 1:42 PM EDT): [...] agreeable with plan To be seen by Project Superintendent TODAY Acute pain of left shoulder 11/16/2022 [...] Encounters Date Type Department Care Team Description 01/29/2025 9:00 AM EST Office Visit [facility] [address] [place] [phone] Bean Goff MD Cough in adult patient (Primary Dx); Acute non-recurrent sinusitis, unspecified location; Mild intermittent asthma, unspecified whether complicated 01/29/2025 Orders Only [address] [address] Bean Goff MD Mild intermittent asthma, unspecified whether complicated 01/29/2025 Travel 01/18/2025 Orders Only GENERIC EXTERNAL DATA DEPARTMENT Provider, Generic External Data 01/07/2025 Orders Only GENERIC EXTERNAL DATA DEPARTMENT Provider, Generic External Data 01/02/2025 Orders Only [address] [address] Neto Graham CNM Postmenopausal bleeding (Primary Dx) 12/28/[address] [address] Garth Brock MD Mild intermittent asthma, unspecified whether complicated 12/18/[address] [address] Neto Graham CNM Pelvis US appt 12/05/2024 9:30 AM EDT Office Visit [address] [address] Garth Brock MD Essential hypertension (Primary Dx); Chronic low back pain without sciatica, unspecified back pain laterality; NSAID long-term use; Pre-diabetes; History of colon polyps; Encounter for immunization 12/05/2024 Travel 12/04/2024 Telephone [facility] [address] [place] [address] Garth Brock MD Chart Prep 11/28/[address] [address] Neto Graham CNM Results 11/27/2024 Results Follow-Up [address] [address] Neto Graham CNM Pap Smear, STI testing add on (NG, CT, Trich), US Pelvis Transvaginal 11/21/2024 10:00 AM EDT Office Visit [address] [address] Neto Graham CNM Postmenopausal bleeding (Primary Dx); Screening examination for venereal disease; Routine cervical smear 11/21/2024 Travel 11/20/2024 Telephone [facility] [address] [facility] [place] [address] Neto Graham CNM CHART PREP 11/06/2024 Orders Only [facility] [address] [facility] [facility] [place] [address] Name, MD Garth from Last 3 Months [...] the past 12 months, has t he [employer], gas, oil or water company threatened to [...] Sign Reading Time Taken Comments Blood Pressure 147/82 01/29/2025 9:04 AM EST Pulse 80 01/29/2025 9:04 AM EST Temperature 36.8 C (98.2 F) 01/29/2025 9:04 AM EST Respiratory Rate 18 01/29/2025 9:04 AM EST Oxygen Saturation 97% 01/29/2025 9:04 AM EST Inhaled Oxygen Concentration - - Weight 91.6 kg (202 lb) 01/29/2025 9:04 AM EST Height 160 cm (5' 3 ) 12/05/2024 9:27 AM EDT Body Mass Index 35.78 12/05/2024 9:27 AM EDT Plan of Treatment Health Maintenance Due Date Last Done Comments CT Colonography 1955 FIT DNA/Cologuard 1955 FIT 1955 FOBT 1955 Sigmoidoscopy 1955 Hepatitis C Screening 1974 RSV Patients and Patients Aged 60 years or older (1 - Risk 50-74 years 1-dose series) 2006 Hepatitis B Vaccines (2 of 3 - 19+ 3-dose series) 10/01/2011 09/03/2011 Colonoscopy 12/30/2021 12/30/2016 Colorectal Cancer Screening 12/30/2021 [...] 08/17/2024, 01/03/2024, Additional history exists Tobacco Screening 01/29/2026 01/29/2025 Mammogram 11/06/2026 11/06/2024, 10/13, 10/27/2022, Additional history [...] Procedure Name Priority Date/Time Associated Diagnosis Comments POCT INFLUENZA A (ID NOW RAPID MOLECULAR) Routine 01/29/2025 9:22 AM EST Cough in adult patient POCT INFLUENZA B (ID NOW RAPID MOLECULAR) Routine 01/29/2025 9:22 AM EST Cough in adult patient POCT RAPID COVID ANTIGEN Routine 01/29/2025 9:11 AM EST Cough in adult patient HEMATOXYLIN AND EOSIN STAIN Routine 01/18/2025 7:53 AM EST CHLAMYDIA/N. GONORRHOEAE RNA, TMA, UROGENITAL Routine 01/07/2025 3:15 PM EDT US PELVIS TRANSVAGINAL Urgent 01/02/2025 3:04 PM [...] Recently Relevant to Health Maintenance Results * Influenza B (ID NOW Rapid Molecular) (01/29/2025 9:22 AM EST) Influenza B Negative Negative, Indeterminate [facility] Swab 01/29/2025 9:22 AM EST us Bean Goff MD POINT OF CARE TEST ENTER/EDIT OR DERABLES Final Result [facility] [address] [place] [phone] * Influenza A (ID NOW Rapid Molecular) (01/29/2025 9:22 AM EST) Influenza A Negative Negative, Indeterminate [facility] Swab 01/29/2025 9:22 AM EST us Bean Goff MD POINT OF CARE TEST ENTER/EDIT OR DERABLES Final Result [facility] [address] [place] [phone] * POCT Rapid COVID Ag (01/29/2025 9:11 AM EST) Rapid COVID Ag Negative Swab 01/29/2025 9:11 AM EST Bean Goff MD POINT OF CARE TEST ENTER/EDIT OR DERABLES Final Result * Hematoxylin and Eosin Stain (01/18/2025 7:53 AM EST) 01/18/2025 7:53 AM EST 01/18/2025 10:36 AM EST Narrative [facility] - 01/21/2025 2:31 PM EST ----- ------- Name: Evelia Holm Age/Sex: 69/F : 1955 Unit#: [id number] Attend Dr: Abebe Cosme MD Re01/18/25 [place] [facility]: [place] Disch: ----- ------- SPEC : [id number] RECD: 01/18/25-1035 STATUS: PAVEL GALLARDO NUM: [id number] DOM: 01/18/25-0753 [facility] DR: Abebe Cosme MD ENTERED: 01/18/25-1109 SP TYPE: Surgical OTHR DR: Garth Brock MD ORDERED: HE Stain/4, Gross Micro L4/2 Diagnosis A. Endometrium, curettage: Scant strips of benign atrophic endometrium, fragments of stroma, and benign endocervical glandular and squamous epithelium; no atypia or carcinoma. B. Endometrial polyp, resection: Fragments of benign endometrial polyp; no atypia or carcinoma. Clinical History Pre-Op Dx: Post menopausal bleeding Post-Op Dx: Endometrial polyp Microscopic Description Microscopic sections reviewed. Material Received A. [facility] [place] B. Endometrial polyp Gross Description A. Received in formalin is a 1.0 x 0.6 x 0.2 cm aggregate of quinones-red soft tissue, totally submitted in A1. B. Received in formalin in a mesh bag is a 2.2 x 1.8 x 0.3 cm aggregate of quinones-pink soft tissue fragments, totally submitted in B1. (RJD) IHC S/NG Disclaimer NOTE: Unless otherwise stated, all tissue is formalin-fixed and paraffin-embedded. Some or all of the immunohistochemical tests reported herein may have been developed and their performance characteristics determined by [facility]. They have not been cleared or approved by the U.S. Food and Drug Administration (FDA). However, the FDA has determined that such clearance or approval is not necessary. This laboratory is certified under the Clinical Laboratory Improvement Amendments of 1988 (CLIA) as qualified to perform high complexity clinical laboratory testing. CONTINUED ON NEXT PAGE ----- ------- Name: Evelia Holm Age/Sex: 69/F : 1955 Unit#: [id number] Attend Dr: Abebe Cosme MD Re01/18/25 Status: [facility] Location: HO.SSS Disch: ----- ------- SPEC : [id number] RECD: 01/18/25 STATUS: PAVEL GALLARDO NUM: [id number] DOM: 01/18/25 [facility] DR: Abebe Cosme MD ENTERED: 01/18/25 SP TYPE: Surgical OTHR DR: Garth Brock MD ORDERED: MARIEL Stain/4, Christa Goldsmith L4/2 Copies To: Garth Brock MD [address] [address] Abebe Cosme MD [facility] [address] [place] [address] Drive [address] [place] [address] ----- ------- Signed (signature on file) Diana Pride 01/21/25 1439 ----- ------- END OF REPORT us Generic External Data Provider LAB BLOOD ORDERAB LES Final Result [facility] [address] [place] [phone] * Chlamydia/N. Gonorrhoeae RNA, TMA, Urogenitial (01/07/2025 3:15 PM EDT) CT PCR NOT DETECTED Not Detect. [facility] Comment:A not detected test result does not exclude the possibilityof infection because test results can be affected byimproper specimen collection, concurrent antibiotic therapy,or the number of organisms in the specimen which may bebelow the sensitivity of the test. As with many diagnostictests, results from the Xpert CT/NG assay should beinterpreted in conjunction with other laboratory andclinical data available to the clinician.Xpert CT/NG performance has not been evaluated in patientsless than 14 years of age. The assay should not be used forthe evaluationof suspected sexual abuse or for other medico-legalindications. Additional testing is recommended in anycircumstance when false positive or false negative resultscould lead to adverse medical, social or psychologicalconsequences. NG PCR NOT DETECTED Not Detect. [facility] Comment:A not detected test result does not exclude the possibilityof infection because test results can be affected byimproper specimen collection, concurrent antibiotic therapy,or the number of organisms in the specimen which may bebelow the sensitivity of the test. As with many diagnostictests, results from the Xpert CT/NG assay should beinterpreted in conjunction with other laboratory andclinical data available to the clinician.Xpert CT/NG performance has not been evaluated in patientsless than 14 years of age. The assay should not be used forthe evaluationof suspected sexual abuse or for other medico-legalindications. Additional testing is recommended in anycircumstance when false positive or false negative resultscould lead to adverse medical, social or psychologicalconsequences. 01/07/2025 3:15 PM EDT 01/07/2025 5:12 PM EDT us Generic External Data Provider LAB MICROBIOLOGY - GENERAL ORDERABLES Final Result [facility] [address] [place] [phone] * US Pelvis Transvaginal (01/02/2025 3:04 PM EDT) Anatomical Region Laterality Modality Pelvis Ultrasound 01/02/2025 3:04 PM EDT Narrative 01/02/2025 3:41 PM EDT [address] [address] Ultrasound Report Signed Patient: Evelia Holm MR#: [id number] : 1955 Acct:[id number] Age/Sex: 69 / F ADM Date: 01/02/25 Loc: HO.US Attending Dr: Neto Graham CNM Ordering Physician: NETO GRAHAM CNM Date of Service: 01/02/25 Procedure(s): US pelvic and transvaginal Accession Number(s): [id number] cc: Name,Garth YOON; NETO GRAHAM CNM Reason for Exam: [...] 01/02/25 1538 DD/ 1504 TD/TT: 01/02/25 1520 Lab Systems Analyst: Procedure Note Donotuseinterpreter, Image - 01/02/[address] [address] Ultrasound Report Signed Patient: Raza Holm#: [id number] : 1955cct:[id number] Age/Sex: 69 / FADM Date: 01/02/25 Loc: HO.US Attending Dr: Neto Graham CNM Ordering Physician: NETO GRAHAM CNM Date of Service: 01/02/25 Procedure(s): US pelvic and transvaginal Accession Number(s): [id number] cc: Name,Garth YOON; NETO GRAHAM CNM Reason for Exam: [...] 01/02/25 1538 DD/ 1504 TD/TT: 01/02/25 1520 Lab Systems Analyst: us Neto Graham CNM IMG US PROCEDURES Final R esult * (ABNORMAL) CBC auto differential (12/05/2024 10:07 AM EDT) White Blood Count 7.2 4.8 - 10.8 X10*3/uL [facility] Red Blood Count 5.42 4.20 - 5.50 X10*6/uL [facility] Hemoglobin 15.3 12.0 - 16.0 g/dl [facility] Hematocrit 47.9(H) 37.0 - 47.0 % [facility] Mean Corpuscular Volume 88.4 80.0 - 98.0 fL [facility] Mean Corpuscular Hemoglobin 28.2 27.0 - 33.0 pg [facility] Mean Corpuscular HGB Conc 31.9 31.0 - 35.0 g/dl [facility] Red Cell Distribution Width 13.2 11.0 - 16.0 % [facility] Platelet Count 266 160 - 400 X10*3/uL [facility] Mean Platelet Volume 11.6 9.4 - 12.3 fL [facility] Neutrophils Percent Auto 64.8 45 - 73 % [facility] Imm Gran Pct Auto 0.3 0.0 - 0.4 % [facility] Lymphocytes Percent Auto 22.5 20 - 40 % [facility] Monocytes Percent Auto 9.6 2 - 11 % [facility] Eosinophils Percent Auto 2.2 0 - 4 % [facility] Basophils Percent Auto 0.6 0 - 2 % [facility] NRBC Pct Auto 0.0 0.0 - 0.2 /100WBC [facility] Neutrophils Absolute Auto 4.6 2.0 - 8.3 x10*3/uL [facility] Imm Gran Abs Auto 0.02 0.00 - 0.03 X10*3/uL [facility] Lymphocytes Absolute Auto 1.6 1.2 - 4.9 X10*3/uL [facility] Monocytes Absolute Auto 0.7 0.1 - 1.2 X10*3/uL [facility] Eosinophils Absolute Auto 0.2 0.0 - 0.4 X10*3/uL [facility] Basophils Absolute Auto 0.0 0.0 - 0.2 X10*3/uL [facility] NRBC Abs Auto 0.000 0.0 - 0.012 X10*3/uL [facility] Blood Venous blood specimen / Unknown 12/05/2024 10:07 AM EDT 12/05/2024 11:28 AM EDT us Garth Brock MD LAB BLOOD ORDERABLES Final Resul t Performing Organization Address [facility] de Phone Number [facility] [address] [place] [phone] * Hemoglobin A1c (12/05/2024 10:07 AM EDT) Hemoglobin A1c 6.0 <6.0 % [facility] Comment:Hemoglobin A1C Refer ence Range Adults: 4.8 - 6.0 % Non diabetic: < 6.0 % Goal: < 7.0 %Additional Action Suggested: > 8.0 %Note: Hemoglobin A1c results are invalid for patients with abnormal amounts of HbF. Blood transfusions may impact the HbA1c concentration in the patient sample. Estimated Average Glucose 126 mg/dL [facility] Comment:eAG = Estimated ave rage glucose which is %A1C expressed asaverage glucose, using the formula of the U0U-MaidterUslbiph Glucose study (ADAG), Diabetes Care, Vol.31,#8,Oct. 2007 Blood Venous blood specimen / Unknown 12/05/2024 10:07 AM EDT 12/05/2024 11:28 AM EDT us Garth Brock MD LAB BLOOD ORDERABLES Final Resul t Performing Organization Address [facility] Co de Phone Number [facility] [address] [place] [phone] * Basic Metabolic Panel (12/05/2024 10:07 AM EDT) Sodium 144 135 - 145 mmol/L [facility] Potassium 4.6 3.3 - 5.1 mmol/L [facility] Chloride 107 96 - 108 mmol/L [facility] Carbon Dioxide 29 22 - 29 mmol/L [facility] Anion Gap 13 12 - 20 [facility] Urea Nitrogen (BUN) 13 9 - 16 mg/dL [facility] Creatinine, Serum 0.67 0.5 - 1.4 mg/dL [facility] Estimated Glomerular Filt Rate >60 [facility] Comment:Chronic Kidney Disea se: Estimated GFR < 60 mL/min/1.70p3Hdmjqt Kidney Disease: Estimated GFR < 15 mL/min/1.73m2 Glucose 79 60 - 115 mg/dL [facility] Calcium 9.1 8.4 - 10.2 mg/dL [facility] Blood Venous blood specimen / Unknown 12/05/2024 10:07 AM EDT 12/05/2024 11:21 AM EDT Garth Brock MD LAB BLOOD ORDERABLES Final Resul t [facility] [address] [place] [phone] * STI testing add on (NG, CT, Trich) (11/21/2024 10:25 AM EDT) Trichomonas (NAAT) NOT DETECTED NOT DETECTED [facility] Comment:The analytical perfo rmance characteristics of thisassay have been determined by [employer]. Themodifications have not been cleared or approved bythe FDA. This assay has been validated pursuant to theCLIA regulations and is used for clinical purposes.For additional information, please refer tohttp://education.[employer]/faq/Trichomonastma(This link is being provided for information/educational purposes only.)THIS TEST WAS PERFORMED AT:[email or web address] [place] [phone] VALERO MD CTNG Ref Lab NOT DETECTED NOT DETECTED [facility] NG Ref Lab NOT DETECTED NOT DETECTED [facility] Swab 11/21/2024 10:2 5 AM EDT 11/22/2024 7:01 AM EDT Neto Graham [facility] CYTOLOGY ORDERABLES F inal Result Performing Organization Address [facility]/ZIP Co de Phone Number [facility] [address] [place] [phone] * HPV DNA, Low/High Risk (11/21/2024 10:25 AM EDT) HPV High Risk Negative Negative [facility] HPV Genotype 16 Negative Negative [facility] HPV Genotype 18 Negative Negative [facility] Comment:HPV testing performe d at [facility] (CLIA#[id number]), [address] [place] [address].Testing for HPV was performed using the [employer]0system. The presence of HPV in the female [...] EDT 11/22/2024 7:01 AM EDT Neto Graham [facility] BLOOD ORDERABLES Sowmya l Result Performing Organization Address [facility]/ZIP Co de Phone Number [facility] [address] [place] [phone] * Pap Smear (11/21/2024 10:25 AM EDT) Swab 11/21/2024 10:2 5 AM EDT 11/22/2024 7:01 AM EDT Narrative [facility] - 11/27/2024 10:32 AM EDT ----- ------- Name: Evelia Holm Age/Sex: 68/F : 1955 Unit#: [id number] Attend Dr: NETO GRAHAM CNM Re11/21/24 Status: DEP [facility] Disch: ----- ------- SPEC : [id number] RECD: 11/22/24 STATUS: PAVEL SAMI NUM: [id number] DOM: 11/21/24-1025 [facility] DR: NETO GRAHAM CNM ENTERED: 11/22/24 SP TYPE: Pap Smr OTHR : ORDERED: Pap Smear Interpretation Satisfactory for evaluation. [...] and HPV testing will be performed at [facility] (IA #[id number]), [address] [place] [address]. Testing for HPV was performed using the [employer] 6800 system. The presence of HPV in [...] detected. All professional services are performed by [facility] ([address] [place] [id number]; ; CLIA #[id number]). The PAP Test is a screening procedure with the inherent possibility of both false negative and false positive results. Results should be interpreted in the context of historic and current clinical findings. Reliability of the PAP Test is enhanced by performing the test on a regular repetitive basis. ----- ------- Signed (signature on file) ЮЛИЯ Singh ([facility]) 11/27/24 1032 ----- ------- END OF REPORT us Neto Graham [facility] CYTOLOGY ORDERABLES F inal Result [facility] [address] [place] [phone] * BI Mammogram Screening Tomosynthesis Bilateral (11/06/2024 2:00 PM EDT) Anatomical Region Laterality Modality Breast Bilateral Mammography 11/06/2024 2:00 PM EDT Narrative 11/10/2024 11:41 AM EDT [facility] [address] [place] [address] Mammography Report Signed Patient: Evelia Holm MR#: [id number] : 1955 Acct:[id number] Age/Sex: 68 / F ADM Date: 11/06/24 Loc: HO.MAMMO Attending Dr: Garth Brock MD Ordering Physician: Garth Brock MD Results: 1Negative Date of Service: 11/06/24 Follow Up: 1 Year From Orig inal Mammogram Procedure(s): MM tomosynthesis screening BI Accession Number(s): [id number] cc: Garth Brock MD EXAMINATION: MM SCREENING [...] 11/10/24 1138 DD/ 1400 TD/TT: 11/06/24 1425 Lab Systems Analyst: Procedure Note Donotuseinterpreter, Image - 11/10/2024 [facility] [address] [place], [place] [address] Mammography Report Signed Patient: Evelia HolmMR#: [id number] : 1955cct:[id number] Age/Sex: 68 / FADM Date: 11/06/24 Loc: HO.MAMMO Attending Dr: Garth Brock MD Ordering Physician: Garth Brock MDResults: 1Negative Date of Service: 11/06/24Follow Up: 1 Year From Orig inal Mammogram Procedure(s): MM tomosynthesis screening BI Accession Number(s): [id number] cc: Garth Brock MD EXAMINATION: MM SCREENING [...] 11/10/24 1138 DD/ 1400 TD/TT: 11/06/24 1425 Lab Systems Analyst: us Garth Brock MD IMG BI PROCEDURES Final Result * (ABNORMAL) Lipid Panel, Standard (05/23/2024 8:22 AM EDT) Triglycerides 99 <150 mg/dL [facility] Comment:Desirable Triglyceri de: less than 150 mg/dLBorderline High Triglyceride 150-199 mg/dLHigh Triglyceride: 200-499 mg/dLVery High Triglyceride: greater than or equal to 5OO mg/dL Cholesterol 209(H) <200 mg/dL [facility] Comment:Desirable Cholestero l: less than 200 mg/dLBorderline High Cholesterol: 200-239 mg/dLHigh Cholesterol: greater than 239 mg/dL LDL Cholesterol Calculated 121(H) <100 mg/dL [facility] Comment:Desirable LDL: less than 100 mg/dLNear Optimal/Above Optimal LDL: 110- 129 mg/dLBorderline High LDL: 130-159 mg/dLHigh LDL: 160-189 mg/dLVery High LDL: greater than or equal to 190 mg/dL HDL Cholesterol 69 >40 mg/dL [facility] Comment:Desirable HDL: great er than 40 mg/dL Note: This HDL assay may give artificially low results in patients with liver disease. Blood Venous blood specimen / Unknown 05/23/2024 8:22 AM EDT 05/23/2024 11:40 AM EDT Garth Brock MD LAB BLOOD ORDERABLES Final Resul t [facility] [address] [place] [phone] * Hm Colonoscopy (12/30/2016) Colonoscopy Performed Historical Provider HEALTH MAINTENANCE Final Result from Last 3 Months or Most Recently Relevant to Health Maintenance Insurance MEDICARE [facility] [facility] ST[facility] Care Teams Family Literacy Coordinator Relationship Specialty Start Date End Date Name, MD Garth [address] [place] [address] PCP - General Family Medicine 06/18/15
--- OUTSIDE RECORDS SUMMARY | 2025-02-05 16:52 | XMS_ITS | Encounter Summary ---
Author Organization [employer] Address [address] [place] [address] [address] [place] [address] Care Team Providers Care Sealer Aircraft Name Role Phone Name, Garth YOON Primary Care Provider [phone] Reason for Visit * Reason Comments Med Refill Encounter Details Date Type Department Care Team ([facility] st Contact Info) Description 11/22/[address] [facility] [address] [place] [address] Name, MD Garth [address] [place] [address] Essential (primary) hypertension Social History Tobacco Use [...] documented as of this encounter Care Teams Sealer Aircraft Relationship Specialty Start Date End Date Name, MD Garth [address] [place] [id number] PCP - General Family Medicine 06/18/15 documented as of this encounter
--- OUTSIDE RECORDS SUMMARY | 2025-02-05 16:52 | XMS_ITS | Encounter Summary ---
Author Organization [employer] Address [address] [facility] [address] [place] [address] Care Team Providers Care Project Coach Name Role Phone Name, Garth YOON Primary Care Provider [phone] Reason for Visit * Reason Comments Med Refill Encounter Details Date Type Department Care Team ([facility] st Contact Info) Description 12/28/2024 Refill [facility] [address] [place] [address] Name, MD Garth [address] [place] [address] Mild intermittent asthma, unspecified whether complicated Social [...] as of this encounter Care Teams Project Coach Relationship Specialty Start Date End Date Name, MD Garth [address] [place] [address] PCP - General Family Medicine 06/18/15 documented as of this encounter
--- OUTSIDE RECORDS SUMMARY | 2025-02-05 16:52 | XMS_ITS | Encounter Summary ---
Author Organization [employer] Address [address] [facility] [address] [place] [address] Care Team Providers Care Community Relations Representative Name Role Phone Name, Garth YOON Primary Care Provider [phone] Reason for Visit * Reason Comments Med Refill Encounter Details Date Type Department Care Team ([facility] st Contact Info) Description 06/25/2024 Refill [facility] [address] [place] [address] Name, MD Garth [address] [place] [address] Mild intermittent asthma, unspecified whether complicated Social [...] documented as of this encounter Care Teams Community Relations Representative Relationship Specialty Start Date End Date Name, MD Garth [address] [place] [address] PCP - General Family Medicine 06/18/15 documented as of this encounter
--- OUTSIDE RECORDS SUMMARY | 2025-02-05 16:52 | XMS_ITS | Encounter Summary ---
Author Organization [employer] Address [address] [facility] [address] [place] [address] Care Team Providers Care Stars Coordinator Name Role Phone Name, Garth YOON Primary Care Provider [phone] Reason for Visit * Reason Onset Date Comments case back from lab? 03/01/2024 Encounter Details Date Type Department Care Team ([facility] st Contact Info) Description 03/01/2024 Telephone [facility] [address] [place] [address] Jeff Cedeno DDS [address] [place] [address] case back from lab? Social History Tobacco [...] documented as of this encounter Care Teams Stars Coordinator Relationship Specialty Start Date End Date Name, MD Garth [address] [place] [address] PCP - General Family Medicine 06/18/15 documented as of this encounter
== END 2025-02-05 13:24 | disposition home or self-care (01) ==
LOC: HO.HWS 13:05
PROVIDERS: PCP Internal Medicine Geriatric Medicine; Visit Provider Obstetrics & Gynecology
DX: N95.0 Postmenopausal bleeding (principal)
CPT/HCPCS: 99213

== ENCOUNTER → 2025-02-05 13:04 | Outpatient (BNVA) | payer MEDICARE, MEDICAID, SELFPAY | PROVIDERS: PCP Internal Medicine Geriatric Medicine; Visit Provider Obstetrics & Gynecology | DX: N95.0 Postmenopausal bleeding (principal) | CPT/HCPCS: 99212 ==